=== PATIENT | male | born 1955 | race Two or more races ===

== ENCOUNTER → 2016-05-19 | Outpatient (REF) | payer MEDICARE, MEDICAID ==
[~2016-05-19] MED LIST: ALB2.5NEB INH; ALBU17IN INH; ASPI81TA4 PO; ATRO1SOL13; ATRO1SOL13 INH; BENZ1TA PO; CALC-190 PO; CELE40TA PO; COUM2.5T11 PO; DOCQ100C PO; INVE39IN IM; IPRA2IN INH; MAGN400T5 PO; METF500T PO; OMEP40CA2 PO; PERC5TAB6 PO; REME15TA PO; SERO200T PO; VITA200028 PO
[2016-05-19 13:23] LABS: MEAN CORPUSCULAR HGB CONC 33.7 g/dl (32.0-36.5); RED CELL DISTRIBUTION WIDTH 14.3 % (11.5-14.5); WHITE BLOOD COUNT 12.5 K/mm3 (4.0-10.0)
[2016-05-19 13:48] LABS: ALBUMIN 3.6 GM/DL (3.2-5.2); ALBUMIN/GLOBULIN RATIO 1.09 (1.00-1.93); ALKALINE PHOSPHATASE 98 U/L (45-117); ALT/SGPT 33 U/L (12-78); ANION GAP 9 MEQ/L (8-16); AST/SGOT 21 U/L (15-37); BILIRUBIN,TOTAL 0.2 MG/DL (0.2-1.0); BLOOD UREA NITROGEN 8 MG/DL (7-18); CARBON DIOXIDE LEVEL 27 MEQ/L (21-32); CHLORIDE LEVEL 106 MEQ/L (98-107); CHOLESTEROL LEVEL 182 MG/DL (<200); CREATININE FOR GFR 0.76 MG/DL (0.70-1.30); FERRITIN 21 NG/ML (26-388); GLOMERULAR FILTRATION RATE > 60.0 (>49); GLUCOSE, FASTING 104 MG/DL (80-110); POTASSIUM SERUM 4.1 MEQ/L (3.5-5.1); SODIUM LEVEL 142 MEQ/L (136-145); TOTAL PROTEIN 6.9 GM/DL (6.4-8.2); TRIGLYCERIDES LEVEL 140 MG/DL (<150)
== END ==
LOC: M SFHCPLAZ 10:54
PROVIDERS: ATTEND Nurse Practitioner Family
DX: D50.9 Iron deficiency anemia, unspecified (principal); E88.81 Metabolic syndrome and other insulin resistance; E55.9 Vitamin D deficiency, unspecified; Z79.899 Other long term (current) drug therapy

== ENCOUNTER 2016-07-12 17:46 | Emergency (ER) | payer MEDICARE, MEDICAID ==
[~2016-07-12] VITALS: Ht 170.2 cm; Wt 108.0 kg
[2016-07-12 17:47] VITALS: BP 125/70
[2016-07-12] MEDS ORDERED: KEFL500C7 PO (19:09)
[2016-07-12] MEDS ORDERED: NAPR500T PO (19:09)
[2016-07-12] MEDS ORDERED: NAPROXEN 250 MG TAB PO ONE (19:15)
[2016-07-12] MEDS ORDERED: CEPHALEXIN 500 MG CAP PO ONE (19:15)
== END 2016-07-12 19:29 | disposition home or self-care (01) ==
LOC: M ED 19:02
DX: K11.21 Acute sialoadenitis (principal); J45.909 Unspecified asthma, uncomplicated; G47.30 Sleep apnea, unspecified; E11.9 Type 2 diabetes mellitus without complications; K76.9 Liver disease, unspecified; F41.9 Anxiety disorder, unspecified; F33.9 Major depressive disorder, recurrent, unspecified; F25.9 Schizoaffective disorder, unspecified; Z79.899 Other long term (current) drug therapy; Z88.0 Allergy status to penicillin

== ENCOUNTER 2016-08-11 16:06 | Emergency (ER) | payer MEDICARE, MEDICAID ==
[~2016-08-11] VITALS: Ht 170.2 cm; Wt 113.3 kg
[~2016-08-11 16:06] MED LIST changes: +ASPI81TA18 PO; -ASPI81TA4 PO; +BENZ-52 PO; -BENZ1TA PO; -COUM2.5T11 PO; +COUM2.5T17 PO; +KEFL500C17 PO; -METF500T PO; +METF500T13 PO; +NAPR500T PO; +PERC5TAB12 PO; -PERC5TAB6 PO
[2016-08-11] MEDS ORDERED: GABA-283 (16:30)
[2016-08-11] MEDS ORDERED: INVE1.31 IM (16:30)
[2016-08-11] MEDS ORDERED: MIRT45TA (16:30)
[2016-08-11] MEDS ORDERED: FERR1TAB8 PO (16:30)
[2016-08-11] MEDS ORDERED: NS 1,000 ML IV ONE (17:00)
[2016-08-11] MEDS ORDERED: PANTOPRAZOLE 40MG INJ (PROTONIX) (C9113) IV ONE (17:00)
[2016-08-11 17:43] LABS: BASO # 0.1 K/mm3 (0.0-0.2); BASO % 0.7 % (0.0-1.0); EOS # 0.8 K/mm3 (0.0-0.50); EOS % 4.5 % (0.0-3.0); LARGE UNSTAINED CELL # 0.3 K/mm3 (0.0-0.4); LARGE UNSTAINED CELL % 1.7 % (0.0-4.0); LYMPH # 4.3 K/mm3 (1.5-4.5); LYMPH % 22.9 % (24.0-44.0); MEAN CORPUSCULAR HEMOGLOBIN 29.9 pg (27.0-33.0); MEAN CORPUSCULAR HGB CONC 34.4 g/dl (32.0-36.5); MEAN CORPUSCULAR VOLUME 86.9 fl (80.0-96.0); MONO % 5.1 % (0.0-5.0); NEUTROPHILS # 12.3 K/mm3 (1.8-7.7); NEUTROPHILS % 65.2 % (36.0-66.0); PLATELET COUNT, AUTOMATED 314 k/mm3 (150-450); RED CELL DISTRIBUTION WIDTH 13.9 % (11.5-14.5); WHITE BLOOD COUNT 18.9 K/mm3 (4.0-10.0)
[2016-08-11 17:48] LABS: INR 1.03
[2016-08-11 17:56] LABS: ALBUMIN 3.9 GM/DL (3.2-5.2); ALBUMIN/GLOBULIN RATIO 0.91 (1.00-1.93); ALKALINE PHOSPHATASE 122 U/L (45-117); ALT/SGPT 39 U/L (12-78); AMYLASE 25 U/L (25-115); ANION GAP 9 MEQ/L (8-16); AST/SGOT 22 U/L (15-37); BILIRUBIN,DIRECT < 0.1 MG/DL (0.0-0.2); BILIRUBIN,TOTAL 0.3 MG/DL (0.2-1.0); BLOOD UREA NITROGEN 11 MG/DL (7-18); CALCIUM LEVEL 9.4 MG/DL (8.8-10.2); CARBON DIOXIDE LEVEL 27 MEQ/L (21-32); CHLORIDE LEVEL 102 MEQ/L (98-107); CREATININE FOR GFR 0.93 MG/DL (0.70-1.30); GLOMERULAR FILTRATION RATE > 60.0 (>49); GLUCOSE, FASTING 112 MG/DL (80-110); POTASSIUM SERUM 4.5 MEQ/L (3.5-5.1); SODIUM LEVEL 138 MEQ/L (136-145); TOTAL PROTEIN 8.2 GM/DL (6.4-8.2)
[2016-08-11] MEDS ORDERED: ISOVUE-370 76% 100ML VIAL (Q9967) As Ordered ONE (18:02)
--- NOTE | 2016-08-11 18:38 | REP ---
Clinical: Epigastric and right lower quadrant pain. Technique: Axial contrast enhanced images from the lung bases to the pubic symphysis using 100 ml Isovue 370 intravenous contrast material with coronal and sagittal re-formations. Comparison: 07/07/2015. Findings: Lung bases clear. Visualized heart and pericardium normal. Liver, spleen, pancreas, bilateral adrenal glands and kidneys are normal. The patient is status post cholecystectomy. The enteric system is without obstruction or acute inflammatory process and a normal terminal ileum and appendix are identified in the right lower quadrant. Mild to moderate fecal stasis cannot be excluded. Pelvis demonstrates normal bladder and age appropriate prostate/seminal vesicles. The rectosigmoid colon is normal. No pelvic fluid or ascites. No free air. No adenopathy. No hernia. Vasculature is normal. Musculoskeletal structures demonstrate age-related changes and evidence for prior posterior lumbar fixation. Impression: No acute abdominopelvic pathology appreciated. Mild to moderate fecal stasis cannot be excluded. Signed by José Miguel Mcdermott MD 08/11/2016 06:29 P
[2016-08-11 19:07] VITALS: BP 122/75
[2016-08-11] MEDS ORDERED: MIRA3350 PO (19:10)
[2016-12-09] MEDS ORDERED: INGR40CA PO (00:52)
[2016-12-09] MEDS ORDERED: VENL75CA47 PO (00:52)
[2016-12-09] MEDS ORDERED: CYCL10TA PO (00:52)
[2016-12-09] MEDS ORDERED: LORA10TA2 PO (00:52)
[2016-12-09] MEDS ORDERED: ATOR80TA59 PO (00:52)
[2016-12-09] MEDS ORDERED: MIRT45TA PO (00:52)
[2016-12-09] MEDS ORDERED: CITA20TA4 PO (00:52)
[2016-12-09] MEDS ORDERED: DOCU100C16 PO (00:52)
[2016-12-09] MEDS ORDERED: TRAZ1TAB14 PO (00:52)
== END 2016-08-11 19:27 | disposition home or self-care (01) ==
LOC: M ED 16:06
DX: K59.00 Constipation, unspecified (principal); D72.829 Elevated white blood cell count, unspecified; R05 Cough; E11.9 Type 2 diabetes mellitus without complications; J45.909 Unspecified asthma, uncomplicated; K76.9 Liver disease, unspecified; F33.9 Major depressive disorder, recurrent, unspecified; F41.9 Anxiety disorder, unspecified; F20.9 Schizophrenia, unspecified; G47.30 Sleep apnea, unspecified; R01.1 Cardiac murmur, unspecified; Z87.891 Personal history of nicotine dependence; Z88.0 Allergy status to penicillin; Z79.899 Other long term (current) drug therapy; Z79.01 Long term (current) use of anticoagulants
CPT/HCPCS: 74177; 80048; 80076; 82150; 83605; 83690; 85025; 85610; 96361; 96374; 99284; C9113; Q9967

== ENCOUNTER → 2016-08-15 | Outpatient (REF) | payer MEDICARE, MEDICAID ==
[~2016-08-15] MED LIST changes: +ATIV1TAB10 PO; +ATOR80TA59 PO; +CITA20TA4 PO; +CYCL10TA PO; +DOCU100C16 PO; +FERR1TAB8 PO; +GABA-283; +INGR40CA PO; +INVE1.31 IM; +LORA10TA2 PO; +MIRA3350 PO; +MIRT45TA; +MIRT45TA PO; +TRAZ1TAB14 PO; +VENL75CA47 PO
[2016-08-15 15:33] LABS: BASO # 0.1 K/mm3 (0.0-0.2); BASO % 0.6 % (0.0-1.0); EOS # 0.5 K/mm3 (0.0-0.50); EOS % 4.1 % (0.0-3.0); LARGE UNSTAINED CELL # 0.1 K/mm3 (0.0-0.4); LARGE UNSTAINED CELL % 1.1 % (0.0-4.0); LYMPH % 21.9 % (24.0-44.0); MEAN CORPUSCULAR HEMOGLOBIN 29.5 pg (27.0-33.0); MEAN CORPUSCULAR VOLUME 89.3 fl (80.0-96.0); MONO # 0.8 K/mm3 (0.0-0.8); NEUTROPHILS # 8.6 K/mm3 (1.8-7.7); NEUTROPHILS % 66.3 % (36.0-66.0); PLATELET COUNT, AUTOMATED 314 k/mm3 (150-450); RED CELL DISTRIBUTION WIDTH 14.3 % (11.5-14.5)
== END ==
LOC: M SFHCPLAZ 13:39
PROVIDERS: ATTEND Physician Assistant
DX: D72.829 Elevated white blood cell count, unspecified (principal); J02.9 Acute pharyngitis, unspecified
CPT/HCPCS: 36415; 85025; 87070; G0463

== ENCOUNTER 2016-09-01 10:20 | Emergency (ER) | payer MEDICARE, MEDICAID ==
[~2016-09-01] VITALS: Ht 170.2 cm; Wt 109.1 kg
[~2016-09-01 10:20] MED LIST changes: -ATIV1TAB10 PO; -ATOR80TA59 PO; -CITA20TA4 PO; -CYCL10TA PO; -DOCU100C16 PO; -INGR40CA PO; -LORA10TA2 PO; -MIRT45TA PO; -TRAZ1TAB14 PO; -VENL75CA47 PO
[2016-09-01 10:21] VITALS: BP 134/83
[2016-09-01] MEDS ORDERED: LORazepam 2 MG TAB PO STA (10:55)
[2016-09-01] MEDS ORDERED: ATIV1TAB10 PO (13:17)
[2016-12-09] MEDS ORDERED: ATOR80TA59 PO (00:52)
[2016-12-09] MEDS ORDERED: DOCU100C16 PO (00:52)
[2016-12-09] MEDS ORDERED: INGR40CA PO (00:52)
[2016-12-09] MEDS ORDERED: MIRT45TA PO (00:52)
[2016-12-09] MEDS ORDERED: CYCL10TA PO (00:52)
[2016-12-09] MEDS ORDERED: TRAZ1TAB14 PO (00:52)
[2016-12-09] MEDS ORDERED: LORA10TA2 PO (00:52)
[2016-12-09] MEDS ORDERED: VENL75CA47 PO (00:52)
[2016-12-09] MEDS ORDERED: CITA20TA4 PO (00:52)
== END 2016-09-01 13:22 | disposition home or self-care (01) ==
LOC: M ED 10:20
DX: F41.9 Anxiety disorder, unspecified (principal); E11.9 Type 2 diabetes mellitus without complications; G47.30 Sleep apnea, unspecified

== ENCOUNTER → 2016-09-26 | Outpatient (REF) | payer MEDICARE, MEDICAID ==
[~2016-09-26] MED LIST changes: +ATIV1TAB10 PO; +ATOR80TA59 PO; +CITA20TA4 PO; +CYCL10TA PO; +DOCU100C16 PO; +INGR40CA PO; +LORA10TA2 PO; +MIRT45TA PO; +TRAZ1TAB14 PO; +VENL37.598 PO; +VENL75CA47 PO; +[UNRECOGNIZED DRUG - OTHER] PO
[2016-09-26 16:08] LABS: ALBUMIN/GLOBULIN RATIO 1.18 (1.00-1.93); ALKALINE PHOSPHATASE 122 U/L (45-117); ALT/SGPT 46 U/L (12-78); ANION GAP 11 MEQ/L (8-16); AST/SGOT 23 U/L (15-37); BILIRUBIN,TOTAL 0.3 MG/DL (0.2-1.0); BLOOD UREA NITROGEN 9 MG/DL (7-18); CALCIUM LEVEL 9.3 MG/DL (8.8-10.2); CARBON DIOXIDE LEVEL 24 MEQ/L (21-32); CHLORIDE LEVEL 106 MEQ/L (98-107); CHOLESTEROL LEVEL 141 MG/DL (<200); CREATININE FOR GFR 0.99 MG/DL (0.70-1.30); FERRITIN 51 NG/ML (26-388); GLOMERULAR FILTRATION RATE > 60.0 (>49); GLUCOSE, FASTING 109 MG/DL (80-110); POTASSIUM SERUM 4.3 MEQ/L (3.5-5.1); SODIUM LEVEL 141 MEQ/L (136-145); TOTAL PROTEIN 7.4 GM/DL (6.4-8.2); TRIGLYCERIDES LEVEL 148 MG/DL (<150)
[2016-09-26 16:13] LABS: MEAN CORPUSCULAR HEMOGLOBIN 29.5 pg (27.0-33.0); MEAN CORPUSCULAR HGB CONC 33.4 g/dl (32.0-36.5); MEAN CORPUSCULAR VOLUME 88.2 fl (80.0-96.0); RED CELL DISTRIBUTION WIDTH 14.1 % (11.5-14.5); WHITE BLOOD COUNT 15.8 K/mm3 (4.0-10.0)
== END ==
LOC: M SFHCPLAZ 14:02
PROVIDERS: ATTEND Nurse Practitioner Family
DX: D50.9 Iron deficiency anemia, unspecified (principal); E78.2 Mixed hyperlipidemia; E11.9 Type 2 diabetes mellitus without complications; Z12.5 Encounter for screening for malignant neoplasm of prostate
CPT/HCPCS: 36415; 80053; 80061; 82728; 83036; 85027; G0103

== ENCOUNTER 2016-10-22 11:11 | Emergency (ER) | payer MEDICARE, MEDICAID ==
[~2016-10-22] VITALS: Ht 170.2 cm; Wt 128.6 kg
[~2016-10-22 11:11] MED LIST changes: -ATOR80TA59 PO; -CITA20TA4 PO; -CYCL10TA PO; -DOCU100C16 PO; -INGR40CA PO; -LORA10TA2 PO; -MIRT45TA PO; -TRAZ1TAB14 PO; -VENL37.598 PO; -VENL75CA47 PO; -[UNRECOGNIZED DRUG - OTHER] PO
[2016-10-22 11:13] VITALS: BP 142/78
--- NOTE | 2016-10-22 12:44 | REP ---
Clinical: Cough . Comparison: 08/31/2015 . Technique: PA and lateral. Findings: The mediastinum and cardiac silhouette are normal. The lung montoya are clear and without acute consolidation, effusion, or pneumothorax. The skeletal structures are intact and normal. Impression: 1. No acute cardiopulmonary process. Signed by José Miguel Mcdermott MD 10/22/2016 12:34 P
[2016-10-22] MEDS ORDERED: CYCL10TA PO (13:07)
[2016-12-09] MEDS ORDERED: LORA10TA2 PO (00:52)
[2016-12-09] MEDS ORDERED: INGR40CA PO (00:52)
[2016-12-09] MEDS ORDERED: CYCL10TA PO (00:52)
[2016-12-09] MEDS ORDERED: VENL75CA47 PO (00:52)
[2016-12-09] MEDS ORDERED: DOCU100C16 PO (00:52)
[2016-12-09] MEDS ORDERED: CITA20TA4 PO (00:52)
[2016-12-09] MEDS ORDERED: ATOR80TA59 PO (00:52)
[2016-12-09] MEDS ORDERED: TRAZ1TAB14 PO (00:52)
[2016-12-09] MEDS ORDERED: MIRT45TA PO (00:52)
[2016-12-14] MEDS ORDERED: VENL37.598 PO (10:13)
[2016-12-14] MEDS ORDERED: [UNRECOGNIZED DRUG - OTHER] PO (10:13)
[2016-12-14] MEDS ORDERED: BENZ-52 PO (15:47)
[2016-12-14] MEDS ORDERED: ATOR80TA59 PO (15:50)
[2016-12-14] MEDS ORDERED: CALC-190 PO (15:52)
[2016-12-14] MEDS ORDERED: COLA100C5 PO (15:54)
[2016-12-14] MEDS ORDERED: FERR325T3 PO (15:55)
[2016-12-14] MEDS ORDERED: LORA10CA PO (15:57)
[2016-12-14] MEDS ORDERED: MAGN400C3 PO (15:58)
[2016-12-14] MEDS ORDERED: METF500T13 PO (16:00)
[2016-12-14] MEDS ORDERED: MIRT45TA PO ×2 (16:04)
[2016-12-14] MEDS ORDERED: OMEP40CA2 PO (16:05)
[2016-12-14] MEDS ORDERED: TRAZ1TAB14 PO (16:07)
[2016-12-14] MEDS ORDERED: VENL37TA PO (16:09)
[2016-12-14] MEDS ORDERED: INGR40CA PO (16:12)
== END 2016-10-22 13:51 | disposition home or self-care (01) ==
LOC: M ED 11:11
DX: M54.2 Cervicalgia (principal); R05 Cough

== ENCOUNTER → 2016-10-24 | Outpatient (REF) | payer MEDICARE, MEDICAID ==
[~2016-10-24] MED LIST changes: +ATOR80TA59 PO; +CITA20TA4 PO; +COLA100C5 PO; +CYCL10TA PO; +DOCU100C16 PO; +FERR325T3 PO; +INGR40CA PO; +LORA10CA PO; +LORA10TA2 PO; +MAGN400C3 PO; +MIRT45TA PO; +TRAZ1TAB14 PO; +VENL37.598 PO; +VENL37TA PO; +VENL75CA47 PO; +[UNRECOGNIZED DRUG - OTHER] PO
[2016-10-24 14:23] LABS: RETIC HEMOGLOBIN CONTENT CHr 32.2 PG (24-36); RETICULOCYTE ABSOLUTE ADVIA212 80 x10(9)/L (17-77)
[2016-10-24 14:36] LABS: REASON FOR REVIEW COMPREHENSIVE REVIEW
[2016-10-24 14:37] LABS: PERCENT SATURATION 13.9 % (19.7-50.0)
[2016-10-27 10:13] LABS: PRETREATED FOLATE FOR RBCFOL 9.4 NG/ML
== END ==
LOC: M LAB REF 13:27
PROVIDERS: ATTEND Internal Medicine Medical Oncology
DX: D72.829 Elevated white blood cell count, unspecified (principal); Z79.899 Other long term (current) drug therapy

== ENCOUNTER 2017-01-15 09:22 | Emergency (ER) | payer MEDICARE, MEDICAID ==
[~2017-01-15] VITALS: Ht 170.2 cm; Wt 111.8 kg
[2017-01-15] MEDS ORDERED: TRAZ-136 (09:30)
[2017-01-15] MEDS ORDERED: NS 1,000 ML IV SCH (10:17)
[2017-01-15 10:30] LABS: BASO # 0.1 10^3/uL (0.0-0.2); BASO % 0.4 % (0.0-1.0); EOS # 0.3 10^3/uL (0.0-0.50); IMMATURE GRANULOCYTE % 0.6 % (0-0); LYMPH # 2.9 10^3/uL (1.5-4.5); MEAN CORPUSCULAR HEMOGLOBIN 29.3 pg (27.0-33.0); MEAN CORPUSCULAR HGB CONC 33.9 g/dl (32.0-36.5); MEAN CORPUSCULAR VOLUME 86.6 fl (80.0-96.0); MONO # 0.8 10^3/uL (0.0-0.8); MONO % 5.5 % (0.0-5.0); NEUTROPHILS # 10.2 10^3/uL (1.8-7.7); NEUTROPHILS % 71.5 % (36.0-66.0); PLATELET COUNT, AUTOMATED 287 10^3/uL (150-450); RED CELL DISTRIBUTION WIDTH 13.5 % (11.5-14.5); WHITE BLOOD COUNT 14.3 10^3/uL (4.0-10.0)
[2017-01-15] MEDS ORDERED: KETOROLAC 30 MG/ML VIAL (J1885) IV ONE (10:30)
[2017-01-15 10:56] LABS: ALBUMIN 3.9 GM/DL (3.2-5.2); ALBUMIN/GLOBULIN RATIO 1.15 (1.00-1.93); ALKALINE PHOSPHATASE 117 U/L (45-117); ALT/SGPT 35 U/L (12-78); ANION GAP 9 MEQ/L (8-16); AST/SGOT 18 U/L (7-37); BILIRUBIN,DIRECT 0.1 MG/DL (0.0-0.2); BILIRUBIN,TOTAL 0.3 MG/DL (0.2-1.0); BLOOD UREA NITROGEN 13 MG/DL (7-18); CARBON DIOXIDE LEVEL 26 MEQ/L (21-32); CHLORIDE LEVEL 107 MEQ/L (98-107); GLOMERULAR FILTRATION RATE > 60.0 (>49); GLUCOSE, FASTING 115 MG/DL (80-110); POTASSIUM SERUM 4.1 MEQ/L (3.5-5.1); SODIUM LEVEL 142 MEQ/L (136-145); TOTAL PROTEIN 7.3 GM/DL (6.4-8.2)
--- NOTE | 2017-01-15 11:36 | REP ---
Acute abdominal series series including PA chest and supine upright abdomen: Comparison is a portable chest dated 12/08/2016. PA chest: The lung montoya are clear. Cardiac size is normal. The jackie, mediastinum, and bony thorax are unremarkable. There is no interval change. No free subdiaphragmatic air. Impression: Negative PA chest. Abdomen, supine upright views: The bowel gas pattern is normal. There are surgical clips in the right upper quadrant. Surgical fusion at the lumbosacral junction. Skeletal structures and soft tissues otherwise are unremarkable. Impression: Normal bowel gas pattern. Signed by Thomas Varela MD 01/15/2017 11:28 A
[2017-01-15] MEDS ORDERED: GASTROGRAFIN SOLUTION 30ML PO ONE (12:00)
[2017-01-15] MEDS ORDERED: GASTROGRAFIN SOLUTION 30ML (Q9963) PO ONE (12:30)
[2017-01-15] MEDS ORDERED: ISOVUE-370 76% 100ML VIAL (Q9967) As Ordered ONE (13:14)
[2017-01-15 13:56] VITALS: BP 145/89
--- NOTE | 2017-01-15 14:14 | REP ---
CT ABDOMEN AND PELVIS WITH IV CONTRAST: TECHNIQUE: Axial contrast enhanced images from the lung bases to the pubic symphysis using 100 mL Isovue 370 intravenous contrast material with multiplanar reformations. The visualized lung bases demonstrate no infiltrate. The liver demonstrates no mass. The patient has had as prior cholecystectomy. I do not see evidence of significant biliary dilatation. The spleen, adrenals, pancreas and kidneys are unremarkable. There is no hydronephrosis. There is no abdominal aortic aneurysm. There is no adenopathy. There is no free air or free fluid. There is no bowel wall thickening. There is no evidence of appendicitis. No pelvic mass is seen. No anterior abdominal wall defect is seen. There are degenerative changes of the spine. The patient has had prior posterior fusion at L5-S1. IMPRESSION: No acute abnormalities. No evidence of acute appendicitis. No free air or free fluid. Status post cholecystectomy. Signed by Thomas Thomas MD 01/17/2017 08:57 A
[2017-01-15] MEDS ORDERED: PROCAER4 PR (14:19)
[2017-01-15] MEDS ORDERED: BENT10CA PO (14:21)
== END 2017-01-15 14:38 | disposition home or self-care (01) ==
LOC: M ED 09:22
DX: K59.00 Constipation, unspecified (principal); K64.9 Unspecified hemorrhoids
CPT/HCPCS: 74022; 74177; 80048; 80076; 83605; 83690; 85025; 86850; 86900; 86901; 93041; 96361; 96374; 99285; J1885; Q9963; Q9967

== ENCOUNTER 2017-01-19 09:56 | Inpatient (IN) | payer MEDICAID ==
[~2017-01-19] VITALS: Ht 170.2 cm; Wt 112.0 kg
[~2017-01-19 09:56] MED LIST changes: +BENT10CA PO; +PROCAER4 PR; +TRAZ-136
[2017-01-19 10:43] LABS: BASO # 0.1 10^3/uL (0.0-0.2); BASO % 0.3 % (0.0-1.0); EOS # 0.3 10^3/uL (0.0-0.50); EOS % 1.6 % (0.0-3.0); IMMATURE GRANULOCYTE % 0.4 % (0-0); LYMPH # 2.9 10^3/uL (1.5-4.5); LYMPH % 18.8 % (24.0-44.0); MEAN CORPUSCULAR HEMOGLOBIN 28.9 pg (27.0-33.0); MEAN CORPUSCULAR HGB CONC 33.5 g/dl (32.0-36.5); MEAN CORPUSCULAR VOLUME 86.1 fl (80.0-96.0); MONO % 6.1 % (0.0-5.0); NEUTROPHILS # 11.4 10^3/uL (1.8-7.7); NEUTROPHILS % 72.8 % (36.0-66.0); PLATELET COUNT, AUTOMATED 305 10^3/uL (150-450); RED CELL DISTRIBUTION WIDTH 13.8 % (11.5-14.5); WHITE BLOOD COUNT 15.7 10^3/uL (4.0-10.0)
[2017-01-19 12:29] LABS: METHADONE URINE NEGATIVE (NEGATIVE)
[2017-01-19 12:37] LABS: ALBUMIN 3.6 GM/DL (3.2-5.2); ALBUMIN/GLOBULIN RATIO 1.03 (1.00-1.93); ALKALINE PHOSPHATASE 101 U/L (45-117); ALT/SGPT 24 U/L (12-78); ANION GAP 7 MEQ/L (8-16); AST/SGOT 14 U/L (7-37); BILIRUBIN,DIRECT 0.1 MG/DL (0.0-0.2); BILIRUBIN,TOTAL 0.4 MG/DL (0.2-1.0); BLOOD UREA NITROGEN 8 MG/DL (7-18); CALCIUM LEVEL 8.7 MG/DL (8.8-10.2); CARBON DIOXIDE LEVEL 27 MEQ/L (21-32); CHLORIDE LEVEL 106 MEQ/L (98-107); CREATININE FOR GFR 0.78 MG/DL (0.70-1.30); GLOMERULAR FILTRATION RATE > 60.0 (>49); GLUCOSE, FASTING 113 MG/DL (80-110); POTASSIUM SERUM 4.1 MEQ/L (3.5-5.1); SODIUM LEVEL 140 MEQ/L (136-145); TOTAL PROTEIN 7.1 GM/DL (6.4-8.2)
--- NOTE | 2017-01-19 18:09 | ECGEPIP ---
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
[2017-01-19] MEDS ORDERED: VENL37.598 PO (19:20)
[2017-01-19] MEDS ORDERED: DOCU100C16 PO (19:20)
[2017-01-19] MEDS ORDERED: FERR1TAB8 PO (19:20)
[2017-01-19] MEDS ORDERED: TRAZ1TAB14 PO (19:20)
[2017-01-19] MEDS ORDERED: MAGN400T5 PO (19:20)
[2017-01-19] MEDS ORDERED: INGR40CA PO (19:20)
[2017-01-19] MEDS ORDERED: MIRT45TA PO (19:20)
[2017-01-19] MEDS ORDERED: OMEP40CA2 PO (19:20)
[2017-01-19] MEDS ORDERED: BENZ-52 PO (19:20)
[2017-01-19] MEDS ORDERED: METF500T13 PO (19:20)
[2017-01-19] MEDS ORDERED: ATOR80TA59 PO (19:20)
[2017-01-19] MEDS ORDERED: CALC1TAB74 PO (19:20)
[2017-01-19] MEDS ORDERED: LORA10TA2 PO (19:20)
[2017-01-19] MEDS ORDERED: INVE1.75 IM (19:28)
[2017-01-19] MEDS ORDERED: ACETAMINOPHEN TAB 650MG DOSE (2X325MG) PO PRN (20:15)
[2017-01-19] MEDS ORDERED: ALBUTEROL 90 MCG/ACT 8GM HFA INHALER INH PRN (20:15)
[2017-01-19] MEDS ORDERED: MAALOX 30 ML SUSP *UDC PO PRN (20:15)
[2017-01-19] MEDS ORDERED: MOM 30ML SUSPENSION UDC PO PRN (20:15)
[2017-01-19] MEDS ORDERED: DOCUSATE SODIUM 100 MG CAP PO PRN (20:15)
[2017-01-19 20:48] VITALS: BP 120/76
[2017-01-19] MEDS ORDERED: metFORMIN (GLUCOPHAGE) 500 MG TAB PO SCH (21:00)
[2017-01-19] MEDS: ATORVASTATIN 20 MG TAB PO SCH (21:38)
[2017-01-19] MEDS: BENZTROPINE 1 MG TAB PO SCH (21:38)
[2017-01-19] MEDS: MIRTAZAPINE 15 MG TAB PO SCH (21:38)
[2017-01-19] MEDS: traZODone 50 MG TAB PO SCH (21:38)
[2017-01-20] MEDS: UNRESOLVED CLARIFICATION ENTRY XX SCH (00:01)
[2017-01-20 06:40] VITALS: BP 101/55
[2017-01-20] MEDS: BENZTROPINE 1 MG TAB PO SCH ×2 (08:26→20:10)
[2017-01-20] MEDS: OMEPRAZOLE 20 MG CAP PO SCH (08:26)
[2017-01-20] MEDS: metFORMIN (GLUCOPHAGE) 500 MG TAB PO SCH ×2 (08:26→17:06)
[2017-01-20] MEDS: LORATADINE 10 MG TAB PO SCH (08:26)
[2017-01-20] MEDS: VENLAFAXINE **XR** 37.5 MG CAPSULE PO SCH (08:26)
[2017-01-20] MEDS: FERROUS SULFATE 325MG TAB PO SCH (08:26)
[2017-01-20] MEDS: MAGNESIUM OXIDE 400 MG TAB (MAG-OX) PO SCH (08:26)
[2017-01-20] MEDS: CALCIUM/VITAMIN D 500 MG TAB PO SCH (11:26)
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
[2017-01-20 18:48] VITALS: BP 118/72
[2017-01-20] MEDS: traZODone 50 MG TAB PO SCH (20:10)
[2017-01-20] MEDS: MIRTAZAPINE 15 MG TAB PO SCH (20:10)
[2017-01-20] MEDS: ATORVASTATIN 20 MG TAB PO SCH (20:11)
[2017-01-21] MEDS: UNRESOLVED CLARIFICATION ENTRY XX SCH (00:01)
[2017-01-21 06:41] VITALS: BP 120/82
[2017-01-21] MEDS: CALCIUM/VITAMIN D 500 MG TAB PO SCH (08:22)
[2017-01-21] MEDS: metFORMIN (GLUCOPHAGE) 500 MG TAB PO SCH ×2 (08:22→17:36)
[2017-01-21] MEDS: OMEPRAZOLE 20 MG CAP PO SCH (08:22)
[2017-01-21] MEDS: MAGNESIUM OXIDE 400 MG TAB (MAG-OX) PO SCH (08:22)
[2017-01-21] MEDS: LORATADINE 10 MG TAB PO SCH (08:22)
[2017-01-21] MEDS: BENZTROPINE 1 MG TAB PO SCH ×2 (08:22→20:18)
[2017-01-21] MEDS: FERROUS SULFATE 325MG TAB PO SCH (08:22)
[2017-01-21] MEDS: VENLAFAXINE **XR** 37.5 MG CAPSULE PO SCH (08:22)
[2017-01-21 18:22] VITALS: BP 115/64
[2017-01-21] MEDS: ATORVASTATIN 20 MG TAB PO SCH (20:17)
[2017-01-21] MEDS: traZODone 50 MG TAB PO SCH (20:18)
[2017-01-21] MEDS: MIRTAZAPINE 15 MG TAB PO SCH (20:18)
[2017-01-22] MEDS: UNRESOLVED CLARIFICATION ENTRY XX SCH (00:01)
[2017-01-22 06:58] VITALS: BP 133/84
[2017-01-22] MEDS: metFORMIN (GLUCOPHAGE) 500 MG TAB PO SCH ×2 (07:48→17:03)
[2017-01-22] MEDS: LORATADINE 10 MG TAB PO SCH (08:46)
[2017-01-22] MEDS: BENZTROPINE 1 MG TAB PO SCH ×2 (08:46→20:16)
[2017-01-22] MEDS: VENLAFAXINE **XR** 75MG CAPSULE PO SCH (08:46)
[2017-01-22] MEDS: FERROUS SULFATE 325MG TAB PO SCH (08:47)
[2017-01-22] MEDS: OMEPRAZOLE 20 MG CAP PO SCH (08:47)
[2017-01-22] MEDS: CALCIUM/VITAMIN D 500 MG TAB PO SCH (08:47)
[2017-01-22] MEDS: MAGNESIUM OXIDE 400 MG TAB (MAG-OX) PO SCH (08:47)
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
--- NOTE | 2017-01-22 16:56 | HPE ---
DATE OF ADMISSION: 01/19/2017 HISTORY OF THE PRESENT ILLNESS: Please refer to the psychiatric history and evaluation for further details on this admission. This examination and history is intended for medical issues which may need treatment, followup, or consult on this 61-year-old female. PRIMARY CARE PROVIDER: Dianne Gordon nurse practitioner ALLERGIES: PENICILLIN. SOCIAL HISTORY: He lives with his mother. 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 He has an eighth grade education. He does not smoke cigarettes. He does not drink alcohol. HOME MEDICATIONS: - Ingrezza 40 mg by mouth daily - Invega 819 mg intramuscular (IM) as directed - albuterol two puffs by mouth every four hours as needed for shortness of breath - atorvastatin 80 mg by mouth daily - benztropine 1 mg by mouth twice a day - calcium with vitamin D 600/400 one by mouth daily - Colace 100 mg by mouth three times a day as needed for constipation - ferrous sulfate 325 by mouth daily - loratadine 10 mg by mouth daily - magnesium oxide 400 mg by mouth daily - metformin 500 mg by mouth twice a day - mirtazapine 45 mg by mouth at bedtime - omeprazole 40 mg by mouth daily - trazodone 150 mg by mouth at bedtime - venlafaxine 37.5 mg by mouth daily LABORATORY STUDIES: Toxicology screen negative. White count 15.7, hemoglobin and hematocrit 12.7 and 37.9, platelets 305. Sodium 140, potassium 4.1, chloride 106, CO2 27, BUN 8, creatinine 0.78, nonfasting glucose 113, calcium 8.7, TSH is 1.74. PAST MEDICAL HISTORY: 1. Schizoaffective, depressed type. 2. Borderline intellectual functioning. 3. History of 30 plus years ago cocaine and alcohol abuse. 4. Tardive dyskinesia. 5. Bipolar disorder. 6. Depression. 7. Chronic back pain status post discectomy. 8. Mild asthma. 9. History of allergic rhinitis. 10. History of hyperlipidemia. 11. History of obstructive sleep apnea on continuous positive airway pressure (CPAP). 12. History of anemia. 13. History of vitamin D deficiency. 14. History of dyslipidemia. 15. Metabolic syndrome. 16. Fatty liver. 17. History of reflux without esophagitis. 18. Vzt-dxettex-qknrmhdyu diabetes, type 2. PAST SURGICAL HISTORY: 1. Right inguinal hernia repair. 2. Back surgery. 3. Hemorrhoidectomy. 4. Cholecystectomy. 5. Colonoscopy with polyp resection and tubular adenoma with Dr. Forrester 06/18/2006. 6. Lateral internal sphincterectomy and ligation by Dr. Smyth. 7. Esophagogastroduodenoscopy (EGD) and colonoscopy in May of 2014. 8. Total knee replacement by Dr. Osorio in October of 2015. FAMILY HISTORY: Noncontributory. REVIEW OF SYSTEMS: Ten systems review was done. His only complaint was of occasional hemorrhoidal pain and he states he is scheduled for a hemorrhoidectomy 02/01/2017. He denies any abdominal pain, nausea, vomiting, diarrhea, or rectal bleeding at this time. PHYSICAL EXAMINATION: A 61-year-old cooperative male in no acute distress. Height 67 inches. Weight 112 kg. Body mass index (BMI) 38.7. Blood pressure 120/76, pulse 76, respirations 16, temperature 97, oxygen saturation 97% on room air. The patient is alert and oriented times three. Pupils are equal and reactive to light. Extraocular movements intact. Cornea and sclerae clear. Conjunctivae is normal. No facial asymmetry. Pharynx: Tongue and gums pink and moist. Tongue is midline. Neck is supple without lymphadenopathy. No thyromegaly. No goiter. Carotids are 2+ without bruit. Chest is clear to auscultation without wheeze or retraction. Heart is regular. Abdomen is benign. Bowel sounds are positive. Genitourinary/Rectal: Not done. Extremities show equal strength. Full range of motion. No cyanosis, clubbing, or edema. Peripheral pulses equal and palpable bilaterally. Skin is warm and dry. IMPRESSION AND PLAN: 1. Psychiatric plan per psychiatry. 2. Dpr-raurzpn-bkfmjsgpq diabetes. Fingerstick blood sugars twice a day, consistent-carbohydrate diet. Continue metformin. 3. History of hyperlipidemia. Continue atorvastatin. 4. Environmental allergies. Continue loratadine. 5. Gastroesophageal reflux disease (GERD). Good response to omeprazole. 6. Asthma. Albuterol as needed. 7. EKG on file. No acute ischemia. 8. History of anemia. Continue iron. 9. Leukocytosis. Afebrile and asymptomatic. Repeat complete blood count (CBC) in the morning.
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
[2017-01-22 18:00] VITALS: BP 93/54
[2017-01-22] MEDS: ATORVASTATIN 20 MG TAB PO SCH (20:16)
[2017-01-22] MEDS: MIRTAZAPINE 15 MG TAB PO SCH (20:16)
[2017-01-22] MEDS: traZODone 50 MG TAB PO SCH (20:16)
[2017-01-23 06:25] VITALS: BP 140/77
[2017-01-23 07:30] LABS: BASO # 0.1 10^3/uL (0.0-0.2); BASO % 0.5 % (0.0-1.0); EOS # 0.6 10^3/uL (0.0-0.50); EOS % 4.2 % (0.0-3.0); IMMATURE GRANULOCYTE % 0.8 % (0-0); LYMPH # 4.1 10^3/uL (1.5-4.5); LYMPH % 29.1 % (24.0-44.0); MEAN CORPUSCULAR HEMOGLOBIN 29.1 pg (27.0-33.0); MEAN CORPUSCULAR HGB CONC 33.3 g/dl (32.0-36.5); MEAN CORPUSCULAR VOLUME 87.4 fl (80.0-96.0); MONO # 1.1 10^3/uL (0.0-0.8); MONO % 7.8 % (0.0-5.0); NEUTROPHILS % 57.6 % (36.0-66.0); PLATELET COUNT, AUTOMATED 277 10^3/uL (150-450); RED CELL DISTRIBUTION WIDTH 13.9 % (11.5-14.5); WHITE BLOOD COUNT 13.9 10^3/uL (4.0-10.0)
[2017-01-23] MEDS: metFORMIN (GLUCOPHAGE) 500 MG TAB PO SCH ×2 (07:56→17:50)
[2017-01-23] MEDS: VENLAFAXINE **XR** 75MG CAPSULE PO SCH (07:57)
[2017-01-23] MEDS: CALCIUM/VITAMIN D 500 MG TAB PO SCH (07:57)
[2017-01-23] MEDS: OMEPRAZOLE 20 MG CAP PO SCH (07:57)
[2017-01-23] MEDS: BENZTROPINE 1 MG TAB PO SCH ×2 (07:57→20:07)
[2017-01-23] MEDS: MAGNESIUM OXIDE 400 MG TAB (MAG-OX) PO SCH (07:57)
[2017-01-23] MEDS: FERROUS SULFATE 325MG TAB PO SCH (07:57)
[2017-01-23] MEDS: LORATADINE 10 MG TAB PO SCH (07:57)
[2017-01-23 18:00] VITALS: BP 127/65
[2017-01-23] MEDS: MIRTAZAPINE 15 MG TAB PO SCH (20:07)
[2017-01-23] MEDS: traZODone 50 MG TAB PO SCH (20:07)
[2017-01-23] MEDS: ATORVASTATIN 20 MG TAB PO SCH (20:07)
[2017-01-24 07:15] VITALS: BP 96/55
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
[2017-01-24] MEDS: VENLAFAXINE **XR** 75MG CAPSULE PO SCH (08:29)
[2017-01-24] MEDS: MAGNESIUM OXIDE 400 MG TAB (MAG-OX) PO SCH (08:30)
[2017-01-24] MEDS: BENZTROPINE 1 MG TAB PO SCH ×2 (08:30→20:04)
[2017-01-24] MEDS: LORATADINE 10 MG TAB PO SCH (08:30)
[2017-01-24] MEDS: OMEPRAZOLE 20 MG CAP PO SCH (08:30)
[2017-01-24] MEDS: FERROUS SULFATE 325MG TAB PO SCH (08:31)
[2017-01-24] MEDS: CALCIUM/VITAMIN D 500 MG TAB PO SCH (08:31)
[2017-01-24] MEDS: metFORMIN (GLUCOPHAGE) 500 MG TAB PO SCH ×2 (08:31→17:15)
[2017-01-24 18:00] VITALS: BP 105/57
[2017-01-24] MEDS: ATORVASTATIN 20 MG TAB PO SCH (20:04)
[2017-01-24] MEDS: traZODone 50 MG TAB PO SCH (20:04)
[2017-01-24] MEDS: MIRTAZAPINE 15 MG TAB PO SCH (20:04)
[2017-01-25 07:13] VITALS: BP 128/57
[2017-01-25] MEDS: LORATADINE 10 MG TAB PO SCH (10:04)
[2017-01-25] MEDS: MAGNESIUM OXIDE 400 MG TAB (MAG-OX) PO SCH (10:04)
[2017-01-25] MEDS: OMEPRAZOLE 20 MG CAP PO SCH (10:04)
[2017-01-25] MEDS: CALCIUM/VITAMIN D 500 MG TAB PO SCH (10:04)
[2017-01-25] MEDS: BENZTROPINE 1 MG TAB PO SCH ×2 (10:04→20:01)
[2017-01-25] MEDS: FERROUS SULFATE 325MG TAB PO SCH (10:04)
[2017-01-25] MEDS: VENLAFAXINE **XR** 75MG CAPSULE PO SCH (10:04)
[2017-01-25] MEDS: metFORMIN (GLUCOPHAGE) 500 MG TAB PO SCH ×2 (10:05→18:27)
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
[2017-01-25 18:00] VITALS: BP 131/87
[2017-01-25] MEDS: traZODone 50 MG TAB PO SCH (20:00)
[2017-01-25] MEDS: MIRTAZAPINE 15 MG TAB PO SCH (20:00)
[2017-01-25] MEDS: ATORVASTATIN 20 MG TAB PO SCH (20:01)
[2017-01-26 06:59] VITALS: BP 110/70
[2017-01-26] MEDS: LORATADINE 10 MG TAB PO SCH (08:24)
[2017-01-26] MEDS: OMEPRAZOLE 20 MG CAP PO SCH (08:24)
[2017-01-26] MEDS: VENLAFAXINE **XR** 75MG CAPSULE PO SCH (08:24)
[2017-01-26] MEDS: FERROUS SULFATE 325MG TAB PO SCH (08:24)
[2017-01-26] MEDS: MAGNESIUM OXIDE 400 MG TAB (MAG-OX) PO SCH (08:24)
[2017-01-26] MEDS: BENZTROPINE 1 MG TAB PO SCH (08:24)
[2017-01-26] MEDS: CALCIUM/VITAMIN D 500 MG TAB PO SCH (08:24)
[2017-01-26] MEDS: metFORMIN (GLUCOPHAGE) 500 MG TAB PO SCH (08:24)
[2017-01-26] MEDS ORDERED: VENL150C43 PO (10:57)
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
== END 2017-01-26 11:45 | disposition home or self-care (01) | DRG 885 ==
LOC: M ED 09:56 → M ED INP 20:03 → M PSY 20:48
PROVIDERS: ADMIT Psychiatry & Neurology Psychiatry; ATTEND Psychiatry & Neurology Psychiatry
DX: F25.9 Schizoaffective disorder, unspecified (principal); F79 Unspecified intellectual disabilities; J45.909 Unspecified asthma, uncomplicated; E11.9 Type 2 diabetes mellitus without complications; D64.9 Anemia, unspecified; K21.9 Gastro-esophageal reflux disease without esophagitis; E78.5 Hyperlipidemia, unspecified; Z91.5 Personal history of self-harm; Z79.899 Other long term (current) drug therapy; Z88.0 Allergy status to penicillin; Z79.84 Long term (current) use of oral hypoglycemic drugs; Z90.49 Acquired absence of other specified parts of digestive tract; Z96.659 Presence of unspecified artificial knee joint

== ENCOUNTER → 2017-05-25 | Outpatient (REF) | payer MEDICARE, MEDICAID ==
[2017-05-25 13:43] LABS: ALBUMIN/GLOBULIN RATIO 1.08 (1.00-1.93); ALKALINE PHOSPHATASE 131 U/L (45-117); ALT/SGPT 44 U/L (12-78); ANION GAP 8 MEQ/L (8-16); AST/SGOT 20 U/L (7-37); BILIRUBIN,TOTAL 0.3 MG/DL (0.2-1.0); BLOOD UREA NITROGEN 13 MG/DL (7-18); CALCIUM LEVEL 9.1 MG/DL (8.8-10.2); CARBON DIOXIDE LEVEL 29 MEQ/L (21-32); CHLORIDE LEVEL 104 MEQ/L (98-107); CHOLESTEROL LEVEL 150 MG/DL (<200); CREATININE FOR GFR 0.95 MG/DL (0.70-1.30); GLOMERULAR FILTRATION RATE > 60.0 (>49); GLUCOSE, FASTING 103 MG/DL (70-100); HDL CHOLESTEROL 25 MG/DL (>40); LDL CHOLESTEROL 96.2 MG/DL (<100); NON-HDL-C 125 MG/DL; POTASSIUM SERUM 4.1 MEQ/L (3.5-5.1); SODIUM LEVEL 141 MEQ/L (136-145); TOTAL PROTEIN 7.7 GM/DL (6.4-8.2); TRIGLYCERIDES LEVEL 144 MG/DL (<150)
[2017-05-25 13:44] LABS: TOTAL 25(OH) VITAMIN D 35.1 NG/ML (30.0-100.0)
[2017-05-25 14:02] LABS: ESTIMATED AVERAGE GLUCOSE 131 MG/DL (60-110); HEMOGLOBIN A1c 6.2 %
== END ==
LOC: M SFHCPLAZ 11:53
DX: E11.9 Type 2 diabetes mellitus without complications (principal); E78.2 Mixed hyperlipidemia; E83.40 Disorders of magnesium metabolism, unspecified; E55.9 Vitamin D deficiency, unspecified
CPT/HCPCS: 83735

== ENCOUNTER → 2017-07-04 | Outpatient (REF) | payer MEDICARE, MEDICAID ==
[2017-07-05 12:10] LABS: ALBUMIN 3.8 GM/DL (3.2-5.2); ALBUMIN/GLOBULIN RATIO 1.06 (1.00-1.93); ALKALINE PHOSPHATASE 111 U/L (45-117); ALT/SGPT 42 U/L (12-78); ANION GAP 5 MEQ/L (8-16); AST/SGOT 20 U/L (7-37); BILIRUBIN,TOTAL 0.3 MG/DL (0.2-1.0); BLOOD UREA NITROGEN 11 MG/DL (7-18); CALCIUM LEVEL 9.1 MG/DL (8.8-10.2); CARBON DIOXIDE LEVEL 29 MEQ/L (21-32); CHLORIDE LEVEL 105 MEQ/L (98-107); CREATININE FOR GFR 0.93 MG/DL (0.70-1.30); FREE T4 0.85 NG/DL (0.76-1.46); GLOMERULAR FILTRATION RATE > 60.0 (>49); GLUCOSE, FASTING 114 MG/DL (70-100); IRON (FE) 62 UG/DL (65-175); PERCENT SATURATION 20.7 % (19.7-50.0); POTASSIUM SERUM 4.3 MEQ/L (3.5-5.1); SODIUM LEVEL 139 MEQ/L (136-145); TOTAL IRON BINDING CAPACITY 300 UG/DL (250-450); TOTAL PROTEIN 7.4 GM/DL (6.4-8.2)
[2017-07-05 12:12] LABS: ESTIMATED AVERAGE GLUCOSE 131 MG/DL (60-110); HEMOGLOBIN A1c 6.2 %
[2017-07-05 13:03] LABS: HEMATOCRIT 38.7 % (42.0-52.0); MEAN CORPUSCULAR HEMOGLOBIN 29.6 pg (27.0-33.0); MEAN CORPUSCULAR HGB CONC 33.6 g/dl (32.0-36.5); MEAN CORPUSCULAR VOLUME 88.2 fl (80.0-96.0); PLATELET COUNT, AUTOMATED 279 10^3/uL (150-450); RED BLOOD COUNT 4.39 10^6/uL (4.30-6.10); RED CELL DISTRIBUTION WIDTH 14.1 % (11.5-14.5); WHITE BLOOD COUNT 14.8 10^3/uL (4.0-10.0)
== END ==
LOC: M SFHCPLAZ 11:17
DX: D50.9 Iron deficiency anemia, unspecified (principal); R73.9 Hyperglycemia, unspecified; K59.00 Constipation, unspecified
CPT/HCPCS: 83550

== ENCOUNTER 2017-07-10 15:33 | Outpatient (REF) | payer MEDICARE, MEDICAID | END 2017-07-13 | LOC: M SFHCPLAZ 15:33 | DX: E11.9 Type 2 diabetes mellitus without complications (principal); Z53.8 Procedure and treatment not carried out for other reasons ==

== ENCOUNTER → 2017-07-13 | Outpatient (REF) | payer MEDICARE, MEDICAID ==
[2017-07-13 16:35] LABS: MALB URINE SIEMENS 5.5 MG/L
== END ==
LOC: M SFHCPLAZ 15:50
DX: E11.9 Type 2 diabetes mellitus without complications (principal)
CPT/HCPCS: 82043

== ENCOUNTER 2017-07-14 16:46 | Emergency (ER) | payer MEDICARE, MEDICAID ==
[2017-07-14 18:22] LABS: BASO # 0.1 10^3/uL (0.0-0.2); BASO % 0.4 % (0.0-1.0); EOS # 0.5 10^3/uL (0.0-0.50); EOS % 3.2 % (0.0-3.0); HEMATOCRIT 35.3 % (42.0-52.0); HEMOGLOBIN 12.1 g/dl (13.5-17.5); IMMATURE GRANULOCYTE % 0.6 % (0-3.0); LYMPH # 3.2 10^3/uL (1.5-4.5); LYMPH % 21.3 % (24.0-44.0); MEAN CORPUSCULAR HEMOGLOBIN 29.7 pg (27.0-33.0); MEAN CORPUSCULAR HGB CONC 34.3 g/dl (32.0-36.5); MEAN CORPUSCULAR VOLUME 86.7 fl (80.0-96.0); MONO # 0.9 10^3/uL (0.0-0.8); MONO % 6.3 % (0.0-5.0); NEUTROPHILS # 10.2 10^3/uL (1.8-7.7); NEUTROPHILS % 68.2 % (36.0-66.0); PLATELET COUNT, AUTOMATED 251 10^3/uL (150-450); RED BLOOD COUNT 4.07 10^6/uL (4.30-6.10); RED CELL DISTRIBUTION WIDTH 13.3 % (11.5-14.5); WHITE BLOOD COUNT 14.9 10^3/uL (4.0-10.0)
[2017-07-14 18:47] LABS: LACTIC ACID SEPSIS PROTOCOL 2.2 MMOL/L (0.4-2.0)
[2017-07-14 18:48] LABS: ALBUMIN 3.4 GM/DL (3.2-5.2); ALBUMIN/GLOBULIN RATIO 0.89 (1.00-1.93); ALKALINE PHOSPHATASE 104 U/L (45-117); ALT/SGPT 26 U/L (12-78); ANION GAP 8 MEQ/L (8-16); AST/SGOT 9 U/L (7-37); BILIRUBIN,DIRECT < 0.1 MG/DL (0.0-0.2); BILIRUBIN,TOTAL 0.1 MG/DL (0.2-1.0); BLOOD UREA NITROGEN 9 MG/DL (7-18); CALCIUM LEVEL 8.5 MG/DL (8.8-10.2); CARBON DIOXIDE LEVEL 25 MEQ/L (21-32); CHLORIDE LEVEL 107 MEQ/L (98-107); CREATININE FOR GFR 0.85 MG/DL (0.70-1.30); GLOMERULAR FILTRATION RATE > 60.0 (>49); GLUCOSE, FASTING 145 MG/DL (70-100); LIPASE 83 U/L (73-393); POTASSIUM SERUM 3.6 MEQ/L (3.5-5.1); SODIUM LEVEL 140 MEQ/L (136-145); TOTAL PROTEIN 7.2 GM/DL (6.4-8.2)
[2017-07-14] MEDS: MORPHINE 4 MG/ML 1ML VIAL/SYRINGE (J2270) IM (19:30)
[2017-07-14] MEDS: MORPHINE 4 MG/ML 1ML VIAL/SYRINGE (J2270) IV (20:00)
== END 2017-07-14 21:36 | disposition home or self-care (01) ==
LOC: M ED 16:46
DX: K64.5 Perianal venous thrombosis (principal); J45.909 Unspecified asthma, uncomplicated; F25.9 Schizoaffective disorder, unspecified; K21.9 Gastro-esophageal reflux disease without esophagitis; Z86.2 Personal history of diseases of the blood and blood-forming organs and certain disorders involving the immune mechanism; Z98.890 Other specified postprocedural states; Z88.0 Allergy status to penicillin; Z79.899 Other long term (current) drug therapy
CPT/HCPCS: J2270

== ENCOUNTER → 2017-07-24 | Outpatient (CLI) | payer MEDICARE, MEDICAID | LOC: M RAD 07:57 | DX: K59.00 Constipation, unspecified (principal) | CPT/HCPCS: 78264 ==

== ENCOUNTER 2017-08-02 07:32 | Day surgery (SDC) | payer MEDICARE, MEDICAID ==
[2017-08-02] MEDS ORDERED: NS 1,000 ML IV (07:45)
[2017-08-02] MEDS ORDERED: PROPOFOL 200 MG/20 ML VIAL As Ordered (08:54)
[2017-08-02] MEDS ORDERED: LIDOCAINE 2% MDV 20 ML VIAL As Ordered (08:54)
[2017-08-02] MEDS ORDERED: fentaNYL 100 MCG/2 ML INJECTION (J3010) As Ordered (09:36)
== END 2017-08-02 10:47 | disposition home or self-care (01) ==
LOC: M OPP 07:32
DX: R10.84 Generalized abdominal pain (principal); K59.00 Constipation, unspecified; R10.13 Epigastric pain; K29.70 Gastritis, unspecified, without bleeding; I20.9 Angina pectoris, unspecified; I25.119 Atherosclerotic heart disease of native coronary artery with unspecified angina pectoris; R01.1 Cardiac murmur, unspecified; E11.9 Type 2 diabetes mellitus without complications; K62.5 Hemorrhage of anus and rectum; K21.9 Gastro-esophageal reflux disease without esophagitis; D50.9 Iron deficiency anemia, unspecified; R41.82 Altered mental status, unspecified; G93.41 Metabolic encephalopathy; M19.90 Unspecified osteoarthritis, unspecified site; M54.9 Dorsalgia, unspecified; F41.9 Anxiety disorder, unspecified; F32.9 Major depressive disorder, single episode, unspecified; G31.84 Mild cognitive impairment of uncertain or unknown etiology; J45.909 Unspecified asthma, uncomplicated; G47.30 Sleep apnea, unspecified; R06.83 Snoring; R32 Unspecified urinary incontinence; Z96.652 Presence of left artificial knee joint; Z87.891 Personal history of nicotine dependence; Z88.0 Allergy status to penicillin; Z79.84 Long term (current) use of oral hypoglycemic drugs; Z79.899 Other long term (current) drug therapy
CPT/HCPCS: 45378

== ENCOUNTER 2017-09-09 17:31 | Emergency (ER) | payer MEDICARE, MEDICAID ==
[2017-09-09 18:48] LABS: BASO # 0.1 10^3/uL (0.0-0.2); BASO % 0.5 % (0.0-1.0); EOS # 0.5 10^3/uL (0.0-0.50); EOS % 3.9 % (0.0-3.0); HEMATOCRIT 35.9 % (42.0-52.0); HEMOGLOBIN 12.2 g/dl (13.5-17.5); IMMATURE GRANULOCYTE % 0.4 % (0-3.0); LYMPH # 3.4 10^3/uL (1.5-4.5); LYMPH % 25.9 % (24.0-44.0); MEAN CORPUSCULAR HEMOGLOBIN 29.8 pg (27.0-33.0); MEAN CORPUSCULAR VOLUME 87.8 fl (80.0-96.0); MONO # 0.9 10^3/uL (0.0-0.8); MONO % 7.1 % (0.0-5.0); NEUTROPHILS % 62.2 % (36.0-66.0); PLATELET COUNT, AUTOMATED 254 10^3/uL (150-450); RED BLOOD COUNT 4.09 10^6/uL (4.30-6.10); RED CELL DISTRIBUTION WIDTH 13.3 % (11.5-14.5); WHITE BLOOD COUNT 12.9 10^3/uL (4.0-10.0)
[2017-09-09] MEDS: NS 1,000 ML IV (18:53)
[2017-09-09] MEDS: MORPHINE 4 MG/ML 1ML VIAL/SYRINGE (J2270) IV (18:53)
[2017-09-09] MEDS: PANTOPRAZOLE 40MG INJ (PROTONIX) (C9113) IV (18:53)
[2017-09-09 19:00] LABS: INR 1.05; PROTHROMBIN TIME 13.9 SECONDS (12.1-14.4)
[2017-09-09 19:01] LABS: PARTIAL THROMBOPLASTIN TIME 28.1 SECONDS (25.4-37.6)
[2017-09-09 19:15] LABS: ALBUMIN 3.4 GM/DL (3.2-5.2); ALBUMIN/GLOBULIN RATIO 0.94 (1.00-1.93); ALKALINE PHOSPHATASE 100 U/L (45-117); ALT/SGPT 32 U/L (12-78); ANION GAP 9 MEQ/L (8-16); AST/SGOT 15 U/L (7-37); BILIRUBIN,DIRECT < 0.1 MG/DL (0.0-0.2); BILIRUBIN,TOTAL 0.2 MG/DL (0.2-1.0); BLOOD UREA NITROGEN 14 MG/DL (7-18); CALCIUM LEVEL 8.7 MG/DL (8.8-10.2); CARBON DIOXIDE LEVEL 25 MEQ/L (21-32); CHLORIDE LEVEL 108 MEQ/L (98-107); GLOMERULAR FILTRATION RATE > 60.0 (>49); GLUCOSE, FASTING 141 MG/DL (70-100); LIPASE 85 U/L (73-393); POTASSIUM SERUM 3.6 MEQ/L (3.5-5.1); SODIUM LEVEL 142 MEQ/L (136-145)
[2017-09-09 19:15] LABS: LACTIC ACID SEPSIS PROTOCOL 1.9 MMOL/L (0.4-2.0)
[2017-09-09] MEDS ORDERED: ISOVUE-370 76% 100ML VIAL (Q9967) As Ordered (19:36)
== END 2017-09-09 21:04 | disposition home or self-care (01) ==
LOC: M ED 17:31
DX: K92.2 Gastrointestinal hemorrhage, unspecified (principal); K92.1 Melena; K76.0 Fatty (change of) liver, not elsewhere classified; I10 Essential (primary) hypertension; J45.909 Unspecified asthma, uncomplicated; E11.9 Type 2 diabetes mellitus without complications; E78.00 Pure hypercholesterolemia, unspecified; K21.9 Gastro-esophageal reflux disease without esophagitis; K74.60 Unspecified cirrhosis of liver; Z87.19 Personal history of other diseases of the digestive system; Z79.899 Other long term (current) drug therapy; Z79.84 Long term (current) use of oral hypoglycemic drugs; Z88.0 Allergy status to penicillin
CPT/HCPCS: C9113

== ENCOUNTER 2017-09-21 17:40 | Emergency (ER) | payer MEDICARE, MEDICAID ==
[2017-09-21 18:43] LABS: BASO # 0.1 10^3/uL (0.0-0.2); BASO % 0.3 % (0.0-1.0); EOS # 0.4 10^3/uL (0.0-0.50); EOS % 2.8 % (0.0-3.0); HEMATOCRIT 36.1 % (42.0-52.0); HEMOGLOBIN 12.4 g/dl (13.5-17.5); IMMATURE GRANULOCYTE % 0.5 % (0-3.0); MEAN CORPUSCULAR HEMOGLOBIN 30.1 pg (27.0-33.0); MEAN CORPUSCULAR HGB CONC 34.3 g/dl (32.0-36.5); MEAN CORPUSCULAR VOLUME 87.6 fl (80.0-96.0); MONO % 6.5 % (0.0-5.0); NEUTROPHILS # 11.2 10^3/uL (1.8-7.7); NEUTROPHILS % 70.9 % (36.0-66.0); PLATELET COUNT, AUTOMATED 261 10^3/uL (150-450); RED BLOOD COUNT 4.12 10^6/uL (4.30-6.10); RED CELL DISTRIBUTION WIDTH 13.2 % (11.5-14.5); WHITE BLOOD COUNT 15.7 10^3/uL (4.0-10.0)
[2017-09-21] MEDS: NS 500 ML IV (18:45)
[2017-09-21 18:47] LABS: INR 1.18; PARTIAL THROMBOPLASTIN TIME 26.7 SECONDS (25.4-37.6); PROTHROMBIN TIME 15.2 SECONDS (12.1-14.4)
[2017-09-21 18:59] LABS: ALBUMIN 3.5 GM/DL (3.2-5.2); ALBUMIN/GLOBULIN RATIO 0.88 (1.00-1.93); ALKALINE PHOSPHATASE 101 U/L (45-117); ALT/SGPT 30 U/L (12-78); ANION GAP 10 MEQ/L (8-16); AST/SGOT 11 U/L (7-37); BILIRUBIN,DIRECT < 0.1 MG/DL (0.0-0.2); BILIRUBIN,TOTAL 0.2 MG/DL (0.2-1.0); BLOOD UREA NITROGEN 10 MG/DL (7-18); CALCIUM LEVEL 8.8 MG/DL (8.8-10.2); CARBON DIOXIDE LEVEL 26 MEQ/L (21-32); CHLORIDE LEVEL 106 MEQ/L (98-107); CK-MB VALUE MASS < 1.0 NG/ML (<3.6); CPK CREATINE PHOSPHOKINASE 87 U/L (39-308); CREATININE FOR GFR 0.87 MG/DL (0.70-1.30); GLOMERULAR FILTRATION RATE > 60.0 (>49); GLUCOSE, FASTING 127 MG/DL (70-100); LIPASE 62 U/L (73-393); MB/CK RELATIVE INDEX 1.14 (< OR =4); POTASSIUM SERUM 3.7 MEQ/L (3.5-5.1); SODIUM LEVEL 142 MEQ/L (136-145); TOTAL PROTEIN 7.5 GM/DL (6.4-8.2); TROPONIN I < 0.02 NG/ML (< 0.10)
[2017-09-21] MEDS: MORPHINE 2 MG/ML 1ML SYRINGE (J2270) IV ×2 (19:10→20:30)
[2017-09-21] MEDS ORDERED: ISOVUE-370 76% 100ML VIAL (Q9967) As Ordered (19:16)
[2017-09-21 20:00] LABS: LACTIC ACID SEPSIS PROTOCOL 2.2 MMOL/L (0.4-2.0)
[2017-09-21 20:12] LABS: KETONE, URINE AUTO RFX NEGATIVE (NEGATIVE); LEUKOCYTE ESTERASE UR AUTO RFX NEGATIVE (NEGATIVE); MUCUS, URINE RFX SMALL (NEGATIVE); NITRITE, URINE AUTO RFX NEGATIVE (NEGATIVE); RBC, URINE AUTO RFX 2 /HPF (0-3); SPECIFIC GRAVITY UR AUTO RFX 1.051 (1.002-1.035); SQUAM EPITHELIAL CELL UR AURFX 0 /HPF (0-6); WBC, URINE AUTO RFX 1 /HPF (0-3)
== END 2017-09-21 21:33 | disposition home or self-care (01) ==
LOC: M ED 17:40
DX: K59.00 Constipation, unspecified (principal); R10.31 Right lower quadrant pain; I45.10 Unspecified right bundle-branch block; R06.02 Shortness of breath; J45.909 Unspecified asthma, uncomplicated; E78.5 Hyperlipidemia, unspecified; F31.9 Bipolar disorder, unspecified; G47.33 Obstructive sleep apnea (adult) (pediatric); E66.01 Morbid (severe) obesity due to excess calories; I20.9 Angina pectoris, unspecified; Z87.891 Personal history of nicotine dependence; Z88.0 Allergy status to penicillin; Z79.899 Other long term (current) drug therapy; Z79.84 Long term (current) use of oral hypoglycemic drugs
CPT/HCPCS: Q9967

== ENCOUNTER 2017-11-01 14:39 | Emergency (ER) | payer MEDICARE, MEDICAID ==
[2017-11-01 16:00] LABS: BASO # 0.1 10^3/uL (0.0-0.2); BASO % 0.4 % (0.0-1.0); EOS # 0.4 10^3/uL (0.0-0.50); EOS % 2.6 % (0.0-3.0); HEMATOCRIT 36.6 % (42.0-52.0); HEMOGLOBIN 12.4 g/dl (13.5-17.5); IMMATURE GRANULOCYTE % 0.3 % (0-3.0); LYMPH # 3.2 10^3/uL (1.5-4.5); LYMPH % 23.6 % (24.0-44.0); MEAN CORPUSCULAR HEMOGLOBIN 29.7 pg (27.0-33.0); MEAN CORPUSCULAR HGB CONC 33.9 g/dl (32.0-36.5); MEAN CORPUSCULAR VOLUME 87.6 fl (80.0-96.0); MONO % 7.6 % (0.0-5.0); NEUTROPHILS # 8.8 10^3/uL (1.8-7.7); NEUTROPHILS % 65.5 % (36.0-66.0); PLATELET COUNT, AUTOMATED 250 10^3/uL (150-450); RED BLOOD COUNT 4.18 10^6/uL (4.30-6.10); RED CELL DISTRIBUTION WIDTH 13.2 % (11.5-14.5); WHITE BLOOD COUNT 13.4 10^3/uL (4.0-10.0)
[2017-11-01 16:15] LABS: INR 1.04; PROTHROMBIN TIME 13.7 SECONDS (12.1-14.4)
[2017-11-01 16:16] LABS: PARTIAL THROMBOPLASTIN TIME 28.1 SECONDS (25.4-37.6)
[2017-11-01] MEDS: MORPHINE 4 MG/ML 1ML VIAL/SYRINGE (J2270) IV (16:23)
[2017-11-01] MEDS: NS 1,000 ML IV (16:25)
[2017-11-01 16:30] LABS: ALBUMIN 3.7 GM/DL (3.2-5.2); ALBUMIN/GLOBULIN RATIO 1.16 (1.00-1.93); ALKALINE PHOSPHATASE 110 U/L (45-117); ALT/SGPT 35 U/L (12-78); ANION GAP 9 MEQ/L (8-16); AST/SGOT 16 U/L (7-37); BILIRUBIN,DIRECT < 0.1 MG/DL (0.0-0.2); BILIRUBIN,TOTAL 0.2 MG/DL (0.2-1.0); BLOOD UREA NITROGEN 12 MG/DL (7-18); CARBON DIOXIDE LEVEL 26 MEQ/L (21-32); CHLORIDE LEVEL 107 MEQ/L (98-107); CK-MB VALUE MASS < 1.0 NG/ML (<3.6); CPK CREATINE PHOSPHOKINASE 44 U/L (39-308); CREATININE FOR GFR 0.88 MG/DL (0.70-1.30); GLOMERULAR FILTRATION RATE > 60.0 (>49); GLUCOSE, FASTING 88 MG/DL (70-100); LIPASE 62 U/L (73-393); MB/CK RELATIVE INDEX 2.27 (< OR =4); POTASSIUM SERUM 4.1 MEQ/L (3.5-5.1); SODIUM LEVEL 142 MEQ/L (136-145); TOTAL PROTEIN 6.9 GM/DL (6.4-8.2); TROPONIN I < 0.02 NG/ML (< 0.10)
[2017-11-01] MEDS ORDERED: ISOVUE-370 76% 100ML VIAL (Q9967) As Ordered (16:44)
[2017-11-01 16:50] LABS: CALCIUM OXALATE CRYSTALS RFX SMALL; KETONE, URINE AUTO RFX NEGATIVE (NEGATIVE); LEUKOCYTE ESTERASE UR AUTO RFX NEGATIVE (NEGATIVE); MUCUS, URINE RFX SMALL (NEGATIVE); NITRITE, URINE AUTO RFX NEGATIVE (NEGATIVE); RBC, URINE AUTO RFX 1 /HPF (0-3); SPECIFIC GRAVITY UR AUTO RFX 1.023 (1.002-1.035); SQUAM EPITHELIAL CELL UR AURFX 0 /HPF (0-6); WBC, URINE AUTO RFX 2 /HPF (0-3)
== END 2017-11-01 18:15 | disposition home or self-care (01) ==
LOC: M ED 14:39
DX: R10.9 Unspecified abdominal pain (principal); R06.02 Shortness of breath; J45.909 Unspecified asthma, uncomplicated; E78.5 Hyperlipidemia, unspecified; K21.9 Gastro-esophageal reflux disease without esophagitis; G47.30 Sleep apnea, unspecified; D64.9 Anemia, unspecified; F33.9 Major depressive disorder, recurrent, unspecified; F41.9 Anxiety disorder, unspecified; F25.9 Schizoaffective disorder, unspecified; E55.9 Vitamin D deficiency, unspecified; Z88.0 Allergy status to penicillin; Z87.891 Personal history of nicotine dependence
CPT/HCPCS: J2270

== ENCOUNTER → 2017-11-29 | Outpatient (REF) | payer MEDICARE, MEDICAID ==
[2017-11-29 16:20] LABS: HEMATOCRIT 39.1 % (42.0-52.0); HEMOGLOBIN 13.1 g/dl (13.5-17.5); MEAN CORPUSCULAR HEMOGLOBIN 29.3 pg (27.0-33.0); MEAN CORPUSCULAR HGB CONC 33.5 g/dl (32.0-36.5); MEAN CORPUSCULAR VOLUME 87.5 fl (80.0-96.0); PLATELET COUNT, AUTOMATED 315 10^3/uL (150-450); RED BLOOD COUNT 4.47 10^6/uL (4.30-6.10); RED CELL DISTRIBUTION WIDTH 13.4 % (11.5-14.5); WHITE BLOOD COUNT 13.1 10^3/uL (4.0-10.0)
[2017-11-29 16:45] LABS: ALBUMIN/GLOBULIN RATIO 1.14 (1.00-1.93); ALKALINE PHOSPHATASE 130 U/L (45-117); ALT/SGPT 39 U/L (12-78); ANION GAP 8 MEQ/L (8-16); AST/SGOT 11 U/L (7-37); BILIRUBIN,TOTAL 0.2 MG/DL (0.2-1.0); BLOOD UREA NITROGEN 8 MG/DL (7-18); CALCIUM LEVEL 9.3 MG/DL (8.8-10.2); CARBON DIOXIDE LEVEL 28 MEQ/L (21-32); CHLORIDE LEVEL 105 MEQ/L (98-107); CREATININE FOR GFR 0.86 MG/DL (0.70-1.30); ESTIMATED AVERAGE GLUCOSE 111 MG/DL (60-110); GLOMERULAR FILTRATION RATE > 60.0 (>49); GLUCOSE, FASTING 99 MG/DL (70-100); HEMOGLOBIN A1c 5.5 %; POTASSIUM SERUM 4.1 MEQ/L (3.5-5.1); SODIUM LEVEL 141 MEQ/L (136-145); TOTAL PROTEIN 7.5 GM/DL (6.4-8.2)
== END ==
LOC: M SFHCPLAZ 12:58
DX: K21.9 Gastro-esophageal reflux disease without esophagitis (principal); E11.9 Type 2 diabetes mellitus without complications
CPT/HCPCS: 80053

== ENCOUNTER 2018-01-03 14:30 | Emergency (ER) | payer MEDICARE, MEDICAID ==
[2018-01-03] MEDS: traMADol 50 MG TAB PO (16:36)
[2018-01-03] MEDS: ACETAMINOPHEN TAB 650MG DOSE (2X325MG) PO (16:36)
[2018-01-03 16:41] LABS: BASO # 0.1 10^3/uL (0.0-0.2); BASO % 0.5 % (0.0-1.0); EOS # 0.2 10^3/uL (0.0-0.50); EOS % 1.8 % (0.0-3.0); HEMATOCRIT 35.3 % (42.0-52.0); IMMATURE GRANULOCYTE % 0.3 % (0-3.0); LYMPH # 2.5 10^3/uL (1.5-4.5); LYMPH % 18.8 % (24.0-44.0); MEAN CORPUSCULAR HEMOGLOBIN 29.5 pg (27.0-33.0); MEAN CORPUSCULAR VOLUME 86.7 fl (80.0-96.0); MONO % 7.7 % (0.0-5.0); NEUTROPHILS # 9.5 10^3/uL (1.8-7.7); NEUTROPHILS % 70.9 % (36.0-66.0); PLATELET COUNT, AUTOMATED 281 10^3/uL (150-450); RED BLOOD COUNT 4.07 10^6/uL (4.30-6.10); RED CELL DISTRIBUTION WIDTH 13.3 % (11.5-14.5); WHITE BLOOD COUNT 13.5 10^3/uL (4.0-10.0)
[2018-01-03 16:59] LABS: ALBUMIN 3.6 GM/DL (3.2-5.2); ALBUMIN/GLOBULIN RATIO 0.97 (1.00-1.93); ALKALINE PHOSPHATASE 104 U/L (45-117); ALT/SGPT 45 U/L (12-78); ANION GAP 9 MEQ/L (8-16); AST/SGOT 28 U/L (7-37); BILIRUBIN,DIRECT 0.1 MG/DL (0.0-0.2); BILIRUBIN,TOTAL 0.3 MG/DL (0.2-1.0); BLOOD UREA NITROGEN 12 MG/DL (7-18); CALCIUM LEVEL 9.1 MG/DL (8.8-10.2); CARBON DIOXIDE LEVEL 28 MEQ/L (21-32); CHLORIDE LEVEL 103 MEQ/L (98-107); CREATININE FOR GFR 0.74 MG/DL (0.70-1.30); GLOMERULAR FILTRATION RATE > 60.0 (>49); GLUCOSE, FASTING 105 MG/DL (70-100); POTASSIUM SERUM 3.9 MEQ/L (3.5-5.1); SODIUM LEVEL 140 MEQ/L (136-145); TOTAL PROTEIN 7.3 GM/DL (6.4-8.2)
[2018-01-03 17:08] LABS: VITAMIN B12 LEVEL 481 PG/ML (247-911)
== END 2018-01-03 18:06 | disposition home or self-care (01) ==
LOC: M ED 14:30
DX: M51.36 Other intervertebral disc degeneration, lumbar region (principal); M54.32 Sciatica, left side; E11.9 Type 2 diabetes mellitus without complications; J45.909 Unspecified asthma, uncomplicated; E78.00 Pure hypercholesterolemia, unspecified; K21.9 Gastro-esophageal reflux disease without esophagitis; G93.41 Metabolic encephalopathy; K76.89 Other specified diseases of liver; F41.9 Anxiety disorder, unspecified; F25.9 Schizoaffective disorder, unspecified; F31.9 Bipolar disorder, unspecified; F10.21 Alcohol dependence, in remission; F11.21 Opioid dependence, in remission; Z79.899 Other long term (current) drug therapy; Z79.84 Long term (current) use of oral hypoglycemic drugs; Z88.0 Allergy status to penicillin
CPT/HCPCS: 72110

== ENCOUNTER → 2018-02-15 | Outpatient (REF) | payer MEDICARE, MEDICAID ==
[~2018-02-15] MED LIST changes: +ACET30TAB PO; +ANUS25SU PR; -ASPI81TA18 PO; +ASPI81TA52 PO; +ATOR80TA59; +BENZ-52; +CALC1TAB74 PO; +CALCCHW4 PO; +Calcium; -DOCQ100C PO; +DOCQ100C5 PO; +EFFE150C2; +FERR1TAB8; -GABA-283; +GABA-845; +INVE1.75 IM; +LORA-243; +LORA-243 PO; -LORA10TA2 PO; +LORA10TA3 PO; +MAG400TA; +MAGN1SOL2 PO; +MAGN400T2; +METF500T13; -MIRT45TA; -MIRT45TA PO; +MIRT45TA4; +MIRT45TA4 PO; +NAPR-50 PO; -NAPR500T PO; +OMEP40CA2; +PROC1AER16 PR; -PROCAER4 PR; +REGL5TAB2 PO; +SUCR1TAB56; -TRAZ-136; +TRAZ-163; +VENL150C43; +VENL150C43 PO; +VENTAER INH
[2018-02-15 12:23] LABS: ALT/SGPT 33 U/L (12-78); BILIRUBIN,TOTAL 0.2 MG/DL (0.2-1.0); BLOOD UREA NITROGEN 10 MG/DL (7-18); CALCIUM LEVEL 9.3 MG/DL (8.8-10.2); CARBON DIOXIDE LEVEL 27 MEQ/L (21-32); CHLORIDE LEVEL 103 MEQ/L (98-107); CREATININE FOR GFR 0.78 MG/DL (0.70-1.30); GLOMERULAR FILTRATION RATE > 60.0 (>49); GLUCOSE, FASTING 99 MG/DL (70-100); POTASSIUM SERUM 4.4 MEQ/L (3.5-5.1); SODIUM LEVEL 138 MEQ/L (136-145); TOTAL PROTEIN 7.3 GM/DL (6.4-8.2)
[2018-02-15 12:51] LABS: HEMOGLOBIN A1c 5.6 %
== END ==
LOC: M SFHCPLAZ 10:03
PROVIDERS: ATTEND Nurse Practitioner Family
DX: E11.9 Type 2 diabetes mellitus without complications (principal)
CPT/HCPCS: 36415; 80053; 83036; G0463

== ENCOUNTER 2018-04-30 13:57 | Emergency (ER) | payer MEDICARE, MEDICAID ==
[~2018-04-30] VITALS: Ht 170.2 cm; Wt 109.1 kg
[~2018-04-30 13:57] MED LIST changes: +ACET-716 PO; -ACET30TAB PO; -CITA20TA4 PO; +CITA20TA6 PO; -NAPR-50 PO; +NAPR-837 PO
[2018-04-30] MEDS ORDERED: CALCTAB6 PO (14:14)
[2018-04-30] MEDS ORDERED: BENZ-52 PO (14:14)
[2018-04-30] MEDS ORDERED: LORA-243 PO (14:14)
[2018-04-30] MEDS ORDERED: COLA100C5 PO (14:14)
[2018-04-30] MEDS ORDERED: METF-839 PO (14:14)
[2018-04-30] MEDS ORDERED: ATOR80TA59 PO (14:14)
[2018-04-30] MEDS ORDERED: VENL150C43 PO (14:14)
[2018-04-30] MEDS ORDERED: SUCR1TAB56 PO (14:14)
[2018-04-30] MEDS ORDERED: MAG400TA PO (14:14)
[2018-04-30] MEDS ORDERED: TRAZ-163 PO (14:14)
[2018-04-30] MEDS ORDERED: ONDANSETRON 4MG/2ML VIAL (J2405) IV ONE (14:15)
[2018-04-30] MEDS ORDERED: NS 500 ML IV ONE (14:15)
[2018-04-30] MEDS ORDERED: MORPHINE 2 MG/ML 1ML SYRINGE (J2270) IV ONE ×2 (14:15→15:45)
--- NOTE | 2018-04-30 14:40 | REP ---
Clinical: Acute chest pain . Comparison: 06/28/2017 . Findings: The mediastinum and cardiac silhouette are stable and within normal limits for portable technique. The lung montoya are clear without acute consolidation, effusion, or pneumothorax. Skeletal structures are intact. Impression: No acute cardiopulmonary process appreciated. Electronically Signed by José Miguel Mcdermott MD 04/30/2018 02:32 P
[2018-04-30 15:07] LABS: BASO % 0.3 % (0.0-1.0); EOS # 0.3 10^3/uL (0.0-0.50); HEMATOCRIT 37.3 % (42.0-52.0); HEMOGLOBIN 12.5 g/dl (13.5-17.5); LYMPH # 2.5 10^3/uL (1.5-4.5); LYMPH % 17.8 % (24.0-44.0); MEAN CORPUSCULAR HEMOGLOBIN 29.1 pg (27.0-33.0); MEAN CORPUSCULAR HGB CONC 33.5 g/dl (32.0-36.5); MEAN CORPUSCULAR VOLUME 86.9 fl (80.0-96.0); MONO # 1.1 10^3/uL (0.0-0.8); MONO % 7.8 % (0.0-5.0); NEUTROPHILS # 9.9 10^3/uL (1.8-7.7); NEUTROPHILS % 71.8 % (36.0-66.0); PLATELET COUNT, AUTOMATED 319 10^3/uL (150-450); RED BLOOD COUNT 4.29 10^6/uL (4.30-6.10); WHITE BLOOD COUNT 13.8 10^3/uL (4.0-10.0)
[2018-04-30 15:34] LABS: ALBUMIN 3.8 GM/DL (3.2-5.2); ALT/SGPT 38 U/L (12-78); BILIRUBIN,DIRECT 0.1 MG/DL (0.0-0.2); BILIRUBIN,TOTAL 0.4 MG/DL (0.2-1.0); BLOOD UREA NITROGEN 12 MG/DL (7-18); CALCIUM LEVEL 9.7 MG/DL (8.8-10.2); CARBON DIOXIDE LEVEL 27 MEQ/L (21-32); CHLORIDE LEVEL 103 MEQ/L (98-107); CK-MB VALUE MASS < 1.0 NG/ML (<3.6); CPK CREATINE PHOSPHOKINASE 33 U/L (39-308); CREATININE FOR GFR 0.89 MG/DL (0.70-1.30); FREE T4 0.94 NG/DL (0.76-1.46); GLOMERULAR FILTRATION RATE > 60.0 (>49); GLUCOSE, FASTING 130 MG/DL (70-100); LIPASE 55 U/L (73-393); MB/CK RELATIVE INDEX 3.03 (< OR =4); NT-PRO BNP 50 PG/ML (<125); SODIUM LEVEL 138 MEQ/L (136-145); THYROID STIMULATING HORMONE 0.466 uIU/ML (0.358-3.740); TOTAL PROTEIN 7.4 GM/DL (6.4-8.2); TROPONIN I < 0.02 NG/ML (< 0.10)
[2018-04-30] MEDS ORDERED: ISOVUE-370 76% 125ML VIAL (Q9967 PER ML) As Ordered ONE (17:06)
[2018-04-30 17:15] VITALS: BP 119/66
--- NOTE | 2018-04-30 17:29 | REP ---
Clinical: Acute chest pain. Technique: Axial contrast enhanced images from the thoracic inlet to the upper abdomen using 100 ml Isovue 370 intravenous contrast material with coronal and sagittal re-formations. Findings: Satisfactory enhancement of the pulmonary vasculature is achieved and no filling defects are identified to suggest pulmonary embolus. Thoracic aorta is normal caliber without aneurysm or dissection. Heart and pericardium are normal. Bilateral lung montoya are well aerated and clear without acute pulmonary parenchymal consolidation or atelectasis. No nodule or mass lesion. No pleural effusion/reaction. No pneumothorax. No adenopathy. Impression: No evidence for pulmonary embolus. No acute pleuroparenchymal or mediastinal process. Electronically Signed by José Miguel Mcdermott MD 04/30/2018 05:20 P
--- NOTE | 2018-04-30 19:59 | ECGEPIP ---
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
== END 2018-04-30 18:08 | disposition home or self-care (01) ==
LOC: M ED 13:57
DX: R07.9 Chest pain, unspecified (principal); I45.19 Other right bundle-branch block; E11.9 Type 2 diabetes mellitus without complications; I10 Essential (primary) hypertension; E78.5 Hyperlipidemia, unspecified; K21.9 Gastro-esophageal reflux disease without esophagitis; F41.9 Anxiety disorder, unspecified; F31.9 Bipolar disorder, unspecified; Z79.84 Long term (current) use of oral hypoglycemic drugs; Z79.899 Other long term (current) drug therapy; Z88.0 Allergy status to penicillin
CPT/HCPCS: 71045; 71275; 80048; 80076; 82550; 82553; 83690; 83880; 84439; 84443; 84484; 85025; 87040; 93005; 93041; 94760; 96374; 96375; 96376; 99285; J2270; J2405; Q9967

== ENCOUNTER → 2018-06-05 | Outpatient (REF) | payer MEDICARE, MEDICAID ==
[~2018-06-05] MED LIST changes: +CALCTAB6 PO; +MAG400TA PO; +METF-839 PO; +SUCR1TAB56 PO; +TRAZ-163 PO
[2018-06-05 13:37] LABS: ALBUMIN 3.9 GM/DL (3.2-5.2); ALT/SGPT 34 U/L (12-78); BILIRUBIN,TOTAL 0.3 MG/DL (0.2-1.0); BLOOD UREA NITROGEN 11 MG/DL (7-18); CALCIUM LEVEL 8.8 MG/DL (8.8-10.2); CARBON DIOXIDE LEVEL 30 MEQ/L (21-32); CHLORIDE LEVEL 107 MEQ/L (98-107); CHOLESTEROL LEVEL 159 MG/DL (<200); CHOLESTEROL RISK RATIO 4.676 (<5); CREATININE FOR GFR 0.78 MG/DL (0.70-1.30); GLOMERULAR FILTRATION RATE > 60.0 (>49); GLUCOSE, FASTING 99 MG/DL (70-100); HDL CHOLESTEROL 34 MG/DL (>40); LDL CHOLESTEROL 103 MG/DL (<100); NON-HDL-C 125 MG/DL; POTASSIUM SERUM 4.6 MEQ/L (3.5-5.1); SODIUM LEVEL 140 MEQ/L (136-145); TOTAL PROTEIN 7.2 GM/DL (6.4-8.2); TRIGLYCERIDES LEVEL 112 MG/DL (<150)
[2018-06-05 13:44] LABS: TOTAL 25(OH) VITAMIN D 26.1 NG/ML (30.0-100.0)
[2018-06-05 13:49] LABS: HEMOGLOBIN A1c 5.6 %
[2018-06-05 14:20] LABS: MAU/CREAT RATIO 4.7 MCG/MG (0.0-30.0)
== END ==
LOC: M SFHCPLAZ 11:03
PROVIDERS: ATTEND Nurse Practitioner Family
DX: E11.9 Type 2 diabetes mellitus without complications (principal); E78.2 Mixed hyperlipidemia; K21.9 Gastro-esophageal reflux disease without esophagitis; Z12.5 Encounter for screening for malignant neoplasm of prostate; E55.9 Vitamin D deficiency, unspecified
CPT/HCPCS: 36415; 80053; 80061; 82043; 82306; 83036; 83735; G0103

== ENCOUNTER → 2018-11-26 | Outpatient (REF) | payer MEDICARE, MEDICAID ==
[~2018-11-26] MED LIST changes: -OMEP40CA2; -OMEP40CA2 PO; +OMEP40CA97; +OMEP40CA97 PO
[2018-11-26 18:47] LABS: ALBUMIN 4.3 GM/DL (3.2-5.2); ALT/SGPT 31 U/L (12-78); BILIRUBIN,TOTAL 0.3 MG/DL (0.2-1.0); BLOOD UREA NITROGEN 9 MG/DL (7-18); CALCIUM LEVEL 9.1 MG/DL (8.8-10.2); CARBON DIOXIDE LEVEL 30 MEQ/L (21-32); CHLORIDE LEVEL 103 MEQ/L (98-107); CREATININE FOR GFR 0.77 MG/DL (0.70-1.30); GLOMERULAR FILTRATION RATE > 60.0 (>49); GLUCOSE, FASTING 99 MG/DL (70-100); POTASSIUM SERUM 3.6 MEQ/L (3.5-5.1); SODIUM LEVEL 141 MEQ/L (136-145); TOTAL PROTEIN 7.3 GM/DL (6.4-8.2)
[2018-11-26 20:27] LABS: HEMOGLOBIN A1c 5.3 %
== END ==
LOC: M SFHCPLAZ 15:04
PROVIDERS: ATTEND Nurse Practitioner Family
DX: E11.40 Type 2 diabetes mellitus with diabetic neuropathy, unspecified (principal); E55.9 Vitamin D deficiency, unspecified
CPT/HCPCS: 36415; 80053; 82306; 83036; G0463

== ENCOUNTER → 2018-11-28 | Outpatient (CLI) | payer MEDICARE, MEDICAID ==
--- NOTE | 2018-11-28 08:55 | REP ---
CT brain: 11/28/2018. Indication: Tremors. Comparison: 12/08/2016. Findings: There is no acute intracranial hemorrhage, acute cortical infarction, mass effect or hydrocephalous. Mild diffuse volume loss is present. The visualized paranasal sinuses and mastoid air cells are essentially clear. Impression: No acute intracranial process. Electronically Signed by Suhail Cristobal DO 11/28/2018 08:46 A
== END ==
LOC: M RAD 08:24
PROVIDERS: ATTEND Nurse Practitioner Family
DX: R25.1 Tremor, unspecified (principal)

== ENCOUNTER 2019-02-14 11:10 | Emergency (ER) | payer MEDICARE, MEDICAID ==
[~2019-02-14 11:10] MED LIST changes: -TRAZ-163; -TRAZ-163 PO; +TRAZ-257; +TRAZ-257 PO
[2019-02-14] MEDS ORDERED: INVE1.75 (11:48)
[2019-02-14] MEDS ORDERED: MIRT1TAB17 (11:48)
--- NOTE | 2019-02-14 11:55 | REP ---
Portable chest x-ray: Single view. History: Chest pain. Comparison study: April 30, 2018. Findings: Monitoring electrodes overlie the chest. Lungs are symmetrically aerated and clear. Heart is not enlarged. Pulmonary vasculature is not increased. No bony abnormalities appreciated. Impression: No active disease. Negative portable chest x-ray. Electronically Signed by Elkin Langford MD 02/14/2019 11:47 A
[2019-02-14 11:58] LABS: BASO # 0.1 10^3/uL (0.0-0.2); BASO % 0.4 % (0.0-1.0); EOS # 0.2 10^3/uL (0.0-0.5); EOS % 1.5 % (0.0-3.0); HEMATOCRIT 39.8 % (42.0-52.0); HEMOGLOBIN 12.9 g/dl (13.5-17.5); LYMPH # 2.1 10^3/uL (1.5-5.0); MEAN CORPUSCULAR HEMOGLOBIN 29.6 pg (27.0-33.0); MEAN CORPUSCULAR HGB CONC 32.4 g/dl (32.0-36.5); MEAN CORPUSCULAR VOLUME 91.3 fl (80.0-96.0); MONO # 0.8 10^3/uL (0.0-0.8); MONO % 6.2 % (0.0-5.0); NEUTROPHILS % 75.4 % (36.0-66.0); PLATELET COUNT, AUTOMATED 244 10^3/uL (150-450); RED BLOOD COUNT 4.36 10^6/uL (4.30-6.10); WHITE BLOOD COUNT 13.3 10^3/uL (4.0-10.0)
[2019-02-14] MEDS ORDERED: diphenhydrAMINE INJ 50MG/ML VIAL (J1200) IV STA (12:05)
[2019-02-14 12:10] LABS: INR 1.04; PARTIAL THROMBOPLASTIN TIME 21.3 SECONDS (25.0-38.4); PROTHROMBIN TIME 13.3 SECONDS (11.8-14.0)
[2019-02-14] MEDS ORDERED: ASPIRIN 81 MG CHEW TABLET PO ONE (12:15)
[2019-02-14 12:37] LABS: ALBUMIN 4.1 GM/DL (3.2-5.2); ALT/SGPT 28 U/L (12-78); BILIRUBIN,DIRECT < 0.1 MG/DL (0.0-0.2); BILIRUBIN,TOTAL 0.3 MG/DL (0.2-1.0); BLOOD UREA NITROGEN 10 MG/DL (7-18); CALCIUM LEVEL 9.3 MG/DL (8.8-10.2); CARBON DIOXIDE LEVEL 27 MEQ/L (21-32); CHLORIDE LEVEL 104 MEQ/L (98-107); CK-MB VALUE MASS < 1.0 NG/ML (<3.6); CPK CREATINE PHOSPHOKINASE 65 U/L (39-308); CREATININE FOR GFR 0.82 MG/DL (0.70-1.30); FREE T4 0.67 NG/DL (0.76-1.46); GLOMERULAR FILTRATION RATE > 60.0 (>49); GLUCOSE, FASTING 129 MG/DL (70-100); LIPASE 53 U/L (73-393); MB/CK RELATIVE INDEX 1.54 (< OR =4); SODIUM LEVEL 141 MEQ/L (136-145); THYROID STIMULATING HORMONE 0.787 uIU/ML (0.358-3.740); TOTAL PROTEIN 7.4 GM/DL (6.4-8.2); TROPONIN I < 0.02 NG/ML (< 0.10)
[2019-02-14 12:42] LABS: D-DIMER QUANT 804.25 ng/ml (<500)
[2019-02-14] MEDS ORDERED: ISOVUE-370 76% 100ML VIAL (Q9967) As Ordered ONE (12:55)
[2019-02-14 13:56] VITALS: BP 148/72
--- NOTE | 2019-02-14 14:17 | REP ---
CT PULMONARY ANGIOGRAM: With IV contrast. HISTORY: Chest pain, rule out pulmonary embolus. COMPARISON STUDIES: April 30, 2018. CONTRAST DOSE: 75 mL of Isovue [address] TECHNIQUE: Helical scanning is acquired and overlapping 1.5 mm and contiguous 3 mm axial images are reformatted. In addition, maximum intensity projection and multiplanar re-formation images are generated in sagittal and coronal imaging projections. CT PULMONARY ANGIOGRAPHIC FINDINGS: Preliminary hospice physician views are unremarkable. There is good opacification in the pulmonary arterial tree and aorta. There is no evidence of aortic aneurysm, aortic dissection, or pulmonary embolism. No pleural or pericardial effusion is appreciated. No hilar or mediastinal mass or adenopathy is seen. The lung montoya are clear. No acute bony abnormality is appreciated. There are clips in the gallbladder fossa. Normal adrenal glands are seen. The visualized upper abdominal structures are otherwise unremarkable. IMPRESSION: Negative CT pulmonary angiogram. No evidence of pulmonary embolus or acute aortic abnormality. No active disease. Electronically Signed by Elkin Langford MD 02/15/2019 05:17 A
--- NOTE | 2019-02-15 22:14 | ECGEPIP ---
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
== END 2019-02-14 14:33 | disposition home or self-care (01) ==
LOC: M ED 11:10
DX: R00.0 Tachycardia, unspecified (principal); R25.1 Tremor, unspecified; E11.9 Type 2 diabetes mellitus without complications; K21.9 Gastro-esophageal reflux disease without esophagitis; J45.909 Unspecified asthma, uncomplicated; G93.41 Metabolic encephalopathy; F25.0 Schizoaffective disorder, bipolar type; Z79.84 Long term (current) use of oral hypoglycemic drugs; Z79.899 Other long term (current) drug therapy; Z88.0 Allergy status to penicillin
CPT/HCPCS: 71045; 71275; 80048; 80076; 82550; 82553; 83690; 84439; 84443; 84484; 85025; 85379; 85610; 85730; 93005; 93041; 94760; 96374; 99285; J1200; Q9967

== ENCOUNTER → 2019-07-21 | Outpatient (REF) | payer MEDICARE, MEDICAID ==
[~2019-07-21] MED LIST changes: +CYCL-707 PO; -CYCL10TA PO; +INVE1.75; +MIRT1TAB17
[2019-07-21 13:50] LABS: ALBUMIN 4.2 GM/DL (3.2-5.2); ALT/SGPT 30 U/L (12-78); BILIRUBIN,TOTAL 0.3 MG/DL (0.2-1.0); BLOOD UREA NITROGEN 16 MG/DL (7-18); CALCIUM LEVEL 9.3 MG/DL (8.8-10.2); CARBON DIOXIDE LEVEL 29 MEQ/L (21-32); CHLORIDE LEVEL 103 MEQ/L (98-107); CHOLESTEROL LEVEL 202 MG/DL (<200); CHOLESTEROL RISK RATIO 6.516 (<5); CREATININE FOR GFR 0.98 MG/DL (0.70-1.30); GLOMERULAR FILTRATION RATE > 60.0 (>49); GLUCOSE, FASTING 91 MG/DL (70-100); HDL CHOLESTEROL 31 MG/DL (>40); LDL CHOLESTEROL 137 MG/DL (<100); NON-HDL-C 171 MG/DL; SODIUM LEVEL 139 MEQ/L (136-145); TOTAL PROTEIN 7.4 GM/DL (6.4-8.2); TRIGLYCERIDES LEVEL 171 MG/DL (<150)
[2019-07-21 13:57] LABS: TOTAL 25(OH) VITAMIN D 27.3 NG/ML (30.0-100.0)
[2019-07-21 14:13] LABS: HEMOGLOBIN A1c 5.3 %
== END ==
LOC: M PLALAB 12:28
PROVIDERS: ATTEND Nurse Practitioner Family
DX: E11.40 Type 2 diabetes mellitus with diabetic neuropathy, unspecified (principal); E78.2 Mixed hyperlipidemia; E55.9 Vitamin D deficiency, unspecified; Z79.899 Other long term (current) drug therapy

== ENCOUNTER → 2020-01-16 | Outpatient (REF) | payer MEDICARE, MEDICAID ==
[~2020-01-16] MED LIST changes: +CALC600T63 PO; -CALCTAB6 PO; +MIRT-62 PO; -REME15TA PO
[2020-01-16 17:32] LABS: BASO # 0.1 10^3/uL (0.0-0.2); BASO % 0.6 % (0.0-1.0); EOS # 0.4 10^3/uL (0.0-0.5); EOS % 3.9 % (0.0-3.0); HEMATOCRIT 36.6 % (42.0-52.0); HEMOGLOBIN 12.1 g/dl (13.5-17.5); LYMPH % 27.4 % (24.0-44.0); MEAN CORPUSCULAR HEMOGLOBIN 29.5 pg (27.0-33.0); MEAN CORPUSCULAR HGB CONC 33.1 g/dl (32.0-36.5); MEAN CORPUSCULAR VOLUME 89.3 fl (80.0-96.0); MONO # 1.1 10^3/uL (0.0-0.8); MONO % 10.1 % (0.0-5.0); NEUTROPHILS # 6.4 10^3/uL (1.5-8.5); NEUTROPHILS % 57.6 % (36.0-66.0); PLATELET COUNT, AUTOMATED 305 10^3/uL (150-450); WHITE BLOOD COUNT 11.1 10^3/uL (4.0-10.0)
[2020-01-16 17:50] LABS: BLOOD UREA NITROGEN 11 MG/DL (7-18); CALCIUM LEVEL 9.5 MG/DL (8.8-10.2); CARBON DIOXIDE LEVEL 28 MEQ/L (21-32); CHLORIDE LEVEL 107 MEQ/L (98-107); CREATININE FOR GFR 0.72 MG/DL (0.70-1.30); GLOMERULAR FILTRATION RATE > 60.0 (>49); GLUCOSE, FASTING 108 MG/DL (70-100); POTASSIUM SERUM 4.2 MEQ/L (3.5-5.1); SODIUM LEVEL 140 MEQ/L (136-145)
[2020-01-16 18:24] LABS: ERYTHROCYTE SEDIMENTATION RATE 22 mm/hr (0-20)
== END ==
LOC: M SFHCPLAZ 14:44
PROVIDERS: ATTEND Nurse Practitioner Family
DX: M25.532 Pain in left wrist (principal); M25.432 Effusion, left wrist

== ENCOUNTER → 2020-01-16 | Outpatient (CLI) | payer MEDICARE, MEDICAID ==
--- NOTE | 2020-01-16 17:27 | REPPI ---
INDICATION: LEFT WRSIT PAIN. COMPARISON: None. TECHNIQUE: Four views. FINDINGS: Four views of the left wrist demonstrate osteoarthritic narrowing of the radiocarpal and middle carpal row joint spaces consistent with osteoarthritis. There is ulnar spurring of the distal radius on the lateral film. A small accessory ossicle is seen adjacent to the hook of the hamate. There is mild widening of the navicular 0 lunate ligament suggesting degenerative disruption of the navicular 0 lunate ligament. Mild osteoarthritis is seen in the 1st carpometacarpal joint. Osteoarthritic spurring is noted in the MCP joints of the thumb, index, and long finger and mild spurring is seen in the IP joint of the thumb. IMPRESSION: Degenerative changes and osteoarthritis as above. No acute bony abnormality. <Electronically signed by Roly Langford > 01/16/20 [id number]
== END ==
LOC: M PLAIMG 14:41
PROVIDERS: ATTEND Nurse Practitioner Family
DX: M19.032 Primary osteoarthritis, left wrist (principal); M25.532 Pain in left wrist
CPT/HCPCS: 36415; 73110; 80048; 84550; 85025; 85652; G0463

== ENCOUNTER → 2020-04-15 | Outpatient (REF) | payer MEDICARE, MEDICAID ==
[~2020-04-15] MED LIST changes: -INGR40CA PO; -MAG400TA; -MAG400TA PO; +MAGN400T35; +MAGN400T35 PO; +VALB40CA PO
[2020-04-15 15:18] LABS: ALBUMIN 4.3 GM/DL (3.2-5.2); ALT/SGPT 25 U/L (12-78); BILIRUBIN,TOTAL 0.2 MG/DL (0.2-1.0); BLOOD UREA NITROGEN 9 MG/DL (7-18); CALCIUM LEVEL 9.9 MG/DL (8.8-10.2); CARBON DIOXIDE LEVEL 29 MEQ/L (21-32); CHLORIDE LEVEL 104 MEQ/L (98-107); CHOLESTEROL LEVEL 197 MG/DL (<200); CHOLESTEROL RISK RATIO 5.794 (<5); CREATININE FOR GFR 0.85 MG/DL (0.70-1.30); FREE T4 0.75 NG/DL (0.76-1.46); GLOMERULAR FILTRATION RATE > 60.0 (>49); GLUCOSE, FASTING 101 MG/DL (70-100); HDL CHOLESTEROL 34 MG/DL (>40); LDL CHOLESTEROL 145 MG/DL (<100); NON-HDL-C 163 MG/DL; POTASSIUM SERUM 4.5 MEQ/L (3.5-5.1); SODIUM LEVEL 137 MEQ/L (136-145); TOTAL PROTEIN 7.1 GM/DL (6.4-8.2); TRIGLYCERIDES LEVEL 89 MG/DL (<150)
[2020-04-15 15:20] LABS: TOTAL 25(OH) VITAMIN D 30.3 NG/ML (30.0-100.0)
[2020-04-15 17:51] LABS: HEMOGLOBIN A1c 5.5 %
== END ==
LOC: M PLALAB 12:01
PROVIDERS: ATTEND Nurse Practitioner Family
DX: E11.40 Type 2 diabetes mellitus with diabetic neuropathy, unspecified (principal); E78.2 Mixed hyperlipidemia; E55.9 Vitamin D deficiency, unspecified

== ENCOUNTER 2020-09-08 10:50 | Emergency (ER) | payer MEDICARE, MEDICAID ==
[~2020-09-08] VITALS: Ht 170.2 cm; Wt 78.3 kg
[~2020-09-08 10:50] MED LIST changes: +GABA-283; -GABA-845; +OMEP40CA4; +OMEP40CA4 PO; -OMEP40CA97; -OMEP40CA97 PO
[2020-09-08 12:12] LABS: BASO # 0.1 10^3/uL (0.0-0.2); BASO % 0.5 % (0.0-1.0); EOS # 0.1 10^3/uL (0.0-0.5); EOS % 0.7 % (0.0-3.0); HEMOGLOBIN 13.3 g/dl (13.5-17.5); LYMPH # 1.9 10^3/uL (1.5-5.0); LYMPH % 18.3 % (24.0-44.0); MEAN CORPUSCULAR HEMOGLOBIN 30.3 pg (27.0-33.0); MEAN CORPUSCULAR HGB CONC 34.1 g/dl (32.0-36.5); MEAN CORPUSCULAR VOLUME 88.8 fl (80.0-96.0); MONO # 0.8 10^3/uL (0.0-0.8); MONO % 8.1 % (2.0-8.0); NEUTROPHILS # 7.5 10^3/uL (1.5-8.5); PLATELET COUNT, AUTOMATED 264 10^3/uL (150-450); RED BLOOD COUNT 4.39 10^6/uL (4.30-6.10); WHITE BLOOD COUNT 10.4 10^3/uL (4.0-10.0)
[2020-09-08] MEDS ORDERED: NS 1,000 ML IV ONE (12:15)
[2020-09-08] MEDS ORDERED: ACETAMINOPHEN TAB 650MG DOSE (2X325MG) PO ONE (12:25)
[2020-09-08 12:56] LABS: ACETAMINOPHEN LEVEL < 2.0 UG/ML (10.0-30.0); ALBUMIN 4.3 GM/DL (3.2-5.2); ALT/SGPT 27 U/L (12-78); BILIRUBIN,DIRECT 0.2 MG/DL (0.0-0.2); BILIRUBIN,TOTAL 0.4 MG/DL (0.2-1.0); BLOOD UREA NITROGEN 8 MG/DL (7-18); CALCIUM LEVEL 9.4 MG/DL (8.8-10.2); CARBON DIOXIDE LEVEL 29 MEQ/L (21-32); CHLORIDE LEVEL 105 MEQ/L (98-107); CK-MB VALUE MASS < 1.0 NG/ML (<3.6); CPK CREATINE PHOSPHOKINASE 134 U/L (39-308); CREATININE FOR GFR 0.74 MG/DL (0.70-1.30); ETHYL ALCOHOL (ETHANOL) < 0.003 % (0.000-0.010); GLOMERULAR FILTRATION RATE > 60.0 (>49); GLUCOSE, FASTING 101 MG/DL (70-100); MB/CK RELATIVE INDEX 0.75 (< OR =4); POTASSIUM SERUM 3.9 MEQ/L (3.5-5.1); SALICYLATE LEVEL < 1.7 MG/DL (5.0-30.0); SODIUM LEVEL 139 MEQ/L (136-145); THYROID STIMULATING HORMONE 0.611 uIU/ML (0.358-3.740); TOTAL PROTEIN 7.6 GM/DL (6.4-8.2); TROPONIN I < 0.02 NG/ML (< 0.10)
[2020-09-08 15:28] LABS: AMPHETAMINES LEVEL URINE NEGATIVE (NEGATIVE); BARBITURATES URINE NEGATIVE (NEGATIVE); BENZODIAZEPINES URINE NEGATIVE (NEGATIVE); CANNABINOIDS URINE NEGATIVE (NEGATIVE); COCAINE METABOLITE URINE NEGATIVE (NEGATIVE); METHADONE URINE NEGATIVE (NEGATIVE); OPIATES URINE NEGATIVE (NEGATIVE); PHENCYCLIDINE URINE NEGATIVE (NEGATIVE)
[2020-09-08] MEDS ORDERED: ERGO500029 PO (18:03)
[2020-09-08] MEDS ORDERED: OMEP40CA4 PO (18:03)
[2020-09-08] MEDS ORDERED: traZODone 50 MG TAB PO ONE (21:00)
[2020-09-09] MEDS ORDERED: ATORVASTATIN 20 MG TAB PO ONE (08:30)
[2020-09-09] MEDS ORDERED: LORATADINE 10 MG TAB PO ONE (08:30)
[2020-09-09] MEDS ORDERED: MAGNESIUM OXIDE 400MG TAB (MAG-OX) PO ONE (08:30)
[2020-09-09] MEDS ORDERED: DOCUSATE SODIUM 100MG CAPSULE PO ONE (08:30)
[2020-09-09] MEDS ORDERED: metFORMIN (GLUCOPHAGE) 500MG TAB PO ONE (08:45)
[2020-09-09] MEDS ORDERED: VENLAFAXINE **XR** 75MG CAPSULE PO ONE (08:45)
[2020-09-09] MEDS ORDERED: SUCRALFATE 1 GM TAB PO ONE (08:45)
[2020-09-09] MEDS ORDERED: OMEPRAZOLE 20MG CAP PO ONE (08:45)
[2020-09-09 09:20] VITALS: BP 109/64
[2020-11-24] MEDS ORDERED: OMEP40CA5 PO (04:27)
== END 2020-09-09 09:25 | disposition home or self-care (01) ==
LOC: M ED 10:50
DX: F25.9 Schizoaffective disorder, unspecified (principal); E11.9 Type 2 diabetes mellitus without complications; G47.30 Sleep apnea, unspecified; M54.9 Dorsalgia, unspecified; F14.10 Cocaine abuse, uncomplicated; Z79.84 Long term (current) use of oral hypoglycemic drugs; Z79.899 Other long term (current) drug therapy; Z88.0 Allergy status to penicillin

== ENCOUNTER 2020-11-23 20:27 | Inpatient (IN) | payer MEDICARE, MEDICAID ==
[~2020-11-23] VITALS: Ht 182.9 cm; Wt 74.7 kg
[~2020-11-23 20:27] MED LIST changes: +ERGO500029 PO
--- OUTSIDE RECORDS SUMMARY | 2020-11-23 20:33 | CCD ---
Author Author [facility] Organization [facility] Address Unknown Phone Unavailable Care Team Providers Care Supervisor Remelt Name Role Phone Dianne Gordon Unavailable PROBLEMS Type Condition ICD9-CM Code UDJ94-AC Code Onset Dates Condition S tatus W/U Status Risk SNOMED Code Notes Problem Iron deficiency anemia, unspecified iron deficiency an emia type D50.9 Active confirmed 26397697 Problem Gastroesophageal reflux disease without esophagitis K21.9 Active confirmed 492020529 Problem Vitamin D deficiency E55.9 Active confirmed 04855365 Problem AALIYAH (obstructive sleep apnea) G47.33 Active confirm ed 57875064 Problem Morbid obesity due to excess calories E66.01 Ac tive confirmed 917685406 Problem Other chronic nonalcoholic liver disease K76.89 Active confirmed 95888883 Problem Hypertriglyceridemia E78.1 Active confirmed 177865665 Problem 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 Active conf irmed 75107179 Problem Diabetes E11.9 Active confirmed 25664852 Problem Leukocytosis, unspecified type D72.829 Active confi rmed 935708567 Problem Constipation, unspecified constipation type K59.00 Active confirmed 91879112 Problem BMI 35.0-35.9,adult Z68.35 Active confirmed 481758560 Problem Intellectual disability F79 Active confirmed 008870241 Problem Mixed hyperlipidemia E78.2 Active confirmed 264759747 Problem Fatty liver K76.0 Active confirmed 47010768 7 Problem Screening PSA (prostate specific antigen) Z12.5 Active confirmed 274312036 Problem BMI 39.0-39.9,adult Z68.39 Active confirmed 698915241 Problem Dysmetabolic syndrome X E88.81 Active confirmed 079368853 Problem Mild intermittent asthma without complication J45. 20 Active confirmed 629419152 Problem Gastroparesis K31.84 Active confirmed 248253 006 Problem Type 2 diabetes mellitus wit h diabetic neuropathy, without long-term current use of insulin E11.40 Active confirmed 7568737 6 Problem Tardive dyskinesia G24.01 Active confirmed 1 91858827 Problem Schizoaffective disorder, unspecified type F25.9 Active confirmed 73382806 ALLERGIES Allergen (clinical drug ingredient) Drug/Non Drug Allergy do cumented on EMR Reaction Allergy Type Onset Date Status metoclopramide Reglan([facility] Code:[address]-86) dry mouth, lighth eadedness Drug Allergy Active Penicillin (For Allergies Use Only) Rash Drug Allerg y Active ENCOUNTERS from 1955 to 2020-09-17 Encounter Location Date Provider Diagnosis [facility] [address] [facility] [phone] [place] [address] 11 Sep, 2020 Dianne Gordon Tardive dyskinesia G24.01 ; Schizoaffective disorder, unspecified type F25.9 and Intellectual disability F79 IMMUNIZATIONS Vaccine Route Administration Date Status Influenza 18 yrs & older Flublok IM Intramuscular Nov 26, 2019 Administered Pneumococcal Adult 0.5mL Pneumovax 23 IM Intramuscular June 12 019 Administered Influenza 18 yrs & older Flublok IM Intramuscular Dec 06, 2017 Administered Influenza Pharmacy Given Unknown Dec 03, 2018 Adminis tered Influenza 6mo & up Fluzone IM Intramuscular Nov 25, 2015 Admi nistered Influenza 6mo & up Fluzone IM Intramuscular Oct 27, 2014 Admi nistered Influenza 18 yrs & older Flublok IM Intramuscular Apr 02, 2020 Administered Influenza 6mo & up Fluzone Unknown Nov 12, 2013 Admin istered Influenza 6mo & up Fluzone IM Intramuscular Dec 26, 2012 Admi nistered Influenza 6mo & up Fluzone IM Intramuscular Nov 15, 2011 Admi nistered SOCIAL HISTORY Tobacco Use: Social History Observation Description Date Details (start date - stop date) Former Smoker Sex Assigned At : Social History Observation Description Sex Assigned At Unknown Audit Question Answer Notes Total Score: 0 Interpretation: Alcohol Education Latter Day: Question Answer Notes Latter Day 21 [employer] Sexual Hx: Question Answer Notes Had sex in the last 12 months (vaginal, oral, or anal)? No Drug and Alcohol Question Answer Notes Total Score: 0 Interpretation: No problems reported Alcohol Screening: Question Answer Notes Did you have a drink containing alcohol in the past year? No Points 0 Interpretation Negative BMI Care Goal Follow-Up Question Answer Notes Above Normal BMI Follow-Up Lifestyle education regarding t Tobacco Use: Question Answer Notes Are you a: former smoker How long has it been since you last smoked? > 10 years REASON FOR REFERRAL No Information VITAL SIGNS Weight 174 lbs Sep, Height 67 in Sep, BMI 27.25 kg/m2 Sep, Heart Rate 88 /min Sep, Respiratory Rate 20 /min Sep, Temperature 97.4 degrees Fahrenheit Sep, Oximetry 98 Sep, Blood pressure systolic 120 mm Hg Sep, Blood pressure diastolic 70 mm Hg Sep, MEDICATIONS Medication SIG (Take, Route, Frequency, Duration) Notes Start Da te End Date Status Calcium Carbonate-Vitamin D 600-400 MG-UNIT TAKE ONE T ABLET BY MOUTH @8AM WITH FOOD Oral for 28 Active Vitamin D 98472 UNIT 1 capsule with meal Orally Once a week Active Atrovent 0.02 % nebs Inhalation every 4 hours as needed for SOB Not-Taking Vitamin D 83536 UNIT 1 capsule with meal Orally Once a week for 7 Active Mirtazapine 45 MG TAKE ONE TABLET BY MOUTH IN THE EVENING Oral for 30 Active Omeprazole 40 MG TAKE ONE CAPSULE BY MOUTH @8AM Active Atorvastatin Calcium 80 MG TAKE ONE TABLET BY MOUTH @8AM for 90 Active Nebulizer 1 neb orally dx 493 every 4 hours as needed for 30 days Feb, Not-Taking Trazodone HCl 100 MG TAKE 1 AND 1/2 TABLETS BY MOUTH @8PM Oral for 7 Active Omeprazole 40 MG TAKE ONE CAPSULE BY MOUTH @8AM for 28 Active Sucralfate 1 GM TAKE ONE TABLET BY MOUTH TWICE DAILY Oral for 90 Active Austedo 6 MG 1 tablet with food Orally Twice a day Unknown Ventolin HFA 108 (90 Base) MCG/ACT 2 puffs as needed I nhalation every 4 hrs for 30 day(s) Active Loratadine 10 MG TAKE ONE TABLET BY MOUTH @10AM for 7 Active metFORMIN HCl 500 mg 1 tablet with meals Orally twice daily Active Invega Trinza 819 MG/2.625ML INJECT 1 SYRINGE INTRAMUS CULARLY ONCE EVERY 3 MONTHS Intramuscular for 90 Acti ve Venlafaxine HCl ER 150 MG TAKE ONE CAPSULE BY MOUTH @10AM Oral for 7 Active Naproxen 500 MG 1 tablet with food or milk a s needed Orally every 12 hrs as needed for pain for 30 Days Jan, Acti ve Albuterol Sulfate (2.5 MG/3ML) 0.083% 3 ml Inhalation every 4 hours as needed for SOB for 30 day(s) Not-Taking Magnesium Oxide 400 MG TAKE ONE TABLET BY MOUTH @8AM for 7 Active Docusate Sodium 100 MG TAKE ONE CAPSULE BY MOUTH @8 AM and TAKE ONE CAPSULE BY MOUTH @5PM and TAKE ONE CAPSULE BY MOUTH @8PM for 7 Active Calcium Carbonate-Vitamin D3 600-400 MG-UNIT TAKE ONE TABLET BY MOUTH @8AM for 28 Active Benztropine Mesylate [address] Penaloza Orally twice d aily for 30 day(s) Tremaine Feb, Unknown PROCEDURES No Information RESULTS No Results REASON FOR VISIT [facility] Follow up, [facility] SUMMARY IN [facility] MEDICAL (GENERAL) HISTORY Type Description Date Medical History Bipolar/depression/anxiety/ schizoaffect tobias - Dr Penaloza Medical History Hx of drug abuse cocaine-30 yrs ago Medical History Chronic back pain s/p surgery discectomy Medical History asthma - mild intermittent Medical History allergic rhinitis Medical History hyperlipidemia Medical History borderline intellectual function with me ntal retardation Medical History sleep apnea - on CPAP, pulmonary Medical History hemorrhoids, anal fissure with rectal bl eeding Medical History Unspecified anemia Medical History Unspecified vitamin D deficiency Medical History Morbid obesity Medical History Dysmetabolic Syndrome X Medical History Fatty liver Medical History Gastroesophageal reflux disease without esophagitis Medical History Disorder of magnesium metabolism Medical History Diabetes Mellitus type 2 Medical History tardive dyskinesia - due to psychotropic meds Surgical History Rt inguinal surgery Surgical History Back surgery 2004 Surgical History hemorrhoidectomy Surgical History cholecystectomy Surgical History colonoscopy with polyp resec tion, tubular adenoma, repeat 5yrs - [facility] 02/17,06/18 Surgical History lateral internal sphincterotomy and liga tion (Libra) 02/18 Surgical History EGD - mild inflammation with reflux, HH - [facility] 06/18 Surgical History colonoscopy -14,4-15 Surgical History total L knee - Dr Jayashree Osorio 11-01-15 Surgical History colonoscopy, EGD biopsy neg - [facility] ( repeat 10yrs) 08/02/17 Hospitalization History surgery Hospitalization History rectal bleeding 06/18 Goals Section No Information Health Concerns No Information MEDICAL EQUIPMENT No Information MENTAL STATUS No Information FUNCTIONAL STATUS No Information ASSESSMENTS Encounter Date Diagnosis Assessment Notes Treatment Notes Treatm ent Clinical Notes Sep, Tardive dyskinesia (ICD-10 - G24.01) will verify med list with pharmacy and S. Advised to have his sister schedule f/up with neurology due top worsening of involuntary movements I spoke to Dr Penaloza who increased his trazodone to 200mg at HS to help with sleep. She started him on Austedo 6mg BID for the TD but it is unclear whether [facility] was able to package that with his meds - it does not look like he is on it. Dr Penaloza does not feel he is safe living on his own unless someone can assist with his meds. Her nurse will contact [facility] regarding the Austedo Rx. We Will notify his sister of need for home health assistance. He is currently refusing public health nurse eval. Sep, Schizoaffective disorder, unspecified type (ICD- 10 - F25.9) meds per Dr Penaloza Sep, Intellectual disability (ICD-10 - F79) patient refuses public health eval for med check - verified meds with pharmacy - but needs assistance to ensure he takes them PLAN OF TREATMENT Medication Medication Name Sig Start Date Stop Date Docusate Sodium 100 MG TAKE ONE CAPSULE BY MOUTH @8 AM and TAKE ONE CAPSULE BY MOUTH @5PM and TAKE ONE CAPSULE BY MOUTH @8PM for 7 Treatment Notes Assessment Notes Clinical Notes Tardive dyskinesia will verify med list with [facility] and S. Advised to have his sister schedule f/up with neurology due top worsening of involuntary movements I spoke to Dr Penaloza who increased his trazodone to 200mg at HS to help with sleep. She started him on Austedo 6mg BID for the TD but it is unclear whether [facility] was able to package that with his meds - it does not look like he is on it. Dr Penaloza does not feel he is safe living on his own unless someone can assist with his meds. Her nurse will contact [facility] regarding the Austedo Rx. We Will notify his sister of need for home health assistance. He is currently refusing public health nurse eval. Schizoaffective disorder, unspecified type meds per Dr Penaloza Intellectual disability patient refuses public healt h evmatthew for med check - verified meds with pharmacy - but needs assistance to ensure he takes them Next Appt Details as sched Reason: Provider Name:Dianne Gordon, 2020-12-08 09:1 5:00 AM, [address] [facility] [facility], , [place], [address], Insurance Providers Payer Name Payer Address Payer Phone Insured Name Patient Relati onship to Insured Coverage Start Date Coverage End Date MEDICARE COMPLETE [facility] [address] [address] [facility] [id number] CAPO RAMON MEDICAID [employer] [address] [facility] [address] [phone] CAPO RAMON self
--- OUTSIDE RECORDS SUMMARY | 2020-11-23 20:33 | CCD ---
Author Author [facility] Organization [facility] Address Unknown Phone Unavailable Care Team Providers Care Photographer Aerial Name Role Phone Dianne Gordon Unavailable PROBLEMS Type Condition ICD9-CM Code UPS78-SA Code Onset Dates Condition S tatus W/U Status Risk SNOMED Code Notes Problem Iron deficiency anemia, unspecified iron deficiency an emia type D50.9 Active confirmed 94421814 Problem Gastroesophageal reflux disease without esophagitis K21.9 Active confirmed 500490364 Problem Vitamin D deficiency E55.9 Active confirmed 19688002 Problem AALIYAH (obstructive sleep apnea) G47.33 Active confirm ed 65972600 Problem Morbid obesity due to excess calories E66.01 Ac tive confirmed 919519883 Problem Other chronic nonalcoholic liver disease K76.89 Active confirmed 71375840 Problem Hypertriglyceridemia E78.1 Active confirmed 334195000 Problem 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 Active conf irmed 45566641 Problem Diabetes E11.9 Active confirmed 37462970 Problem Leukocytosis, unspecified type D72.829 Active confi rmed 401265909 Problem Constipation, unspecified constipation type K59.00 Active confirmed 38893829 Problem BMI 35.0-35.9,adult Z68.35 Active confirmed 743945217 Problem Intellectual disability F79 Active confirmed 094872861 Problem Mixed hyperlipidemia E78.2 Active confirmed 608280930 Problem Fatty liver K76.0 Active confirmed 89070013 7 Problem Screening PSA (prostate specific antigen) Z12.5 Active confirmed 870668754 Problem BMI 39.0-39.9,adult Z68.39 Active confirmed 897985764 Problem Dysmetabolic syndrome X E88.81 Active confirmed 131488908 Problem Mild intermittent asthma without complication J45. 20 Active confirmed 936580013 Problem Gastroparesis K31.84 Active confirmed 515419 006 Problem Type 2 diabetes mellitus wit h diabetic neuropathy, without long-term current use of insulin E11.40 Active confirmed 8912081 6 Problem Tardive dyskinesia G24.01 Active confirmed 1 88478942 Problem Schizoaffective disorder, unspecified type F25.9 Active confirmed 46971387 ALLERGIES Allergen (clinical drug ingredient) Drug/Non Drug Allergy do cumented on EMR Reaction Allergy Type Onset Date Status metoclopramide Reglan([facility] Code:[address]-92) dry mouth, lighth eadedness Drug Allergy Active Penicillin (For Allergies Use Only) Rash Drug Allerg y Active ENCOUNTERS from 1955 to 2020-10-07 Encounter Location Date Provider Diagnosis [facility] [address] [facility] [phone] [place] [address] Sep, Dianne Gordon IMMUNIZATIONS Vaccine Route Administration Date Status Influenza 18 yrs & older Flublok IM Intramuscular Nov 26, 2019 Administered Pneumococcal Adult 0.5mL Pneumovax 23 IM Intramuscular June 12 019 Administered Influenza 18 yrs & older Flublok IM Intramuscular Dec 06, 2017 Administered Influenza 6mo & up Fluzone IM Intramuscular Nov 25, 2015 Admi nistered Influenza Pharmacy Given Unknown Dec 03, 2018 [...] Notes Total Score: 0 Interpretation: Alcohol Education Baptism: Question Answer Notes Baptism 21 [employer] Sexual Hx: Question Answer Notes Had sex [...] REASON FOR REFERRAL No Information VITAL SIGNS No information MEDICATIONS Medication SIG (Take, Route, Frequency, Duration) Notes Start Da te End Date Status Benztropine Mesylate [address] Penaloza Orally twice d aily for 30 day(s) Tremaine Feb, Unknown metFORMIN HCl 500 mg 1 tablet with meals Orally twice daily Active Atrovent 0.02 % nebs Inhalation every 4 hours as needed for SOB Not-Taking Omeprazole 40 MG TAKE ONE CAPSULE BY MOUTH @8AM Active Calcium Carbonate-Vitamin D3 600-400 MG-UNIT TAKE ONE TABLET BY MOUTH @8AM for 28 Active Calcium Carbonate-Vitamin D 600-400 MG-UNIT TAKE ONE T ABLET BY MOUTH @8AM WITH FOOD Oral for 28 Active Trazodone HCl 100 MG TAKE 1 AND 1/2 TABLETS BY MOUTH @8PM Oral for 7 Active Vitamin D 53901 UNIT 1 capsule with meal Orally Once a week for 7 Active Magnesium Oxide 400 (241.3 Mg) MG TAKE ONE TABLET BY MOUTH @10AM for 7 Active Sucralfate 1 GM TAKE ONE TABLET BY MOUTH TWICE DAILY Oral for 90 Active Atorvastatin Calcium 80 MG 1 tablet orally once daily for 90 days Active Mirtazapine 45 MG TAKE ONE TABLET BY MOUTH IN THE EVENING Oral for 30 Penaloza Active Venlafaxine HCl ER 150 MG TAKE ONE CAPSULE BY MOUTH @10AM Oral for 7 Active Omeprazole 40 MG TAKE ONE CAPSULE BY MOUTH @8AM for 28 Active Austedo 6 MG 1 tablet with food Orally Twice a day Unknown Albuterol Sulfate (2.5 MG/3ML) 0.083% 3 ml Inhalation every 4 hours as needed for SOB for 30 day(s) Not-Taking Loratadine 10 MG TAKE ONE TABLET BY MOUTH @10AM for 7 Active Ventolin HFA 108 (90 Base) MCG/ACT 2 puffs as needed I nhalation every 4 hrs for 30 day(s) Active Nebulizer 1 neb orally dx 493 every 4 hours as needed for 30 days Feb, Not-Taking Invega Trinza 819 MG/2.625ML INJECT 1 SYRINGE INTRAMUS CULARLY ONCE EVERY 3 MONTHS Intramuscular for 90 Acti ve Docusate Sodium 100 MG 1 cap orally Three times ko ly at 8am, 5pm and 8pm for 30 Days Active Vitamin D (Ergocalciferol) 1.25 MG (26781 UT) TAKE ONE CAPSULE BY MOUTH every sunday @10am for 7 Active Naproxen 500 MG 1 tablet with food or milk a s needed Orally every 12 hrs as needed for pain for 30 Days Jan, Acti ve PROCEDURES No Information RESULTS No Results REASON FOR VISIT please call back MEDICAL (GENERAL) HISTORY Type Description Date Medical [...] HH - [facility] 06/18 Surgical History colonoscopy 12-19,- Surgical History total L knee - Dr Jayashree Osorio 11-01-15 Surgical History colonoscopy, EGD biopsy neg - [facility] ( repeat 10yrs) 08/02/17 Hospitalization History surgery Hospitalization History rectal bleeding 06/18 Goals Section No Information Health Concerns No Information MEDICAL EQUIPMENT No Information MENTAL STATUS No Information FUNCTIONAL STATUS No Information ASSESSMENTS No Information PLAN OF TREATMENT Medication Medication Name Sig Start Date Stop Date Atorvastatin Calcium 80 MG 1 tablet orally once daily for 90 day s Docusate Sodium 100 MG 1 cap orally Three times ko ly at 8am, 5pm and 8pm for 30 Days Vitamin D (Ergocalciferol) 1.25 MG (86793 UT) TAKE ONE CAPSULE BY MOUTH every sunday @10am for 7 Magnesium Oxide 400 (241.3 Mg) MG TAKE ONE TABLET BY MOUTH @10AM for 7 Next Appt Details Provider Name:Dianne Gordon, 2020-12-08 09:1 5:00 AM, [address] [facility], , [place], [address], Insurance Providers Payer Name Payer Address Payer Phone Insured Name Patient Relati onship to Insured Coverage Start Date Coverage End Date MEDICARE COMPLETE [employer] [address] [address] [facility] [id number] CAPO RAMON MEDICAID [employer] [address] [facility] [id number] CAPO RAMON self
--- OUTSIDE RECORDS SUMMARY | 2020-11-23 20:33 | CCD ---
Author Author [facility] Organization [facility] Address Unknown Phone Unavailable Care Team Providers Care Belt Picker Name Role Phone Dianne Gordon Unavailable PROBLEMS Type Condition ICD9-CM Code [id number] Code Onset Dates Condition S tatus W/U Status Risk SNOMED Code Notes Problem Iron deficiency anemia, unspecified iron deficiency an emia type D50.9 Active confirmed 43924509 Problem Gastroesophageal reflux disease without esophagitis K21.9 Active confirmed 945478601 Problem Vitamin D deficiency E55.9 Active confirmed 81999186 Problem AALIYAH (obstructive sleep apnea) G47.33 Active confirm ed 32556883 Problem Morbid obesity due to excess calories E66.01 Ac tive confirmed 315362509 Problem Other chronic nonalcoholic liver disease K76.89 Active confirmed 97847873 Problem Hypertriglyceridemia E78.1 Active confirmed 831096118 Problem 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 Active conf irmed 67284754 Problem Diabetes E11.9 Active confirmed 23294390 Problem Leukocytosis, unspecified type D72.829 Active confi rmed 582947236 Problem Constipation, unspecified constipation type K59.00 Active confirmed 36405197 Problem BMI 35.0-35.9,adult Z68.35 Active confirmed 956151253 Problem Intellectual disability F79 Active confirmed 077910917 Problem Mixed hyperlipidemia E78.2 Active confirmed 334698722 Problem Fatty liver K76.0 Active confirmed 08959238 7 Problem Screening PSA (prostate specific antigen) Z12.5 Active confirmed 777326539 Problem BMI 39.0-39.9,adult Z68.39 Active confirmed 903713896 Problem Dysmetabolic syndrome X E88.81 Active confirmed 143343632 Problem Mild intermittent asthma without complication J45. 20 Active confirmed 651641156 Problem Gastroparesis K31.84 Active confirmed 714123 006 Problem Type 2 diabetes mellitus wit h diabetic neuropathy, without long-term current use of insulin E11.40 Active confirmed 1505352 6 Problem Tardive dyskinesia G24.01 Active confirmed 1 08534349 Problem Schizoaffective disorder, unspecified type F25.9 Active confirmed 41257596 ALLERGIES Allergen (clinical drug ingredient) Drug/Non Drug Allergy do cumented on EMR Reaction Allergy Type Onset Date Status metoclopramide Reglan([facility] Code:[address]-49) dry mouth, lighth eadedness Drug Allergy Active Penicillin (For Allergies Use Only) Rash Drug Allerg y Active ENCOUNTERS from 1955 to 2020-11-17 Encounter Location Date Provider Diagnosis [facility] [address] [facility] [facility] [phone] [place] [address] 29 Oct, 2020 Dianne Girard IMMUNIZATIONS Vaccine Route Administration Date Status Influenza [...] Notes Total Score: 0 Interpretation: Alcohol Education Denominational: Question Answer Notes Denominational 21 Hinduism Sexual Hx: Question Answer Notes Had sex [...] Notes Start Da te End Date Status Omeprazole 40 MG TAKE ONE CAPSULE BY MOUTH @8AM Active Benztropine Mesylate [address] Penaloza Orally twice d aily for 30 day(s) Tremaine Feb, Unknown Calcium + Vitamin D3 600-10 MG-MCG TAKE ONE TABLET BY MOUTH @10AM for 7 Active Nebulizer 1 neb orally dx 493 every 4 hours as needed for 30 days Feb, Not-Taking Venlafaxine HCl ER 150 MG TAKE ONE CAPSULE BY MOUTH @10AM Oral for 7 Active Vitamin D 88946 UNIT 1 capsule with meal Orally Once a week for 7 Active Trazodone HCl 100 MG TAKE 1 AND 1/2 TABLETS BY MOUTH @8PM Oral for 7 Active Albuterol Sulfate (2.5 MG/3ML) 0.083% 3 ml Inhalation every 4 hours as needed for SOB for 30 day(s) Not-Taking Vitamin D (Ergocalciferol) 1.25 MG (75022 UT) TAKE ONE CAPSULE BY MOUTH every sunday @10am for 1 Active Sucralfate 1 GM TAKE ONE TABLET BY MOUTH TWICE DAILY Oral for 90 Active Docusate Sodium 100 MG TAKE ONE CAPSULE BY MOUTH @8 AM and TAKE ONE CAPSULE BY MOUTH @5PM and TAKE ONE CAPSULE BY MOUTH @8PM for 5 Active Ventolin HFA 108 (90 Base) MCG/ACT 2 puffs as needed I nhalation every 4 hrs for 30 day(s) Active Mirtazapine 45 MG TAKE ONE TABLET BY MOUTH IN THE EVENING Oral for 30 Penaloza Active Omeprazole 40 MG TAKE ONE CAPSULE BY MOUTH @8AM for 28 Active Naproxen 500 MG 1 tablet with food or milk a s needed Orally every 12 hrs as needed for pain for 30 Days Jan, Acti ve Atrovent 0.02 % nebs Inhalation every 4 hours as needed for SOB Not-Taking Calcium Carbonate-Vitamin D3 600-400 MG-UNIT TAKE ONE TABLET BY MOUTH @8AM for 28 Active Austedo 6 MG 1 tablet with food Orally Twice a day Unknown Invega Trinza 819 MG/2.625ML INJECT 1 SYRINGE INTRAMUS CULARLY ONCE EVERY 3 MONTHS Intramuscular for 90 Acti ve Atorvastatin Calcium 80 MG TAKE ONE TABLET BY MOUTH @10AM for 7 Active Loratadine 10 MG TAKE ONE TABLET BY MOUTH @10AM for 7 Active Magnesium Oxide 400 (241.3 Mg) MG TAKE ONE TABLET BY MOUTH @10AM for 7 Active metFORMIN HCl 500 mg 1 tablet with meals Orally twice daily Active PROCEDURES No Information RESULTS No Results REASON FOR VISIT refills MEDICAL (GENERAL) HISTORY Type Description Date Medical History Bipolar/depression/anxiety/ schizoaffect tobias Penaloza Medical History Hx of drug abuse [...] TAKE ONE CAPSULE BY MOUTH @8PM for 5 Loratadine 10 MG TAKE ONE TABLET BY MOUTH @10AM for 7 Magnesium Oxide 400 (241.3 Mg) MG TAKE ONE TABLET BY MOUTH @10AM for 7 Vitamin D (Ergocalciferol) 1.25 MG (12792 UT) TAKE ONE CAPSULE BY MOUTH every sunday @10am for 1 Calcium + Vitamin D3 600-10 MG-MCG TAKE ONE TABLET BY MOUTH @10A M for 7 Atorvastatin Calcium 80 MG TAKE ONE TABLET BY MOUTH @10AM for 7 Insurance Providers Payer Name Payer Address Payer Phone Insured Name Patient Relati onship to Insured Coverage Start Date Coverage End Date MEDICARE COMPLETE UNITED HEALTHCARE [address] [address] [facility] [id number] [place] MEDICAID [employer] [address] [facility] [address] [place] self
--- OUTSIDE RECORDS SUMMARY | 2020-11-23 20:33 | CCD ---
Author Author [facility] Organization [facility] Address Unknown Phone Unavailable Care Team Providers Care Vp Sales Name Role Phone Dianne Gordon Unavailable PROBLEMS ALLERGIES ENCOUNTERS from 1955 to 2020-09-03 IMMUNIZATIONS SOCIAL HISTORY REASON FOR REFERRAL No Information VITAL SIGNS MEDICATIONS PROCEDURES No Information RESULTS No Results REASON FOR VISIT MEDICAL (GENERAL) HISTORY Goals Section Health Concerns MEDICAL EQUIPMENT No Information MENTAL STATUS FUNCTIONAL STATUS ASSESSMENTS PLAN OF TREATMENT Insurance Providers
--- OUTSIDE RECORDS SUMMARY | 2020-11-23 20:33 | CCD ---
Author Author [facility] Organization [facility] Address Unknown Phone Unavailable Care Team Providers Care Steel Division Supervisor Name Role Phone Dianne Gordon Unavailable PROBLEMS Type Condition ICD9-CM Code [id number] Code Onset Dates Condition S tatus W/U Status Risk SNOMED Code Notes Problem Iron deficiency anemia, unspecified iron deficiency an emia type D50.9 Active confirmed 91690436 Problem Gastroesophageal reflux disease without esophagitis K21.9 Active confirmed 446012798 Problem Vitamin D deficiency E55.9 Active confirmed 51023374 Problem AALIYAH (obstructive sleep apnea) G47.33 Active confirm ed 05988667 Problem Morbid obesity due to excess calories E66.01 Ac tive confirmed 395504408 Problem Other chronic nonalcoholic liver disease K76.89 Active confirmed 31579709 Problem Hypertriglyceridemia E78.1 Active confirmed 761553396 Problem 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 Active conf irmed 72272256 Problem Diabetes E11.9 Active confirmed 22054718 Problem Leukocytosis, unspecified type D72.829 Active confi rmed 641055003 Problem Constipation, unspecified constipation type K59.00 Active confirmed 89975836 Problem BMI 35.0-35.9,adult Z68.35 Active confirmed 179749754 Problem Intellectual disability F79 Active confirmed 166884858 Problem Mixed hyperlipidemia E78.2 Active confirmed 055115793 Problem Fatty liver K76.0 Active confirmed 32302769 7 Problem Screening PSA (prostate specific antigen) Z12.5 Active confirmed 899580475 Problem BMI 39.0-39.9,adult Z68.39 Active confirmed 259087232 Problem Dysmetabolic syndrome X E88.81 Active confirmed 481347666 Problem Mild intermittent asthma without complication J45. 20 Active confirmed 325793068 Problem Gastroparesis K31.84 Active confirmed 292154 006 Problem Type 2 diabetes mellitus wit h diabetic neuropathy, without long-term current use of insulin E11.40 Active confirmed 1778405 6 Problem Tardive dyskinesia G24.01 Active confirmed 1 62293633 Problem Schizoaffective disorder, unspecified type F25.9 Active confirmed 05778858 ALLERGIES Allergen (clinical drug ingredient) Drug/Non Drug Allergy do cumented on EMR Reaction Allergy Type Onset Date Status metoclopramide Reglan([facility] Code:[address]-59) dry mouth, lighth eadedness Drug Allergy Active Penicillin (For Allergies Use Only) Rash Drug Allerg y Active ENCOUNTERS from 1955 to 2020-09-16 Encounter Location Date Provider Diagnosis [facility] [address] [phone] [place] [address] 11 Sep, 2020 Dianne Gordon IMMUNIZATIONS Vaccine Route Administration Date Status Influenza 18 yrs & older Flublok IM Intramuscular Apr 02, 2020 Administered Influenza 18 yrs & older Flublok IM Intramuscular Nov 26, 2019 Administered Influenza 18 yrs & older Flublok IM Intramuscular Dec 06, 2017 Administered Pneumococcal Adult 0.5mL Pneumovax 23 IM Intramuscular June 12 019 Administered Influenza 6mo & up Fluzone IM Intramuscular Nov 25, 2015 Admi nistered Influenza 6mo & up Fluzone IM Intramuscular Oct 27, 2014 Admi nistered Influenza Pharmacy Given Unknown Dec 03, 2018 Adminis tered Influenza 6mo & up Fluzone Unknown Nov [...] Notes Total Score: 0 Interpretation: Alcohol Education Taoism: Question Answer Notes Taoism 21 Amish Sexual Hx: Question Answer Notes Had sex [...] FOOD Oral for 28 Active Vitamin D 68512 UNIT 1 capsule with meal Orally Once a week Active Atrovent 0.02 % nebs Inhalation every 4 hours as needed for SOB Not-Taking Vitamin D 58074 UNIT 1 capsule with meal Orally Once [...] TABLET BY MOUTH TWICE DAILY Oral for Active Austedo 6 MG 1 tablet with [...] Information RESULTS No Results REASON FOR VISIT med problem MEDICAL (GENERAL) HISTORY Type Description Date Medical [...] HH - Mitzy 06/18 Surgical History colonoscopy -14,-15 Surgical History total L knee - Dr [...] ONE CAPSULE BY MOUTH @8PM for 7 Next Appt Details Provider Name:Dianne Gordon, 2020-12-08 09:1 5:00 AM, [address], , [place], [address], Insurance Providers Payer Name Payer Address Payer Phone Insured Name Patient Relati onship to Insured Coverage Start Date Coverage End Date MEDICAID [employer] [address] [facility] [id number] [phone] [place] MEDICARE COMPLETE UNITED HEALTHCARE [address] [address] [facility] [id number] [place] RAMON
--- OUTSIDE RECORDS SUMMARY | 2020-11-23 20:33 | CCD ---
Author Author [facility] Organization [facility] Address Unknown Phone Unavailable Care Team Providers Care Director Payer Name Role Phone Dianne Gordon Unavailable PROBLEMS Type Condition ICD9-CM Code QQJ25-UF Code Onset Dates Condition S tatus W/U Status Risk SNOMED Code Notes Problem Iron deficiency anemia, unspecified iron deficiency an emia type D50.9 Active confirmed 79197567 Problem Gastroesophageal reflux disease without esophagitis K21.9 Active confirmed 093064825 Problem Vitamin D deficiency E55.9 Active confirmed 96913679 Problem AALIYAH (obstructive sleep apnea) G47.33 Active confirm ed 87013657 Problem Morbid obesity due to excess calories E66.01 Ac tive confirmed 026052634 Problem Other chronic nonalcoholic liver disease K76.89 Active confirmed 47147036 Problem Hypertriglyceridemia E78.1 Active confirmed 650419310 Problem 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 Active conf irmed 49214169 Problem Diabetes E11.9 Active confirmed 84002777 Problem Leukocytosis, unspecified type D72.829 Active confi rmed 213042580 Problem Constipation, unspecified constipation type K59.00 Active confirmed 16030275 Problem BMI 35.0-35.9,adult Z68.35 Active confirmed 989044273 Problem Intellectual disability F79 Active confirmed 317887280 Problem Mixed hyperlipidemia E78.2 Active confirmed 128740938 Problem Fatty liver K76.0 Active confirmed 06463143 7 Problem Screening PSA (prostate specific antigen) Z12.5 Active confirmed 659536327 Problem BMI 39.0-39.9,adult Z68.39 Active confirmed 100063271 Problem Dysmetabolic syndrome X E88.81 Active confirmed 281437528 Problem Mild intermittent asthma without complication J45. 20 Active confirmed 720445551 Problem Gastroparesis K31.84 Active confirmed 803936 006 Problem Type 2 diabetes mellitus wit h diabetic neuropathy, without long-term current use of insulin E11.40 Active confirmed 9079465 6 Problem Tardive dyskinesia G24.01 Active confirmed 1 87407167 Problem Schizoaffective disorder, unspecified type F25.9 Active confirmed 31303009 ALLERGIES Allergen (clinical drug ingredient) Drug/Non Drug Allergy do cumented on EMR Reaction Allergy Type Onset Date Status metoclopramide Reglan([facility] Code:[address]-23) dry mouth, lighth eadedness Drug Allergy Active Penicillin (For Allergies Use Only) Rash Drug Allerg y Active ENCOUNTERS from 1955 to 2020-09-30 Encounter Location Date Provider Diagnosis [facility] [address] [phone] [place] [address] Sep, Dianne Gordon IMMUNIZATIONS Vaccine Route Administration [...] Notes Total Score: 0 Interpretation: Alcohol Education Hoahaoism: Question Answer Notes Hoahaoism 21 Synagogue Sexual Hx: Question Answer Notes Had sex [...] @8AM WITH FOOD Oral for 28 Active Omeprazole 40 MG TAKE ONE CAPSULE BY MOUTH @8AM for 28 Active Vitamin D 31470 UNIT 1 capsule with meal Orally Once a week for 7 Active Sucralfate 1 GM TAKE ONE TABLET BY MOUTH TWICE DAILY Oral for 90 Active Trazodone HCl 100 MG TAKE 1 AND 1/2 TABLETS BY MOUTH @8PM Oral for 7 Active Magnesium Oxide 400 MG TAKE ONE TABLET BY MOUTH @8AM for 30 Days Active Mirtazapine 45 MG TAKE ONE TABLET BY MOUTH IN THE EVENING Oral for 30 Penaloza Active Venlafaxine HCl ER 150 MG TAKE ONE CAPSULE BY MOUTH @10AM Oral for 7 Active Vitamin D (Ergocalciferol) 1.25 MG (53998 UT) TAKE ONE CAPSULE BY MOUTH every sunday @10am for 7 Active Austedo 6 MG 1 tablet with [...] 90 Acti ve Docusate Sodium 100 MG TAKE ONE CAPSULE BY MOUTH @8 AM and TAKE ONE CAPSULE BY MOUTH @5PM and TAKE ONE CAPSULE BY MOUTH @8PM for 7 Active Atorvastatin Calcium 80 MG TAKE ONE TABLET BY MOUTH @8AM for 90 Active Naproxen 500 MG 1 tablet with food or milk a s needed Orally every 12 hrs as needed for pain for 30 Days Jan, Acti ve PROCEDURES No Information RESULTS No Results REASON FOR VISIT magnesium MEDICAL (GENERAL) HISTORY Type Description Date Medical [...] Medication Name Sig Start Date Stop Date Magnesium Oxide 400 MG TAKE ONE TABLET BY MOUTH @8AM for 30 Days Docusate Sodium 100 MG TAKE ONE CAPSULE BY MOUTH @8 AM and TAKE ONE CAPSULE BY MOUTH @5PM and TAKE ONE CAPSULE BY MOUTH @8PM for 7 Vitamin D (Ergocalciferol) 1.25 MG (59618 UT) TAKE ONE CAPSULE BY MOUTH every sunday @10am for 7 Next Appt Details Provider Name:Dianne Gordon, 2020-12-08 09:1 5:00 AM, [address], , [place], [address], Insurance Providers Payer Name Payer Address Payer Phone Insured Name Patient Relati onship to Insured Coverage Start Date Coverage End Date MEDICAID [id number] [address] [facility] [id number] [place] MEDICARE COMPLETE UNITED HEALTHCARE [address] [address] [facility] [phone] [employer] [place] self
--- OUTSIDE RECORDS SUMMARY | 2020-11-23 20:33 | CCD ---
Author Author [facility] Organization [facility] Address Unknown Phone Unavailable Support Name Relationship Address Phone Ivette Next Of Kin Unknown Unavailable Miguel Rehman DDS Next Of Kin [address] [place] [address] UE Next Of Kin Unknown Unavailable DIMAS ROBERTSON Next Of Kin [address] [place] [address] DISABLED Next Of Kin Unknown Unavailable [place] [address] Nusrat MERCHANT Next Of Kin [address] [place] [address] SOLO DIMAS Next Of Kin [address] [place] [address] [place] [address] Unavailable Re-disclosure Warning The records that you are about to access may contain information from federally-assisted alcohol or drug abuse programs. If such information is present, then the following federally mandated warning applies: This information has been disclosed to you from records protected by federal confidentiality rules (42 CFR part 2). The federal rules prohibit you from making any further disclosure of this information unless further disclosure is expressly permitted by the written consent of the person to whom it pertains or as otherwise permitted by 42 CFR part 2. A general authorization for the release of medical or other information is NOT sufficient for this purpose. The Federal rules restrict any use of the information to criminally investigate or prosecute any alcohol or drug abuse patient.The records that you are about to access may contain highly sensitive health information, the redisclosure of which is protected by Article 27-F of the [place] State Public Health law. If you continue you may have access to information: Regarding HIV / AIDS; Provided by facilities licensed or operated by the [facility] Office of Mental Health; or Provided by the [facility] Office for People With Developmental Disabilities. If such information is present, then the following [facility] mandated warning applies: This information has been disclosed to you from confidential records which are protected by state law. State law prohibits you from making any further disclosure of this information without the specific written consent of the person to whom it pertains, or as otherwise permitted by law. Any unauthorized further disclosure in violation of state law may result in a fine or prison sentence or both. A general authorization for the release of medical or other information is NOT sufficient authorization for further disc losure. Family History Family Member Name Family Member Gender Family Member Status Date o f Status Description Data Source(s) Unknown Unknown Problem MEDENT ([facility]) Unknown Female Problem [facility] [place] Female Problem [facility] Female Problem [facility]) Unknown Female Problem MEDENT ([facility]) Unknown Female Problem MEDENT ([facility]) Unknown Female Problem MEDENT ([facility]) Unknown Female Problem MEDENT ([facility]) Unknown Female Problem MEDENT ([facility]) Encounters Encounter Providers Location Date Indications Data Source(s ) Unknown [address] [facility] [address] 11/03/2020 12:00:00 AM EDT [facility] [place] [address] [facility] [place] [address] 10/06/2020 12:00:00 AM EDT [facility]1 ([facility] [place] [address] [facility] [address] 10/05/2020 12:00:00 AM EDT [facility] [place] [address] [facility] [place] [address] 09/29/2020 12:00:00 AM EDT [facility]1 [facility] [place] [address] [facility] [place] [address] 09/15/2020 12:00:00 AM EDT eCW1 ([facility]) [place] [address] [facility] [address] 09/15/2020 12:00:00 AM EDT eCW1 ([facility]) Outpatient [address] [facility] [address] 09/01/2020 12:00:00 AM EDT eCW1 ([facility]) Unknown [address] [facility] [address] 06/30/2020 12:00:00 AM EDT eCW1 ([facility]) Unknown [address] [facility] [address] 04/22/2020 12:00:00 AM EDT eCW1 ([facility]) Outpatient [address] [facility] [address] 04/02/2020 12:00:00 AM EST eCW1 ([facility]) Unknown [address] [facility] [address] 02/16/2020 12:00:00 AM EST eCW1 ([facility]) Unknown [address] [facility] [address] 01/20/2020 12:00:00 AM EST eCW1 ([facility]) Outpatient [address] [facility] [address] 01/16/2020 12:00:00 AM EST eCW1 ([facility]) Unknown [address] [facility] [address] 01/14/2020 12:00:00 AM EST eCW1 ([facility]) Office Visit, Est Pt., Level 4 PC [address] [place] [address] 12/26/2019 12:00:00 AM EST eCW1 ([facility]) Outpatient [facility] 12/09/2019 12:02:13 AM EST [facility] Outpatient [address] [facility] [address] 11/26/2019 12:00:00 AM EDT eCW1 ([facility]) Unknown [address] [facility] [address] 11/26/2019 12:00:00 AM EDT eCW1 ([facility]) Unknown [address] [facility] [address] 11/25/2019 12:00:00 AM EDT eCW1 ([facility]) Unknown [address] [facility] [address] 11/21/2019 12:00:00 AM EDT eCW1 ([facility]) Unknown [address] [facility] [address] 11/06/2019 12:00:00 AM EDT eCW1 ([facility]) [facility] [address] [facility] [address] 10/02/2019 12:00:00 AM EDT eCW1 ([facility]) Outpatient [address] [place] [address] [facility] Team 12/14/2016 08:00:00 AM EST - 11/09/2020 10:45:00 AM EDT MHARS ([facility]) Patient discharged. Immunizations Vaccine Date Status Description Data Source(s) influenza, recombinant, quadrIvalent,injectable, prese rvative free 04/02/2020 02:44:00 PM EST completed eCW1 ([facility]) influenza, recombinant, quadrIvalent,injectable, prese rvative free 04/02/2020 02:44:00 PM EST completed eCW1 ([facility]) influenza, recombinant, quadrIvalent,injectable, prese rvative free 04/02/2020 02:44:00 PM EST completed eCW1 ([facility]) influenza, recombinant, quadrIvalent,injectable, prese rvative free 04/02/2020 02:44:00 PM EST completed eCW1 ([facility]) influenza, recombinant, quadrIvalent,injectable, prese rvative free 04/02/2020 02:44:00 PM EST completed eCW1 ([facility]) influenza, recombinant, quadrIvalent,injectable, prese rvative free 04/02/2020 02:44:00 PM EST completed eCW1 ([facility]) influenza, recombinant, quadrIvalent,injectable, prese rvative free 04/02/2020 02:44:00 PM EST completed eCW1 ([facility]) influenza, recombinant, quadrIvalent,injectable, prese rvative free 04/02/2020 02:44:00 PM EST completed eCW1 ([facility]) influenza, recombinant, quadrIvalent,injectable, prese rvative free 04/02/2020 02:44:00 PM EST completed eCW1 ([facility]) influenza, recombinant, quadrIvalent,injectable, prese rvative free 04/02/2020 02:44:00 PM EST completed eCW1 ([facility]) COVID-19 VACCINE Moderna 03/19/2020 12:00:00 AM EST completed [facility] Vaccine Series Complete: YESThis Data wa s Submitted to [facility] Via [employer]. COVID-19 VACCINE Moderna 02/20/2020 12:00:00 AM EST completed [facility] Vaccine Series Complete: NOThis Data was Submitted to [facility] Via [employer]. influenza, recombinant, quadrIvalent,injectable, prese rvative free 11/26/2019 02:39:00 PM EDT completed eCW1 ([facility]) influenza, recombinant, quadrIvalent,injectable, prese rvative free 11/26/2019 02:39:00 PM EDT completed eCW1 ([facility]) influenza, recombinant, quadrIvalent,injectable, prese rvative free 11/26/2019 02:39:00 PM EDT completed eCW1 ([facility]) influenza, recombinant, quadrIvalent,injectable, prese rvative free 11/26/2019 02:39:00 PM EDT completed eCW1 ([facility]) influenza, recombinant, quadrIvalent,injectable, prese rvative free 11/26/2019 02:39:00 PM EDT completed eCW1 ([facility]) influenza, recombinant, quadrIvalent,injectable, prese rvative free 11/26/2019 02:39:00 PM EDT completed eCW1 ([facility]) influenza, recombinant, quadrIvalent,injectable, prese rvative free 11/26/2019 02:39:00 PM EDT completed eCW1 ([facility]) influenza, recombinant, quadrIvalent,injectable, prese rvative free 11/26/2019 02:39:00 PM EDT completed eCW1 ([facility]) influenza, recombinant, quadrIvalent,injectable, prese rvative free 11/26/2019 02:39:00 PM EDT completed eCW1 ([facility]) influenza, recombinant, quadrIvalent,injectable, prese rvative free 11/26/2019 02:39:00 PM EDT completed eCW1 ([facility]) influenza, recombinant, quadrIvalent,injectable, prese rvative free 11/26/2019 02:39:00 PM EDT completed eCW1 ([facility]) influenza, recombinant, quadrIvalent,injectable, prese rvative free 11/26/2019 02:39:00 PM EDT completed eCW1 ([facility]) influenza, recombinant, quadrIvalent,injectable, prese rvative free 11/26/2019 02:39:00 PM EDT completed eCW1 ([facility]) influenza, recombinant, quadrIvalent,injectable, prese rvative free 11/26/2019 02:39:00 PM EDT completed eCW1 ([facility]) influenza, recombinant, quadrIvalent,injectable, prese rvative free 11/26/2019 02:39:00 PM EDT completed eCW1 ([facility]) influenza, recombinant, quadrIvalent,injectable, prese rvative free 11/26/2019 02:39:00 PM EDT completed eCW1 ([facility]) influenza, recombinant, quadrIvalent,injectable, prese rvative free 11/26/2019 02:39:00 PM EDT completed eCW1 ([facility]) influenza, recombinant, quadrIvalent,injectable, prese rvative free 11/26/2019 02:39:00 PM EDT completed eCW1 ([facility]) Medications Medication Brand Name Start Date Product Form Dose Route Admi nistrative Instructions Pharmacy Instructions Status Indications Reaction Description Data Source(s) 819 mg/2.625 mL 07/21/2020 12:00:00 AM EDT syringe 2 INJECT 1 SYRINGE INTRAMUSCULARLY ONCE EVERY 3 MONTHS INJECT 1 SYRINGE INTRAMUSCULARLY ONCE EV ALAN 3 MONTHS SOLD: 10/13/2020 [facility] 819 mg/2.625 mL 07/21/2020 12:00:00 AM EDT syringe 2 INJECT 1 SYRINGE INTRAMUSCULARLY ONCE EVERY 3 MONTHS INJECT 1 SYRINGE INTRAMUSCULARLY ONCE EV ALAN 3 MONTHS SOLD: 07/22/2020 [facility] Naproxen 500 MG Oral Tablet Naproxen 500 MG 01/16/2020 12:00:00 AM EST active Naproxen 500 MG eCW1 ([facility]) Naproxen 500 MG Oral Tablet Naproxen 500 MG 01/16/2020 12:00:00 AM EST active eCW1 ([facility]) Naproxen 500 MG Oral Tablet Naproxen 500 MG 01/16/2020 12:00:00 AM EST active Naproxen 500 MG eCW1 ([facility]) Naproxen 500 MG Oral Tablet Naproxen 500 MG 01/16/2020 12:00:00 AM EST active Naproxen 500 MG eCW1 ([facility]) Naproxen 500 MG Oral Tablet Naproxen 500 MG 01/16/2020 12:00:00 AM EST active Naproxen 500 MG eCW1 ([facility]) Naproxen 500 MG Oral Tablet Naproxen 500 MG 01/16/2020 12:00:00 AM EST active Naproxen 500 MG eCW1 ([facility]) Naproxen 500 MG Oral Tablet Naproxen 500 MG 01/16/2020 12:00:00 AM EST active Naproxen 500 MG eCW1 ([facility]) Naproxen 500 MG Oral Tablet Naproxen 500 MG 01/16/2020 12:00:00 AM EST active Naproxen 500 MG eCW1 ([facility]) Naproxen 500 MG Oral Tablet Naproxen 500 MG 01/16/2020 12:00:00 AM EST active Naproxen 500 MG eCW1 ([facility]) Naproxen 500 MG Oral Tablet Naproxen 500 MG 01/16/2020 12:00:00 AM EST active Naproxen 500 MG eCW1 ([facility]) Naproxen 500 MG Oral Tablet Naproxen 500 MG 01/16/2020 12:00:00 AM EST active Naproxen 500 MG eCW1 ([facility]) Naproxen 500 MG Oral Tablet Naproxen 500 MG 01/16/2020 12:00:00 AM EST active Naproxen 500 MG eCW1 ([facility]) Naproxen 500 MG Oral Tablet Naproxen 500 MG 01/16/2020 12:00:00 AM EST active Naproxen 500 MG eCW1 ([facility]) 819 mg/2.625 mL 07/28/2019 12:00:00 AM EDT syringe 2 INJECT 1 SYRINGE INTRAMUSCULARLY EVERY THREE MONTHS INJECT 1 SYRINGE INTRAMUSCULARLY EVERY T HREE MONTHS SOLD: 01/21/2020 [facility] 819 mg/2.625 mL 07/28/2019 12:00:00 AM EDT syringe 2 INJECT 1 SYRINGE INTRAMUSCULARLY EVERY THREE MONTHS INJECT 1 SYRINGE INTRAMUSCULARLY EVERY T HREE MONTHS SOLD: 10/28/2019 [facility] 819 mg/2.625 mL 05/02/2019 12:00:00 AM EDT syringe 2 INJECT 1 SYRINGE INTRAMUSCULARLY EVERY 3 MONTHS INJECT 1 SYRINGE INTRAMUSCULARLY EVERY 3 MONTHS SOLD: 04/15/2020 [facility] Insurance Providers Payer name Policy type / Coverage type Policy ID Covered alliance party ID Covered alliance party's relationship to [place] Policy [place] Plan Information UHC UNITED MEDICARE DUAL G [id number] Self [id number] Medicare Medicare Primary [id number] Self MEDICARE [id number] Della [id number] A Medicare [facility] [[email or web address] Medicare Primary [id number] Self Medicaid [place] Medig[place] Part B [id number] Self MEDICAID [id number] Della [id number] [facility] Medicare Dual Complete [place] Dual Complete [id number] [place] Dual Complete [facility] [place] Dual Complete [id number] [place] Dual Complete [facility] [id number] MEDICAID M [id number] Self [id number] [facility] [id number] SP [id number] MEDICAID [id number] SP [id number] MEDICAID [id number] SP [id number] ANSI-Medicare Part B [id number] ANSI-Medicare Part B [id number] ANSI-Medicare Part B [id number] ANSI-Medicaid [id number] ANSI-Medicare Part B [id number] ANSI-Medicare Part B [id number] ANSI-Medicaid [id number] ANSI-Medicaid [id number] ANSI-Medicare Part B [id number] ANSI-Medicare Part B [id number] ANSI-Medicare Part B [id number] ANSI-Medicaid [id number] ANSI-Medicare Part B [id number] ANSI-Medicare Part B [id number] ANSI-Medicare Part B [id number] ANSI-Medicaid [id number] ANSI-Medicaid [id number] ANSI-Medicare Part B [id number] ANSI-Medicare Part B [id number] ANSI-Medicare Part B [id number] ANSI-Medicaid [id number] ANSI-Medicare Part B [id number] ANSI-Medicare Part B [id number] ANSI-Medicaid [id number] ANSI-Medicare Part B [id number] ANSI-Medicare Part B [id number] ANSI-Medicare Part B [id number] ANSI-Medicaid [id number] ANSI-Medicare Part B [id number] ANSI-Medicaid [id number] ANSI-Medicare Part B [id number] ANSI-Medicaid [id number] ANSI-Medicare Part B [id number] ANSI-Medicare Part B [id number] ANSI-Medicaid [id number] ANSI-Medicare Part B [id number] ANSI-Medicare Part B [id number] ANSI-Medicaid [id number] ANSI-Medicare Part B [id number] ANSI-Medicare Part B [id number] ANSI-Medicaid [id number] ANSI-Medicare Part B [id number] ANSI-Medicare Part B [id number] ANSI-Medicare Part B [id number] ANSI-Medicare Part B [id number] ANSI-Medicaid [id number] ANSI-Medicare Part B [id number] ANSI-Medicare Part B [id number] ANSI-Medicaid [id number] ANSI-Medicare Part B [id number] ANSI-Medicaid [id number] ANSI-Medicare Part B [id number] ANSI-Medicare Part B [id number] ANSI-Medicare Part B [id number] ANSI-Medicaid [id number] ANSI-Medicare Part B [id number] ANSI-Medicare Part B [id number] ANSI-Medicaid [id number] [facility] [id number] SP [id number] [facility] [id number] SP [id number] [facility] [id number] SP [id number] MEDICARE [id number] SP [id number] A Medicare [place] Medicare Primary [id number] Self [id number] [place] Med[place] Part B [id number] Self [id number] [facility] Health Maintenance Organization (HMO) [id number] Self [id number] MEDICARE [id number] SP [id number] A Medicaid [place] Medigap Part B [id number] Self [facility]/Medicare Commercial [id number] Self Medicaid Medigap Part B [id number] Self [facility] Dual Cov Plan Commercial [id number] [facility] [id number] SP [id number] [facility] O [id number] S [id number] MEDICAID M [id number] S [id number] [facility] DUAL COMPLETE O [id number] S [id number] Medicaid After Medicare Medigap Part B [id number] Self OTHER1 *NOTFORTODAYSVISIT* SP *NOTFORTODAYSVISIT* ALLSTATE INS CO NO FAULT CLM#[id number] SP CLM#[id number] OTHER NO FAULT 00 SP 00 MEDICARE P [id number] S [id number] A P UNAVAILABLE UNAVAILA BLE [id number] [place] [id number] SP [id number] [facility] [id number] SP [id number] [facility] [id number] SP [id number] MEDICARE COMPLETE [id number] SP [id number] MEDICARE COMPLETE [id number] SP [id number] [facility] [id number] SP [id number] [place] [id number] SP [id number] [facility] [employer] P [id number] S [id number] Medicaid S [id number] S [id number] MEDICAID [id number] SP [id number] ANSI-Medicaid [id number] ANS-Medicare Part B [id number] Problems, Conditions, and Diagnoses Code Display Name Description Problem Type Effective Dates Data Source(s) Z12.5 441886764 Screening PSA (prostate specific antigen) Problem 09/01/2020 12:00:00 AM EDT eCW1 ([facility]) Surgeries/Procedures Procedure Description Date Indications Data Source(s) Imm: Flublok Quadrivalent 18 years & older 0.5mL IM Influenz a 04/02/2020 12:00:00 AM EST eCW1 ([facility]) Immunization: Flublok Quadrivalent (18 years & older) 0.5mL IM (Influenza) 11/26/2019 12:00:00 AM EDT eCW1 ([facility]) Results ID Date Data Source URIC ACID 01/16/2020 12:00:00 AM EST eCW1 ([facility]) Name Value Range Interpretation Code Description Data Amy rce(s) Supporting Document(s) 4.0 3.5-7.2 URIC ACID eCW1 ([facility]) ID Date Data Source PLZ WRIST COMPLETE 01/16/2020 12:00:00 AM EST eCW1 ([facility]) Name Value Range Interpretation Code Description Data Amy rce(s) Supporting Document(s) PLZ WRIST COMPLETE eCW1 ([facility]) ID Date Data Source Basic Metabolic Profile (BMP) 01/16/2020 12:00:00 AM EST eCW 1 ([facility]) Name Value Range Interpretation Code Description Data Amy rce(s) Supporting Document(s) 108 70-100 GLUCOSE, FASTING eCW1 ([facility]) 11 7-18 BLOOD UREA NITROGEN eCW1 ([facility]) > 60.0 >49 GLOMERULAR FILTRATION RATE eCW 1 ([facility]) 0.72 0.70-1.30 CREATININE FOR GFR eCW1 ([facility]) 4.2 3.5-5.1 POTASSIUM SERUM eCW1 ([facility]) 140 136-145 SODIUM LEVEL eCW1 ([facility]) 107 98-107 CHLORIDE LEVEL eCW1 ([facility]) 28 21-32 CARBON DIOXIDE LEVEL eCW1 ([facility]) 9.5 8.8-10.2 CALCIUM LEVEL eCW1 ([facility]) ID Date Data Source ERYTHROCYTE SEDIMENTATION RATE 01/16/2020 12:00:00 AM EST eC W1 ([facility]) Name Value Range Interpretation Code Description Data Amy rce(s) Supporting Document(s) 22 0-20 ERYTHROCYTE SEDIMENTATION RATE eCW1 ([facility]) ID Date Data Source CBC with Differential 01/16/2020 12:00:00 AM EST eCW1 ([facility]) Name Value Range Interpretation Code Description Data Amy rce(s) Supporting Document(s) 11.1 4.0-10.0 WHITE BLOOD COUNT eCW1 ([facility]) 36.6 42.0-52.0 HEMATOCRIT eCW1 ([facility]) 4.10 4.30-6.10 RED BLOOD COUNT eCW1 ([facility]) 12.1 13.5-17.5 HEMOGLOBIN eCW1 ([facility]) 89.3 80.0-96.0 MEAN CORPUSCULAR VOLUME e CW1 ([facility]) 29.5 27.0-33.0 MEAN CORPUSCULAR HEMOGLOB IN eCW1 ([facility]) 13.0 11.5-14.5 RED CELL DISTRIBUTION WID TH eCW1 ([facility]) 33.1 32.0-36.5 MEAN CORPUSCULAR HGB CONC eCW1 ([facility]) 305 150-450 PLATELET COUNT, AUTOMATED eCW1 ([facility]) 57.6 36.0-66.0 NEUTROPHILS % eCW1 ([facility]) 10.1 0.0-5.0 MONO % eCW1 ([facility]) 27.4 24.0-44.0 LYMPH % eCW1 ([facility]) 3.9 0.0-3.0 EOS % eCW1 ([facility]) 0.6 0.0-1.0 BASO % eCW1 ([facility]) 3.0 1.5-5.0 LYMPH # eCW1 ([facility]) 6.4 1.5-8.5 NEUTROPHILS # eCW1 ([facility]) 0.4 0.0-0.5 EOS # eCW1 ([facility]) 1.1 0.0-0.8 MONO # eCW1 ([facility]) 0.1 0.0-0.2 BASO # eCW1 ([facility]) Procedure Social History Code Duration Value Status Description Data Source(s ) Smoking 09/15/2020 12:00:00 AM EDT Former Smoker completed Former Smoker eCW1 ([facility]) Smoking 09/15/2020 12:00:00 AM EDT Former Smoker completed Former Smoker eCW1 ([facility]) Smoking 09/15/2020 12:00:00 AM EDT Former Smoker completed Former Smoker eCW1 ([facility]) Smoking 09/15/2020 12:00:00 AM EDT Former Smoker completed Former Smoker eCW1 ([facility]) Smoking 09/15/2020 12:00:00 AM EDT Former Smoker completed Former Smoker eCW1 ([facility]) Smoking 09/15/2020 12:00:00 AM EDT Former Smoker completed Former Smoker eCW1 ([facility]) Smoking 09/01/2020 12:00:00 AM EDT Former Smoker completed Former Smoker eCW1 ([facility]) Smoking 04/02/2020 12:00:00 AM EST Former Smoker completed Former Smoker eCW1 ([facility]) Smoking 04/02/2020 12:00:00 AM EST Former Smoker completed Former Smoker eCW1 ([facility]) Smoking 04/02/2020 12:00:00 AM EST Former Smoker completed Former Smoker eCW1 ([facility]) Smoking 01/16/2020 12:00:00 AM EST Former Smoker completed Former Smoker eCW1 ([facility]) Smoking 01/16/2020 12:00:00 AM EST Former Smoker completed Former Smoker eCW1 ([facility]) Smoking 01/16/2020 12:00:00 AM EST Former Smoker completed Former Smoker eCW1 ([facility]) Smoking 12/26/2019 12:00:00 AM EST Former Smoker completed Former Smoker eCW1 ([facility]) Smoking 12/26/2019 12:00:00 AM EST Former Smoker completed Former Smoker eCW1 ([facility]) Smoking 11/26/2019 12:00:00 AM EDT Former Smoker completed Former Smoker eCW1 ([facility]) Smoking 11/26/2019 12:00:00 AM EDT Former Smoker completed Former Smoker eCW1 ([facility]) Smoking 11/26/2019 12:00:00 AM EDT Former Smoker completed Former Smoker eCW1 ([facility]) Vital Signs ID Date Data Source UNK Name Value Range Interpretation Code Description Data Source(s) Body height 67 [in_i] 67 [in_i] eCW1 ([facility]) Body mass index (BMI) [Ratio] 27.25 kg/m2 27.25 kg/m2 W1 ([facility]) Body weight 174 [lb_av] 174 [lb_av] eCW1 ([facility]) Heart rate 88 /min 88 /min eCW1 ([facility]) Body temperature 97.4 [degF] 97.4 [degF] eCW1 ( [facility]) Respiratory rate 20 /min 20 /min eCW1 ([facility]) Diastolic blood pressure 70 mm[Hg] 70 mm[Hg] eCW1 ([facility]) Systolic blood pressure 120 mm[Hg] 120 mm[Hg] e CW1 ([facility]) Body weight 179 [lb_av] 179 [lb_av] eCW1 ([facility]) Body height 67 [in_i] 67 [in_i] eCW1 ([facility]) Body mass index (BMI) [Ratio] 28.03 kg/m2 28.03 kg/m2 eCW1 ([facility]) Heart rate 83 /min 83 /min eCW1 ([facility]) Respiratory rate 20 /min 20 /min eCW1 ([facility]) Body temperature 97.8 [degF] 97.8 [degF] eCW1 ( [facility]) Systolic blood pressure 100 mm[Hg] 100 mm[Hg] e CW1 ([facility]) Diastolic blood pressure 80 mm[Hg] 80 mm[Hg] eCW1 ([facility]) Body weight 182 [lb_av] 182 [lb_av] eCW1 ([facility]) Body height 67 [in_i] 67 [in_i] eCW1 ([facility]) Body mass index (BMI) [Ratio] 28.50 kg/m2 28.50 kg/m2 eCW1 ([facility]) Heart rate 77 /min 77 /min eCW1 ([facility]) Respiratory rate 20 /min 20 /min eCW1 ([facility]) Body temperature 97 [degF] 97 [degF] eCW1 ([facility]) Systolic blood pressure 124 mm[Hg] 124 mm[Hg] e CW1 ([facility]) Diastolic blood pressure 70 mm[Hg] 70 mm[Hg] eCW1 ([facility]) Body mass index (BMI) [Ratio] 28.19 kg/m2 28.19 kg/m2 eCW1 ([facility]) Body weight 180 [lb_av] 180 [lb_av] eCW1 ([facility]) Heart rate 88 /min 88 /min eCW1 ([facility]) Respiratory rate 20 /min 20 /min eCW1 ([facility]) Body temperature 98 [degF] 98 [degF] eCW1 ([facility]) Systolic blood pressure 124 mm[Hg] 124 mm[Hg] e CW1 ([facility]) Diastolic blood pressure 70 mm[Hg] 70 mm[Hg] eCW1 ([facility]) Body height 67 [in_i] 67 [in_i] eCW1 ([facility]) Body weight 178 [lb_av] 178 [lb_av] eCW1 ([facility]) Body height 67 [in_i] 67 [in_i] eCW1 ([facility]) Body mass index (BMI) [Ratio] 27.88 kg/m2 27.88 kg/m2 eCW1 ([facility]) Heart rate 88 /min 88 /min eCW1 ([facility]) Respiratory rate 20 /min 20 /min eCW1 ([facility]) Body temperature 98.5 [degF] 98.5 [degF] eCW1 ( [facility]) Systolic blood pressure 130 mm[Hg] 130 mm[Hg] e CW1 ([facility]) Diastolic blood pressure 80 mm[Hg] 80 mm[Hg] eCW1 ([facility]) Body weight 182 [lb_av] 182 [lb_av] eCW1 ([facility]) Body height 67 [in_i] 67 [in_i] eCW1 ([facility]) Body mass index (BMI) [Ratio] 28.50 kg/m2 28.50 kg/m2 eCW1 ([facility]) Heart rate 90 /min 90 /min eCW1 ([facility]) Respiratory rate 18 /min 18 /min eCW1 ([facility]) Body temperature 97.8 [degF] 97.8 [degF] eCW1 ( [facility]) Systolic blood pressure 128 mm[Hg] 128 mm[Hg] e CW1 ([facility]) Diastolic blood pressure 68 mm[Hg] 68 mm[Hg] eCW1 ([facility]) Respiratory rate 12 /min 12 /min MEDENT ( [facility]) Body height 70 [in_i] 70 [in_i] RADHA ([facility] ) 5'10" Body weight 209.00 [lb_av] 209.00 [lb_av] SP [place] ([facility] ) Body mass index (BMI) [Ratio] 30.0 kg/m2 30.0 k g/m2 RADHA ([facility] ) Patient Treatment Plan of Care Planned Activity Planned Date Details Description Data Source (s) Naproxen 500 MG Oral Tablet 01/16/2020 12:00:00 AM EST eCW1 ([facility]) Naproxen 500 MG Oral Tablet 01/16/2020 12:00:00 AM EST eCW1 ([facility]) Naproxen 500 MG Oral Tablet 01/16/2020 12:00:00 AM EST eCW1 ([facility])
--- OUTSIDE RECORDS SUMMARY | 2020-11-23 20:33 | CCD ---
Author Author [facility] Organization [facility] Address Unknown Phone Unavailable Care Team Providers Care Sleever Name Role Phone Dianne Gordon Unavailable PROBLEMS Type Condition ICD9-CM Code TLX64-ED Code Onset Dates Condition S tatus W/U Status Risk SNOMED Code Notes Problem Iron deficiency anemia, unspecified iron deficiency an emia type D50.9 Active confirmed 70952107 Problem Gastroesophageal reflux disease without esophagitis K21.9 Active confirmed 533758796 Problem Vitamin D deficiency E55.9 Active confirmed 72859590 Problem AALIYAH (obstructive sleep apnea) G47.33 Active confirm ed 63011664 Problem Morbid obesity due to excess calories E66.01 Ac tive confirmed 575408765 Problem Other chronic nonalcoholic liver disease K76.89 Active confirmed 75502814 Problem Hypertriglyceridemia E78.1 Active confirmed 527175811 Problem 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 Active conf irmed 87897785 Problem Diabetes E11.9 Active confirmed 21956975 Problem Leukocytosis, unspecified type D72.829 Active confi rmed 783805560 Problem Constipation, unspecified constipation type K59.00 Active confirmed 85569446 Problem BMI 35.0-35.9,adult Z68.35 Active confirmed 417409990 Problem Intellectual disability F79 Active confirmed 408658689 Problem Mixed hyperlipidemia E78.2 Active confirmed 103554832 Problem Fatty liver K76.0 Active confirmed 20935858 7 Problem Screening PSA (prostate specific antigen) Z12.5 Active confirmed 943233643 Problem BMI 39.0-39.9,adult Z68.39 Active confirmed 534116638 Problem Dysmetabolic syndrome X E88.81 Active confirmed 662843866 Problem Mild intermittent asthma without complication J45. 20 Active confirmed 340853389 Problem Gastroparesis K31.84 Active confirmed 845766 006 Problem Type 2 diabetes mellitus wit h diabetic neuropathy, without long-term current use of insulin E11.40 Active confirmed 2692837 6 Problem Tardive dyskinesia G24.01 Active confirmed 1 72253243 Problem Schizoaffective disorder, unspecified type F25.9 Active confirmed 22834611 ALLERGIES Allergen (clinical drug ingredient) Drug/Non Drug Allergy do cumented on EMR Reaction Allergy Type Onset Date Status metoclopramide Reglan([facility] Code:[address]-38) dry mouth, lighth eadedness Drug Allergy Active Penicillin (For Allergies Use Only) Rash Drug Allerg y Active ENCOUNTERS from 1955 to 2020-10-07 Encounter Location Date Provider Diagnosis [facility] [phone] [place] [address] Oct, Dianne Walbridge IMMUNIZATIONS Vaccine Route Administration Date Status Influenza [...] Notes Total Score: 0 Interpretation: Alcohol Education Pentecostalism: Question Answer Notes Pentecostalism 21 Religious Sexual Hx: Question Answer Notes Had sex [...] @8PM Oral for 7 Active Vitamin D 52179 UNIT 1 capsule with meal Orally Once [...] Days Active Vitamin D (Ergocalciferol) 1.25 MG (21302 UT) TAKE ONE CAPSULE BY MOUTH every sunday @10am for 7 Active Naproxen 500 MG 1 tablet with food or milk a s needed Orally every 12 hrs as needed for pain for 30 Days Jan, Acti ve PROCEDURES No Information RESULTS No Results REASON FOR VISIT refill-lipitor and colace MEDICAL (GENERAL) HISTORY Type Description Date Medical [...] 30 Days Vitamin D (Ergocalciferol) 1.25 MG (45121 UT) TAKE ONE CAPSULE BY MOUTH every sunday @10am for 7 Magnesium Oxide 400 (241.3 Mg) MG TAKE ONE TABLET BY MOUTH @10AM for 7 Next Appt Details Provider Name:Dianne Gordon, 2020-12-08 09:1 5:00 AM, [address], , [place], [address], Insurance Providers Payer Name Payer Address Payer Phone Insured Name Patient Relati onship to Insured Coverage Start Date Coverage End Date MEDICAID [employer] [address] [facility] [id number] [place] MEDICARE COMPLETE [employer] [address] [address] [facility] [id number] [place]
--- NOTE | 2020-11-23 21:02 | REPVR ---
PROCEDURE INFORMATION: Exam: CT Head Without Contrast Exam date and time: 11/23/2020 8:57 PM Age: 64 years old Clinical indication: Other: CVA; Additional info: CVA - nursing interventions must not delay CT TECHNIQUE: Imaging protocol: Computed tomography of the head without contrast. Radiation optimization: All CT scans at this facility use at least one of these dose optimization techniques: automated exposure control; mA and/or kV adjustment per patient size (includes targeted exams where dose is matched to clinical indication); or iterative reconstruction. Other technique: STROKE PROTOCOL was implemented. COMPARISON: CT Head without contrast 09/08/2020 11:42 AM FINDINGS: Brain: There is no acute intracranial hemorrhage or mass effect. Mild diffuse volume loss is within the range of normal for patient age. There are small vessel ischemic changes within the periventricular and subcortical white matter, but the normal monroe/white matter delineation is maintained. Cerebral ventricles: No ventriculomegaly. Paranasal sinuses: Visualized sinuses are unremarkable. No fluid levels. Mastoid air cells: Visualized mastoid air cells are well aerated. Bones/joints: Unremarkable. No acute fracture. Soft tissues: Unremarkable. IMPRESSION: No acute hemorrhage or edema. ASSESSMENT: ASPECTS ([place] Stroke Program Early CT Score) is 10. Electronically signed by: Aisha Keyes On 11/23/2020 21:01:43 PM
[2020-11-23 21:04] LABS: BASO # 0.1 10^3/uL (0.0-0.2); BASO % 0.5 % (0.0-1.0); EOS # 0.2 10^3/uL (0.0-0.5); EOS % 2.3 % (0.0-3.0); HEMATOCRIT 40.3 % (42.0-52.0); HEMOGLOBIN 13.5 g/dl (13.5-17.5); LYMPH % 19.8 % (24.0-44.0); MEAN CORPUSCULAR HEMOGLOBIN 30.1 pg (27.0-33.0); MEAN CORPUSCULAR HGB CONC 33.5 g/dl (32.0-36.5); MEAN CORPUSCULAR VOLUME 89.8 fl (80.0-96.0); MONO # 0.9 10^3/uL (0.0-0.8); NEUTROPHILS # 6.7 10^3/uL (1.5-8.5); NEUTROPHILS % 68.1 % (36.0-66.0); PLATELET COUNT, AUTOMATED 262 10^3/uL (150-450); RED BLOOD COUNT 4.49 10^6/uL (4.30-6.10); WHITE BLOOD COUNT 9.9 10^3/uL (4.0-10.0)
--- NOTE | 2020-11-23 21:19 | REPVR ---
PROCEDURE INFORMATION: Exam: XR Chest Exam date and time: 11/23/2020 9:15 PM Age: 64 years old Clinical indication: Other: CVA TECHNIQUE: Imaging protocol: XR of the chest. Views: 1 view. COMPARISON: CR PORTABLE CHEST X-RAY 09/08/2020 11:35 AM FINDINGS: Lungs: Unremarkable. No consolidation. Pleural spaces: Unremarkable. No pleural effusion. No pneumothorax. Heart/Mediastinum: Unremarkable. No cardiomegaly. Bones/joints: Unremarkable. IMPRESSION: No acute findings. Electronically signed by: Aisha Keyes On 11/23/2020 21:18:41 PM
[2020-11-23 21:38] LABS: CK-MB VALUE MASS < 1.0 NG/ML (<3.6); CPK CREATINE PHOSPHOKINASE 68 U/L (39-308); MB/CK RELATIVE INDEX 1.47 (< OR =4); TROPONIN I < 0.02 NG/ML (< 0.10)
[2020-11-23 22:35] LABS: RSV AMPLIFICATION NEGATIVE (NEGATIVE)
--- OUTSIDE RECORDS SUMMARY | 2020-11-23 23:22 | CCD ---
Author Author [facility] Organization [facility] Address Unknown Phone Unavailable Support Name Relationship Address Phone Ivette Next Of Kin Unknown Unavailable Miguel Rehman DDS Next Of Kin [address] [place] [address] UE Next Of Kin Unknown Unavailable DIMAS ROBERTSON Next Of Kin [address] [place] [address] DISABLED Next Of Kin Unknown Unavailable [place] [address] Nusrat MERCHANT Next Of Kin [address] [place] [address] SOLO DIMAS Next Of Kin [address] [place] [address] [place] [address] Unavailable Re-disclosure Warning The records that you [...] by facilities licensed or operated by the [facility] Office of Mental Health; or Provided by the [facility] Office for People With Developmental Disabilities. If such information is present, then the following [facility] mandated warning applies: This information has been [...] law may result in a fine or retirement sentence or both. A general authorization for the release of medical or other information is NOT sufficient authorization for further disc losure. Family History Family Member Name Family Member Gender Family Member Status Date o f Status Description Data Source(s) Unknown Unknown Problem MEDENT ([facility]) Unknown Female Problem [facility] [place] Female Problem [facility] Female Problem [facility]) Unknown Female Problem MEDENT ([facility] Unknown Female Problem MEDENT ([facility]) Unknown Female Problem MEDENT ([facility]) Unknown Female Problem MEDENT ([facility]) Unknown Female Problem MEDENT ([facility]) Encounters Encounter Providers Location Date Indications Data Source(s ) [place] [address] [facility] [address] 11/03/2020 12:00:00 AM EDT [facility] [place] [address] [facility] [place] [address] 10/06/2020 12:00:00 AM EDT [facility]1 [facility] [place] [address] [facility] [address] 10/05/2020 12:00:00 AM EDT [facility] [place] [address] [facility] [place] [address] 09/29/2020 12:00:00 AM EDT [facility] [place] [address] [facility] [place] [address] 09/15/2020 12:00:00 AM EDT eCW1 ([facility]) [place] [address] [facility] [address] 09/15/2020 12:00:00 AM EDT eCW1 ([facility]) [place] [address] [facility] [address] 09/01/2020 12:00:00 AM EDT eCW1 ([facility]) Unknown [address] [facility] [address] 06/30/2020 12:00:00 AM EDT eCW1 ([facility]) Unknown [address] [facility] [address] 04/22/2020 12:00:00 AM EDT eCW1 ([facility]) [place] [address] [facility] [address] 04/02/2020 12:00:00 AM EST eCW1 ([facility]) Unknown [address] [facility] [address] 02/16/2020 12:00:00 AM EST eCW1 ([facility]) [place] [address] [facility] [address] 01/20/2020 12:00:00 AM EST eCW1 ([facility]) [place] [address] [facility] [address] 01/16/2020 12:00:00 AM EST eCW1 ([facility]) Unknown [address] [facility] [address] 01/14/2020 12:00:00 AM EST eCW1 ([facility]) Office Visit, Est Pt., Level 4 PC [address] [place] [address] 12/26/2019 12:00:00 AM EST eCW1 ([facility]) Outpatient [facility] 12/09/2019 12:02:13 AM EST [facility] Outpatient [address] [facility] [address] 11/26/2019 12:00:00 AM EDT eCW1 ([facility]) [place] [address] [facility] [address] 11/26/2019 12:00:00 AM EDT eCW1 ([facility]) [place] [address] [facility] [address] 11/25/2019 12:00:00 AM EDT eCW1 ([facility]) [place] [address] [facility] [address] 11/21/2019 12:00:00 AM EDT eCW1 ([facility]) [place] [address] [facility] [address] 11/06/2019 12:00:00 AM EDT eCW1 ([facility]) [facility] [address] [facility] [address] 10/02/2019 12:00:00 AM EDT eCW1 ([facility]) Outpatient [address] [place] [address] 3669-[employer] Integration Team 12/14/2016 08:00:00 AM EST - 11/09/2020 10:45:00 AM EDT MHARS ([facility]) Patient discharged. Immunizations Vaccine Date Status Description Data Source(s) influenza, recombinant, quadrIvalent,injectable, prese rvative free 04/02/2020 02:44:00 PM EST completed eCW1 ([facility]) influenza, recombinant, quadrIvalent,injectable, prese rvative free 04/02/2020 02:44:00 PM EST completed eCW1 ([facility]) influenza, recombinant, quadrIvalent,injectable, prese rvative free 04/02/2020 02:44:00 PM EST completed eCW1 ([facility]) influenza, recombinant, quadrIvalent,injectable, prese rvative free 04/02/2020 02:44:00 PM EST completed eCW1 ([facility]) influenza, recombinant, quadrIvalent,injectable, prese rvative free 04/02/2020 02:44:00 PM EST completed eCW1 ([facility]) influenza, recombinant, quadrIvalent,injectable, prese rvative free 04/02/2020 02:44:00 PM EST completed eCW1 ([facility]) influenza, recombinant, quadrIvalent,injectable, prese rvative free 04/02/2020 02:44:00 PM EST completed eCW1 ([facility]) influenza, recombinant, quadrIvalent,injectable, prese rvative free 04/02/2020 02:44:00 PM EST completed eCW1 ([facility]) influenza, recombinant, quadrIvalent,injectable, prese rvative free 04/02/2020 02:44:00 PM EST completed eCW1 ([facility]) influenza, recombinant, quadrIvalent,injectable, prese rvative free 04/02/2020 02:44:00 PM EST completed eCW1 ([facility]) COVID-19 VACCINE Moderna 03/19/2020 12:00:00 AM EST completed [facility] Vaccine Series Complete: YESThis Data wa s Submitted to [facility] Via [employer]. COVID-19 VACCINE Moderna 02/20/2020 12:00:00 AM EST completed [facility] Vaccine Series Complete: NOThis Data was Submitted to [facility] Via [employer]. influenza, recombinant, quadrIvalent,injectable, prese rvative free 11/26/2019 02:39:00 PM EDT completed eCW1 ([facility]) influenza, recombinant, quadrIvalent,injectable, prese rvative free 11/26/2019 02:39:00 PM EDT completed eCW1 ([facility]) influenza, recombinant, quadrIvalent,injectable, prese rvative free 11/26/2019 02:39:00 PM EDT completed eCW1 ([facility]) influenza, recombinant, quadrIvalent,injectable, prese rvative free 11/26/2019 02:39:00 PM EDT completed eCW1 ([facility]) influenza, recombinant, quadrIvalent,injectable, prese rvative free 11/26/2019 02:39:00 PM EDT completed eCW1 ([facility]) influenza, recombinant, quadrIvalent,injectable, prese rvative free 11/26/2019 02:39:00 PM EDT completed eCW1 ([facility]) influenza, recombinant, quadrIvalent,injectable, prese rvative free 11/26/2019 02:39:00 PM EDT completed eCW1 ([facility]) influenza, recombinant, quadrIvalent,injectable, prese rvative free 11/26/2019 02:39:00 PM EDT completed eCW1 ([facility]) influenza, recombinant, quadrIvalent,injectable, prese rvative free 11/26/2019 02:39:00 PM EDT completed eCW1 ([facility]) influenza, recombinant, quadrIvalent,injectable, prese rvative free 11/26/2019 02:39:00 PM EDT completed eCW1 ([facility]) influenza, recombinant, quadrIvalent,injectable, prese rvative free 11/26/2019 02:39:00 PM EDT completed eCW1 ([facility]) influenza, recombinant, quadrIvalent,injectable, prese rvative free 11/26/2019 02:39:00 PM EDT completed eCW1 ([facility]) influenza, recombinant, quadrIvalent,injectable, prese rvative free 11/26/2019 02:39:00 PM EDT completed eCW1 ([facility]) influenza, recombinant, quadrIvalent,injectable, prese rvative free 11/26/2019 02:39:00 PM EDT completed eCW1 ([facility]) influenza, recombinant, quadrIvalent,injectable, prese rvative free 11/26/2019 02:39:00 PM EDT completed eCW1 ([facility]) influenza, recombinant, quadrIvalent,injectable, prese rvative free 11/26/2019 02:39:00 PM EDT completed eCW1 ([facility]) influenza, recombinant, quadrIvalent,injectable, prese rvative free 11/26/2019 02:39:00 PM EDT completed eCW1 ([facility]) influenza, recombinant, quadrIvalent,injectable, prese rvative free 11/26/2019 02:39:00 PM EDT completed eCW1 ([facility]) Medications Medication Brand Name Start Date Product [...] AM EST active Naproxen 500 MG eCW1 ([facility]) Naproxen 500 MG Oral Tablet Naproxen 500 MG 01/16/2020 12:00:00 AM EST active eCW1 ([facility]) Naproxen 500 MG Oral Tablet Naproxen 500 MG 01/16/2020 12:00:00 AM EST active Naproxen 500 MG eCW1 ([facility]) Naproxen 500 MG Oral Tablet Naproxen 500 MG 01/16/2020 12:00:00 AM EST active Naproxen 500 MG eCW1 ([facility]) Naproxen 500 MG Oral Tablet Naproxen 500 MG 01/16/2020 12:00:00 AM EST active Naproxen 500 MG eCW1 ([facility]) Naproxen 500 MG Oral Tablet Naproxen 500 MG 01/16/2020 12:00:00 AM EST active Naproxen 500 MG eCW1 ([facility]) Naproxen 500 MG Oral Tablet Naproxen 500 MG 01/16/2020 12:00:00 AM EST active Naproxen 500 MG eCW1 ([facility]) Naproxen 500 MG Oral Tablet Naproxen 500 MG 01/16/2020 12:00:00 AM EST active Naproxen 500 MG eCW1 ([facility]) Naproxen 500 MG Oral Tablet Naproxen 500 MG 01/16/2020 12:00:00 AM EST active Naproxen 500 MG eCW1 ([facility]) Naproxen 500 MG Oral Tablet Naproxen 500 MG 01/16/2020 12:00:00 AM EST active Naproxen 500 MG eCW1 ([facility]) Naproxen 500 MG Oral Tablet Naproxen 500 MG 01/16/2020 12:00:00 AM EST active Naproxen 500 MG eCW1 ([facility]) Naproxen 500 MG Oral Tablet Naproxen 500 MG 01/16/2020 12:00:00 AM EST active Naproxen 500 MG eCW1 ([facility]) Naproxen 500 MG Oral Tablet Naproxen 500 MG 01/16/2020 12:00:00 AM EST active Naproxen 500 MG eCW1 ([facility]) 819 mg/2.625 mL 07/28/2019 12:00:00 AM EDT [...] type / Coverage type Policy ID Covered constitution party ID Covered constitution party's relationship to [place] Policy [place] Plan Information UHC UNITED MEDICARE DUAL G [id number] Self [id number] Medicare Medicare Primary [id number] Self MEDICARE [id number] Della [id number] A Medicare [facility] Medicare Primary [id number] Self [place]ig[place] Part B [id number] Self MEDICAID [id number] Della [id number] [facility] Medicare Dual Complete [place] Dual Complete [id number] Self [place] Dual Complete [facility] [place] Commercial [place] Dual Complete [id number] [place] Dual Complete [facility] [id number] MEDICAID M [id number] Self [id number] [facility] [id number] SP [id number] MEDICAID [id number] SP [id number] MEDICAID [id number] SP [id number] ANSI-Medicare Part B [id number] ANSI-Medicare Part B [id number] ANSI-Medicare Part B [id number] ANSI-Medicaid [id number] ANSI-Medicare Part B [id number] ANSI-Medicare Part B [id number] ANSI-Medicaid [id number] ANSI-Medicaid [id number] ANSI-Medicare Part B [id number] ANSI-Medicare Part B [id number] ANSI-Medicare Part B [id number] ANSI-Medicaid [id number] ANSI-Medicare Part B [id number] ANSI-Medicare Part B [id number] ANSI-Medicare Part B [id number] ANSI-Medicaid [id number] ANSI-Medicaid [id number] ANSI-Medicare Part B [id number] ANSI-Medicare Part B [id number] ANSI-Medicare Part B [id number] ANSI-Medicaid [id number] ANSI-Medicare Part B [id number] ANSI-Medicare Part B [id number] ANSI-Medicaid [id number] ANSI-Medicare Part B [id number] ANSI-Medicare Part B [id number] ANSI-Medicare Part B [id number] ANSI-Medicaid [id number] ANSI-Medicare Part B [id number] ANSI-Medicaid [id number] ANSI-Medicare Part B [id number] ANSI-Medicaid [id number] ANSI-Medicare Part B [id number] ANSI-Medicare Part B [id number] ANSI-Medicaid [id number] ANSI-Medicare Part B [id number] ANSI-Medicare Part B [id number] ANSI-Medicaid [id number] ANSI-Medicare Part B [id number] ANSI-Medicare Part B [id number] ANSI-Medicaid [id number] ANSI-Medicare Part B [id number] ANSI-Medicare Part B [id number] ANSI-Medicare Part B [id number] ANSI-Medicare Part B [id number] ANSI-Medicaid [id number] ANSI-Medicare Part B [id number] ANSI-Medicare Part B [id number] ANSI-Medicaid [id number] ANSI-Medicare Part B [id number] ANSI-Medicaid [id number] ANSI-Medicare Part B [id number] ANSI-Medicare Part B [id number] ANSI-Medicare Part B [id number] ANSI-Medicaid [id number] ANSI-Medicare Part B [id number] ANSI-Medicare Part B [id number] ANSI-Medicaid [id number] [facility] [id number] SP [id number] [facility] [id number] SP [id number] [facility] [id number] SP [id number] MEDICARE [id number] SP [id number] A Medicare [place] Medicare Primary [id number] Self [id number] [place] Part B [id number] Self [id number] [facility] Health Maintenance Organization (HMO) [id number] Self [id number] MEDICARE [id number] SP [id number] A [place] Med[place] Part B [id number] Self [facility]/Medicare Commercial [id number] Self Medicaid Medigap Part B [id number] Self [facility] Dual Cov Plan Commercial [id number] Self [facility] [id number] SP [id number] [facility] O [id number] S [id number] MEDICAID M [id number] S [id number] [facility] DUAL COMPLETE O [id number] S [id number] Medicaid After Medicare Medigap Part B [id number] Self [id number] *NOTFORTODAYSVISIT* SP *NOTFORTODAYSVISIT* ALLSTATE INS CO NO FAULT CLM#[id number] SP CLM#[id number] OTHER NO FAULT 00 SP 00 MEDICARE P [id number] S [id number] A P UNAVAILABLE [place] BLE [id number] [place] [id number] SP [id number] [facility] [id number] SP [id number] [facility] [id number] SP [id number] MEDICARE COMPLETE [id number] SP [id number] MEDICARE COMPLETE [id number] SP [id number] [facility] [id number] SP [id number] [place] [id number] SP [id number] [facility] [employer] P [id number] S [id number] Medicaid S [id number] S [id number] MEDICAID [id number] SP [id number] ANSI-Medicaid [id number] ANS-Medicare Part B [id number] Problems, Conditions, and Diagnoses Code Display Name Description Problem Type Effective Dates Data Source(s) Z12.5 721747805 Screening PSA (prostate specific antigen) Problem 09/01/2020 12:00:00 AM EDT eCW1 ([facility]) Surgeries/Procedures Procedure Description Date Indications Data Source(s) Imm: Flublok Quadrivalent 18 years & older 0.5mL IM Influenz a 04/02/2020 12:00:00 AM EST eCW1 ([facility]) Immunization: Flublok Quadrivalent (18 years & older) 0.5mL IM (Influenza) 11/26/2019 12:00:00 AM EDT eCW1 ([facility]) Results ID Date Data Source URIC ACID 01/16/2020 12:00:00 AM EST eCW1 ([facility]) Name Value Range Interpretation Code Description Data Amy rce(s) Supporting Document(s) 4.0 3.5-7.2 URIC ACID eCW1 ([facility]) ID Date Data Source PLZ WRIST COMPLETE 01/16/2020 12:00:00 AM EST eCW1 ([facility]) Name Value Range Interpretation Code Description Data Amy rce(s) Supporting Document(s) PLZ WRIST COMPLETE eCW1 ([facility]) ID Date Data Source Basic Metabolic Profile (BMP) 01/16/2020 12:00:00 AM EST eCW 1 ([facility]) Name Value Range Interpretation Code Description Data Amy rce(s) Supporting Document(s) 108 70-100 GLUCOSE, FASTING eCW1 ([facility]) 11 7-18 BLOOD UREA NITROGEN eCW1 ([facility]) > 60.0 >49 GLOMERULAR FILTRATION RATE eCW 1 ([facility]) 0.72 0.70-1.30 CREATININE FOR GFR eCW1 ([facility]) 4.2 3.5-5.1 POTASSIUM SERUM eCW1 ([facility]) 140 136-145 SODIUM LEVEL eCW1 ([facility]) 107 98-107 CHLORIDE LEVEL eCW1 ([facility]) 28 21-32 CARBON DIOXIDE LEVEL eCW1 ([facility]) 9.5 8.8-10.2 CALCIUM LEVEL eCW1 ([facility]) ID Date Data Source ERYTHROCYTE SEDIMENTATION RATE 01/16/2020 12:00:00 AM EST eC W1 ([facility]) Name Value Range Interpretation Code Description Data Amy rce(s) Supporting Document(s) 22 0-20 ERYTHROCYTE SEDIMENTATION RATE eCW1 ([facility]) ID Date Data Source CBC with Differential 01/16/2020 12:00:00 AM EST eCW1 ([facility]) Name Value Range Interpretation Code Description Data Amy rce(s) Supporting Document(s) 11.1 4.0-10.0 WHITE BLOOD COUNT eCW1 ([facility]) 36.6 42.0-52.0 HEMATOCRIT eCW1 ([facility]) 4.10 4.30-6.10 RED BLOOD COUNT eCW1 ([facility]) 12.1 13.5-17.5 HEMOGLOBIN eCW1 ([facility]) 89.3 80.0-96.0 MEAN CORPUSCULAR VOLUME e CW1 ([facility]) 29.5 27.0-33.0 MEAN CORPUSCULAR HEMOGLOB IN eCW1 ([facility]) 13.0 11.5-14.5 RED CELL DISTRIBUTION WID TH eCW1 ([facility]) 33.1 32.0-36.5 MEAN CORPUSCULAR HGB CONC eCW1 ([facility]) 305 150-450 PLATELET COUNT, AUTOMATED eCW1 ([facility]) 57.6 36.0-66.0 NEUTROPHILS % eCW1 ([facility]) 10.1 0.0-5.0 MONO % eCW1 ([facility]) 27.4 24.0-44.0 LYMPH % eCW1 ([facility]) 3.9 0.0-3.0 EOS % eCW1 ([facility]) 0.6 0.0-1.0 BASO % eCW1 ([facility]) 3.0 1.5-5.0 LYMPH # eCW1 ([facility]) 6.4 1.5-8.5 NEUTROPHILS # eCW1 ([facility]) 0.4 0.0-0.5 EOS # eCW1 ([facility]) 1.1 0.0-0.8 MONO # eCW1 ([facility]) 0.1 0.0-0.2 BASO # eCW1 ([facility]) Procedure Social History Code Duration Value Status Description Data Source(s ) Smoking 09/15/2020 12:00:00 AM EDT Former Smoker completed Former Smoker eCW1 ([facility]) Smoking 09/15/2020 12:00:00 AM EDT Former Smoker completed Former Smoker eCW1 ([facility]) Smoking 09/15/2020 12:00:00 AM EDT Former Smoker completed Former Smoker eCW1 ([facility]) Smoking 09/15/2020 12:00:00 AM EDT Former Smoker completed Former Smoker eCW1 ([facility]) Smoking 09/15/2020 12:00:00 AM EDT Former Smoker completed Former Smoker eCW1 ([facility]) Smoking 09/15/2020 12:00:00 AM EDT Former Smoker completed Former Smoker eCW1 ([facility]) Smoking 09/01/2020 12:00:00 AM EDT Former Smoker completed Former Smoker eCW1 ([facility]) Smoking 04/02/2020 12:00:00 AM EST Former Smoker completed Former Smoker eCW1 ([facility]) Smoking 04/02/2020 12:00:00 AM EST Former Smoker completed Former Smoker eCW1 ([facility]) Smoking 04/02/2020 12:00:00 AM EST Former Smoker completed Former Smoker eCW1 ([facility]) Smoking 01/16/2020 12:00:00 AM EST Former Smoker completed Former Smoker eCW1 ([facility]) Smoking 01/16/2020 12:00:00 AM EST Former Smoker completed Former Smoker eCW1 ([facility]) Smoking 01/16/2020 12:00:00 AM EST Former Smoker completed Former Smoker eCW1 ([facility]) Smoking 12/26/2019 12:00:00 AM EST Former Smoker completed Former Smoker eCW1 ([facility]) Smoking 12/26/2019 12:00:00 AM EST Former Smoker completed Former Smoker eCW1 ([facility]) Smoking 11/26/2019 12:00:00 AM EDT Former Smoker completed Former Smoker eCW1 (On License Of [facility]) Smoking 11/26/2019 12:00:00 AM EDT Former Smoker completed Former Smoker eCW1 (On License Of [facility]) Smoking 11/26/2019 12:00:00 AM EDT Former Smoker completed Former Smoker eCW1 (On License Of [facility]) Vital Signs ID Date Data Source UNK Name Value Range Interpretation Code Description Data Source(s) Body weight 174 [lb_av] 174 [lb_av] eCW1 ([facility]) Body mass index (BMI) [Ratio] 27.25 kg/m2 27.25 kg/m2 W1 (On License Of [facility]) Body height 67 [in_i] 67 [in_i] eCW1 ([facility]) Body temperature 97.4 [degF] 97.4 [degF] eCW1 ( On License Of [facility]) Heart rate 88 /min 88 /min eCW1 ([facility]) Respiratory rate 20 /min 20 /min eCW1 ([facility]) Diastolic blood pressure 70 mm[Hg] 70 mm[Hg] eCW1 (On License Of [facility]) Systolic blood pressure 120 mm[Hg] 120 mm[Hg] e CW1 (On License Of [facility]) Body weight 179 [lb_av] 179 [lb_av] eCW1 ([facility]) Body height 67 [in_i] 67 [in_i] eCW1 ([facility]) Body mass index (BMI) [Ratio] 28.03 kg/m2 28.03 kg/m2 eCW1 (On License Of [facility]) Heart rate 83 /min 83 /min eCW1 ([facility]) Respiratory rate 20 /min 20 /min eCW1 ([facility]) Body temperature 97.8 [degF] 97.8 [degF] eCW1 ( On License Of [facility]) Systolic blood pressure 100 mm[Hg] 100 mm[Hg] e CW1 (On License Of [facility]) Diastolic blood pressure 80 mm[Hg] 80 mm[Hg] eCW1 (On License Of [facility]) Body weight 182 [lb_av] 182 [lb_av] eCW1 ([facility]) Body mass index (BMI) [Ratio] 28.50 kg/m2 28.50 kg/m2 eCW1 (On License Of [facility]) Heart rate 77 /min 77 /min eCW1 ([facility]) Respiratory rate 20 /min 20 /min eCW1 ([facility]) Body height 67 [in_i] 67 [in_i] eCW1 ([facility]) Body temperature 97 [degF] 97 [degF] eCW1 ([facility]) Systolic blood pressure 124 mm[Hg] 124 mm[Hg] e CW1 (On License Of [facility]) Diastolic blood pressure 70 mm[Hg] 70 mm[Hg] eCW1 (On License Of [facility]) Body weight 180 [lb_av] 180 [lb_av] eCW1 ([facility]) Body mass index (BMI) [Ratio] 28.19 kg/m2 28.19 kg/m2 eCW1 (On License Of [facility]) Body height 67 [in_i] 67 [in_i] eCW1 ([facility]) Body temperature 98 [degF] 98 [degF] eCW1 ([facility]) Heart rate 88 /min 88 /min eCW1 ([facility]) Systolic blood pressure 124 mm[Hg] 124 mm[Hg] e CW1 (On License Of [facility]) Respiratory rate 20 /min 20 /min eCW1 ([facility]) Diastolic blood pressure 70 mm[Hg] 70 mm[Hg] eCW1 (On License Of [facility]) Body weight 178 [lb_av] 178 [lb_av] eCW1 ([facility]) Body height 67 [in_i] 67 [in_i] eCW1 ([facility]) Body mass index (BMI) [Ratio] 27.88 kg/m2 27.88 kg/m2 eCW1 (On License Of [facility]) Heart rate 88 /min 88 /min eCW1 ([facility]) Respiratory rate 20 /min 20 /min eCW1 ([facility]) Body temperature 98.5 [degF] 98.5 [degF] eCW1 ( On License Of [facility]) Systolic blood pressure 130 mm[Hg] 130 mm[Hg] e CW1 (On License Of [facility]) Diastolic blood pressure 80 mm[Hg] 80 mm[Hg] eCW1 (On License Of [facility]) Body weight 182 [lb_av] 182 [lb_av] eCW1 ([facility]) Body height 67 [in_i] 67 [in_i] eCW1 ([facility]) Body mass index (BMI) [Ratio] 28.50 kg/m2 28.50 kg/m2 eCW1 (On License Of [facility]) Heart rate 90 /min 90 /min eCW1 ([facility]) Respiratory rate 18 /min 18 /min eCW1 ([facility]) Body temperature 97.8 [degF] 97.8 [degF] eCW1 ( On License Of [facility]) Systolic blood pressure 128 mm[Hg] 128 mm[Hg] e CW1 (On License Of [facility]) Diastolic blood pressure 68 mm[Hg] 68 mm[Hg] eCW1 (On License Of [facility]) Respiratory rate 12 /min 12 /min MEDENT ( [facility]) Body height 70 [in_i] 70 [in_i] RADHA ([facility] ) 5'10" Body weight 209.00 [lb_av] 209.00 [lb_av] SP [place] ([facility] ) Body mass index (BMI) [Ratio] 30.0 kg/m2 30.0 k g/m2 RADHA ([facility] ) Patient Treatment Plan of Care Planned Activity Planned Date Details Description Data Source (s) Naproxen 500 MG Oral Tablet 01/16/2020 12:00:00 AM EST eCW1 (On License Of [facility]) Naproxen 500 MG Oral Tablet 01/16/2020 12:00:00 AM EST eCW1 (On License Of [facility]) Naproxen 500 MG Oral Tablet 01/16/2020 12:00:00 AM EST eCW1 (On License Of [facility])
[2020-11-23 23:52] LABS: ACETAMINOPHEN LEVEL < 2.0 UG/ML (10.0-30.0); ALT/SGPT 20 U/L (12-78); BILIRUBIN,DIRECT 0.1 MG/DL (0.0-0.2); BILIRUBIN,TOTAL 0.4 MG/DL (0.2-1.0); ETHYL ALCOHOL (ETHANOL) < 0.003 % (0.000-0.010); TOTAL PROTEIN 7.6 GM/DL (6.4-8.2)
[2020-11-24 01:32] LABS: OSMOLALITY SERUM 288 MOSM/KG (280-301)
[2020-11-24 02:19] LABS: AMPHETAMINES LEVEL URINE NEGATIVE (NEGATIVE); BARBITURATES URINE NEGATIVE (NEGATIVE); BENZODIAZEPINES URINE NEGATIVE (NEGATIVE); CANNABINOIDS URINE NEGATIVE (NEGATIVE); COCAINE METABOLITE URINE NEGATIVE (NEGATIVE); METHADONE URINE NEGATIVE (NEGATIVE); OPIATES URINE NEGATIVE (NEGATIVE); PHENCYCLIDINE URINE NEGATIVE (NEGATIVE)
[2020-11-24] MEDS ORDERED: DOCU100C16 PO (04:27)
[2020-11-24] MEDS ORDERED: VENL150C43 PO (04:27)
[2020-11-24] MEDS ORDERED: LORA-243 PO (04:27)
[2020-11-24] MEDS ORDERED: METF500T13 PO (04:27)
[2020-11-24] MEDS ORDERED: INVE1.75 IM (04:27)
[2020-11-24] MEDS ORDERED: OMEP-221 PO (04:27)
[2020-11-24] MEDS ORDERED: ALBU8.5H INH (04:27)
[2020-11-24] MEDS ORDERED: MAGN400T2 PO (04:27)
[2020-11-24] MEDS ORDERED: TRAZ-189 PO (04:27)
[2020-11-24] MEDS ORDERED: CARA1TAB6 PO (04:27)
[2020-11-24] MEDS ORDERED: ATOR80TA59 PO (04:27)
[2020-11-24] MEDS ORDERED: PATIENT COMMENT (04:28)
[2020-11-24] MEDS ORDERED: MAALOX 30 ML SUSP *UDC PO PRN (04:45)
[2020-11-24] MEDS ORDERED: MOM 30ML SUSPENSION UDC PO PRN (04:45)
[2020-11-24] MEDS ORDERED: ACETAMINOPHEN TAB 650MG DOSE (2X325MG) PO PRN (04:45)
[2020-11-24] MEDS ORDERED: POTASSIUM CHLORIDE 10MEQ SR TABLET PO ONE (04:50)
--- NOTE | 2020-11-24 05:43 | HPEPDOC ---
General Date of Admission 11/24/20 Date of Service: Nov 24, 2020 Attending Physician: PHILLIP ESCOBEDO MD Chief Complaint The patient is a 64-year-old male admitted with a reason for visit of Stroke Sy mptoms. History of Present Illness History of present illness: Mr. Kaye is a 64 year old male who presented to the emergency department after being found by his family members unable to speak or get out of bed. The patient also had a left sided facial droop according to his family members that started over 24 hours ago around Sunday afternoon. Mr. Kaye's mother recently . According to a recent note from his PCP, the patient's sister reports that the patient is upset, not sleeping, and experiencing tremors. He has a history of borderline intellectual function with mental retardation and an extensive psychological history. He lives alone and was supposed to be evaluated for potential placement in an assisted living center at the end of September. In the ED, the patient was found to only speak in one word sentences but was able to follow commands. He was not noted as having a facial droop. Past Medical History: Bipolar disorder Schizoaffective disorder Depression Anxiety Borderline intellectual function with mental retardation Tardive dyskinesia-secondary to psychotropic medications Type 2 Diabetes Mellitus Asthma Hyperlipidemia Obstructive sleep apnea GERD Surgical history: Inguinal hernia repair Cholecystectomy Unspecified back surgery 2004 Hemorrhoidectomy Left total knee replacement Lateral internal sphincterotomy and ligation 2013 Family history: Father 70 from myocardial infarction Mother 90+ years of age Social history: Tobacco: patient is a former smoker who quit 10+ years ago ETOH: patient denies alcohol use Ilicit drug use: patient denies, has a past history of cocaine abuse Patient lives alone Allergies: Penicillins-rash Reglan: dry mouth, lightheadedness Review of systems: General: Patient denies fevers, chills, recent changes in weight, or fatigue HEENT: denies changes in vision, difficulty swallowing, swollen glands Heart: denies chest pain or palpitations Lungs: denies shortness of breath, pain with inspiration Abdomen: denies abdominal pain, nausea, or vomiting extremities: denies swelling Physical examination: General: Mr. Kaye is lying in bed in no acute distress. He keeps his mouth agape during the extent of my examination. He is able to answer my questions in one word answers although I do believe he is a poor historian. He states that he is hungry. HEENT: mucous membranes moist and pink, he has no dentition present Cardiology: regular rate and rhythm, no murmurs are appreciated Pulmonology: lungs are clear to auscultation, no wheezes, rhonchi, or rales appreciated Abdomen: soft, bowel sounds present, no organomegatly, no suprapubic tenderness, no tenderness to deep palpation in all four quadrants. Skin: tattoos visualized, no rashes appreciated Extremities: No edema or cyanosis noted. Capillary refill is <2 seconds Neurology: CN II-XII are intact, patient has 4+ strength throughout and full sensation in upper and lower extremities. Was unable to assess cerebellar function due to patient refusal. No tremors appreciated. Psych: patient is alert and appears anxious. He is able to follow most commands. Imaging: Chest x-ray 11/23/20: No acute findings Head CT: 11/23/20: No acute hemorrhage or edema Assessment: Mr. Kaye is a 64 year old male with past medical history of Bipolar disorder, Schizoaffective disorder, Depression, Anxiety, Borderline intellectual function with mental retardation, Tardive dyskinesia-secondary to psychotropic medications Type 2 Diabetes Mellitus, Asthma, Hyperlipidemia, Obstructive sleep apnea, and GERD who presented to the emergency department after being found by his family members unable to speak or get out of bed. He is also noted to have had a facial droop over 24 hours ago by family members. He is being admitted for further workup in the form of a Head MRI to rule out stroke. Plan: Left facial droop: CVA vs somatic symptom disorder -Not observed in ED or when I examined patient. CN II-XII intact on PE -This is not a TIA as it was observed >24 hours ago -Head CT results as above -Ordered a Head MRI to rule out stroke. If MRI is positive a full stroke workup will follow. If MRI is negative patient may need inpatient psychiatric evaluation. -The patient's mother recently and the patient is distressed by this. Per his sister, he is not sleeping and developed a tremor. Weakness: lack of effort vs musculoskeletal weakness -patient has 4+/5 strength in upper and lower extremities -His labs were wnl with the exception of hypokalemia Hypokalemia -level noted to be 3.3 -ordered 40meq potassium chloride, will review AM labs Bipolar disorder -patient is seen by Dr. Penaloza Schizoaffective disorder -patient receives Invega injections every three months monitored by Dr. Penaloza Depression -continue trazodone and venlafaxine Anxiety -as above Borderline intellectual function with mental retardation -patient lives alone but was recently evaluated for placement in an assisted living facility Tardive dyskinesia-secondary to psychotropic medications -seen on 09/15/20 by Dianne LIU for uncontrolled shaking, drooling, and mouth movements -This is not present on exam today Type 2 Diabetes Mellitus -continue metformin Asthma -continue albuterol inhaler Hyperlipidemia -Continue atorvastatin Obstructive sleep apnea -patient uses CPAP at home GERD -continue omeprazole DVT prophylaxis: -continue with heparin Disposition: patient is stable, will await results of MRI to determine next step in treatment. Home Medications Scheduled Atorvastatin Calcium (Atorvastatin Calcium) 80 Mg Tablet, 80 MG PO DAILY, (Reported) Calcium Carbonate/Vitamin D3 (Calcium 600-Vit D3 400 Tablet) 1 Tab Tab, 1 TAB PO DAILY, (Reported) Docusate Sodium (Docusate Sodium) 100 Mg Capsule, 100 MG PO TID, (Reported) Ergocalciferol (Vitamin D2) (Vitamin D2) 50,000 Units Cap, 50,000 UNITS PO QWEEK, (Reported) MONDAYS Loratadine (Loratadine) 10 Mg Tablet, 10 MG PO DAILY, (Reported) Magnesium Oxide (Magnesium Oxide) 400 Mg Tablet, 400 MG PO DAILY, (Reported) Metformin HCl (Metformin HCl) 500 Mg Tablet, 500 MG PO BID, (Reported) Omeprazole (Omeprazole) 40 Mg Capsule.dr, 40 MG PO DAILY, (Reported) Paliperidone Palmitate (Invega Trinza) 819 Mg/2.625 Ml Syringe, 819 MG IM Q3M, (Reported) Sucralfate (Carafate) 1 Gm Tablet, 1 GM PO BID, (Reported) 4 times per day take on an empty stomach Trazodone HCl (Trazodone HCl) 100 Mg Tablet, 200 MG PO QHS, (Reported) Venlafaxine HCl (Venlafaxine HCl ER) 150 Mg Cap.er.24h, 150 MG PO DAILY, (Reported) Allergies Coded Allergies: Penicillins (Verified Allergy, Intermediate, rash, 09/08/20) A-FIB/CHADSVASC A-FIB History Current/History of A-Fib/PAF?: No Current PO Anticoag Therapy: No Vital Signs Vital Signs Date Time Temp Pulse Resp B/P (MAP) Pulse Ox O2 Delivery O2 Flow Rate FiO2 11/24/20 01:30 66 16 131/79 (96) 98 Room Air 11/23/20 20:41 98.5 Laboratory Data Labs 24H Laboratory Tests 2 11/23/20 20:46: Immature Granulocyte % (Auto) 0.3, Neutrophils (%) (Auto) 68.1H, Lymphocytes (%) (Auto) 19.8L, Monocytes (%) (Auto) 9.0H, Eosinophils (%) (Auto) 2.3, Basophils (%) (Auto) 0.5, Neutrophils # (Auto) 6.7, Lymphocytes # (Auto) 2.0, Monocytes # (Auto) 0.9H, Eosinophils # (Auto) 0.2, Basophils # (Auto) 0.1, Nucleated Red Blood Cells % (auto) 0.0, Activated Partial Thromboplast Time 22.1L, Osmolality 288, Total Bilirubin 0.4, Direct Bilirubin 0.1, Aspartate Amino Transf (AST/SGOT) 8, Alanine Aminotransferase (ALT/SGPT) 20, Alkaline Phosphatase 103, Total Creatine Kinase 68, Creatine Kinase MB < 1.0, Creatine Kinase MB Relative Index 1.47, Troponin I < 0.02, Total Protein 7.6, Albumin 4.0, Albumin/Globulin Ratio 1.1, Acetaminophen Level < 2.0L, Ethyl Alcohol Level < 0.003 11/23/20 20:51: POC Glucose (Misc Panel) 118H, POC Sodium (Misc Panel) 141, POC Potassium (Misc Panel) 3.3L, POC Chloride (Misc Panel) 103, POC Total CO2 (Misc Panel) 25.0, POC Blood Urea Nitrogen (Misc Panel 10, POC Ionized Calcium (Misc Panel) 4.6, POC Creatinine (Misc Panel) 0.8, POC Hematocrit (Misc Panel) 41.0 11/23/20 20:57: Bedside Glucose (Misc Panel) 96 11/23/20 21:39: Coronavirus (COVID-19)(PCR) NEGATIVE, Influenza Type A (RT-PCR) NEGATIVE, Influenza Type B (RT-PCR) NEGATIVE, Respiratory Syncytial Virus (PCR) NEGATIVE 11/23/20 23:37: Lactic Acid Level 1.0, Ammonia < 10 11/24/20 00:41: Urine Opiates Screen NEGATIVE, Urine Methadone Screen NEGATIVE, Urine Barbiturates Screen NEGATIVE, Urine Phencyclidine Screen NEGATIVE, Urine Amphetamines Screen NEGATIVE, Urine Benzodiazepines Screen NEGATIVE, Urine Cocai ne Metabolite Screen NEGATIVE, Urine Cannabinoids Screen NEGATIVE CBC/BMP Laboratory Tests 11/23/20 20:46 Plan / VTE VTE Prophylaxis Ordered?: Yes GME ATTESTATION GME ATTESTATION My faculty preceptor for this patient encounter was physically present during the encounter and was fully available. All aspects of the patient interview, examination, medical decision making process, and medical care plan development were reviewed and approved by the faculty preceptor. The faculty preceptor is aware and concurs with the plan as stated in the body of this note and will attest to such by his/her cosignature. ATTENDING NOTE IShelley, have independently examined this patient and performed my own physical exam, as well as reviewed the documentation and edited where necessary. I have discussed in detail with the resident / student the findings and plan of treatment as documented by the resident / student and edited their note. I agree with their findings and treatment plan and have edited their documentation. I will continue to follow the patient during this hospital stay. VERONICA ORTIZ DO Nov 24, 2020 05:43 PHILLIP ESCOBEDO MD Nov 24, 2020 19:20
[2020-11-24] MEDS: HEPARIN SOD (PORCINE) 5000UNITS/ML 1ML VIAL/SYRINGE SC SCH ×2 (05:47→18:23)
--- OUTSIDE RECORDS SUMMARY | 2020-11-24 06:19 | CCD ---
Author Author [facility] Organization [facility] Address Unknown Phone Unavailable Support Name Relationship Address Phone Ivette Next Of Kin Unknown Unavailable Miguel Rehman DDS Next Of Kin [address] [place] [address] UE Next Of Kin Unknown Unavailable DIMAS ROBERTSON Next Of Kin [address] [place] [address] DISABLED Next Of Kin Unknown Un[place] [address] Nusrat MERCHANT Next Of Kin [address] [place] [address] SOLO DIMAS Next Of Kin [address] [place] [address] [place] [address] Unavailable Re-disclosure Warning The records that you [...] is protected by Article 27-F of the [place] State Public Health law. If you continue you may have access to information: Regarding HIV / AIDS; Provided by facilities licensed or operated by the [facility] Office of Mental Health; or Provided by the [facility] Office for People With Developmental Disabilities. If such information is present, then the following [facility] mandated warning applies: This information has been [...] law may result in a fine or [place] health care facility sentence or both. A general authorization for the release of medical or other information is NOT sufficient authorization for further disc losure. Family History Family Member Name Family Member Gender Family Member Status Date o f Status Description Data Source(s) Unknown Unknown Problem MEDENT ([facility]) Unknown Female Problem [facility] [place] Female Problem [facility] Female Problem [facility]) Unknown Female Problem MEDENT ([facility] Unknown Female Problem MEDENT ([facility]) Unknown Female Problem MEDENT ([facility]) Unknown Female Problem MEDENT ([facility]) Unknown Female Problem MEDENT ([facility]) Encounters Encounter Providers Location Date Indications Data Source(s ) [place] [address] [facility] [address] 11/03/2020 12:00:00 AM EDT [facility]CW[facility]) [place] [address] [facility] [place] [address] 10/06/2020 12:00:00 AM EDT eCW1 ([facility]) [place] [address] [facility] [address] 10/05/2020 12:00:00 AM EDT [facility] [employer] [place] [address] [facility] [place] [address] 09/29/2020 12:00:00 AM EDT [facility] [place] [address] [facility] [place] [address] 09/15/2020 12:00:00 AM EDT eCW1 ([facility]) [place] [address] [facility] [address] 09/15/2020 12:00:00 AM EDT eCW1 ([facility]) [place] [address] [facility] [address] 09/01/2020 12:00:00 AM EDT eCW1 ([facility]) Unknown [address] [facility] [address] 06/30/2020 12:00:00 AM EDT eCW1 ([facility]) [place] [address] [facility] [address] 04/22/2020 12:00:00 AM EDT eCW1 ([facility]) [place] [address] [facility] [address] 04/02/2020 12:00:00 AM EST eCW1 ([facility]) Unknown [address] [facility] [address] 02/16/2020 12:00:00 AM EST eCW1 ([facility]) [place] [address] [facility] [address] 01/20/2020 12:00:00 AM EST eCW1 ([facility]) [place] [address] [facility] [address] 01/16/2020 12:00:00 AM EST eCW1 ([facility]) Unknown [address] [facility] [address] 01/14/2020 12:00:00 AM EST eCW1 ([facility]) Office Visit, Est Pt., Level 4 PC [address] [place] [address] 12/26/2019 12:00:00 AM EST eCW1 ([facility]) Outpatient [facility] 12/09/2019 12:02:13 AM EST [facility] Outpatient [address] [facility] [address] 11/26/2019 12:00:00 AM EDT eCW1 ([facility]) Unknown [address] [facility] [address] 11/26/2019 12:00:00 AM EDT eCW1 ([facility]) Unknown [address] [facility] [address] 11/25/2019 12:00:00 AM EDT eCW1 ([facility]) Unknown [address] [facility] [address] 11/21/2019 12:00:00 AM EDT eCW1 ([facility]) Unknown [address] [facility] [address] 11/06/2019 12:00:00 AM EDT eCW1 ([facility]) [facility] [address] [facility] [address] 10/02/2019 12:00:00 AM EDT eCW1 ([facility]) Outpatient [address] [place] [address] [facility] Team 12/14/2016 08:00:00 AM EST - 11/09/2020 10:45:00 AM EDT MHARS ([facility]) Patient discharged. Immunizations Vaccine Date Status Description Data Source(s) influenza, recombinant, quadrIvalent,injectable, prese rvative free 04/02/2020 02:44:00 PM EST completed eCW1 ([facility]) influenza, recombinant, quadrIvalent,injectable, prese rvative free 04/02/2020 02:44:00 PM EST completed eCW1 ([facility]) influenza, recombinant, quadrIvalent,injectable, prese rvative free 04/02/2020 02:44:00 PM EST completed eCW1 ([facility]) influenza, recombinant, quadrIvalent,injectable, prese rvative free 04/02/2020 02:44:00 PM EST completed eCW1 ([facility]) influenza, recombinant, quadrIvalent,injectable, prese rvative free 04/02/2020 02:44:00 PM EST completed eCW1 ([facility]) influenza, recombinant, quadrIvalent,injectable, prese rvative free 04/02/2020 02:44:00 PM EST completed eCW1 ([facility]) influenza, recombinant, quadrIvalent,injectable, prese rvative free 04/02/2020 02:44:00 PM EST completed eCW1 ([facility]) influenza, recombinant, quadrIvalent,injectable, prese rvative free 04/02/2020 02:44:00 PM EST completed eCW1 ([facility]) influenza, recombinant, quadrIvalent,injectable, prese rvative free 04/02/2020 02:44:00 PM EST completed eCW1 ([facility]) influenza, recombinant, quadrIvalent,injectable, prese rvative free 04/02/2020 02:44:00 PM EST completed eCW1 ([facility]) COVID-19 VACCINE Moderna 03/19/2020 12:00:00 AM EST completed [facility] Vaccine Series Complete: YESThis Data wa s Submitted to [facility] Via [employer]. COVID-19 VACCINE Moderna 02/20/2020 12:00:00 AM EST completed [facility] Vaccine Series Complete: NOThis Data was Submitted to [facility] Via [email or web address]. influenza, recombinant, quadrIvalent,injectable, prese rvative free 11/26/2019 02:39:00 PM EDT completed eCW1 ([facility]) influenza, recombinant, quadrIvalent,injectable, prese rvative free 11/26/2019 02:39:00 PM EDT completed eCW1 ([facility]) influenza, recombinant, quadrIvalent,injectable, prese rvative free 11/26/2019 02:39:00 PM EDT completed eCW1 ([facility]) influenza, recombinant, quadrIvalent,injectable, prese rvative free 11/26/2019 02:39:00 PM EDT completed eCW1 ([facility]) influenza, recombinant, quadrIvalent,injectable, prese rvative free 11/26/2019 02:39:00 PM EDT completed eCW1 ([facility]) influenza, recombinant, quadrIvalent,injectable, prese rvative free 11/26/2019 02:39:00 PM EDT completed eCW1 ([facility]) influenza, recombinant, quadrIvalent,injectable, prese rvative free 11/26/2019 02:39:00 PM EDT completed eCW1 ([facility]) influenza, recombinant, quadrIvalent,injectable, prese rvative free 11/26/2019 02:39:00 PM EDT completed eCW1 ([facility]) influenza, recombinant, quadrIvalent,injectable, prese rvative free 11/26/2019 02:39:00 PM EDT completed eCW1 ([facility]) influenza, recombinant, quadrIvalent,injectable, prese rvative free 11/26/2019 02:39:00 PM EDT completed eCW1 ([facility]) influenza, recombinant, quadrIvalent,injectable, prese rvative free 11/26/2019 02:39:00 PM EDT completed eCW1 ([facility]) influenza, recombinant, quadrIvalent,injectable, prese rvative free 11/26/2019 02:39:00 PM EDT completed eCW1 ([facility]) influenza, recombinant, quadrIvalent,injectable, prese rvative free 11/26/2019 02:39:00 PM EDT completed eCW1 ([facility]) influenza, recombinant, quadrIvalent,injectable, prese rvative free 11/26/2019 02:39:00 PM EDT completed eCW1 ([facility]) influenza, recombinant, quadrIvalent,injectable, prese rvative free 11/26/2019 02:39:00 PM EDT completed eCW1 ([facility]) influenza, recombinant, quadrIvalent,injectable, prese rvative free 11/26/2019 02:39:00 PM EDT completed eCW1 ([facility]) influenza, recombinant, quadrIvalent,injectable, prese rvative free 11/26/2019 02:39:00 PM EDT completed eCW1 ([facility]) influenza, recombinant, quadrIvalent,injectable, prese rvative free 11/26/2019 02:39:00 PM EDT completed eCW1 ([facility]) Medications Medication Brand Name Start Date Product Form Dose Route Admi nistrative Instructions Pharmacy Instructions Status Indications Reaction Description Data Source(s) 240 mcg/0.7 mL 11/22/2020 12:00:00 AM EDT syringe 0 INJECT DIRECTED INJECT DIRECTED SOLD: 11/22/2020 [facility] 819 mg/2.625 mL 07/21/2020 12:00:00 AM EDT [...] AM EST active Naproxen 500 MG eCW1 ([facility]) Naproxen 500 MG Oral Tablet Naproxen 500 MG 01/16/2020 12:00:00 AM EST active eCW1 ([facility]) Naproxen 500 MG Oral Tablet Naproxen 500 MG 01/16/2020 12:00:00 AM EST active Naproxen 500 MG eCW1 ([facility]) Naproxen 500 MG Oral Tablet Naproxen 500 MG 01/16/2020 12:00:00 AM EST active Naproxen 500 MG eCW1 ([facility]) Naproxen 500 MG Oral Tablet Naproxen 500 MG 01/16/2020 12:00:00 AM EST active Naproxen 500 MG eCW1 ([facility]) Naproxen 500 MG Oral Tablet Naproxen 500 MG 01/16/2020 12:00:00 AM EST active Naproxen 500 MG eCW1 ([facility]) Naproxen 500 MG Oral Tablet Naproxen 500 MG 01/16/2020 12:00:00 AM EST active Naproxen 500 MG eCW1 ([facility]) Naproxen 500 MG Oral Tablet Naproxen 500 MG 01/16/2020 12:00:00 AM EST active Naproxen 500 MG eCW1 ([facility]) Naproxen 500 MG Oral Tablet Naproxen 500 MG 01/16/2020 12:00:00 AM EST active Naproxen 500 MG eCW1 ([facility]) Naproxen 500 MG Oral Tablet Naproxen 500 MG 01/16/2020 12:00:00 AM EST active Naproxen 500 MG eCW1 ([facility]) Naproxen 500 MG Oral Tablet Naproxen 500 MG 01/16/2020 12:00:00 AM EST active Naproxen 500 MG eCW1 ([facility]) Naproxen 500 MG Oral Tablet Naproxen 500 MG 01/16/2020 12:00:00 AM EST active Naproxen 500 MG eCW1 ([facility]) Naproxen 500 MG Oral Tablet Naproxen 500 MG 01/16/2020 12:00:00 AM EST active Naproxen 500 MG eCW1 ([facility]) 819 mg/2.625 mL 07/28/2019 12:00:00 AM EDT [...] SYRINGE INTRAMUSCULARLY EVERY 3 MONTHS SOLD: 04/15/2020 [facility] Insurance Providers Payer name Policy type / Coverage type Policy ID Covered green party ID Covered green party's relationship to [place] Policy [place] Plan Information UHC UNITED MEDICARE DUAL G [id number] Self [id number] Medicare Medicare Primary [id number] Self MEDICARE [id number] Della [id number] A Medicare [facility] Medicare Primary [id number] Self [place] Medig[place] Part B [id number] Self MEDICAID [id number] Della [id number] [facility] Medicare Dual Complete [place] Dual Complete [id number] [place] Dual Complete [facility] [place] Dual Complete [id number] [place] [facility] [id number] SP [id number] MEDICAID M [id number] Self [id number] [facility] MCRO [id number] SP [id number] MEDICAID [id number] SP [id number] MEDICAID [id number] SP [id number] ANSI-Medicare Part B [id number] ANSI-Medicare Part B [id number] ANSI-Medicare Part B [id number] ANSI-Medicaid [id number] ANSI-Medicare Part B [id number] ANSI-Medicare Part B [id number] ANSI-Medicaid [id number] ANSI-Medicaid [id number] ANSI-Medicare Part B [id number] ANSI-Medicare Part B [id number] ANSI-Medicare Part B [id number] ANSI-Medicaid [id number] ANSI-Medicare Part B [id number] ANSI-Medicare Part B [id number] ANSI-Medicare Part B [id number] ANSI-Medicaid [id number] ANSI-Medicaid [id number] ANSI-Medicare Part B [id number] ANSI-Medicare Part B [id number] ANSI-Medicare Part B [id number] ANSI-Medicaid [id number] ANSI-Medicare Part B [id number] ANSI-Medicare Part B [id number] ANSI-Medicaid [id number] ANSI-Medicare Part B [id number] ANSI-Medicare Part B [id number] ANSI-Medicare Part B [id number] ANSI-Medicaid [id number] ANSI-Medicare Part B [id number] ANS-Medicaid [id number] ANSI-Medicare Part B [id number] ANSI-Medicaid [id number] ANSI-Medicare Part B [id number] ANSI-Medicare Part B [id number] [facility]-Medicaid [id number] ANSI-Medicare Part B [id number] ANSI-Medicare Part B [id number] ANSI-Medicaid [id number] ANSI-Medicare Part B [id number] ANSI-Medicare Part B [id number] ANSI-Medicaid [id number] ANSI-Medicare Part B [id number] ANSI-Medicare Part B [id number] ANSI-Medicare Part B [id number] ANSI-Medicare Part B [id number] ANSI-Medicaid [id number] ANSI-Medicare Part B [id number] ANSI-Medicare Part B [id number] ANSI-Medicaid [id number] ANSI-Medicare Part B [id number] ANSI-Medicaid [id number] ANSI-Medicare Part B [id number] ANSI-Medicare Part B [id number] ANSI-Medicare Part B [id number] ANSI-Medicaid [id number] ANSI-Medicare Part B [id number] ANSI-Medicare Part B [id number] ANSI-Medicaid [id number] [facility] [id number] SP [id number] [facility] [id number] SP [id number] [facility] [id number] SP [id number] MEDICARE [id number] SP [id number] [place] Medicare [place] Medicare Primary [id number] Self [id number] [place] Medig[place] Part B [id number] Self [id number] [facility] Health Maintenance Organization (HMO) [id number] Self [id number] MEDICARE [id number] SP [id number] A [place] Medig[place] Part B [id number] Self [facility]/Medicare Commercial [id number] Self Medicaid Medigap Part B [id number] Self [facility] Dual Cov Plan Commercial [id number] Self [id number] SP [id number] [facility](MCA[facility]) O [id number] S [id number] MEDICAID M [id number] S [id number] [facility] DUAL COMPLETE O [id number] S [id number] Medicaid After Medicare Medigap Part B [id number] Self OTHER1 *NOTFORTODAYSVISIT* SP *NOTFORTODAYSVISIT* ALLSTATE INS CO NO FAULT CLM#[id number] SP CLM#[id number] OTHER NO FAULT 00 SP 00 MEDICARE P [id number] S [id number] A P UNAVAILABLE UNA[place]A BLE [id number] [place] [id number] SP [id number] [facility] [id number] SP [id number] [facility] [id number] SP [id number] MEDICARE COMPLETE [id number] SP [id number] MEDICARE COMPLETE [id number] SP [id number] [facility] [id number] SP [id number] [place] [id number] SP [id number] [facility] [employer] P [id number] S [id number] Medicaid S [id number] S [id number] MEDICAID [id number] SP [id number] ANSI-Medicaid [id number] ANSI-Medicare Part B [id number] Problems, Conditions, and Diagnoses Code Display Name Description Problem Type Effective Dates Data Source(s) Z12.5 630212743 Screening PSA (prostate specific antigen) Problem 09/01/2020 12:00:00 AM EDT eCW1 ([facility]) Surgeries/Procedures Procedure Description Date Indications Data Source(s) Imm: Flublok Quadrivalent 18 years & older 0.5mL IM Influenz a 04/02/2020 12:00:00 AM EST eCW1 ([facility]) Immunization: Flublok Quadrivalent (18 years & older) 0.5mL IM (Influenza) 11/26/2019 12:00:00 AM EDT eCW1 ([facility]) Results ID Date Data Source URIC ACID 01/16/2020 12:00:00 AM EST eCW1 ([facility]) Name Value Range Interpretation Code Description Data Amy rce(s) Supporting Document(s) 4.0 3.5-7.2 URIC ACID eCW1 ([facility]) ID Date Data Source PLZ WRIST COMPLETE 01/16/2020 12:00:00 AM EST eCW1 ([facility]) Name Value Range Interpretation Code Description Data Amy rce(s) Supporting Document(s) PLZ WRIST COMPLETE eCW1 ([facility]) ID Date Data Source Basic Metabolic Profile (BMP) 01/16/2020 12:00:00 AM EST eCW 1 ([facility]) Name Value Range Interpretation Code Description Data Amy rce(s) Supporting Document(s) 108 70-100 GLUCOSE, FASTING eCW1 ([facility]) 11 7-18 BLOOD UREA NITROGEN eCW1 ([facility]) > 60.0 >49 GLOMERULAR FILTRATION RATE eCW 1 ([facility]) 0.72 0.70-1.30 CREATININE FOR GFR eCW1 ([facility]) 4.2 3.5-5.1 POTASSIUM SERUM eCW1 ([facility]) 140 136-145 SODIUM LEVEL eCW1 ([facility]) 107 98-107 CHLORIDE LEVEL eCW1 ([facility]) 28 21-32 CARBON DIOXIDE LEVEL eCW1 ([facility]) 9.5 8.8-10.2 CALCIUM LEVEL eCW1 ([facility]) ID Date Data Source ERYTHROCYTE SEDIMENTATION RATE 01/16/2020 12:00:00 AM EST eC W1 ([facility]) Name Value Range Interpretation Code Description Data Amy rce(s) Supporting Document(s) 22 0-20 ERYTHROCYTE SEDIMENTATION RATE eCW1 ([facility]) ID Date Data Source CBC with Differential 01/16/2020 12:00:00 AM EST eCW1 ([facility]) Name Value Range Interpretation Code Description Data Amy rce(s) Supporting Document(s) 11.1 4.0-10.0 WHITE BLOOD COUNT eCW1 ([facility]) 36.6 42.0-52.0 HEMATOCRIT eCW1 ([facility]) 4.10 4.30-6.10 RED BLOOD COUNT eCW1 ([facility]) 12.1 13.5-17.5 HEMOGLOBIN eCW1 ([facility]) 89.3 80.0-96.0 MEAN CORPUSCULAR VOLUME e CW1 ([facility]) 29.5 27.0-33.0 MEAN CORPUSCULAR HEMOGLOB IN eCW1 ([facility]) 13.0 11.5-14.5 RED CELL DISTRIBUTION WID TH eCW1 ([facility]) 33.1 32.0-36.5 MEAN CORPUSCULAR HGB CONC eCW1 ([facility]) 305 150-450 PLATELET COUNT, AUTOMATED eCW1 ([facility]) 57.6 36.0-66.0 NEUTROPHILS % eCW1 ([facility]) 10.1 0.0-5.0 MONO % eCW1 ([facility]) 27.4 24.0-44.0 LYMPH % eCW1 ([facility]) 3.9 0.0-3.0 EOS % eCW1 ([facility]) 0.6 0.0-1.0 BASO % eCW1 ([facility]) 3.0 1.5-5.0 LYMPH # eCW1 ([facility]) 6.4 1.5-8.5 NEUTROPHILS # eCW1 ([facility]) 0.4 0.0-0.5 EOS # eCW1 ([facility]) 1.1 0.0-0.8 MONO # eCW1 ([facility]) 0.1 0.0-0.2 BASO # eCW1 ([facility]) Procedure Social History Code Duration Value Status Description Data Source(s ) Smoking 09/15/2020 12:00:00 AM EDT Former Smoker completed Former Smoker eCW1 ([facility]) Smoking 09/15/2020 12:00:00 AM EDT Former Smoker completed Former Smoker eCW1 ([facility]) Smoking 09/15/2020 12:00:00 AM EDT Former Smoker completed Former Smoker eCW1 ([facility]) Smoking 09/15/2020 12:00:00 AM EDT Former Smoker completed Former Smoker eCW1 ([facility]) Smoking 09/15/2020 12:00:00 AM EDT Former Smoker completed Former Smoker eCW1 ([facility]) Smoking 09/15/2020 12:00:00 AM EDT Former Smoker completed Former Smoker eCW1 ([facility]) Smoking 09/01/2020 12:00:00 AM EDT Former Smoker completed Former Smoker eCW1 ([facility]) Smoking 04/02/2020 12:00:00 AM EST Former Smoker completed Former Smoker eCW1 ([facility]) Smoking 04/02/2020 12:00:00 AM EST Former Smoker completed Former Smoker eCW1 ([facility]) Smoking 04/02/2020 12:00:00 AM EST Former Smoker completed Former Smoker eCW1 ([facility]) Smoking 01/16/2020 12:00:00 AM EST Former Smoker completed Former Smoker eCW1 ([facility]) Smoking 01/16/2020 12:00:00 AM EST Former Smoker completed Former Smoker eCW1 ([facility]) Smoking 01/16/2020 12:00:00 AM EST Former Smoker completed Former Smoker eCW1 ([facility]) Smoking 12/26/2019 12:00:00 AM EST Former Smoker completed Former Smoker eCW1 ([facility]) Smoking 12/26/2019 12:00:00 AM EST Former Smoker completed Former Smoker eCW1 ([facility]) Smoking 11/26/2019 12:00:00 AM EDT Former Smoker completed Former Smoker eCW1 ([facility]) Smoking 11/26/2019 12:00:00 AM EDT Former Smoker completed Former Smoker eCW1 ([facility]) Smoking 11/26/2019 12:00:00 AM EDT Former Smoker completed Former Smoker eCW1 ([facility]) Vital Signs ID Date Data Source UNK Name Value Range Interpretation Code Description Data Source(s) Body weight 174 [lb_av] 174 [lb_av] eCW1 ([facility]) Heart rate 88 /min 88 /min eCW1 ([facility]) Body height 67 [in_i] 67 [in_i] eCW1 ([facility]) Respiratory rate 20 /min 20 /min eCW1 ([facility]) Systolic blood pressure 120 mm[Hg] 120 mm[Hg] e CW1 ([facility]) Body temperature 97.4 [degF] 97.4 [degF] eCW1 ( [facility]) Diastolic blood pressure 70 mm[Hg] 70 mm[Hg] eCW1 ([facility]) Body mass index (BMI) [Ratio] 27.25 kg/m2 27.25 kg/m2 eCW1 ([facility]) Body weight 179 [lb_av] 179 [lb_av] eCW1 ([facility]) Body height 67 [in_i] 67 [in_i] eCW1 ([facility]) Body mass index (BMI) [Ratio] 28.03 kg/m2 28.03 kg/m2 eCW1 ([facility]) Heart rate 83 /min 83 /min eCW1 ([facility]) Respiratory rate 20 /min 20 /min eCW1 ([facility]) Body temperature 97.8 [degF] 97.8 [degF] eCW1 ( [facility]) Systolic blood pressure 100 mm[Hg] 100 mm[Hg] e CW1 ([facility]) Diastolic blood pressure 80 mm[Hg] 80 mm[Hg] eCW1 ([facility]) Body temperature 97 [degF] 97 [degF] eCW1 ([facility]) Body weight 182 [lb_av] 182 [lb_av] eCW1 ([facility]) Systolic blood pressure 124 mm[Hg] 124 mm[Hg] e CW1 ([facility]) Body height 67 [in_i] 67 [in_i] eCW1 ([facility]) Diastolic blood pressure 70 mm[Hg] 70 mm[Hg] eCW1 ([facility]) Body mass index (BMI) [Ratio] 28.50 kg/m2 28.50 kg/m2 eCW1 ([facility]) Heart rate 77 /min 77 /min eCW1 ([facility]) Respiratory rate 20 /min 20 /min eCW1 ([facility]) Body weight 180 [lb_av] 180 [lb_av] eCW1 ([facility]) Body height 67 [in_i] 67 [in_i] eCW1 ([facility]) Heart rate 88 /min 88 /min eCW1 ([facility]) Respiratory rate 20 /min 20 /min eCW1 ([facility]) Systolic blood pressure 124 mm[Hg] 124 mm[Hg] e CW1 ([facility]) Body temperature 98 [degF] 98 [degF] eCW1 ([facility]) Diastolic blood pressure 70 mm[Hg] 70 mm[Hg] eCW1 ([facility]) Body mass index (BMI) [Ratio] 28.19 kg/m2 28.19 kg/m2 eCW1 ([facility]) Body weight 178 [lb_av] 178 [lb_av] eCW1 ([facility]) Body height 67 [in_i] 67 [in_i] eCW1 ([facility]) Body mass index (BMI) [Ratio] 27.88 kg/m2 27.88 kg/m2 eCW1 ([facility]) Heart rate 88 /min 88 /min eCW1 ([facility]) Respiratory rate 20 /min 20 /min eCW1 ([facility]) Body temperature 98.5 [degF] 98.5 [degF] eCW1 ( [facility]) Systolic blood pressure 130 mm[Hg] 130 mm[Hg] e CW1 ([facility]) Diastolic blood pressure 80 mm[Hg] 80 mm[Hg] eCW1 ([facility]) Body weight 182 [lb_av] 182 [lb_av] eCW1 ([facility]) Body height 67 [in_i] 67 [in_i] eCW1 ([facility]) Body mass index (BMI) [Ratio] 28.50 kg/m2 28.50 kg/m2 eCW1 ([facility]) Heart rate 90 /min 90 /min eCW1 ([facility]) Respiratory rate 18 /min 18 /min eCW1 ([facility]) Body temperature 97.8 [degF] 97.8 [degF] eCW1 ( [facility]) Systolic blood pressure 128 mm[Hg] 128 mm[Hg] e CW1 ([facility]) Diastolic blood pressure 68 mm[Hg] 68 mm[Hg] eCW1 ([facility]) Respiratory rate 12 /min 12 /min [facility] ( [facility] ) Body height 70 [in_i] 70 [in_i] [facility], ) 5'10" Body weight 209.00 [lb_av] 209.00 [lb_av] MEDEN T ([facility], ) Body mass index (BMI) [Ratio] 30.0 kg/m2 30.0 k g/m2 [facility] Patient Treatment Plan of Care Planned Activity Planned Date Details Description Data Source (s) Naproxen 500 MG Oral Tablet 01/16/2020 12:00:00 AM EST eCW1 ([facility]) Naproxen 500 MG Oral Tablet 01/16/2020 12:00:00 AM EST eCW1 ([facility]) Naproxen 500 MG Oral Tablet 01/16/2020 12:00:00 AM EST eCW1 ([facility])
[2020-11-24] MEDS ORDERED: HOME MED LIST COMPLETE! XX SCH (08:45)
[2020-11-24 13:07] VITALS: BP 103/68
--- NOTE | 2020-11-24 13:39 | ECGEPIP ---
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
[2020-11-24] MEDS: DOCUSATE SODIUM 100MG CAPSULE PO SCH ×2 (13:54→21:07)
[2020-11-24 14:00] VITALS: BP 103/68
[2020-11-24] MEDS ORDERED: traMADol 50 MG TAB PO ONE (14:00)
[2020-11-24] MEDS ORDERED: DEXTROSE 50% 50 ML SYRINGE IV PRN (14:30)
[2020-11-24] MEDS ORDERED: GLUCOSE 4GM CHEW TABLET PO PRN (14:30)
[2020-11-24] MEDS ORDERED: GLUCAGON INJ 1MG VIAL SC PRN (14:30)
--- NOTE | 2020-11-24 14:42 | IPNPDOC ---
Text Note Date of Service The patient was seen on 11/24/20. NOTE Subjective: Patient stated that he feels better today. He denied any fever any chills, chest pain or palpitations or any focal deficiency. He states that he has right-sided abdominal pain. Objective: GENERAL APPEARANCE: NAD HEENT: no scleral icterus, no JVD, EOMI CARDIOVASCULAR: S1S2 LUNGS: Diminished lung sounds bilaterally ABDOMEN: soft & not tender w palpation MUSCULOSKELETAL: no cyanosis, no swelling INTEGUMENT: no generalized pallor NEUROLOGICAL: cranial nerve function from 2-12 intact, follows commands, speech not dysarthric Assessment and plan patient is 64 years old male with past medical history of Bipolar disorder, Schizoaffective disorder, Depression, Anxiety, Borderline intellectual function with mental retardation, Tardive dyskinesia-secondary to psychotropic medications Type 2 Diabetes Mellitus, Asthma, Hyperlipidemia, Obstructive sleep apnea, and GERD who presented to the emergency department after being found by his family members unable to speak or get out of bed. He is also noted to have had a facial droop over 24 hours ago by family members. Left facial droop Resolved Unfortunately patient has penile implant and he is not a candidate for MRI because family cannot provide any history of surgery. I will repeat CT head tonight Patient does not have any focal deficiency on neurological exam Deconditioning PT/OT Most likely patient will need placement, his mom recently Hypokalemia Replaced Bipolar disorder/Schizoaffective disorder/Depression/Anxiety Follow-up with psychiatrist in the outpatient settings Continue home meds Borderline intellectual function with mental retardation patient lives alone but was recently evaluated for placement in an assisted living facility Tardive dyskinesia-secondary to psychotropic medications Follow-up with psychiatrist Diabetes type 2 Insulin sliding scale Diabetes diet Asthma Not in acute exacerbation Hyperlipidemia Continue statin Obstructive sleep apnea -patient uses CPAP at home GERD continue omeprazole DVT prophylaxis: continue with heparin VS,Fishbone, I+O VS, Fishbone, I+O Laboratory Tests 11/23/20 20:46 Vital Signs Date Time Temp Pulse Resp B/P (MAP) Pulse Ox O2 Delivery O2 Flow Rate FiO2 11/24/20 13:55 16 Room Air 11/24/20 13:07 98.5 69 103/68 (80) 100 NICK JAVIER DO Nov 24, 2020 14:42
[2020-11-24] MEDS: HumaLOG INSULIN (NovoLOG) PER UNIT SC SCH ×2 (18:23→21:00)
--- NOTE | 2020-11-24 18:27 | REP ---
INDICATION: cva COMPARISON: None. TECHNIQUE: Real-time ultrasound evaluation and duplex Doppler interrogation of the extracranial carotid vasculature is performed. FINDINGS: There is mild plaquing and narrowing in both carotid bulbs extending into the internal and external carotid arteries. Luminal narrowing is less than 50%. There is no evidence of hemodynamically significant stenosis of either internal carotid artery. Normal flow velocities are seen. The vertebral arteries demonstrate normal direction of flow. RIGHT LEFT Peak systolic velocity ICA 54.3 cm/s 51.6 cm/s End diastolic velocity ICA 17.7 cm/s 21.4 cm/s Peak systolic velocity CCA 60.4 cm/s 96.3cm/s Peak systolic velocity ECA 55.1 cm/s 52.8 cm/s ICA/CCA ratio 0.79 0.54 IMPRESSION: Bilateral luminal narrowing of the internal carotid arteries less than 50%. No evidence of hemodynamically significant stenosis. <Electronically signed by Thomas Thomas > 11/24/20 [id number]
--- NOTE | 2020-11-24 21:03 | REPVR ---
PROCEDURE INFORMATION: Exam: CT Head Without Contrast Exam date and time: 11/24/2020 8:00 PM Age: 64 years old Clinical indication: Condition or disease; Other: CVA TECHNIQUE: Imaging protocol: Computed tomography of the head without contrast. Radiation optimization: All CT scans at this facility use at least one of these dose optimization techniques: automated exposure control; mA and/or kV adjustment per patient size (includes targeted exams where dose is matched to clinical indication); or iterative reconstruction. COMPARISON: CT Head without contrast 11/23/2020 8:47 PM FINDINGS: Brain: There is no evidence of intracranial bleed. The monroe-white differentiation appears preserved. Cerebral ventricles: Normal ventricles. Paranasal sinuses: Clear paranasal sinuses. Mastoid air cells: Clear mastoid air cells. Bones/joints: There is no evidence of fracture. Soft tissues: Unremarkable. IMPRESSION: 1. No evidence of bleed. 2. No evidence of mass effect. Electronically signed by: Doyle Bnag On 11/24/2020 21:03:38 PM
[2020-11-24 22:00] VITALS: BP 99/64
[2020-11-25] MEDS: HEPARIN SOD (PORCINE) 5000UNITS/ML 1ML VIAL/SYRINGE SC SCH ×3 (04:45→23:48)
[2020-11-25] MEDS ORDERED: NS 500 ML IV ONE ×2 (04:55→06:35)
[2020-11-25 05:00] VITALS: BP 94/58
[2020-11-25 05:48] LABS: BASO # 0.1 10^3/uL (0.0-0.2); BASO % 0.7 % (0.0-1.0); EOS # 0.6 10^3/uL (0.0-0.5); EOS % 6.5 % (0.0-3.0); HEMATOCRIT 35.7 % (42.0-52.0); HEMOGLOBIN 11.7 g/dl (13.5-17.5); LYMPH # 3.4 10^3/uL (1.5-5.0); LYMPH % 35.7 % (24.0-44.0); MEAN CORPUSCULAR HEMOGLOBIN 30.3 pg (27.0-33.0); MEAN CORPUSCULAR HGB CONC 32.8 g/dl (32.0-36.5); MEAN CORPUSCULAR VOLUME 92.5 fl (80.0-96.0); MONO % 10.2 % (2.0-8.0); NEUTROPHILS # 4.4 10^3/uL (1.5-8.5); NEUTROPHILS % 46.7 % (36.0-66.0); PLATELET COUNT, AUTOMATED 253 10^3/uL (150-450); RED BLOOD COUNT 3.86 10^6/uL (4.30-6.10); WHITE BLOOD COUNT 9.4 10^3/uL (4.0-10.0)
[2020-11-25 06:00] VITALS: BP_SYST 92; BP_DIAS 56; BP_DIAS 62
[2020-11-25 06:21] LABS: ALT/SGPT 17 U/L (12-78); BILIRUBIN,TOTAL 0.2 MG/DL (0.2-1.0); BLOOD UREA NITROGEN 21 MG/DL (7-18); CALCIUM LEVEL 8.5 MG/DL (8.8-10.2); CARBON DIOXIDE LEVEL 28 MEQ/L (21-32); CHLORIDE LEVEL 109 MEQ/L (98-107); CREATININE FOR GFR 0.91 MG/DL (0.70-1.30); GLOMERULAR FILTRATION RATE > 60.0 (>49); GLUCOSE, FASTING 93 MG/DL (70-100); MAGNESIUM LEVEL 1.8 MG/DL (1.8-2.4); POTASSIUM SERUM 4.2 MEQ/L (3.5-5.1); SODIUM LEVEL 142 MEQ/L (136-145); TOTAL PROTEIN 5.8 GM/DL (6.4-8.2)
[2020-11-25] MEDS ORDERED: PANTOPRAZOLE 40MG VIAL (C9113 PER 1) IV ONE (06:35)
--- NOTE | 2020-11-25 06:38 | IPNPDOC ---
Text Note Date of Service The patient was seen on 11/25/20. NOTE Pt with asymptomatic BP drop, softer than trend. 99/62. IVF ordered and AM labs resulted with hgb drop. Possibly dilutional- pt without overt bleeding; not on oral AC. Will give small amount of fluid while pt being monitored. Check anemia panel, protonix x1 and monitor for any bleeding/ heme occult. Will defer to attending for further reccs pend pt clinical course. VS,Fishbone, I+O VS, Fishbone, I+O Laboratory Tests 11/25/20 05:28 Vital Signs Date Time Temp Pulse Resp B/P (MAP) Pulse Ox O2 Delivery O2 Flow Rate FiO2 11/24/20 22:00 97.9 69 12 99/64 (76) 98 Room Air I&O- Last 24 Hours up to 6 AM0 11/25/20 06:00 Intake Total 990 ml Balance 990 ml NATHALIE PATE NP Nov 25, 2020 06:38
[2020-11-25] MEDS: HumaLOG INSULIN (NovoLOG) PER UNIT SC SCH ×4 (07:30→20:39)
[2020-11-25 07:37] LABS: IRON (FE) 38 UG/DL (65-175); TOTAL IRON BINDING CAPACITY 237 UG/DL (250-450)
[2020-11-25 07:38] LABS: FERRITIN 46 NG/ML (26-388)
[2020-11-25 08:03] VITALS: BP 116/66
[2020-11-25] MEDS: DOCUSATE SODIUM 100MG CAPSULE PO SCH ×2 (08:19→20:38)
[2020-11-25] MEDS ORDERED: PREVNAR 13 VACCINE SYRINGE IM SCH (09:00)
[2020-11-25] MEDS ORDERED: PREVNAR 13 VACCINE SYRINGE IM ONE (09:00)
[2020-11-25 14:00] VITALS: BP 138/88
--- NOTE | 2020-11-25 15:39 | IPNPDOC ---
Text Note Date of Service The patient was seen on 11/25/20. NOTE Subjective: No any acute events overnight. He denied any fever any chills, chest pain or palpitations or any focal deficiency. He states that his abdominal pain resolved Objective: GENERAL APPEARANCE: NAD HEENT: no scleral icterus, no JVD, EOMI CARDIOVASCULAR: S1S2 LUNGS: Diminished lung sounds bilaterally ABDOMEN: soft & not tender w palpation MUSCULOSKELETAL: no cyanosis, no swelling INTEGUMENT: no generalized pallor NEUROLOGICAL: cranial nerve function from 2-12 intact, follows commands, speech not dysarthric Assessment and plan patient is 64 years old male with past medical history of Bipolar disorder, Schizoaffective disorder, Depression, Anxiety, Borderline intellectual function with mental retardation, Tardive dyskinesia-secondary to psychotropic medications Type 2 Diabetes Mellitus, Asthma, Hyperlipidemia, Obstr uctive sleep apnea, and GERD who presented to the emergency department after being found by his family members unable to speak or get out of bed. He is also noted to have had a facial droop over 24 hours ago by family members. Left facial droop Resolved Unfortunately patient has penile implant and he is not a candidate for MRI because family cannot provide any history of surgery. Repeated CT head negative for stroke Carotid ultrasound shows Bilateral luminal narrowing of the internal carotid ar teries less than 50%. No evidence of hemodynamically significant stenosis. Patient does not have any focal deficiency on neurological exam Deconditioning PT/OT Most likely patient will need placement, his mom recently Hypokalemia Replaced Bipolar disorder/Schizoaffective disorder/Depression/Anxiety Follow-up with psychiatrist in the outpatient settings Continue home meds Borderline intellectual function with mental retardation patient lives alone but was recently evaluated for placement in an assisted living facility Tardive dyskinesia-secondary to psychotropic medications Follow-up with psychiatrist Diabetes type 2 Insulin sliding scale Diabetes diet Asthma Not in acute exacerbation Hyperlipidemia Continue statin Obstructive sleep apnea -patient uses CPAP at home Normocytic anemia Patient was found to have low folate and iron level We'll check stool for occult blood, will check B12 level Start supplementation with iron and folate GERD continue omeprazole DVT prophylaxis: continue with heparin VS,Fishbone, I+O VS, Fishbone, I+O Laboratory Tests 11/25/20 05:28 Vital Signs Date Time Temp Pulse Resp B/P (MAP) Pulse Ox O2 Delivery O2 Flow Rate FiO2 11/25/20 08:03 62 116/66 (83) 11/25/20 05:00 97.3 17 97 Room Air I&O- Last 24 Hours up to 6 AM 11/25/20 06:00 Intake Total 1140 ml Balance 1140 ml NICK JAVIER DO Nov 25, 2020 15:39
[2020-11-25 19:21] LABS: VITAMIN B12 LEVEL 334 PG/ML (247-911)
[2020-11-25 21:39] VITALS: BP 119/68
[2020-11-26 06:00] VITALS: BP 119/67
[2020-11-26] MEDS: HumaLOG INSULIN (NovoLOG) PER UNIT SC SCH ×2 (07:30→12:00)
[2020-11-26 07:36] LABS: BLOOD UREA NITROGEN 14 MG/DL (7-18); CARBON DIOXIDE LEVEL 27 MEQ/L (21-32); CHLORIDE LEVEL 111 MEQ/L (98-107); GLOMERULAR FILTRATION RATE > 60.0 (>49); GLUCOSE, FASTING 100 MG/DL (70-100); POTASSIUM SERUM 4.1 MEQ/L (3.5-5.1); SODIUM LEVEL 141 MEQ/L (136-145)
[2020-11-26] MEDS: DOCUSATE SODIUM 100MG CAPSULE PO SCH (08:08)
[2020-11-26] MEDS ORDERED: FOLIC ACID 1 MG TAB PO SCH (09:00)
[2020-11-26] MEDS ORDERED: IRON POLYSAC (NIFEREX) 150 MG CAP PO SCH (09:00)
[2020-11-26] MEDS ORDERED: FERR325T82 PO (12:43)
[2020-11-26] MEDS ORDERED: FOLI1TAB11 PO (12:43)
--- NOTE | 2020-11-26 19:04 | DS.PDOC ---
Discharge Summary General Date of Admission Nov 24, 2020 at 05:15 Date of Discharge 11/26/20 Discharge Summary PROCEDURES PERFORMED DURING STAY: [None]. ADMITTING DIAGNOSES: Left facial droop Deconditioning Hypokalemia Bipolar disorder/Schizoaffective disorder/Depression/Anxiety Borderline intellectual function with mental retardation Tardive dyskinesia-secondary to psychotropic medications Asthma Diabetes type 2 Hyperlipidemia Obstructive sleep apnea Normocytic anemia GERD DISCHARGE DIAGNOSES: Left facial droop Deconditioning Hypokalemia Bipolar disorder/Schizoaffective disorder/Depression/Anxiety Borderline intellectual function with mental retardation Tardive dyskinesia-secondary to psychotropic medications Asthma Diabetes type 2 Hyperlipidemia Obstructive sleep apnea Normocytic anemia GERD COMPLICATIONS/CHIEF COMPLAINT: Schizoaffective Disorder, Weakness. HISTORY OF PRESENT ILLNESS: patient is 64 years old male with past medical history of Bipolar disorder, Schizoaffective disorder, Depression, Anxiety, Borderline intellectual function with mental retardation, Tardive dyskinesia- secondary to psychotropic medications Type 2 Diabetes Mellitus, Asthma, Hyperlipidemia, Obstructive sleep apnea, and GERD who presented to the emergency department after being found by his family members unable to speak or get out of bed. He is also noted to have had a facial droop over 24 hours ago by family members. HOSPITAL COURSE: During the hospital stay the following issue addressed Left facial droop Resolved Unfortunately patient has penile implant and he is not a candidate for MRI because family cannot provide any history of surgery. Repeated CT head negative for stroke Carotid ultrasound shows Bilateral luminal narrowing of the internal carotid arteries less than 50%. No evidence of hemodynamically significant stenosis. Patient does not have any focal deficiency on neurological exam Deconditioning PT/OT Physical therapy cleared himfor discharge Hypokalemia Replaced Bipolar disorder/Schizoaffective disorder/Depression/Anxiety Follow-up with psychiatrist in the outpatient settings Continue home meds Borderline intellectual function with mental retardation patient lives alone Tardive dyskinesia-secondary to psychotropic medications Follow-up with psychiatrist Diabetes type 2 Insulin sliding scale Diabetes diet Asthma Not in acute exacerbation Hyperlipidemia Continue statin Obstructive sleep apnea -patient uses CPAP at home Normocytic anemia Patient was found to have low folate and iron level B12 level within normal limit Patient received supplementation with iron and folate Patient will need follow-up with PCP and GI team for completion of work-up of low iron level DISCHARGE MEDICATIONS: Please see below. ALLERGIES: Please see below. PHYSICAL EXAMINATION ON DISCHARGE: VITAL SIGNS: Please see below. GENERAL APPEARANCE: NAD HEENT: no scleral icterus, no JVD, EOMI CARDIOVASCULAR: S1S2 LUNGS: Diminished lung sounds bilaterally ABDOMEN: soft & not tender w palpation MUSCULOSKELETAL: no cyanosis, no swelling INTEGUMENT: no generalized pallor NEUROLOGICAL: cranial nerve function from 2-12 intact, follows commands, speech not dysarthric LABORATORY DATA: Please see below. IMAGING: [facility] NAME: CAPO RAMON DATE OF : 1955 BUSINESS NUMBER: [id number] AGE: 64 SEX: M REPORT #: [id number] ROOM: [facility] TECHNOLOGIST: [email or web address] DOCTOR: NICK JAVIER DO Ordered for Date&Time: 11/24/201999 cc: [~ rep ct ivnm] Service Date&Time: 11/24/201999 This report is in Signed status. Interpretation performed by [facility]. Thank you for having your radiology procedures performed at [facility] RADIOLOGY REPORT Date&Time printed: [~ rep prt dt last] [~ rep prt tm last] Page 2 of 2 [place] [address] RADIOLOGY REPORT This report is in Signed status. Interpretation performed by [facility]. Thank you for having your radiology procedures performed at [facility] RADIOLOGY REPORT Date&Time printed: [~ rep prt dt last] [~ rep prt tm last] Page 1 of 1 PROCEDURE INFORMATION: Exam: CT Head Without Contrast Exam date and time: 11/24/2020 8:00 PM Age: 64 years old Clinical indication: Condition or disease; Other: CVA TECHNIQUE: Imaging protocol: Computed tomography of the head without contrast. Radiation optimization: All CT scans at this facility use at least one of these dose optimization techniques: automated exposure control; mA and/or kV adjustment per patient size (includes targeted exams where dose is matched to clinical indication); or iterative reconstruction. COMPARISON: CT Head without contrast 11/23/2020 8:47 PM FINDINGS: Brain: There is no evidence of intracranial bleed. The monroe-white differentiation appears preserved. Cerebral ventricles: Normal ventricles. Paranasal sinuses: Clear paranasal sinuses. Mastoid air cells: Clear mastoid air cells. Bones/joints: There is no evidence of fracture. Soft tissues: Unremarkable. IMPRESSION: 1. No evidence of bleed. 2. No evidence of mass effect. Electronically signed by: Doyle Greer On 11/24/2020 21:03:38 PM DD: DOYLE GREER MD 11/24/201999 DT: JOSE 11/24/202102 DS: CARLY 11/24/202102 [~ rep ct labl] PROGNOSIS: Fair ACTIVITY: [As tolerated]. DIET: Cardiac DISPOSITION: 01 Home, Self-Care. ITEMS TO FOLLOWUP ON ON OUTPATIENT: Follow-up with PCP and GI team DISCHARGE CONDITION: [Stable]. TIME SPENT ON DISCHARGE: 50minutes. Vital Signs/I&Os Vital Signs Date Time Temp Pulse Resp B/P (MAP) Pulse Ox O2 Delivery O2 Flow Rate FiO2 11/26/20 06:00 98.3 70 20 119/67 (84) 96 Room Air I&O- Last 24 Hours up to 6 AM 11/26/20 06:00 Intake Total 840 ml Balance 840 ml Laboratory Data Labs 24H Laboratory Tests 2 11/25/20 19:54: Bedside Glucose (Misc Panel) 104 11/26/20 07:08: Anion Gap 3L, Glomerular Filtration Rate > 60.0, Calcium Level 9.0 11/26/20 11:02: Lab Scanned Report Miscellaneous Lab 11/26/20 12:22: Bedside Glucose (Misc Panel) 118H CBC/BMP Laboratory Tests 11/26/20 07:08 FSBS Laboratory Tests Test 11/25/20 19:54 11/26/20 12:22 Range/Units Bedside Glucose (Misc Panel) 104 118 80-115 MG/DL Discharge Medications Scheduled Atorvastatin Calcium (Atorvastatin Calcium) 80 Mg Tablet, 80 MG PO DAILY, (Reported) Calcium Carbonate/Vitamin D3 (Calcium 600-Vit D3 400 Tablet) 1 Tab Tab, 1 TAB PO DAILY, (Reported) Docusate Sodium (Docusate Sodium) 100 Mg Capsule, 100 MG PO TID, (Reported) Ergocalciferol (Vitamin D2) (Vitamin D2) 50,000 Units Cap, 50,000 UNITS PO QWEEK, (Reported) MONDAYS Ferrous Sulfate (Iron) 325 Mg Tablet, 1 TAB PO DAILY Folic Acid (Folic Acid) 1 Mg Tablet, 1 MG PO DAILY Loratadine (Loratadine) 10 Mg Tablet, 10 MG PO DAILY, (Reported) Magnesium Oxide (Magnesium Oxide) 400 Mg Tablet, 400 MG PO DAILY, (Reported) Metformin HCl (Metformin HCl) 500 Mg Tablet, 500 MG PO BID, (Reported) Omeprazole (Omeprazole) 40 Mg Capsule.dr, 40 MG PO DAILY, (Reported) Paliperidone Palmitate (Invega Trinza) 819 Mg/2.625 Ml Syringe, 819 MG IM Q3M, (Reported) Sucralfate (Carafate) 1 Gm Tablet, 1 GM PO BID, (Reported) 4 times per day take on an empty stomach Trazodone HCl (Trazodone HCl) 100 Mg Tablet, 200 MG PO QHS, (Reported) Venlafaxine HCl (Venlafaxine HCl ER) 150 Mg Cap.er.24h, 150 MG PO DAILY, (Reported) Allergies Coded Allergies: Penicillins (Verified Allergy, Intermediate, rash, 09/08/20) NICK JAVIER DO Nov 26, 2020 19:04
== END 2020-11-26 14:18 | disposition home or self-care (01) | DRG 93 ==
LOC: M ED 20:27 → M ED INP 11-24 05:15 → OBSVTOIN 11-24 05:15 → ENRESERV 11-24 09:55 → M MSPAV 11-24 13:02
PROVIDERS: ADMIT Family Medicine; ATTEND Internal Medicine
DX: R29.810 Facial weakness (principal); E87.6 Hypokalemia; F31.9 Bipolar disorder, unspecified; F25.9 Schizoaffective disorder, unspecified; F41.9 Anxiety disorder, unspecified; G24.01 Drug induced subacute dyskinesia; J45.909 Unspecified asthma, uncomplicated; E11.9 Type 2 diabetes mellitus without complications; E78.5 Hyperlipidemia, unspecified; G47.33 Obstructive sleep apnea (adult) (pediatric); D64.9 Anemia, unspecified; K21.9 Gastro-esophageal reflux disease without esophagitis; R53.1 Weakness; F79 Unspecified intellectual disabilities; Z63.4 Disappearance and death of family member; Z90.49 Acquired absence of other specified parts of digestive tract; Z96.652 Presence of left artificial knee joint; Z87.891 Personal history of nicotine dependence; Z88.0 Allergy status to penicillin; Z88.8 Allergy status to other drugs, medicaments and biological substances; Z79.84 Long term (current) use of oral hypoglycemic drugs; Z79.899 Other long term (current) drug therapy; Z20.822 Contact with and (suspected) exposure to COVID-19; Z96.89 Presence of other specified functional implants; Z72.3 Lack of physical exercise

== ENCOUNTER 2020-12-25 19:43 | Inpatient (IN) | payer MEDICARE, MEDICAID ==
[~2020-12-25] VITALS: Ht 170.2 cm; Wt 77.8 kg
[~2020-12-25 19:43] MED LIST changes: +ALBU8.5H INH; +CARA1TAB6 PO; +FERR325T82 PO; +FOLI1TAB11 PO; +MAGN400T2 PO; +OMEP-221 PO; +PATIENT COMMENT; +TRAZ-189 PO
--- OUTSIDE RECORDS SUMMARY | 2020-12-25 19:49 | CCD ---
Author Author [facility] Organization [facility] Address Unknown Phone Unavailable Care Team Providers Care Cashier Supervisor Name Role Phone Dianne Gordon Unavailable PROBLEMS Type Condition ICD9-CM Code BLV10-SR Code Onset Dates Condition S tatus W/U Status Risk SNOMED Code Notes Problem Iron deficiency anemia, unspecified iron deficiency an emia type D50.9 Active confirmed 05823955 Problem Gastroesophageal reflux disease without esophagitis K21.9 Active confirmed 138704847 Problem Vitamin D deficiency E55.9 Active confirmed 20068934 Problem AALIYAH (obstructive sleep apnea) G47.33 Active confirm ed 27735159 Problem Morbid obesity due to excess calories E66.01 Ac tive confirmed 834614542 Problem Other chronic nonalcoholic liver disease K76.89 Active confirmed 63315913 Problem Hypertriglyceridemia E78.1 Active confirmed 790637950 Problem 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 Active conf irmed 54989043 Problem Diabetes E11.9 Active confirmed 13461183 Problem Leukocytosis, unspecified type D72.829 Active confi rmed 204159991 Problem Constipation, unspecified constipation type K59.00 Active confirmed 15968155 Problem BMI 35.0-35.9,adult Z68.35 Active confirmed 059787353 Problem Intellectual disability F79 Active confirmed 047919626 Problem Mixed hyperlipidemia E78.2 Active confirmed 292523685 Problem Fatty liver K76.0 Active confirmed 76537425 7 Problem Screening PSA (prostate specific antigen) Z12.5 Active confirmed 913556759 Problem BMI 39.0-39.9,adult Z68.39 Active confirmed 590439968 Problem Dysmetabolic syndrome X E88.81 Active confirmed 712457322 Problem Mild intermittent asthma without complication J45. 20 Active confirmed 119888232 Problem Gastroparesis K31.84 Active confirmed 679176 006 Problem Type 2 diabetes mellitus wit h diabetic neuropathy, without long-term current use of insulin E11.40 Active confirmed 7354680 6 Problem Tardive dyskinesia G24.01 Active confirmed 1 30105107 Problem Schizoaffective disorder, unspecified type F25.9 Active confirmed 00889329 ALLERGIES Allergen (clinical drug ingredient) Drug/Non Drug Allergy do cumented on EMR Reaction Allergy Type Onset Date Status metoclopramide Reglan([facility] Code:[address]-23) dry mouth, lighth eadedness Drug Allergy Active Penicillin (For Allergies Use Only) Rash Drug Allerg y Active ENCOUNTERS from 1955 to 2020-12-23 Encounter Location Date Provider Diagnosis [place] [address] [facility] [phone] [place] [address] 12 Nov, 2020 Dianne Clemons IMMUNIZATIONS Vaccine Route Administration Date Status Influenza [...] Notes Total Score: 0 Interpretation: Alcohol Education Mu-Ism: Question Answer Notes Mu-Ism 21 Shinto Sexual Hx: Question Answer Notes Had sex [...] Notes Start Da te End Date Status FeroSul 325 (65 Fe) MG TAKE ONE TABLET BY MOUTH @10AM for 7 Active Venlafaxine HCl ER 150 MG TAKE ONE CAPSULE BY MOUTH @10AM Oral for 7 Active Sucralfate 1 GM TAKE ONE TABLET BY MOUTH TWICE DAILY Oral for 90 Active metFORMIN HCl 500 mg 1 tablet with meals Orally twice daily Active Ventolin HFA 108 (90 Base) MCG/ACT 2 puffs as needed I nhalation every 4 hrs for 30 day(s) Active Vitamin D (Ergocalciferol) 1.25 MG (97876 UT) TAKE ONE CAPSULE BY MOUTH every sunday @10am for 1 Active Omeprazole 40 MG TAKE ONE CAPSULE BY MOUTH @8AM Active Naproxen 500 MG 1 tablet with food or milk a s needed Orally every 12 hrs as needed for pain for 30 Days Jan, Acti ve Omeprazole 40 MG TAKE ONE CAPSULE BY MOUTH @8AM for 28 Active Nebulizer 1 neb orally dx 493 every 4 hours as needed for 30 days Feb, Not-Taking Vitamin B-12 500 MCG TAKE ONE TABLET BY MOUTH @10AM for 7 Active Magnesium Oxide 400 (241.3 Mg) MG TAKE ONE TABLET BY MOUTH @10AM for 7 Active Calcium + Vitamin D3 600-10 MG-MCG TAKE ONE TABLET BY MOUTH @10AM for 7 Active Trazodone HCl 100 MG TAKE 1 AND 1/2 TABLETS BY MOUTH @8PM Oral for 7 Active Mirtazapine 45 MG TAKE ONE TABLET BY MOUTH IN THE EVENING Oral for 30 Penaloza Active Albuterol Sulfate (2.5 MG/3ML) 0.083% 3 ml Inhalation every 4 hours as needed for SOB for 30 day(s) Not-Taking Vitamin D 42601 UNIT 1 capsule with meal Orally Once a week for 7 Active Invega Trinza 819 MG/2.625ML INJECT 1 SYRINGE INTRAMUS CULARLY ONCE EVERY 3 MONTHS Intramuscular for 90 Acti ve Austedo 6 MG 1 tablet with food Orally Twice a day Unknown Calcium Carbonate-Vitamin D3 600-400 MG-UNIT TAKE ONE TABLET BY MOUTH @8AM orally once daily for 30 days Ac tive Benztropine Mesylate [address] Penaloza Orally twice d aily for 30 day(s) Tremaine Feb, Unknown Atrovent 0.02 % nebs Inhalation every 4 hours as needed for SOB Not-Taking Atorvastatin Calcium 80 MG TAKE ONE TABLET BY MOUTH @10AM for 7 Active Loratadine 10 MG TAKE ONE TABLET BY MOUTH @10AM for 7 Active Docusate Sodium 100 MG take one capsule by mouth @8 am and take one capsule by mouth @5pm and take one capsule by mouth @8pm orally three times daily for 30 Days Active Folic Acid 1 MG TAKE ONE TABLET BY MOUTH @10AM for 7 Active PROCEDURES No Information RESULTS No Results REASON FOR VISIT Last appointment? MEDICAL (GENERAL) HISTORY Type Description Date Medical [...] HH - Mitzy 06/18 Surgical History colonoscopy -,-15 Surgical History total L knee - Dr [...] Date Stop Date Docusate Sodium 100 MG take one capsule by mouth @8 am and take one capsule by mouth @5pm and take one capsule by mouth @8pm orally three times daily for 30 Days Folic Acid 1 MG TAKE ONE TABLET BY MOUTH @10AM for 7 Calcium + Vitamin D3 600-10 MG-MCG TAKE ONE TABLET BY MOUTH @10A M for 7 Vitamin B-12 500 MCG TAKE ONE TABLET BY MOUTH @10AM for 7 FeroSul 325 (65 Fe) MG TAKE ONE TABLET BY MOUTH @10AM for 7 Calcium Carbonate-Vitamin D3 600-400 MG-UNIT TAKE ONE TABLET BY MOUTH @8AM orally once daily for 30 days Vitamin D (Ergocalciferol) 1.25 MG (57565 UT) TAKE ONE CAPSULE BY MOUTH every sunday @10am for 1 Next Appt Details Provider Name:Susy Eaton, 2020-02 11:30:00 AM, [address] [place] [address], , [place], [address], Provider Name:Susy Eaton 03-22 03:30:00 PM, [address] [place] [address], , [place], [address], Insurance Providers Payer Name Payer Address Payer Phone Insured Name Patient Relati onship to Insured Coverage Start Date Coverage End Date MEDICARE COMPLETE [facility] [address] [address] [facility] [id number] [place] MEDICAID [facility] [address] [facility] [id number] [place]
--- OUTSIDE RECORDS SUMMARY | 2020-12-25 19:49 | CCD | Continuity of Care Document ---
Author Author [facility] BLANCA M.D Organization Unknown Address [address] [place] [address] Phone [phone] Care Team Providers Care Meat Stock Clerk Name Role Phone Dianne GordonM [phone] Problems Active Problems Provider Date Syncope and collapse Brady Blanca M.D. Onset: 01/31/2019 Tremor Brady Blanca M.D. Onset: 01/31/2019 Tardive dyskinesia Brady Blanca M.D. Onset: 01/31/2019 Schizoaffective disorder, depressive type Nusrat Mancuso Onset: 01/31/2019 Social History Type Date Description Comments Sex Unknown Tobacco Use Start: Unknown Patient has never smoked Allergies and adverse reactions Description No Known Drug Allergies Medications Active Medications SIG Qnty Indications Ordering Provide r Date Invega Trinza 819mg/2.625ML Alisha Patient recieves 546 mg injection intramuscular every 3 months Brady Blanca M.D. Immunizations Description No Information Available Vital Signs Date Vital Result Comment 12/02/2020 10:00am Respiratory Rate 12 /min Height 70 inches 5'10" Weight 200.00 lb BMI (Body Mass Index) 28.7 kg/m2 [place] Body Weight 166 lb 10/14/2019 12:26pm Respiratory Rate 12 /min Height 70 inches 5'10" Weight 209.00 lb BMI (Body Mass Index) 30.0 kg/m2 [place] Body Weight 166 lb Results Description No Information Available Procedures Date Code Description Status 12/02/2020 21567 Office/Outpatient Established Mo d MDM 30-39 Min Completed Medical Devices Description No Information Available Encounters Type Date Location Provider Dx Diagnosis Office Visit 12/02/2020 10:00a Main office - [place] Brady morfin M.D. G24.01 Drug induced subacute dyskinesia Assessments Date Code Description Provider 12/02/2020 G24.01 Drug induced subacute dyskinesia Brady Blanca M.D. Plan of Treatment No Information Available Functional Status Description No Information Available Mental Status Description No Information Available Referrals Description No Information Available
--- OUTSIDE RECORDS SUMMARY | 2020-12-25 19:49 | CCD ---
Author Author [facility] Organization [facility] Address Unknown Phone Unavailable Care Team Providers Care Tenter Frame Back Tender Name Role Phone Susy Eaton Unavailable PROBLEMS Type Condition ICD9-CM Code GEO51-KH Code Onset Dates Condition S tatus W/U Status Risk SNOMED Code Notes Problem Iron deficiency anemia, unspecified iron deficiency an emia type D50.9 Active confirmed 03205246 Problem Gastroesophageal reflux disease without esophagitis K21.9 Active confirmed 106876834 Problem Vitamin D deficiency E55.9 Active confirmed 45542088 Problem AALIYAH (obstructive sleep apnea) G47.33 Active confirm ed 90341418 Problem Morbid obesity due to excess calories E66.01 Ac tive confirmed 096604665 Problem Other chronic nonalcoholic liver disease K76.89 Active confirmed 60430527 Problem Hypertriglyceridemia E78.1 Active confirmed 872184802 Problem 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 Active conf irmed 47405493 Problem Diabetes E11.9 Active confirmed 20092945 Problem Leukocytosis, unspecified type D72.829 Active confi rmed 549861182 Problem Constipation, unspecified constipation type K59.00 Active confirmed 12910142 Problem BMI 35.0-35.9,adult Z68.35 Active confirmed 405304617 Problem Intellectual disability F79 Active confirmed 017740285 Problem Mixed hyperlipidemia E78.2 Active confirmed 875107139 Problem Fatty liver K76.0 Active confirmed 64655664 7 Problem Screening PSA (prostate specific antigen) Z12.5 Active confirmed 015927333 Problem BMI 39.0-39.9,adult Z68.39 Active confirmed 305729286 Problem Dysmetabolic syndrome X E88.81 Active confirmed 425671632 Problem Mild intermittent asthma without complication J45. 20 Active confirmed 337172442 Problem Gastroparesis K31.84 Active confirmed 139102 006 Problem Type 2 diabetes mellitus wit h diabetic neuropathy, without long-term current use of insulin E11.40 Active confirmed 7831155 6 Problem Tardive dyskinesia G24.01 Active confirmed 1 50020058 Problem Schizoaffective disorder, unspecified type F25.9 Active confirmed 88824282 ALLERGIES Allergen (clinical drug ingredient) Drug/Non Drug Allergy do cumented on EMR Reaction Allergy Type Onset Date Status metoclopramide Reglan([facility] Code:[address]-72) dry mouth, lighth eadedness Drug Allergy Active Penicillin (For Allergies Use Only) Rash Drug Allerg y Active ENCOUNTERS from 1955 to 2020-12-09 Encounter Location Date Provider Diagnosis [facility] [address] [facility] [phone] [place] [address] Dec, Susy Eaton IMMUNIZATIONS Vaccine Route Administration Date Status Influenza [...] Education Hoahaoism: Question Answer Notes Hoahaoism 21 Buddhist Sexual Hx: Question Answer Notes Had sex [...] Da te End Date Status Calcium Carbonate-Vitamin D3 600-400 MG-UNIT TAKE ONE TABLET BY MOUTH @8AM orally once daily for 30 days Ac tive metFORMIN HCl 500 mg 1 tablet with meals Orally twice daily Active Calcium + Vitamin D3 600-10 MG-MCG TAKE ONE TABLET BY MOUTH @10AM for 7 Active Invega Trinza 819 MG/2.625ML INJECT 1 SYRINGE INTRAMUS CULARLY ONCE EVERY 3 MONTHS Intramuscular for 90 Acti ve Omeprazole 40 MG TAKE ONE CAPSULE BY MOUTH @8AM Active Naproxen 500 MG 1 tablet with food or milk a s needed Orally every 12 hrs as needed for pain for 30 Days Jan, Acti ve Sucralfate 1 GM TAKE ONE TABLET BY MOUTH TWICE DAILY Oral for 90 Active Venlafaxine HCl ER 150 MG TAKE ONE CAPSULE BY MOUTH @10AM Oral for 7 Active Ventolin HFA 108 (90 Base) MCG/ACT 2 puffs as needed I nhalation every 4 hrs for 30 day(s) Active Mirtazapine 45 MG TAKE ONE TABLET BY MOUTH IN THE EVENING Oral for 30 Active Austedo 6 MG 1 tablet with food Orally Twice a day Unknown Loratadine 10 MG TAKE ONE TABLET BY MOUTH @10AM for 7 Active Nebulizer 1 neb orally dx 493 every 4 hours as needed for 30 days Feb, Not-Taking Vitamin D 55014 UNIT 1 capsule with meal Orally Once a week for 7 Active Vitamin D (Ergocalciferol) 1.25 MG (66090 UT) TAKE ONE CAPSULE BY MOUTH every sunday @10am for 1 Active Benztropine Mesylate [address] Penaloza Orally twice d aily for 30 day(s) Tremaine Feb, Unknown Omeprazole 40 MG TAKE ONE CAPSULE BY MOUTH @8AM for 28 Active Trazodone HCl 100 MG TAKE 1 AND 1/2 TABLETS BY MOUTH @8PM Oral for 7 Active Atrovent 0.02 % nebs Inhalation every 4 hours as needed for SOB Not-Taking Albuterol Sulfate (2.5 MG/3ML) 0.083% 3 ml Inhalation every 4 hours as needed for SOB for 30 day(s) Not-Taking Magnesium Oxide 400 (241.3 Mg) MG TAKE ONE TABLET BY MOUTH @10AM for 7 Active Folic Acid 1 MG 1 tablet Orally Once a day for 30 day(s) 2 7 Nov, 2020 Active Atorvastatin Calcium 80 MG TAKE ONE TABLET BY MOUTH @10AM for 7 Active Vitamin B 12 500 MCG 1 tablet Orally Once a day for 30 day(s) Nov, Active Ferrous Sulfate 325 (65 Fe) MG 1 tablet Orally Once a day for 30 day(s) Nov, Active Docusate Sodium 100 MG take one capsule by mouth @8 am and take one capsule by mouth @5pm and take one capsule by mouth @8pm orally three times daily for 30 Days Active PROCEDURES No Information RESULTS No Results REASON FOR VISIT refill MEDICAL (GENERAL) HISTORY Type Description Date Medical [...] Medication Name Sig Start Date Stop Date Ferrous Sulfate 325 (65 Fe) MG 1 tablet Orally Once a day fo r 30 day(s) Nov, Docusate Sodium 100 MG take one capsule by mouth @8 am and take one capsule by mouth @5pm and take one capsule by mouth @8pm orally three times daily for 30 Days Folic Acid 1 MG 1 tablet Orally Once a day for 30 day(s) Nov, Vitamin B 12 500 MCG 1 tablet Orally Once a day for 30 day(s) Nov, Calcium Carbonate-Vitamin D3 600-400 MG-UNIT TAKE ONE TABLET BY MOUTH @8AM orally once daily for 30 days Calcium + Vitamin D3 600-10 MG-MCG TAKE ONE TABLET BY MOUTH @10A M for 7 Next Appt Details Provider Name:Susy Eaton, 2020-02 11:30:00 AM, [address] [place] [address] , [place], [address], Provider Name:Susy Eaton, 03-22 03:30:00 PM, [address] [place] [address] , [place], [address], Insurance Providers Payer Name Payer Address Payer Phone Insured Name Patient Relati onship to Insured Coverage Start Date Coverage End Date MEDICARE COMPLETE [facility] [address] [address] [facility] [id number] [place] MEDICAID [facility] [address] [facility] [id number] [place]
--- OUTSIDE RECORDS SUMMARY | 2020-12-25 19:49 | CCD ---
Author Author [facility] Organization [facility] Address Unknown Phone Unavailable Care Team Providers Care Warehouse Order Picker Name Role Phone Dianne Gordon Unavailable PROBLEMS Type Condition ICD9-CM Code IFD47-NR Code Onset Dates Condition S tatus W/U Status Risk SNOMED Code Notes Problem Iron deficiency anemia, unspecified iron deficiency an emia type D50.9 Active confirmed 90233622 Problem Gastroesophageal reflux disease without esophagitis K21.9 Active confirmed 535574170 Problem Vitamin D deficiency E55.9 Active confirmed 28471913 Problem AALIYAH (obstructive sleep apnea) G47.33 Active confirm ed 34553879 Problem Morbid obesity due to excess calories E66.01 Ac tive confirmed 701856420 Problem Other chronic nonalcoholic liver disease K76.89 Active confirmed 82608922 Problem Hypertriglyceridemia E78.1 Active confirmed 674673349 Problem 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 Active conf irmed 05568508 Problem Diabetes E11.9 Active confirmed 55906652 Problem Leukocytosis, unspecified type D72.829 Active confi rmed 231597505 Problem Constipation, unspecified constipation type K59.00 Active confirmed 59545885 Problem BMI 35.0-35.9,adult Z68.35 Active confirmed 927948544 Problem Intellectual disability F79 Active confirmed 163271629 Problem Mixed hyperlipidemia E78.2 Active confirmed 113839793 Problem Fatty liver K76.0 Active confirmed 67963280 7 Problem Screening PSA (prostate specific antigen) Z12.5 Active confirmed 317333189 Problem BMI 39.0-39.9,adult Z68.39 Active confirmed 472728631 Problem Dysmetabolic syndrome X E88.81 Active confirmed 136598365 Problem Mild intermittent asthma without complication J45. 20 Active confirmed 105975464 Problem Gastroparesis K31.84 Active confirmed 294279 006 Problem Type 2 diabetes mellitus wit h diabetic neuropathy, without long-term current use of insulin E11.40 Active confirmed 2240785 6 Problem Tardive dyskinesia G24.01 Active confirmed 1 33988334 Problem Schizoaffective disorder, unspecified type F25.9 Active confirmed 62661534 ALLERGIES Allergen (clinical drug ingredient) Drug/Non Drug Allergy do cumented on EMR Reaction Allergy Type Onset Date Status metoclopramide Reglan([facility] Code:[address]-58) dry mouth, lighth eadedness Drug Allergy Active Penicillin (For Allergies Use Only) Rash Drug Allerg y Active ENCOUNTERS from 1955 to 2020-11-24 Encounter Location Date Provider Diagnosis [facility] [address] [facility] [phone] [place] [address] Nov, Dianne Gordon IMMUNIZATIONS Vaccine Route Administration Date [...] Notes Total Score: 0 Interpretation: Alcohol Education Yazidi: Question Answer Notes Yazidi 21 Amish Sexual Hx: Question Answer Notes [...] @10AM Oral for 7 Active Vitamin D 05934 UNIT 1 capsule with meal Orally Once a week for 7 Active Trazodone HCl 100 MG TAKE 1 AND 1/2 TABLETS BY MOUTH @8PM Oral for 7 Active Albuterol Sulfate (2.5 MG/3ML) 0.083% 3 ml Inhalation every 4 hours as needed for SOB for 30 day(s) Not-Taking Vitamin D (Ergocalciferol) 1.25 MG (91181 UT) TAKE ONE CAPSULE BY MOUTH every [...] Information RESULTS No Results REASON FOR VISIT pt labs are due, pt in ED being admitted MEDICAL (GENERAL) HISTORY Type Description Date Medical [...] HH - Mitzy 06/18 Surgical History colonoscopy 12-19,05-20 Surgical History total L knee - Dr [...] for 7 Vitamin D (Ergocalciferol) 1.25 MG (14178 UT) TAKE ONE CAPSULE BY MOUTH every sunday @10am for 1 Calcium + Vitamin D3 600-10 MG-MCG TAKE ONE TABLET BY MOUTH @10A M for 7 Atorvastatin Calcium 80 MG TAKE ONE TABLET BY MOUTH @10AM for 7 Next Appt Details Provider Name:Susy Chinosaad, 2-0 03-22 03:30:00 PM, [address] [facility], , [place], [address], Insurance Providers Payer Name Payer Address Payer Phone Insured Name Patient Relati onship to Insured Coverage Start Date Coverage End Date MEDICAID [employer] [address] [facility] [address] [place] MEDICARE COMPLETE [employer] [address] [address] [facility] [id number] [place]
--- OUTSIDE RECORDS SUMMARY | 2020-12-25 19:49 | CCD | Continuity of Care Document ---
Author Author Gelacio BLANCA M.D Organization Unknown Address [address] [place] [address] Phone [phone] Care Team Providers Care Records Management Associate Name Role Phone Dianne GordonM [phone] Problems Active Problems Provider Date Syncope and [...] lb BMI (Body Mass Index) 28.7 kg/m2 [place] Body Weight 166 lb 10/14/2019 12:26pm Respiratory Rate 12 /min Height 70 inches 5'10" Weight 209.00 lb BMI (Body Mass Index) 30.0 kg/m2 [place] Body Weight 166 lb Results Description No Information Available Procedures Description No Information Available Medical Devices Description No Information Available Encounters Description No Information Available Assessments Date Code Description Provider 12/02/2020 G24.01 Drug induced subacute dyskinesia Brady Blanca M.D. Plan of Treatment No Information Available Functional Status Description No Information Available Mental Status Description No Information Available Referrals Description No Information Available
--- OUTSIDE RECORDS SUMMARY | 2020-12-25 19:50 | CCD ---
Author Author [facility] Organization [facility] Address Unknown Phone Unavailable Care Team Providers Care Face Hardener Name Role Phone Low Cuevas MD Unavailable Unavailable Low Cuevas MD Unavailable Unavailable Low Cuevas MD Unavailable Unavailable Low Cuevas MD Unavailable Unavailable Low Cuevas MD Unavailable Unavailable Low Cuevas MD Unavailable Unavailable Low Cuevas MD Unavailable Unavailable Low Cuevas MD Unavailable Unavailable Low Cuevas MD Unavailable Unavailable Low Cuevas MD Unavailable Unavailable Low Cuevas MD Unavailable Unavailable Low Cuevas MD Unavailable Unavailable Low Cuevas MD Unavailable Unavailable Low Cuevas MD Unavailable Unavailable Low Cuevas MD Unavailable Unavailable Low Cuevas MD Unavailable Unavailable Low Cuevas MD Unavailable Unavailable Low Cuevas MD Unavailable Unavailable Low Cuevas MD Unavailable Unavailable Low Cuevas MD Unavailable Unavailable Low Cuevas MD Unavailable Unavailable Low Cuevas MD Unavailable Unavailable Low Cuevas MD Unavailable Unavailable Low Cuevas MD Unavailable Unavailable Low Cuevas MD Unavailable Unavailable Low Cuevas MD Unavailable Unavailable Low Cuevas MD Unavailable Unavailable Low Cuevas MD Unavailable Unavailable Low Cuevas MD Unavailable Unavailable Low Cuevas MD Unavailable Unavailable Low Cuevas MD Unavailable Unavailable Low Cuevas MD Unavailable Unavailable Low Cuevas MD Unavailable Unavailable Low Cuevas MD Unavailable Unavailable Low Cuevas MD Unavailable Unavailable Low Cuevas MD Unavailable Unavailable Low Cuevas MD Unavailable Unavailable Low Cuevas MD Unavailable Unavailable Low Cuevas MD Unavailable Unavailable Low Cuevas MD Unavailable Unavailable Low Cuevas MD Unavailable Unavailable Low Cuevas MD Unavailable Unavailable Low Cuevas MD Unavailable Unavailable Low Cuevas MD Unavailable Unavailable Low Cuevas MD Unavailable Unavailable Low Cuevas MD Unavailable Unavailable Low Cuevas MD Unavailable Unavailable Low Cuevas MD Unavailable Unavailable Low Cuevas MD Unavailable Unavailable Low Cuevas MD Unavailable Unavailable Low Cuevas MD Unavailable Unavailable Low Cuevas MD Unavailable Unavailable Low Cuevas MD Unavailable Unavailable Low Cuevas MD Unavailable Unavailable Low Cuevas MD Unavailable Unavailable Low Cuevas MD Unavailable Unavailable Low Cuevas MD Unavailable Unavailable Low Cuevas MD Unavailable Unavailable Low Cuevas MD Unavailable Unavailable Low Cuevas MD Unavailable Unavailable Low Cuevas MD Unavailable Unavailable Low Cuevas MD Unavailable Unavailable Low Cuevas MD Unavailable Unavailable Mason, O Samah MD Unavailable Unavailable Mason, O Samah MD Unavailable Unavailable Mason, O Samah MD Unavailable Unavailable Mason, O Samah MD Unavailable Unavailable Mason, O Samah MD Unavailable Unavailable Mason, O Samah MD Unavailable Unavailable Mason, O Samah MD Unavailable Unavailable Mason, O Samah MD Unavailable Unavailable Mason, O Samah MD Unavailable Unavailable Mason, O Samah MD Unavailable Unavailable Mason, O Samah MD Unavailable Unavailable Mason, O Samah MD Unavailable Unavailable Mason, O Samah MD Unavailable Unavailable Mason, O Samah MD Unavailable Unavailable Mason, O Samah MD Unavailable Unavailable Mason, O Samah MD Unavailable Unavailable Re-disclosure Warning The records that you [...] is protected by Article 27-F of the [facility] Public Health law. If you continue you may have access to information: Regarding HIV / AIDS; Provided by facilities licensed or operated by the [facility] Office of Mental Health; or Provided by the [facility] Office for People With Developmental Disabilities. If such information is present, then the following [facility] mandated warning applies: This information has been [...] law may result in a fine or intermediate sentence or both. A general authorization for the release of medical or other information is NOT sufficient authorization for further disc losure. Family History Family Member Name Family Member Gender Family Member Status Date o f Status Description Data Source(s) Unknown Unknown Problem MEDENT ([facility] Unknown Female Problem [facility] ([facility]) Unknown Female Problem [facility] ([facility] Unknown Female Problem MEDENT ([facility]) Unknown Female Problem MEDENT ([facility]) Unknown Female Problem MEDENT ([facility]) Unknown Female Problem MEDENT ([facility]) Unknown Female Problem MEDENT ([facility]) Unknown Female Problem MEDENT ([facility]) Encounters Encounter Providers Location Date Indications Data Source(s ) Unknown [address] [facility] [address] 12/08/2020 12:00:00 AM EDT eCW1 ([facility]) Outpatient Attender: Brady Cuevas MD Main office - [facility] 12/02/2020 10:00:00 AM EDT MEDENT ([facility]) Unknown [address] [facility] [address] 11/24/2020 12:00:00 AM EDT eCW1 ([facility]) [place] [address] [facility] [place] [address] 11/16/2020 12:00:00 AM EDT eCW1 ([facility]) Unknown [address] [facility] [place] [address] 11/03/2020 12:00:00 AM EDT eCW1 ([facility]) Unknown [address] [facility] [place] [address] 10/06/2020 12:00:00 AM EDT eCW1 ([facility]) Unknown [address] [facility] [place] [address] 10/05/2020 12:00:00 AM EDT eCW1 ([facility]) Unknown [address] [facility] [place] [address] 09/29/2020 12:00:00 AM EDT eCW1 ([facility]) Outpatient [address] [facility] [address] 09/15/2020 12:00:00 AM EDT eCW1 ([facility]) Unknown [address] [facility] [address] 09/15/2020 12:00:00 AM EDT eCW1 ([facility]) Outpatient [address] [facility] [address] 09/01/2020 12:00:00 AM EDT eCW1 ([facility]) Unknown [address] [facility] [address] 06/30/2020 12:00:00 AM EDT eCW1 ([facility]) Unknown [address] [facility] [address] 04/22/2020 12:00:00 AM EDT eCW1 ([facility]) Outpatient [address] [facility] [address] 04/02/2020 12:00:00 AM EST eCW1 [facility] [address] [facility] [address] 02/16/2020 12:00:00 AM EST [facility]1 [facility] [place] [address] [facility] [address] 01/20/2020 12:00:00 AM EST eCW1 ([facility] [place]patient [address] [facility] [address] 01/16/2020 12:00:00 AM EST eCW1 ([facility] Unknown [address] [facility] [address] 01/14/2020 12:00:00 AM EST eCW1 ([facility]) Office Visit, Est Pt., Level 4 PC [address] [place] [address] 12/26/2019 12:00:00 AM EST eCW1 ([facility]) Outpatient [facility] 12/09/2019 12:02:13 AM EST [facility] Outpatient [address] [facility] [address] 11/26/2019 12:00:00 AM EDT eCW1 ([facility]) Unknown [address] [facility] [address] 11/26/2019 12:00:00 AM EDT eCW1 ([facility]) Unknown [address] [facility] [address] 11/25/2019 12:00:00 AM EDT eCW1 ([facility]) Unknown [address] [facility] [address] 11/21/2019 12:00:00 AM EDT eCW1 ([facility]) Unknown [address] [facility] [address] 11/06/2019 12:00:00 AM EDT eCW1 ([facility]) Outpatient [address] [address] [employer] Team 12/14/2016 08:00:00 AM EST - 11/09/2020 10:45:00 AM EDT ARS ([facility]) Patient discharged. Immunizations Vaccine Date Status Description Data Source(s) influenza, recombinant, quadrIvalent,injectable, prese rvative free 04/02/2020 02:44:00 PM EST completed eCW1 ([facility]) influenza, recombinant, quadrIvalent,injectable, prese rvative free 04/02/2020 02:44:00 PM EST completed eCW1 ([facility]) influenza, recombinant, quadrIvalent,injectable, prese rvative free 04/02/2020 02:44:00 PM EST completed eCW1 ([facility]) influenza, recombinant, quadrIvalent,injectable, prese rvative free 04/02/2020 02:44:00 PM EST completed eCW1 ([facility]) influenza, recombinant, quadrIvalent,injectable, prese rvative free 04/02/2020 02:44:00 PM EST completed eCW1 ([facility]) influenza, recombinant, quadrIvalent,injectable, prese rvative free 04/02/2020 02:44:00 PM EST completed eCW1 ([facility]) influenza, recombinant, quadrIvalent,injectable, prese rvative free 04/02/2020 02:44:00 PM EST completed eCW1 ([facility]) influenza, recombinant, quadrIvalent,injectable, prese rvative free 04/02/2020 02:44:00 PM EST completed eCW1 ([facility]) influenza, recombinant, quadrIvalent,injectable, prese rvative free 04/02/2020 02:44:00 PM EST completed eCW1 ([facility]) influenza, recombinant, quadrIvalent,injectable, prese rvative free 04/02/2020 02:44:00 PM EST completed eCW1 ([facility]) influenza, recombinant, quadrIvalent,injectable, prese rvative free 04/02/2020 02:44:00 PM EST completed eCW1 ([facility]) influenza, recombinant, quadrIvalent,injectable, prese rvative free 04/02/2020 02:44:00 PM EST completed eCW1 ([facility]) influenza, recombinant, quadrIvalent,injectable, prese rvative free 04/02/2020 02:44:00 PM EST completed eCW1 ([facility]) COVID-19 VACCINE Moderna 03/19/2020 12:00:00 AM EST completed [place] Vaccine Series Complete: YESThis Data wa s Submitted to [facility] [employer]. COVID-19 VACCINE Moderna 02/20/2020 12:00:00 AM EST completed [place] Vaccine Series Complete: NOThis Data was Submitted to [facility] [employer]. influenza, recombinant, quadrIvalent,injectable, prese rvative free 11/26/2019 02:39:00 PM EDT completed eCW1 ([facility]) influenza, recombinant, quadrIvalent,injectable, prese rvative free 11/26/2019 02:39:00 PM EDT completed eCW1 ([facility]) influenza, recombinant, quadrIvalent,injectable, prese rvative free 11/26/2019 02:39:00 PM EDT completed eCW1 ([facility]) influenza, recombinant, quadrIvalent,injectable, prese rvative free 11/26/2019 02:39:00 PM EDT completed eCW1 ([facility]) influenza, recombinant, quadrIvalent,injectable, prese rvative free 11/26/2019 02:39:00 PM EDT completed eCW1 ([facility]) influenza, recombinant, quadrIvalent,injectable, prese rvative free 11/26/2019 02:39:00 PM EDT completed eCW1 ([facility]) influenza, recombinant, quadrIvalent,injectable, prese rvative free 11/26/2019 02:39:00 PM EDT completed eCW1 ([facility]) influenza, recombinant, quadrIvalent,injectable, prese rvative free 11/26/2019 02:39:00 PM EDT completed eCW1 ([facility]) influenza, recombinant, quadrIvalent,injectable, prese rvative free 11/26/2019 02:39:00 PM EDT completed eCW1 ([facility]) influenza, recombinant, quadrIvalent,injectable, prese rvative free 11/26/2019 02:39:00 PM EDT completed eCW1 ([facility]) influenza, recombinant, quadrIvalent,injectable, prese rvative free 11/26/2019 02:39:00 PM EDT completed eCW1 ([facility]) influenza, recombinant, quadrIvalent,injectable, prese rvative free 11/26/2019 02:39:00 PM EDT completed eCW1 ([facility]) influenza, recombinant, quadrIvalent,injectable, prese rvative free 11/26/2019 02:39:00 PM EDT completed eCW1 ([facility]) influenza, recombinant, quadrIvalent,injectable, prese rvative free 11/26/2019 02:39:00 PM EDT completed eCW1 ([facility]) influenza, recombinant, quadrIvalent,injectable, prese rvative free 11/26/2019 02:39:00 PM EDT completed eCW1 ([facility]) influenza, recombinant, quadrIvalent,injectable, prese rvative free 11/26/2019 02:39:00 PM EDT completed eCW1 ([facility]) influenza, recombinant, quadrIvalent,injectable, prese rvative free 11/26/2019 02:39:00 PM EDT completed eCW1 ([facility]) influenza, recombinant, quadrIvalent,injectable, prese rvative free 11/26/2019 02:39:00 PM EDT completed eCW1 ([facility]) influenza, recombinant, quadrIvalent,injectable, prese rvative free 11/26/2019 02:39:00 PM EDT completed eCW1 ([facility]) influenza, recombinant, quadrIvalent,injectable, prese rvative free 11/26/2019 02:39:00 PM EDT completed eCW1 ([facility]) influenza, recombinant, quadrIvalent,injectable, prese rvative free 11/26/2019 02:39:00 PM EDT completed eCW1 ([facility]) Medications Medication Brand Name Start Date Product Form Dose Route Admi nistrative Instructions Pharmacy Instructions Status Indications Reaction Description Data Source(s) ferrous sulfate 325 MG Oral Tablet Ferrous Sulfate 325 (65 Fe) MG Ferrous Sulfate 325 (65 Fe) MG 12/01/2020 12:00:00 AM EDT 1.0 {tablet} active Ferrous Sulfate 325 (65 Fe) MG eCW1 ([facility]) Folic Acid 1 MG Oral Tablet Folic Acid 1 MG 12/01/2020 12:00:00 AM EDT 1.0 {tablet} active Folic Acid 1 MG eCW1 ([facility]) Vitamin B 12 500 MCG Vitamin B 12 500 MCG 12/01/2020 12:00:00 AM ED T 1.0 {tablet} active Vitamin B 12 500 MCG eC W1 ([facility]) 240 mcg/0.7 mL 11/22/2020 12:00:00 AM EDT syringe 0 INJECT DIRECTED INJECT DIRECTED SOLD: 11/22/2020 [facility] 819 mg/2.625 mL 07/21/2020 12:00:00 AM EDT syringe 2 INJECT 1 SYRINGE INTRAMUSCULARLY ONCE EVERY 3 MONTHS INJECT 1 SYRINGE INTRAMUSCULARLY ONCE EV ALAN 3 MONTHS SOLD: 10/13/2020 [facility] 819 mg/2.625 mL 07/21/2020 12:00:00 AM EDT syringe 2 INJECT 1 SYRINGE INTRAMUSCULARLY ONCE EVERY 3 MONTHS INJECT 1 SYRINGE INTRAMUSCULARLY ONCE EV ALAN 3 MONTHS SOLD: 07/22/2020 [facility] Naproxen 500 MG Oral Tablet Naproxen 500 MG 01/16/2020 12:00:00 AM EST active Naproxen 500 MG eCW1 ([facility]) Naproxen 500 MG Oral Tablet Naproxen 500 MG 01/16/2020 12:00:00 AM EST active Naproxen 500 MG eCW1 ([facility]) Naproxen 500 MG Oral Tablet Naproxen 500 MG 01/16/2020 12:00:00 AM EST active Naproxen 500 MG eCW1 ([facility]) Naproxen 500 MG Oral Tablet Naproxen 500 MG 01/16/2020 12:00:00 AM EST active Naproxen 500 MG eCW1 ([facility]) Naproxen 500 MG Oral Tablet Naproxen 500 MG 01/16/2020 12:00:00 AM EST active Naproxen 500 MG eCW1 ([facility]) Naproxen 500 MG Oral Tablet Naproxen 500 MG 01/16/2020 12:00:00 AM EST active Naproxen 500 MG eCW1 ([facility]) Naproxen 500 MG Oral Tablet Naproxen 500 MG 01/16/2020 12:00:00 AM EST active Naproxen 500 MG eCW1 ([facility]) Naproxen 500 MG Oral Tablet Naproxen 500 MG 01/16/2020 12:00:00 AM EST active Naproxen 500 MG eCW1 ([facility]) Naproxen 500 MG Oral Tablet Naproxen 500 MG 01/16/2020 12:00:00 AM EST active Naproxen 500 MG eCW1 ([facility]) Naproxen 500 MG Oral Tablet Naproxen 500 MG 01/16/2020 12:00:00 AM EST active Naproxen 500 MG eCW1 ([facility]) Naproxen 500 MG Oral Tablet Naproxen 500 MG 01/16/2020 12:00:00 AM EST active eCW1 ([facility]) Naproxen 500 MG Oral Tablet Naproxen 500 MG 01/16/2020 12:00:00 AM EST active Naproxen 500 MG eCW1 ([facility]) Naproxen 500 MG Oral Tablet Naproxen 500 MG 01/16/2020 12:00:00 AM EST active Naproxen 500 MG eCW1 ([facility]) Naproxen 500 MG Oral Tablet Naproxen 500 MG 01/16/2020 12:00:00 AM EST active Naproxen 500 MG eCW1 ([facility]) Naproxen 500 MG Oral Tablet Naproxen 500 MG 01/16/2020 12:00:00 AM EST active Naproxen 500 MG eCW1 ([facility]) Naproxen 500 MG Oral Tablet Naproxen 500 MG 01/16/2020 12:00:00 AM EST active Naproxen 500 MG eCW1 ([facility]) 819 mg/2.625 mL 07/28/2019 12:00:00 AM [...] Plan Information UHC UNITED MEDICARE DUAL G [id number] Self [id number] Medicare Medicare Primary [id number] Self MEDICARE [id number] Della [id number] [place] Primary [id number] Self Medicaid [facility] Part B [id number] Self MEDICAID [id number] Della [id number] [facility] Medicare Dual Complete [place] Dual Complete [id number] Self [place] Dual Complete [facility] [place] Dual [place] [id number] [place] Dual [place] [facility] [id number] SP [id number] MEDICAID M [id number] Self [id number] [facility] [id number] SP [id number] MEDICAID [id number] SP [id number] MEDICAID [id number] SP [id number] ANSI-Medicare Part B [id number] ANSI-Medicare Part B [id number] ANSI-Medicare Part B [id number] ANS-Medicaid [id number] ANSI-Medicare Part B [id number] ANSI-Medicare Part B [id number] ANS-Medicaid [id number] ANSI-Medicaid [id number] ANSI-Medicare Part B [id number] ANSI-Medicare Part B [id number] ANSI-Medicare Part B [id number] ANSI-Medicaid [id number] ANSI-Medicare Part B [id number] ANSI-Medicare Part B [id number] ANSI-Medicare Part B [id number] ANSI-Medicaid [id number] ANSI-Medicaid [id number] ANSI-Medicare Part B [id number] ANSI-Medicare Part B [id number] ANSI-Medicare Part B [id number] ANSI-Medicaid [id number] ANSI-Medicare Part B [id number] ANSI-Medicare Part B [id number] ANSI-Medicaid [id number] ANSI-Medicare Part B [id number] ANSI-Medicare Part B [id number] ANSI-Medicare Part B [id number] ANSI-Medicaid [id number] ANSI-Medicare Part B [id number] ANSI-Medicaid [id number] ANSI-Medicare Part B [id number] ANSI-Medicaid [id number] ANSI-Medicare Part B [id number] ANSI-Medicare Part B [id number] ANSI-Medicaid [id number] ANSI-Medicare Part B [id number] ANSI-Medicare Part B [id number] ANSI-Medicaid [id number] ANSI-Medicare Part B [id number] ANSI-Medicare Part B [id number] ANSI-Medicaid [id number] ANSI-Medicare Part B [id number] ANSI-Medicare Part B [id number] ANSI-Medicare Part B [id number] ANSI-Medicare Part B [id number] ANSI-Medicaid [id number] ANSI-Medicare Part B [id number] ANSI-Medicare Part B [id number] ANSI-Medicaid [id number] ANSI-Medicare Part B [id number] ANSI-Medicaid [id number] ANSI-Medicare Part B [id number] ANSI-Medicare Part B [id number] ANSI-Medicare Part B [id number] ANSI-Medicaid [id number] ANSI-Medicare Part B [id number] ANSI-Medicare Part B [id number] ANSI-Medicaid [id number] [facility] [id number] SP [id number] [facility] [id number] SP [id number] [facility] [place] [id number] SP [id number] MEDICARE [id number] SP [id number] A Medicare [facility] Medicare Primary [id number] Self [id number] [place] Medigap Part B [id number] Self [id number] [facility] Health Maintenance Organization (HMO) [id number] Self [id number] MEDICARE [id number] SP [id number] A [place] Medigap Part B [id number] Self [facility]/Medicare Commercial [id number] Self Medicaid Medigap Part B [id number] Self [facility] Dual Cov Plan Commercial [id number] Self [facility] [id number] SP [id number] [facility]) O [id number] S [id number] MEDICAID M [id number] S [id number] UH DUAL COMPLETE O [id number] S [id number] Medicaid After Medicare Medigap Part B [id number] Self OTHER1 *NOTFORTODAYSVISIT* SP *NOTFORTODAYSVISIT* ALLSTATE INS CO NO FAULT CLM#[id number] SP CLM#[id number] OTHER NO FAULT 00 SP 00 MEDICARE P [id number] S [id number] A P UNAVAILABLE UNAVAILA BLE [id number] [place] [id number] SP [id number] [facility] HMO [id number] SP [id number] [facility] [id number] SP [id number] MEDICARE COMPLETE [id number] SP [id number] MEDICARE COMPLETE [id number] SP [id number] [facility] [id number] SP [id number] [place] [id number] SP [id number] [facility] Secure Horizons P [id number] S [id number] Medicaid S [id number] S [id number] MEDICAID [id number] SP [id number] ANSI-Medicaid [id number] ANSI-Medicare Part B [id number] Problems, Conditions, and Diagnoses Code Display Name Description Problem Type Effective Dates Data Source(s) Z12.5 955119650 Screening PSA (prostate specific antigen) Problem 09/01/2020 12:00:00 AM EDT eCW1 ([facility]) Surgeries/Procedures Procedure Description Date Indications Data Source(s) OFFICE OUTPATIENT VISIT 25 MINUTES 12/02/2020 12:00:00 AM EDT MEDENT ([facility]) Imm: Flublok Quadrivalent 18 years & older 0.5mL IM Influenz a 04/02/2020 12:00:00 AM EST eCW1 ([facility]) Immunization: Flublok Quadrivalent (18 years & older) 0.5mL IM (Influenza) 11/26/2019 12:00:00 AM EDT eCW1 ([facility]) Results ID Date Data Source [id number] 11/23/2020 09:39:00 PM EDT [facility] Name Value Range Interpretation Code Description Data Amy rce(s) Supporting Document(s) SARS coronavirus 2 RNA [Presence] in Res piratory specimen by BRAULIO with probe detection NEGATIVE [facility] This lab was ordered by [facility] a nd reported by [facility]. ID Date Data Source URIC ACID 01/16/2020 12:00:00 AM EST eCW1 ([facility]) Name Value Range Interpretation Code Description Data Amy rce(s) Supporting Document(s) 4.0 3.5-7.2 URIC ACID eCW1 ([facility]) ID Date Data Source PLZ WRIST COMPLETE 01/16/2020 12:00:00 AM EST eCW1 ([facility]) Name Value Range Interpretation Code Description Data Amy rce(s) Supporting Document(s) PLZ WRIST COMPLETE eCW1 ([facility]) ID Date Data Source Basic Metabolic Profile (BMP) 01/16/2020 12:00:00 AM EST eCW 1 ([facility]) Name Value Range Interpretation Code Description Data Amy rce(s) Supporting Document(s) 108 70-100 GLUCOSE, FASTING eCW1 ([facility]) 11 7-18 BLOOD UREA NITROGEN eCW1 ([facility]) > 60.0 >49 GLOMERULAR FILTRATION RATE eCW 1 ([facility]) 0.72 0.70-1.30 CREATININE FOR GFR eCW1 ([facility]) 4.2 3.5-5.1 POTASSIUM SERUM eCW1 ([facility]) 140 136-145 SODIUM LEVEL eCW1 ([facility]) 107 98-107 CHLORIDE LEVEL eCW1 ([facility]) 28 21-32 CARBON DIOXIDE LEVEL eCW1 ([facility]) 9.5 8.8-10.2 CALCIUM LEVEL eCW1 ([facility]) ID Date Data Source ERYTHROCYTE SEDIMENTATION RATE 01/16/2020 12:00:00 AM EST eC W1 ([facility]) Name Value Range Interpretation Code Description Data Amy rce(s) Supporting Document(s) 22 0-20 ERYTHROCYTE SEDIMENTATION RATE eCW1 ([facility]) ID Date Data Source CBC with Differential 01/16/2020 12:00:00 AM EST eCW1 ([facility]) Name Value Range Interpretation Code Description Data Amy rce(s) Supporting Document(s) 11.1 4.0-10.0 WHITE BLOOD COUNT eCW1 ([facility]) 36.6 42.0-52.0 HEMATOCRIT eCW1 ([facility]) 4.10 4.30-6.10 RED BLOOD COUNT eCW1 ([facility]) 12.1 13.5-17.5 HEMOGLOBIN eCW1 ([facility]) 89.3 80.0-96.0 MEAN CORPUSCULAR VOLUME e CW1 ([facility]) 29.5 27.0-33.0 MEAN CORPUSCULAR HEMOGLOB IN eCW1 ([facility]) 13.0 11.5-14.5 RED CELL DISTRIBUTION WID TH eCW1 ([facility]) 33.1 32.0-36.5 MEAN CORPUSCULAR HGB CONC eCW1 ([facility]) 305 150-450 PLATELET COUNT, AUTOMATED eCW1 ([facility]) 57.6 36.0-66.0 NEUTROPHILS % eCW1 ([facility]) 10.1 0.0-5.0 MONO % eCW1 ([facility]) 27.4 24.0-44.0 LYMPH % eCW1 ([facility]) 3.9 0.0-3.0 EOS % eCW1 ([facility]) 0.6 0.0-1.0 BASO % eCW1 ([facility]) 3.0 1.5-5.0 LYMPH # eCW1 ([facility]) 6.4 1.5-8.5 NEUTROPHILS # eCW1 ([facility]) 0.4 0.0-0.5 EOS # eCW1 ([facility]) 1.1 0.0-0.8 MONO # eCW1 ([facility]) 0.1 0.0-0.2 BASO # eCW1 ([facility]) Procedure Social History Code Duration Value Status Description Data Source(s ) Smoking 12/01/2020 12:00:00 AM EDT Former Smoker completed Former Smoker eCW1 ([facility]) Smoking 12/01/2020 12:00:00 AM EDT Former Smoker completed Former Smoker eCW1 ([facility]) Smoking 09/15/2020 12:00:00 AM EDT Former Smoker completed Former Smoker eCW1 ([facility]) Smoking 09/15/2020 12:00:00 AM EDT Former Smoker completed Former Smoker eCW1 ([facility]) Smoking 09/15/2020 12:00:00 AM EDT Former Smoker completed Former Smoker eCW1 ([facility]) Smoking 09/15/2020 12:00:00 AM EDT Former Smoker completed Former Smoker eCW1 ([facility]) Smoking 09/15/2020 12:00:00 AM EDT Former Smoker completed Former Smoker eCW1 ([facility]) Smoking 09/15/2020 12:00:00 AM EDT Former Smoker completed Former Smoker eCW1 ([facility]) Smoking 09/15/2020 12:00:00 AM EDT Former Smoker completed Former Smoker eCW1 ([facility]) Smoking 09/01/2020 12:00:00 AM EDT Former Smoker completed Former Smoker eCW1 ([facility]) Smoking 04/02/2020 12:00:00 AM EST Former Smoker completed Former Smoker eCW1 ([facility]) Smoking 04/02/2020 12:00:00 AM EST Former Smoker completed Former Smoker eCW1 ([facility]) Smoking 04/02/2020 12:00:00 AM EST Former Smoker completed Former Smoker eCW1 ([facility]) Smoking 01/16/2020 12:00:00 AM EST Former Smoker completed Former Smoker eCW1 ([facility]) Smoking 01/16/2020 12:00:00 AM EST Former Smoker completed Former Smoker eCW1 ([facility]) Smoking 01/16/2020 12:00:00 AM EST Former Smoker completed Former Smoker eCW1 ([facility]) Smoking 12/26/2019 12:00:00 AM EST Former Smoker completed Former Smoker eCW1 ([facility]) Smoking 12/26/2019 12:00:00 AM EST Former Smoker completed Former Smoker eCW1 ([facility]) Smoking 11/26/2019 12:00:00 AM EDT Former Smoker completed Former Smoker eCW1 ([facility]) Smoking 11/26/2019 12:00:00 AM EDT Former Smoker completed Former Smoker eCW1 ([facility]) Smoking 11/26/2019 12:00:00 AM EDT Former Smoker completed Former Smoker eCW1 ([facility]) Vital Signs ID Date Data Source UNK Name Value Range Interpretation Code Description Data Source(s) [place] body weight 166 [lb_av] 166 [lb_av] MEDEN T ([facility] ) Body weight 200.00 [lb_av] 200.00 [lb_av] MEDEN T ([facility], ) Respiratory rate 12 /min 12 /min MEDENT ( [facility], ) Body mass index (BMI) [Ratio] 28.7 kg/m2 28.7 k g/m2 MEDENT ([facility], ) Body height 70 [in_i] 70 [in_i] MEDENT ([facility], ) 5'10" Body weight 174 [lb_av] 174 [lb_av] eCW1 ([facility]) Heart rate 88 /min 88 /min eCW1 ([facility]) Respiratory rate 20 /min 20 /min eCW1 ([facility]) Body temperature 97.4 [degF] 97.4 [degF] eCW1 ( [facility]) Systolic blood pressure 120 mm[Hg] 120 mm[Hg] e CW1 ([facility]) Body height 67 [in_i] 67 [in_i] eCW1 ([facility]) Body mass index (BMI) [Ratio] 27.25 kg/m2 27.25 kg/m2 eCW1 ([facility]) Diastolic blood pressure 70 mm[Hg] 70 mm[Hg] eCW1 ([facility]) Body weight 179 [lb_av] 179 [lb_av] eCW1 ([facility]) Body height 67 [in_i] 67 [in_i] eCW1 ([facility]) Body mass index (BMI) [Ratio] 28.03 kg/m2 28.03 kg/m2 eCW1 ([facility]) Heart rate 83 /min 83 /min eCW1 ([facility]) Respiratory rate 20 /min 20 /min eCW1 ([facility]) Body temperature 97.8 [degF] 97.8 [degF] eCW1 ( [facility]) Systolic blood pressure 100 mm[Hg] 100 mm[Hg] e CW1 ([facility]) Diastolic blood pressure 80 mm[Hg] 80 mm[Hg] eCW1 ([facility]) Body mass index (BMI) [Ratio] 28.50 kg/m2 28.50 kg/m2 eCW1 ([facility]) Heart rate 77 /min 77 /min eCW1 ([facility]) Body weight 182 [lb_av] 182 [lb_av] eCW1 ([facility]) Body height 67 [in_i] 67 [in_i] eCW1 ([facility]) Respiratory rate 20 /min 20 /min eCW1 ([facility]) Body temperature 97 [degF] 97 [degF] eCW1 ([facility]) Systolic blood pressure 124 mm[Hg] 124 mm[Hg] e CW1 ([facility]) Diastolic blood pressure 70 mm[Hg] 70 mm[Hg] eCW1 ([facility]) Body weight 180 [lb_av] 180 [lb_av] eCW1 ([facility]) Body mass index (BMI) [Ratio] 28.19 kg/m2 28.19 kg/m2 eCW1 ([facility]) Heart rate 88 /min 88 /min eCW1 ([facility]) Respiratory rate 20 /min 20 /min eCW1 ([facility]) Body height 67 [in_i] 67 [in_i] eCW1 ([facility]) Systolic blood pressure 124 mm[Hg] 124 mm[Hg] e CW1 ([facility]) Diastolic blood pressure 70 mm[Hg] 70 mm[Hg] eCW1 ([facility]) Body temperature 98 [degF] 98 [degF] eCW1 ([facility]) Body weight 178 [lb_av] 178 [lb_av] eCW1 ([facility]) Body height 67 [in_i] 67 [in_i] eCW1 ([facility]) Body mass index (BMI) [Ratio] 27.88 kg/m2 27.88 kg/m2 eCW1 ([facility]) Heart rate 88 /min 88 /min eCW1 ([facility]) Respiratory rate 20 /min 20 /min eCW1 ([facility]) Body temperature 98.5 [degF] 98.5 [degF] eCW1 ( [facility]) Systolic blood pressure 130 mm[Hg] 130 mm[Hg] e CW1 ([facility]) Diastolic blood pressure 80 mm[Hg] 80 mm[Hg] eCW1 ([facility]) Body weight 182 [lb_av] 182 [lb_av] eCW1 ([facility]) Body height 67 [in_i] 67 [in_i] eCW1 ([facility]) Body mass index (BMI) [Ratio] 28.50 kg/m2 28.50 kg/m2 eCW1 ([facility]) Heart rate 90 /min 90 /min eCW1 ([facility]) Respiratory rate 18 /min 18 /min eCW1 ([facility]) Body temperature 97.8 [degF] 97.8 [degF] eCW1 ( [facility]) Systolic blood pressure 128 mm[Hg] 128 mm[Hg] e CW1 ([facility]) Diastolic blood pressure 68 mm[Hg] 68 mm[Hg] eCW1 ([facility]) Patient Treatment Plan of Care Planned Activity Planned Date Details Description Data Source (s) ferrous sulfate 325 MG Oral Tablet 12/01/2020 12:00:00 AM EDT eCW1 ([facility]) Vitamin B 12 500 MCG 12/01/2020 12:00:00 AM EDT eCW1 ([facility]) Folic Acid 1 MG Oral Tablet 12/01/2020 12:00:00 AM EDT eCW1 ([facility]) Naproxen 500 MG Oral Tablet 01/16/2020 12:00:00 AM EST eCW1 ([facility]) Naproxen 500 MG Oral Tablet 01/16/2020 12:00:00 AM EST eCW1 ([facility]) Naproxen 500 MG Oral Tablet 01/16/2020 12:00:00 AM EST eCW1 ([facility])
[2020-12-25 20:41] LABS: BASO # 0.1 10^3/uL (0.0-0.2); BASO % 0.5 % (0.0-1.0); EOS # 0.3 10^3/uL (0.0-0.5); EOS % 2.2 % (0.0-3.0); HEMATOCRIT 40.6 % (42.0-52.0); HEMOGLOBIN 13.3 g/dl (13.5-17.5); LYMPH # 2.2 10^3/uL (1.5-5.0); LYMPH % 19.2 % (24.0-44.0); MEAN CORPUSCULAR HEMOGLOBIN 29.8 pg (27.0-33.0); MEAN CORPUSCULAR HGB CONC 32.8 g/dl (32.0-36.5); MEAN CORPUSCULAR VOLUME 90.8 fl (80.0-96.0); MONO # 0.9 10^3/uL (0.0-0.8); MONO % 7.8 % (2.0-8.0); NEUTROPHILS # 7.9 10^3/uL (1.5-8.5); NEUTROPHILS % 69.8 % (36.0-66.0); PLATELET COUNT, AUTOMATED 284 10^3/uL (150-450); RED BLOOD COUNT 4.47 10^6/uL (4.30-6.10); WHITE BLOOD COUNT 11.3 10^3/uL (4.0-10.0)
--- NOTE | 2020-12-25 20:47 | ECGEPIP ---
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
--- NOTE | 2020-12-25 21:19 | REPVR ---
PROCEDURE INFORMATION: Exam: CT Head Without Contrast Exam date and time: 12/25/2020 8:18 PM Age: 65 years old Clinical indication: Altered mental status/memory loss; Confusion or disorientation; Additional info: CVA - nursing interventions must not delay CT TECHNIQUE: Imaging protocol: Computed tomography of the head without contrast. Radiation optimization: All CT scans at this facility use at least one of these dose optimization techniques: automated exposure control; mA and/or kV adjustment per patient size (includes targeted exams where dose is matched to clinical indication); or iterative reconstruction. COMPARISON: CT Head without contrast 11/24/2020 7:58 PM FINDINGS: Brain: There is no evidence of intracranial bleed. Cerebral ventricles: Normal ventricles. Paranasal sinuses: Clear paranasal sinuses. Mastoid air cells: Visualized mastoid air cells are well aerated. Bones/joints: There is no evidence of fracture. Soft tissues: There is no evidence of soft tissue swelling. IMPRESSION: Normal appearing CT scan of the brain. Electronically signed by: Doyle Bang On 12/25/2020 21:19:00 PM
[2020-12-25 21:21] LABS: CK-MB VALUE MASS 1.2 NG/ML (<3.6); CPK CREATINE PHOSPHOKINASE 79 U/L (39-308); MB/CK RELATIVE INDEX 1.52 (< OR =4)
--- NOTE | 2020-12-25 21:22 | REPVR ---
PROCEDURE INFORMATION: Exam: XR Chest Exam date and time: 12/25/2020 8:27 PM Age: 65 years old Clinical indication: Other: CVA TECHNIQUE: Imaging protocol: XR of the chest. Views: 1 view. COMPARISON: CR PORTABLE CHEST X-RAY 11/23/2020 8:44 PM FINDINGS: Lungs: Unremarkable. No consolidation. Pleural spaces: There is no evidence of pneumothorax. Heart/Mediastinum: The heart is normal in size. Bones/joints: Unremarkable. IMPRESSION: Clear appearing lungs. Electronically signed by: Doyle Bang On 12/25/2020 21:22:30 PM
[2020-12-25 21:39] LABS: TROPONIN I < 0.02 NG/ML (< 0.10)
[2020-12-25 22:54] LABS: RSV AMPLIFICATION NEGATIVE (NEGATIVE)
[2020-12-26 00:12] LABS: AMORPHOUS SEDIMENT SMALL (NEGATIVE); APPEARANCE, URINE HAZY (CLEAR); BACTERIA, URINE AUTO NEGATIVE (NEGATIVE); BILIRUBIN, URINE AUTO NEGATIVE (NEGATIVE); BLOOD, URINE BLOOD NEGATIVE (NEGATIVE); COLOR, URINE YELLOW (YELLOW); GLUCOSE, URINE (UA) AUTO NEGATIVE (NEGATIVE); KETONE, URINE AUTO NEGATIVE (NEGATIVE); LEUKOCYTE ESTERASE, URINE AUTO NEGATIVE (NEGATIVE); MUCUS, URINE SMALL (NEGATIVE); NITRITE, URINE AUTO NEGATIVE (NEGATIVE); PROTEIN, URINE AUTO NEGATIVE (NEGATIVE); RBC, URINE AUTO 0 /HPF (0-3); SPECIFIC GRAVITY URINE AUTO 1.015 (1.002-1.035); SQUAMOUS EPITHELIAL CELL UR AU 0 /HPF (0-6); UROBILINOGEN, URINE AUTO 0.2 mg/dL (0.0-2.0); WBC, URINE AUTO 1 /HPF (0-3)
--- OUTSIDE RECORDS SUMMARY | 2020-12-26 05:33 | CCD ---
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 Interpretation Code Description Data Source(s) [place] body weight 166 [lb_av] 166 [lb_av] MEDEN T ([facility], ) Body weight 200.00 [lb_av] 200.00 [lb_av] MEDEN T ([facility], ) Respiratory rate 12 /min 12 /min MEDENT ( [facility], ) Body height 70 [in_i] 70 [in_i] MEDENT ([facility], ) 5'10" Body mass index (BMI) [Ratio] 28.7 kg/m2 28.7 k g/m2 MEDENT ([facility]) Body mass index (BMI) [Ratio] 27.25 kg/m2 27.25 kg/m2 eCW1 ([facility]) Body height 67 [in_i] 67 [in_i] eCW1 ([facility]) Body weight 174 [lb_av] 174 [lb_av] eCW1 ([facility]) Respiratory rate 20 /min 20 /min eCW1 ([facility]) Heart rate 88 /min 88 /min eCW1 ([facility]) Systolic blood pressure 120 mm[Hg] 120 mm[Hg] e CW1 ([facility]) Diastolic blood pressure 70 mm[Hg] 70 mm[Hg] eCW1 ([facility]) Body temperature 97.4 [degF] 97.4 [degF] eCW1 ( [facility]) Body weight 179 [lb_av] 179 [lb_av] eCW1 ([facility]) Body height 67 [in_i] 67 [in_i] eCW1 ([facility]) Body mass index (BMI) [Ratio] 28.03 kg/m2 28.03 kg/m2 eCW1 ([facility]) Heart rate 83 /min 83 /min eCW1 ([facility]) Respiratory rate 20 /min 20 /min eCW1 ([facility]) Body temperature 97.8 [degF] 97.8 [degF] eCW1 ( [facility]) Systolic blood pressure 100 mm[Hg] 100 mm[Hg] e CW1 ([facility]) Diastolic blood pressure 80 mm[Hg] 80 mm[Hg] eCW1 ([facility]) Body temperature 97 [degF] 97 [degF] eCW1 ([facility]) Body weight 182 [lb_av] 182 [lb_av] eCW1 ([facility]) Body mass index (BMI) [Ratio] 28.50 kg/m2 28.50 kg/m2 eCW1 ([facility]) Systolic blood pressure 124 mm[Hg] 124 mm[Hg] e CW1 ([facility]) Heart rate 77 /min 77 /min eCW1 ([facility]) Diastolic blood pressure 70 mm[Hg] 70 mm[Hg] eCW1 ([facility]) Respiratory rate 20 /min 20 /min eCW1 ([facility]) Body height 67 [in_i] 67 [in_i] eCW1 ([facility]) Body mass index (BMI) [Ratio] 28.19 kg/m2 28.19 kg/m2 eCW1 ([facility]) Body weight 180 [lb_av] 180 [lb_av] eCW1 ([facility]) Body temperature 98 [degF] 98 [degF] eCW1 ([facility]) Body height 67 [in_i] 67 [in_i] eCW1 ([facility]) Heart rate 88 /min 88 /min eCW1 ([facility]) Respiratory rate 20 /min 20 /min eCW1 ([facility]) Systolic blood pressure 124 mm[Hg] 124 mm[Hg] e CW1 ([facility]) Diastolic blood pressure 70 mm[Hg] 70 mm[Hg] eCW1 ([facility]) Body weight 178 [lb_av] 178 [lb_av] eCW1 ([facility]) Body height 67 [in_i] 67 [in_i] eCW1 ([facility]) Body mass index (BMI) [Ratio] 27.88 kg/m2 27.88 kg/m2 eCW1 ([facility]) Heart rate 88 /min 88 /min eCW1 ([facility]) Respiratory rate 20 /min 20 /min eCW1 ([facility]) Body temperature 98.5 [degF] 98.5 [degF] eCW1 ( [facility]) Systolic blood pressure 130 mm[Hg] 130 mm[Hg] e CW1 ([facility]) Diastolic blood pressure 80 mm[Hg] 80 mm[Hg] eCW1 ([facility]) Body weight 182 [lb_av] 182 [lb_av] eCW1 ([facility]) Body height 67 [in_i] 67 [in_i] eCW1 ([facility]) Body mass index (BMI) [Ratio] 28.50 kg/m2 28.50 kg/m2 eCW1 ([facility]) Heart rate 90 /min 90 /min eCW1 ([facility]) Respiratory rate 18 /min 18 /min eCW1 ([facility]) Body temperature 97.8 [degF] 97.8 [degF] eCW1 ( [facility]) Systolic blood pressure 128 mm[Hg] 128 mm[Hg] e CW1 ([facility]) Diastolic blood pressure 68 mm[Hg] 68 mm[Hg] eCW1 ([facility]) Patient Treatment Plan of Care Planned Activity Planned Date Details Description Data Source (s) ferrous sulfate 325 MG Oral Tablet 12/01/2020 12:00:00 AM EDT eCW1 ([facility]) Vitamin B 12 500 MCG 12/01/2020 12:00:00 AM EDT eCW1 ([facility]) Folic Acid 1 MG Oral Tablet 12/01/2020 12:00:00 AM EDT eCW1 ([facility]) Naproxen 500 MG Oral Tablet 01/16/2020 12:00:00 AM EST eCW1 ([facility]) Naproxen 500 MG Oral Tablet 01/16/2020 12:00:00 AM EST eCW1 ([facility]) Naproxen 500 MG Oral Tablet 01/16/2020 12:00:00 AM EST eCW1 ([facility])
[2020-12-26] MEDS ORDERED: GLUCOSE 4GM CHEW TABLET PO PRN (08:20)
[2020-12-26] MEDS ORDERED: GLUCAGON INJ 1MG VIAL SC PRN (08:20)
[2020-12-26] MEDS ORDERED: DEXTROSE 50% 50 ML SYRINGE IV PRN (08:20)
--- OUTSIDE RECORDS SUMMARY | 2020-12-26 08:27 | CCD ---
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 (BMI) [Ratio] 28.03 kg/m2 28.03 kg/m2 eCW1 ([facility]) Heart rate 83 /min 83 /min eCW1 ([facility]) Respiratory rate 20 /min 20 /min eCW1 ([facility]) Body temperature 97.8 [degF] 97.8 [degF] eCW1 ( [facility]) Systolic blood pressure 100 mm[Hg] 100 mm[Hg] e CW1 ([facility]) Diastolic blood pressure 80 mm[Hg] 80 mm[Hg] eCW1 ([facility]) Body weight 182 [lb_av] 182 [lb_av] eCW1 ([facility]) Body mass index (BMI) [Ratio] 28.50 kg/m2 28.50 kg/m2 eCW1 ([facility]) Body height 67 [in_i] 67 [in_i] eCW1 ([facility]) Heart rate 77 /min 77 /min eCW1 ([facility]) Respiratory rate 20 /min 20 /min eCW1 ([facility]) Body temperature 97 [degF] 97 [degF] eCW1 ([facility]) Systolic blood pressure 124 mm[Hg] 124 mm[Hg] e CW1 ([facility]) Diastolic blood pressure 70 mm[Hg] 70 mm[Hg] eCW1 ([facility]) Body mass index (BMI) [Ratio] 28.19 kg/m2 28.19 kg/m2 eCW1 ([facility]) Body height 67 [in_i] 67 [in_i] eCW1 ([facility]) Heart rate 88 /min 88 /min eCW1 ([facility]) Body weight 180 [lb_av] 180 [lb_av] eCW1 ([facility]) Systolic blood pressure 124 mm[Hg] 124 mm[Hg] e CW1 ([facility]) Body temperature 98 [degF] 98 [degF] eCW1 ([facility]) Respiratory rate 20 /min 20 /min eCW1 ([facility]) Diastolic blood pressure 70 mm[Hg] 70 mm[Hg] eCW1 ([facility]) Body weight 178 [lb_av] 178 [lb_av] eCW1 ([facility]) Body height 67 [in_i] 67 [in_i] eCW1 ([facility]) Body mass index (BMI) [Ratio] 27.88 kg/m2 27.88 kg/m2 eCW1 ([facility]) Heart rate 88 /min 88 /min eCW1 ([facility]) Respiratory rate 20 /min 20 /min eCW1 ([facility]) Body temperature 98.5 [degF] 98.5 [degF] eCW1 ( [facility]) Systolic blood pressure 130 mm[Hg] 130 mm[Hg] e CW1 ([facility]) Diastolic blood pressure 80 mm[Hg] 80 mm[Hg] eCW1 ([facility]) Body weight 182 [lb_av] 182 [lb_av] eCW1 ([facility]) Body height 67 [in_i] 67 [in_i] eCW1 ([facility]) Body mass index (BMI) [Ratio] 28.50 kg/m2 28.50 kg/m2 eCW1 ([facility]) Heart rate 90 /min 90 /min eCW1 ([facility]) Respiratory rate 18 /min 18 /min eCW1 ([facility]) Body temperature 97.8 [degF] 97.8 [degF] eCW1 ( [facility]) Systolic blood pressure 128 mm[Hg] 128 mm[Hg] e CW1 ([facility]) Diastolic blood pressure 68 mm[Hg] 68 mm[Hg] eCW1 ([facility]) Patient Treatment Plan of Care Planned Activity Planned Date Details Description Data Source (s) ferrous sulfate 325 MG Oral Tablet 12/01/2020 12:00:00 AM EDT eCW1 ([facility]) Vitamin B 12 500 MCG 12/01/2020 12:00:00 AM EDT eCW1 ([facility]) Folic Acid 1 MG Oral Tablet 12/01/2020 12:00:00 AM EDT eCW1 ([facility]) Naproxen 500 MG Oral Tablet 01/16/2020 12:00:00 AM EST eCW1 ([facility]) Naproxen 500 MG Oral Tablet 01/16/2020 12:00:00 AM EST eCW1 ([facility]) Naproxen 500 MG Oral Tablet 01/16/2020 12:00:00 AM EST eCW1 ([facility])
[2020-12-26 10:05] VITALS: BP 121/77
[2020-12-26] MEDS ORDERED: FERR325T3 PO (10:47)
[2020-12-26] MEDS ORDERED: FOLI1TAB11 PO (10:52)
[2020-12-26] MEDS ORDERED: VITA500T40 PO (10:52)
[2020-12-26] MEDS ORDERED: MIRT-60 PO (10:52)
[2020-12-26] MEDS ORDERED: HOME MED LIST COMPLETE! XX SCH (10:55)
[2020-12-26] MEDS: HumaLOG INSULIN (NovoLOG) PER UNIT SC SCH ×2 (12:00→17:12)
--- NOTE | 2020-12-26 13:11 | HPEPDOC ---
General Date of Admission Dec 26, 2020 at 08:13 Date of Service: Dec 26, 2020 Chief Complaint The patient is a 65-year-old male admitted with a reason for visit of [facility]. Exam Limitations: Mild cognitive slowing History of Present Illness Mr. Kaye is a 65 year old male with borderline intellectual dysfunction who presents with altered mental status. Patient is a poor historian and most of the history is obtained from ER attending who was able to speak with sister and nurse who was able to reach sister. I was not able to reach sister. Patient used to live at home with his mother. His mother recently over a month ago. Since then, he has been living home alone. They got him bubble packs to help organize his medication, but per his sister, he still does not take his medications correctly. There is a gas leak tester that periodically visits and patient would sometimes take medications from other days rather than take the medication from current day. Today, gas leak tester noticed that he was not speaking appropriately. Patient was taken to the ED. While in the ED, vital signs of been stable. Patient has not been hypotensive. Patient has been afebrile and nontachycardic. Patient has no tachypnea or hypoxia. Patient was thought to be more lethargic than normal. They were attempting to obtain MRI, but unable to due to penile prosthesis. Patient then woke up and was close to baseline. UA was negative for leukocytosis. WBC mildly elevated at 11.3. Otherwise ammonia was negative. When I saw patient, he feels well other than having a little bit of nausea. He does not know why he is here in the hospital. Denies any complaints over the past few days. He tells me that he manages his own medications but he does not know which medications he is taking. Patient appears to be neurologically intact. Muscle strength equal bilaterally and [id number] is intact. He is A&O x2. He does not know the year or the date. He does not know who is the president. Patient will be admitted for altered mental status. Home Medications Scheduled Atorvastatin Calcium (Atorvastatin Calcium) 80 Mg Tablet, 80 MG PO DAILY, (Reported) Calcium Carbonate/Vitamin D3 (Calcium 600-Vit D3 400 Tablet) 1 Tab Tab, 1 TAB PO DAILY, (Reported) Cyanocobalamin (Vitamin B-12) (Vitamin B-12) 500 Mcg Tablet, 500 MCG PO DAILY, ( Reported) Docusate Sodium (Docusate Sodium) 100 Mg Capsule, 100 MG PO TID, (Reported) Ergocalciferol (Vitamin D2) (Vitamin D2) 50,000 Units Cap, 50,000 UNITS PO QWEEK, (Reported) MONDAYS Ferrous Sulfate (Ferrous Sulfate) 325 Mg Tablet.dr, 325 MG PO DAILY, (Reported) Folic Acid (Folic Acid) 1 Mg Tablet, 1 MG PO DAILY, (Reported) Loratadine (Loratadine) 10 Mg Tablet, 10 MG PO DAILY, (Reported) Magnesium Oxide (Magnesium Oxide) 400 Mg Tablet, 400 MG PO DAILY, (Reported) Metformin HCl (Metformin HCl) 500 Mg Tablet, 500 MG PO BID, (Reported) Mirtazapine (Remeron) 30 Mg Tablet, 45 MG PO QHS, (Reported) Omeprazole (Omeprazole) 40 Mg Capsule.dr, 40 MG PO DAILY, (Reported) Paliperidone Palmitate (Invega Trinza) 819 Mg/2.625 Ml Syringe, 819 MG IM Q3M, (Reported) Sucralfate (Carafate) 1 Gm Tablet, 1 GM PO BID, (Reported) Trazodone HCl (Trazodone HCl) 100 Mg Tablet, 200 MG PO QHS, (Reported) Venlafaxine HCl (Venlafaxine HCl ER) 150 Mg Cap.er.24h, 150 MG PO DAILY, (Reported) Allergies Coded Allergies: Penicillins (Verified Allergy, Intermediate, rash, 09/08/20) Past Medical History Medical History 1. Bipolar disorder 2. Schizoaffective disorder 3. Depression 4. Anxiety 5. Borderline intellectual function with mental retardation 6. Tardive dyskinesiasecondary to psychotropic medication 7. Type 2 diabetes mellitus 8. Asthma 9. Hyperlipidemia 10. Obstructive sleep apnea 11. GERD Surgical History 1. Inguinal hernia repair 2. Cholecystectomy 3. Unspecified back surgery in 2004 4. Hemorrhoidectomy 5. Left total knee replacement 6. Lateral internal sphincterotomy and ligation Family History Father: in his 70s, history of [place] Mother: in her 90s, old age Social History * Smoker: former Smoker Alcohol: Denies Drugs: denies (But has a past history of cocaine abuse) A-FIB/CHADSVASC A-FIB History Current/History of A-Fib/PAF?: No Review of Systems Constitutional: Denies: Chills, Fever Eyes: Denies: Vision change ENT: Denies: Sore Throat Skin: Denies: Rash Pulmonary: Denies: Dyspnea Cardiovascular: Denies: Chest Pain Gastrointestinal: Reports: Nausea; Denies: Abdominal Pain Genitourinary: Denies: Dysuria Hematologic: Denies: Bruising Neurological: Denies: Numbness Psych: Denies: Anxiety, Depression Physical Examination General Exam: Positive: Alert, Cooperative Eye Exam: Negative: Sclera icteric ENT Exam: Positive: Atraumatic Neck Exam: Positive: Supple Chest Exam: Positive: Clear to auscultation Heart Exam: Positive: Rate Normal, Regular Rhythm Abdomen Exam: Positive: Normal bowel sounds, Soft; Negative: Tenderness Extremity Exam: Negative: Edema Neuro Exam: Positive: Normal Speech, Cranial Nerves 3-12 NL Psych Exam: Positive: Mood NL; Negative: Oriented x 3 Vital Signs Vital Signs Date Time Temp Pulse Resp B/P (MAP) Pulse Ox O2 Delivery O2 Flow Rate FiO2 12/26/20 10:05 98.2 75 18 121/77 (92) 99 Room Air Laboratory Data Labs 24H Laboratory Tests 2 12/25/20 20:14: Immature Granulocyte % (Auto) 0.5, Neutrophils (%) (Auto) 69.8H, Lymphocytes (%) (Auto) 19.2L, Monocytes (%) (Auto) 7.8, Eosinophils (%) (Auto) 2.2, Basophils (%) (Auto) 0.5, Neutrophils # (Auto) 7.9, Lymphocytes # (Auto) 2.2, Monocytes # (Auto) 0.9H, Eosinophils # (Auto) 0.3, Basophils # (Auto) 0.1, Nucleated Red Blood Cells % (auto) 0.0, Activated Partial Thromboplast Time 26.3, Total Creatine Kinase 79, Creatine Kinase MB 1.2, Creatine Kinase MB Relative Index 1.52, Troponin I < 0.02 12/25/20 20:28: POC Troponin I (Misc) 0.01 12/25/20 20:29: Bedside Glucose (Misc Panel) 115 12/25/20 20:31: POC Glucose (Misc Panel) 130H, POC Sodium (Misc Panel) 143, POC Potassium (Misc Panel) 3.4L, POC Chloride (Misc Panel) 102, POC Total CO2 (Misc Panel) 27.0, POC Blood Urea Nitrogen (Misc Panel 7L, POC Ionized Calcium (Misc Panel) 4.8, POC Creatinine (Misc Panel) 0.7, POC Hematocrit (Misc Panel) 40.0 12/25/20 22:01: Ammonia < 10, Coronavirus (COVID-19)(PCR) NEGATIVE, Influenza Type A (RT-PCR) NEGATIVE, Influenza Type B (RT-PCR) NEGATIVE, Respiratory Syncytial Virus (PCR) NEGATIVE 12/25/20 23:56: Urine Color YELLOW, Urine Appearance HAZY, Urine pH 7.0, Urine Specific [place] 1.015, Urine Protein NEGATIVE, Urine Glucose (Auto)(UA) NEGATIVE, Urine Ketones (Auto) NEGATIVE, Urine Blood NEGATIVE, Urine Nitrite NEGATIVE, Urine Bilirubin NEGATIVE, Urine Urobilinogen 0.2, Urine Leukocyte Esterase (Auto) NEGATIVE, Urine WBC (Auto) 1, Urine RBC (Auto) 0, Urine Hyaline Casts (Auto) 0, Urine Bacteria (Auto) NEGATIVE, Urine Squamous Epithelial Cells 0, Urine Amorphous Sediment (Auto) SMALLH, Urine Mucus (Auto) SMALL, Urine Sperm (Auto) 12/26/20 10:12: Bedside Glucose (Misc Panel) 117H 12/26/20 11:27: Bedside Glucose (Misc Panel) 101 CBC/BMP Laboratory Tests 12/25/20 20:14 Assessment/Plan Mr. Kaye is a 65 year old male with borderline intellectual dysfunction who presents with altered mental status. Patient's altered mental status may be secondary to medication mismanagement. He may have taken too many trazodone or mirtazapine which can be sedating. We will resume his home meds and see if he can tolerate these doses. If not, he may need to be titrated down. Otherwise we will request PFS. Patient may benefit having home health aide coming into give meds or patient may need to be placed. Plan / VTE VTE Prophylaxis Ordered?: Yes Plan Plan 1. Toxic encephalopathy Most likely secondary to med mismanagement Patient has intellectual dysfunction and may not be able to follow instructions or read medication labels Sister would like an additional aid to help with medication, but patient may need placement instead PFS consulted, recommendations appreciated We will resume his home meds and see if he is able to tolerate his home medication 2. Borderline intellectual disability Patient is living alone Although patient has low back, he is still taking his medications inappropriately. He is mixing medications for different days PFS consulted, recommendations appreciated 3. Schizoaffective disorder and bipolar disorder Continue venlafaxine, trazodone, and mirtazapine Continue Invega Trinza (every 3 months) 4. Diabetes mellitus type 2 Hold Metformin Start sliding scale insulin Carbohydrate consistent diet 5. GERD Continue omeprazole and Carafate 6. Hyperlipidemia Continue atorvastatin 7. DVT prophylaxis SCDs and teds Disposition: Pending PFS consult and PT/OT CHELA PLASCENCIA DO Dec 26, 2020 13:11
[2020-12-26 14:00] VITALS: BP 121/73
[2020-12-26] MEDS: DOCUSATE SODIUM 100MG CAPSULE PO SCH ×2 (17:10→21:08)
[2020-12-26 20:45] VITALS: BP 114/68
[2020-12-26] MEDS ORDERED: HumaLOG INSULIN (NovoLOG) PER UNIT SC SCH (21:00)
[2020-12-26] MEDS ORDERED: MIRTAZAPINE 15 MG TAB PO SCH (21:00)
[2020-12-26] MEDS ORDERED: SENNA 8.6 MG TAB (SENOKOT) PO PRN (21:00)
[2020-12-26] MEDS ORDERED: traZODone 100 MG TAB PO SCH (21:00)
[2020-12-26] MEDS ORDERED: PANTOPRAZOLE 40MG TAB (PROTONIX) PO ONE (21:00)
--- NOTE | 2020-12-26 21:01 | IPNPDOC ---
Text Note Date of Service Significant event NOTE notified pt reports blood in stool. Hgb 13.9, has hx of DONTE. Pt also constipated- could be hemorrhoids. Bowel regimen trial; stool occult check, Pro tonix x1, hh trend, consider differential. VS,Fishbone, I+O VS, Fishbone, I+O Vital Signs Date Time Temp Pulse Resp B/P (MAP) Pulse Ox O2 Delivery O2 Flow Rate FiO2 12/26/20 14:00 97.3 65 18 121/73 (89) 99 Room Air NATHALIE PATE NP Dec 26, 2020 21:01
[2020-12-26] MEDS: SUCRALFATE 1 GM TAB PO SCH (21:08)
[2020-12-26 21:38] LABS: HEMATOCRIT 36.9 % (42.0-52.0); HEMOGLOBIN 12.3 g/dl (13.5-17.5)
[2020-12-27 05:46] LABS: HEMATOCRIT 37.3 % (42.0-52.0); HEMOGLOBIN 12.5 g/dl (13.5-17.5); MEAN CORPUSCULAR HEMOGLOBIN 30.6 pg (27.0-33.0); MEAN CORPUSCULAR HGB CONC 33.5 g/dl (32.0-36.5); MEAN CORPUSCULAR VOLUME 91.2 fl (80.0-96.0); PLATELET COUNT, AUTOMATED 287 10^3/uL (150-450); RED BLOOD COUNT 4.09 10^6/uL (4.30-6.10); WHITE BLOOD COUNT 10.4 10^3/uL (4.0-10.0)
[2020-12-27 06:00] VITALS: BP 103/60
[2020-12-27 06:17] LABS: BLOOD UREA NITROGEN 21 MG/DL (7-18); CARBON DIOXIDE LEVEL 27 MEQ/L (21-32); CHLORIDE LEVEL 109 MEQ/L (98-107); CREATININE FOR GFR 0.86 MG/DL (0.70-1.30); GLOMERULAR FILTRATION RATE > 60.0 (>49); GLUCOSE, FASTING 106 MG/DL (70-100); POTASSIUM SERUM 4.4 MEQ/L (3.5-5.1); SODIUM LEVEL 141 MEQ/L (136-145)
[2020-12-27] MEDS: HumaLOG INSULIN (NovoLOG) PER UNIT SC SCH ×2 (07:30→11:46)
[2020-12-27] MEDS: SUCRALFATE 1 GM TAB PO SCH (08:38)
[2020-12-27] MEDS: DOCUSATE SODIUM 100MG CAPSULE PO SCH ×2 (08:38→15:28)
[2020-12-27] MEDS ORDERED: CYANOCOBALAMIN 500 MCG TAB PO SCH (09:00)
[2020-12-27] MEDS ORDERED: MAGNESIUM OXIDE 400MG TAB (MAG-OX) PO SCH (09:00)
[2020-12-27] MEDS ORDERED: VITAMIN D 50,000 UNITS CAPSULE (ERGOCALCIFEROL 1.25MG) PO SCH (09:00)
[2020-12-27] MEDS ORDERED: FERROUS SULFATE 325MG TAB PO SCH (09:00)
[2020-12-27] MEDS ORDERED: ATORVASTATIN 20 MG TAB PO SCH (09:00)
[2020-12-27] MEDS ORDERED: FOLIC ACID 1 MG TAB PO SCH (09:00)
[2020-12-27] MEDS ORDERED: LORATADINE 10 MG TAB PO SCH (09:00)
[2020-12-27] MEDS ORDERED: VENLAFAXINE **XR** 75MG CAPSULE PO SCH (09:00)
[2020-12-27] MEDS ORDERED: OMEPRAZOLE 20 MG CAP PO SCH (09:00)
[2020-12-27] MEDS ORDERED: MIRALAX *UNIT DOSE* 17GM PACKET PO SCH (09:00)
--- NOTE | 2020-12-27 12:29 | REPVR ---
PROCEDURE INFORMATION: Exam: CT Head Without Contrast Exam date and time: 12/27/2020 10:17 AM Age: 65 years old Clinical indication: Altered mental status/memory loss; Additional info: Re-eval for AMS. Unable to obtain mri TECHNIQUE: Imaging protocol: Computed tomography of the head without contrast. Radiation optimization: All CT scans at this facility use at least one of these dose optimization techniques: automated exposure control; mA and/or kV adjustment per patient size (includes targeted exams where dose is matched to clinical indication); or iterative reconstruction. COMPARISON: CT Head without contrast 12/25/2020 8:14 PM FINDINGS: Brain: There is no acute intracranial hemorrhage or mass effect. Mild diffuse volume loss is within the range of normal for patient age. There are small vessel ischemic changes within the periventricular and subcortical white matter, but the normal [place]/white matter delineation is maintained. Cerebral ventricles: No ventriculomegaly. Paranasal sinuses: Visualized sinuses are unremarkable. No fluid levels. Mastoid air cells: Visualized mastoid air cells are well aerated. Bones/joints: Unremarkable. No acute fracture. Soft tissues: Unremarkable. IMPRESSION: No acute hemorrhage or edema. Electronically signed by: Aisha Keyes On 12/27/2020 12:29:03 PM
[2020-12-27 12:59] LABS: HEMATOCRIT 39.8 % (42.0-52.0); HEMOGLOBIN 13.1 g/dl (13.5-17.5)
[2020-12-27 14:00] VITALS: BP 129/70
--- NOTE | 2020-12-27 23:34 | DS.PDOC ---
Discharge Summary General Date of Admission Dec 26, 2020 at 08:13 Date of Discharge Dec 27, 2020 Discharge Summary PROCEDURES PERFORMED DURING STAY: None ADMITTING DIAGNOSES: 1. Toxic encephalopathy 2. Borderline intellectual disability 3. Schizoaffective disorder and bipolar disorder 4. Diabetes mellitus type 2 5. GERD 6. Hyperlipidemia DISCHARGE DIAGNOSES: 1. Toxic encephalopathy 2. Borderline intellectual disability 3. Schizoaffective disorder and bipolar disorder 4. Diabetes mellitus type 2 5. GERD 6. Hyperlipidemia COMPLICATIONS/CHIEF COMPLAINT: Altered Mental Status. HISTORY OF PRESENT ILLNESS: Mr. Kaye is a 65 year old male with borderline intellectual dysfunction who presents with altered mental status. Patient is a poor historian and most of the history is obtained from ER attending who was able to speak with sister and nurse who was able to reach sister. I was not able to reach sister. Patient used to live at home with his mother. His mother recently over a month ago. Since then, he has been living home alone. They got him bubble packs to help organize his medication, but per his sister, he still does not take his medications correctly. There is a dredge engineer that periodically visits and patient would sometimes take medications from other days rather than take the medication from current day. Today, dredge engineer noticed that he was not speaking appropriately. Patient was taken to the ED. While in the ED, vital signs of been stable. Patient has not been hypotensive. Patient has been afebrile and nontachycardic. Patient has no tachypnea or hypoxia. Patient was thought to be more lethargic than normal. They were attempting to obtain MRI, but unable to due to penile prosthesis. Patient then woke up and was close to baseline. UA was negative for leukocytosis. WBC mildly elevated at 11.3. Otherwise ammonia was negative. When I saw patient, he feels well other than having a little bit of nausea. He does not know why he is here in the hospital. Denies any complaints over the past few days. He tells me that he manages his own medications but he does not know which medications he is taking. Patient appears to be neurologically intact. Muscle strength equal bilaterally and [id number] is intact. He is A&O x2. He does not know the year or the date. He does not know who is the president. Patient will be admitted for altered mental status. HOSPITAL COURSE: Patient's repeat CT head was negative for CVA. Patient was kept on the same medication and did well without episode of AMS. Patient cleared PT and OT. He felt well this morning and felt ready for home. PFS worked without patient services. Patient was discharged home today. DISCHARGE MEDICATIONS: Please see below. ALLERGIES: Please see below. PHYSICAL EXAMINATION ON DISCHARGE: VITAL SIGNS: Please see below. GENERAL: Comfortable, in no apparent distress HEENT: Head normocephalic, atraumatic NECK: Supple CARDIOVASCULAR EXAMINATION: Regular rate and rhythm RESPIRATORY EXAMINATION: Lungs clear to auscultation bilaterally ABDOMINAL EXAMINATION: Soft, non-tender, normal bowel sounds EXTREMITIES: No pitting edema bilaterally NEUROLOGICAL EXAMINATION: CN 3-12 grossly intact PSYCHIATRIC EXAMINATION: Mild cognitive slowing LABORATORY DATA: Please see below. IMAGING: Please see chart for radiologist imaging PROGNOSIS: Good ACTIVITY: As tolerated. DIET: Carbohydrate consistent diet DISCHARGE PLAN: Home DISPOSITION: Home, Self-Care. DISCHARGE INSTRUCTIONS: 1. Follow up with PCP within 1 week DISCHARGE CONDITION: Stable. Total time spent on discharge planning, discharge summary, and medication reconciliation: 35 minutes Vital Signs/I&Os Vital Signs Date Time Temp Pulse Resp B/P (MAP) Pulse Ox O2 Delivery O2 Flow Rate FiO2 12/27/20 14:00 97.4 65 16 129/70 (89) 99 Room Air I&O- Last 24 Hours up to 6 AM 12/27/20 06:00 Intake Total 1635 ml Balance 1635 ml Laboratory Data Labs 24H Laboratory Tests 2 12/27/20 05:33: Nucleated Red Blood Cells % (auto) 0.0, Anion Gap 5L, Glomerular Filtration Rate > 60.0, Calcium Level 9.0 12/27/20 11:40: Bedside Glucose (Misc Panel) 100 12/27/20 16:26: Bedside Glucose (Misc Panel) 78L CBC/BMP Laboratory Tests 12/27/20 05:33 12/27/20 12:34 FSBS Laboratory Tests Test 12/27/20 11:40 12/27/20 16:26 Range/Units Bedside Glucose (Misc Panel) 100 78 80-115 MG/DL Discharge Medications Scheduled Atorvastatin Calcium (Atorvastatin Calcium) 80 Mg Tablet, 80 MG PO DAILY, (Reported) Calcium Carbonate/Vitamin D3 (Calcium 600-Vit D3 400 Tablet) 1 Tab Tab, 1 TAB PO DAILY, (Reported) Cyanocobalamin (Vitamin B-12) (Vitamin B-12) 500 Mcg Tablet, 500 MCG PO DAILY, (Reported) Docusate Sodium (Docusate Sodium) 100 Mg Capsule, 100 MG PO TID, (Reported) Ergocalciferol (Vitamin D2) (Vitamin D2) 50,000 Units Cap, 50,000 UNITS PO QWEEK, (Reported) MONDAYS Ferrous Sulfate (Ferrous Sulfate) 325 Mg Tablet.dr, 325 MG PO DAILY, (Reported) Folic Acid (Folic Acid) 1 Mg Tablet, 1 MG PO DAILY, (Reported) Loratadine (Loratadine) 10 Mg Tablet, 10 MG PO DAILY, (Reported) Magnesium Oxide (Magnesium Oxide) 400 Mg Tablet, 400 MG PO DAILY, (Reported) Metformin HCl (Metformin HCl) 500 Mg Tablet, 500 MG PO BID, (Reported) Mirtazapine (Remeron) 30 Mg Tablet, 45 MG PO QHS, (Reported) Omeprazole (Omeprazole) 40 Mg Capsule.dr, 40 MG PO DAILY, (Reported) Paliperidone Palmitate (Invega Trinza) 819 Mg/2.625 Ml Syringe, 819 MG IM Q3M, (Reported) Sucralfate (Carafate) 1 Gm Tablet, 1 GM PO BID, (Reported) Trazodone HCl (Trazodone HCl) 100 Mg Tablet, 200 MG PO QHS, (Reported) Venlafaxine HCl (Venlafaxine HCl ER) 150 Mg Cap.er.24h, 150 MG PO DAILY, (Reported) Allergies Coded Allergies: Penicillins (Verified Allergy, Intermediate, rash, 09/08/20) CHELA PLASCENCIA DO Dec 27, 2020 23:34
== END 2020-12-27 16:35 | disposition home or self-care (01) | DRG 917 ==
LOC: M ED 19:43 → M ED INP 12-26 08:13 → ENRESERV 12-26 08:35 → M MSPAV 12-26 10:06
PROVIDERS: ADMIT Internal Medicine; ATTEND Internal Medicine
DX: T43.211A Poisoning by selective serotonin and norepinephrine reuptake inhibitors, accidental (unintentional), initial encounter (principal); G92.9 Unspecified toxic encephalopathy; F79 Unspecified intellectual disabilities; F25.0 Schizoaffective disorder, bipolar type; E11.9 Type 2 diabetes mellitus without complications; T43.021A Poisoning by tetracyclic antidepressants, accidental (unintentional), initial encounter; K21.9 Gastro-esophageal reflux disease without esophagitis; E78.5 Hyperlipidemia, unspecified; Z79.899 Other long term (current) drug therapy; Z88.0 Allergy status to penicillin; J45.909 Unspecified asthma, uncomplicated; Z96.652 Presence of left artificial knee joint; G47.33 Obstructive sleep apnea (adult) (pediatric); Z87.891 Personal history of nicotine dependence

== ENCOUNTER → 2021-01-04 | Outpatient (CLI) | payer MEDICARE, MEDICAID ==
[~2021-01-04] MED LIST changes: +MIRT-60 PO; -OMEP-221 PO; +OMEP40CA5 PO; +VITA500T40 PO
[2021-01-04 11:14] LABS: HEMOGLOBIN A1c 5.4 %
[2021-01-04 11:17] LABS: MALB URINE SIEMENS 15.1 MG/L; MAU/CREAT RATIO 5.7 MCG/MG (0.0-30.0)
[2021-01-04 11:30] LABS: ALBUMIN 3.5 GM/DL (3.2-5.2); ALT/SGPT 19 U/L (12-78); BILIRUBIN,TOTAL 0.2 MG/DL (0.2-1.0); BLOOD UREA NITROGEN 15 MG/DL (7-18); CALCIUM LEVEL 8.4 MG/DL (8.8-10.2); CARBON DIOXIDE LEVEL 29 MEQ/L (21-32); CHLORIDE LEVEL 108 MEQ/L (98-107); CHOLESTEROL LEVEL 134 MG/DL (<200); CREATININE FOR GFR 0.74 MG/DL (0.70-1.30); FERRITIN 91 NG/ML (26-388); GLOMERULAR FILTRATION RATE > 60.0 (>49); GLUCOSE, FASTING 94 MG/DL (70-100); HDL CHOLESTEROL 50 MG/DL (>40); IRON (FE) 22 UG/DL (65-175); LDL CHOLESTEROL 70 MG/DL (<100); NON-HDL-C 84 MG/DL; POTASSIUM SERUM 3.5 MEQ/L (3.5-5.1); SODIUM LEVEL 142 MEQ/L (136-145); TOTAL PROTEIN 7.2 GM/DL (6.4-8.2); TRIGLYCERIDES LEVEL 69 MG/DL (<150)
[2021-01-04 11:32] LABS: TOTAL 25(OH) VITAMIN D 29.9 NG/ML (30.0-100.0); VITAMIN B12 LEVEL 466 PG/ML (247-911)
== END ==
LOC: M PLALAB 08:11
PROVIDERS: ATTEND Nurse Practitioner Family
DX: E11.40 Type 2 diabetes mellitus with diabetic neuropathy, unspecified (principal); E78.2 Mixed hyperlipidemia; Z12.5 Encounter for screening for malignant neoplasm of prostate; D50.9 Iron deficiency anemia, unspecified; E55.9 Vitamin D deficiency, unspecified
CPT/HCPCS: 36415; 80053; 80061; 82043; 82306; 82607; 82728; 83036; 83540; G0103

== ENCOUNTER 2021-03-02 15:34 | Emergency (ER) | payer MEDICARE, MEDICAID ==
[~2021-03-02] VITALS: Ht 170.2 cm; Wt 84.5 kg
[2021-03-02 15:49] VITALS: BP 154/67
== END 2021-03-02 17:51 | disposition home or self-care (01) ==
LOC: M ED 15:34
DX: G24.01 Drug induced subacute dyskinesia (principal); E11.9 Type 2 diabetes mellitus without complications; F31.9 Bipolar disorder, unspecified; F25.9 Schizoaffective disorder, unspecified; Z79.899 Other long term (current) drug therapy; Z88.0 Allergy status to penicillin

== ENCOUNTER 2021-05-16 13:15 | Inpatient (IN) | payer MEDICARE, MEDICAID ==
[2021-05-16 14:41] LABS: HEMATOCRIT 41.4 % (42.0-52.0); MEAN CORPUSCULAR HEMOGLOBIN 30.2 pg (27.0-33.0); MEAN CORPUSCULAR HGB CONC 33.8 g/dl (32.0-36.5); MEAN CORPUSCULAR VOLUME 89.4 fl (80.0-96.0); PLATELET COUNT, AUTOMATED 286 10^3/uL (150-450); RED BLOOD COUNT 4.63 10^6/uL (4.30-6.10); WHITE BLOOD COUNT 21.7 10^3/uL (4.0-10.0)
[2021-05-16] MEDS ORDERED: ISOVUE-370 76% 100ML VIAL As Ordered ONE (14:43)
[2021-05-16 14:58] LABS: MB/CK RELATIVE INDEX 1.83 (< OR =4)
[2021-05-16 15:35] LABS: ACETAMINOPHEN LEVEL < 2.0 UG/ML (10.0-30.0); ALBUMIN 4.4 GM/DL (3.2-5.2); ALT/SGPT 23 U/L (12-78); BILIRUBIN,DIRECT 0.1 MG/DL (0.0-0.2); BILIRUBIN,TOTAL 0.4 MG/DL (0.2-1.0); BLOOD UREA NITROGEN 12 MG/DL (7-18); CALCIUM LEVEL 9.2 MG/DL (8.8-10.2); CARBON DIOXIDE LEVEL 25 MEQ/L (21-32); CHLORIDE LEVEL 107 MEQ/L (98-107); CREATININE FOR GFR 0.78 MG/DL (0.70-1.30); ETHYL ALCOHOL (ETHANOL) < 0.003 % (0.000-0.010); GLOMERULAR FILTRATION RATE > 60.0 (>49); GLUCOSE, FASTING 110 MG/DL (70-100); POTASSIUM SERUM 3.5 MEQ/L (3.5-5.1); SALICYLATE LEVEL < 1.7 MG/DL (5.0-30.0); SODIUM LEVEL 140 MEQ/L (136-145); TOTAL PROTEIN 7.7 GM/DL (6.4-8.2)
[2021-05-16 15:40] LABS: INR 0.96; PROTHROMBIN TIME 13.2 SECONDS (12.7-14.5)
[2021-05-16 15:41] LABS: PARTIAL THROMBOPLASTIN TIME 25.3 SECONDS (25.9-37.0)
[2021-05-16 16:00] LABS: AMPHETAMINES LEVEL URINE NEGATIVE (NEGATIVE); BARBITURATES URINE NEGATIVE (NEGATIVE); BENZODIAZEPINES URINE POSITIVE (NEGATIVE); CANNABINOIDS URINE NEGATIVE (NEGATIVE); COCAINE METABOLITE URINE NEGATIVE (NEGATIVE); METHADONE URINE NEGATIVE (NEGATIVE); OPIATES URINE NEGATIVE (NEGATIVE); PHENCYCLIDINE URINE NEGATIVE (NEGATIVE)
[2021-05-16 17:12] LABS: RSV AMPLIFICATION NEGATIVE (NEGATIVE)
[2021-05-16] MEDS ORDERED: NS 1,000 ML IV ONE (17:50)
[2021-05-16] MEDS ORDERED: SUCR1TAB56 PO (18:35)
[2021-05-16] MEDS ORDERED: INVE1.75 IM (18:35)
[2021-05-16] MEDS ORDERED: HOME MED LIST COMPLETE! XX SCH (18:40)
[2021-05-16 21:10] VITALS: BP 182/88
[2021-05-16] MEDS: SUCRALFATE 1 GM TAB PO SCH (21:44)
[2021-05-16] MEDS: DOCUSATE SODIUM 100MG CAPSULE PO SCH (21:44)
[2021-05-16 21:54] VITALS: BP 130/72
[2021-05-16] MEDS ORDERED: ACETAMINOPHEN TAB 650MG DOSE (2X325MG) PO PRN (22:05)
[2021-05-16] MEDS ORDERED: IBUPROFEN 400MG TAB PO PRN (22:05)
[2021-05-17] VITALS: BP 158/82
[2021-05-17 04:00] VITALS: BP 137/88
[2021-05-17 06:50] LABS: HEMATOCRIT 36.6 % (42.0-52.0); HEMOGLOBIN 12.5 g/dl (13.5-17.5); MEAN CORPUSCULAR HGB CONC 34.2 g/dl (32.0-36.5); PLATELET COUNT, AUTOMATED 285 10^3/uL (150-450); RED BLOOD COUNT 4.16 10^6/uL (4.30-6.10)
[2021-05-17 07:19] LABS: BLOOD UREA NITROGEN 12 MG/DL (7-18); CALCIUM LEVEL 8.8 MG/DL (8.8-10.2); CARBON DIOXIDE LEVEL 26 MEQ/L (21-32); CHLORIDE LEVEL 110 MEQ/L (98-107); CREATININE FOR GFR 0.72 MG/DL (0.70-1.30); GLOMERULAR FILTRATION RATE > 60.0 (>49); GLUCOSE, FASTING 98 MG/DL (70-100); POTASSIUM SERUM 3.4 MEQ/L (3.5-5.1); SODIUM LEVEL 142 MEQ/L (136-145)
[2021-05-17] MEDS ORDERED: POTASSIUM CHLORIDE 10MEQ SR TABLET PO ONE (07:45)
[2021-05-17 09:06] VITALS: BP 130/72
[2021-05-17] MEDS: ATORVASTATIN 20 MG TAB PO SCH (10:11)
[2021-05-17] MEDS: CYANOCOBALAMIN 500 MCG TAB PO SCH (10:12)
[2021-05-17] MEDS: DOCUSATE SODIUM 100MG CAPSULE PO SCH ×3 (10:12→20:14)
[2021-05-17] MEDS: OMEPRAZOLE 20MG CAP PO SCH (10:12)
[2021-05-17] MEDS: VENLAFAXINE **XR** 75MG CAPSULE PO SCH (10:12)
[2021-05-17] MEDS: FERROUS SULFATE 325MG TAB PO SCH (10:13)
[2021-05-17] MEDS: SUCRALFATE 1 GM TAB PO SCH ×4 (10:13→20:14)
[2021-05-17] MEDS: LORATADINE 10 MG TAB PO SCH (10:13)
[2021-05-17] MEDS: FOLIC ACID 1 MG TAB PO SCH (10:13)
[2021-05-17] MEDS: MAGNESIUM OXIDE 400MG TAB (MAG-OX) PO SCH (10:13)
[2021-05-17] MEDS: ENOXAPARIN 40MG/0.4ML SYRINGE (J1650 PER 10MG) SC SCH (10:14)
[2021-05-17 16:25] VITALS: BP 135/78
[2021-05-17] MEDS ORDERED: SENOKOT S TAB PO PRN (17:10)
[2021-05-17] MEDS ORDERED: MOM 30ML SUSPENSION UDC PO PRN (17:10)
[2021-05-17 20:15] VITALS: BP 139/71
[2021-05-17 23:40] VITALS: BP 127/68
[2021-05-18 03:25] VITALS: BP 116/73
[2021-05-18 06:24] LABS: HEMATOCRIT 35.4 % (42.0-52.0); HEMOGLOBIN 12.1 g/dl (13.5-17.5); MEAN CORPUSCULAR HEMOGLOBIN 30.6 pg (27.0-33.0); MEAN CORPUSCULAR HGB CONC 34.2 g/dl (32.0-36.5); MEAN CORPUSCULAR VOLUME 89.6 fl (80.0-96.0); PLATELET COUNT, AUTOMATED 264 10^3/uL (150-450); RED BLOOD COUNT 3.95 10^6/uL (4.30-6.10); WHITE BLOOD COUNT 10.8 10^3/uL (4.0-10.0)
[2021-05-18 06:45] LABS: BLOOD UREA NITROGEN 17 MG/DL (7-18); CALCIUM LEVEL 8.9 MG/DL (8.8-10.2); CARBON DIOXIDE LEVEL 28 MEQ/L (21-32); CHLORIDE LEVEL 110 MEQ/L (98-107); CREATININE FOR GFR 0.66 MG/DL (0.70-1.30); GLOMERULAR FILTRATION RATE > 60.0 (>49); GLUCOSE, FASTING 100 MG/DL (70-100); POTASSIUM SERUM 3.8 MEQ/L (3.5-5.1); SODIUM LEVEL 142 MEQ/L (136-145)
[2021-05-18 07:57] VITALS: BP 138/66
[2021-05-18] MEDS: SUCRALFATE 1 GM TAB PO SCH ×3 (09:32→17:05)
[2021-05-18] MEDS: FOLIC ACID 1 MG TAB PO SCH (09:32)
[2021-05-18] MEDS: LORATADINE 10 MG TAB PO SCH (09:32)
[2021-05-18] MEDS: DOCUSATE SODIUM 100MG CAPSULE PO SCH ×2 (09:32→17:05)
[2021-05-18] MEDS: OMEPRAZOLE 20MG CAP PO SCH (09:32)
[2021-05-18] MEDS: VENLAFAXINE **XR** 75MG CAPSULE PO SCH (09:32)
[2021-05-18] MEDS: FERROUS SULFATE 325MG TAB PO SCH (09:33)
[2021-05-18] MEDS: CYANOCOBALAMIN 500 MCG TAB PO SCH (09:33)
[2021-05-18] MEDS: MAGNESIUM OXIDE 400MG TAB (MAG-OX) PO SCH (09:33)
[2021-05-18] MEDS: ATORVASTATIN 20 MG TAB PO SCH (09:33)
[2021-05-18] MEDS: ENOXAPARIN 40MG/0.4ML SYRINGE (J1650 PER 10MG) SC SCH (09:34)
[2021-05-18] MEDS ORDERED: LINEZOLID 600MG TABLET (ZYVOX) PO ONE (11:00)
[2021-05-18 12:34] VITALS: BP 123/61
[2021-05-18 15:56] VITALS: BP 123/70
== END 2021-05-18 17:13 | DRG 917 ==
LOC: M ED 13:15 → M ED INP 17:33 → M PCU 21:00
PROVIDERS: ADMIT Internal Medicine; ATTEND General Practice
DX: T42.74XA Poisoning by unspecified antiepileptic and sedative-hypnotic drugs, undetermined, initial encounter (principal); G92.8 Other toxic encephalopathy; J45.909 Unspecified asthma, uncomplicated; E78.5 Hyperlipidemia, unspecified; F25.1 Schizoaffective disorder, depressive type; E11.9 Type 2 diabetes mellitus without complications; G47.33 Obstructive sleep apnea (adult) (pediatric); K21.9 Gastro-esophageal reflux disease without esophagitis; I10 Essential (primary) hypertension; F10.10 Alcohol abuse, uncomplicated; R41.83 Borderline intellectual functioning; D72.829 Elevated white blood cell count, unspecified; E87.6 Hypokalemia; D64.9 Anemia, unspecified; Z79.899 Other long term (current) drug therapy; F41.9 Anxiety disorder, unspecified; Z88.0 Allergy status to penicillin; G24.01 Drug induced subacute dyskinesia; Z96.652 Presence of left artificial knee joint

== ENCOUNTER 2021-05-18 16:17 | Inpatient (IN) | payer MEDICARE, MEDICAID ==
[2021-05-18] MEDS ORDERED: MOM 30ML SUSPENSION UDC PO PRN (16:20)
[2021-05-18] MEDS ORDERED: MAALOX 30 ML SUSP *UDC PO PRN (16:20)
[2021-05-18] MEDS ORDERED: traZODone 50 MG TAB PO PRN (16:20)
[2021-05-18] MEDS ORDERED: ACETAMINOPHEN TAB 650MG DOSE (2X325MG) PO PRN (16:20)
[2021-05-18 17:44] VITALS: BP 121/71
[2021-05-19 06:45] VITALS: BP 115/69
[2021-05-19] MEDS ORDERED: HOME MED LIST COMPLETE! XX SCH (10:25)
[2021-05-19 11:15] LABS: BASO # 0.1 10^3/uL (0.0-0.2); BASO % 0.5 % (0.0-1.0); EOS # 0.7 10^3/uL (0.0-0.5); EOS % 7.3 % (0.0-3.0); HEMATOCRIT 38.2 % (42.0-52.0); HEMOGLOBIN 12.9 g/dl (13.5-17.5); LYMPH # 2.1 10^3/uL (1.5-5.0); LYMPH % 23.2 % (24.0-44.0); MEAN CORPUSCULAR HEMOGLOBIN 30.3 pg (27.0-33.0); MEAN CORPUSCULAR HGB CONC 33.8 g/dl (32.0-36.5); MEAN CORPUSCULAR VOLUME 89.7 fl (80.0-96.0); MONO # 0.7 10^3/uL (0.0-0.8); MONO % 7.4 % (2.0-8.0); NEUTROPHILS # 5.6 10^3/uL (1.5-8.5); NEUTROPHILS % 60.9 % (36.0-66.0); PLATELET COUNT, AUTOMATED 284 10^3/uL (150-450); RED BLOOD COUNT 4.26 10^6/uL (4.30-6.10); WHITE BLOOD COUNT 9.2 10^3/uL (4.0-10.0)
[2021-05-19 12:10] LABS: ALBUMIN 3.8 GM/DL (3.2-5.2); ALT/SGPT 21 U/L (12-78); BILIRUBIN,TOTAL 0.3 MG/DL (0.2-1.0); BLOOD UREA NITROGEN 15 MG/DL (7-18); C REACTIVE PROTEIN QUANTITATIV 0.96 MG/DL (0.00-0.30); CALCIUM LEVEL 9.2 MG/DL (8.8-10.2); CARBON DIOXIDE LEVEL 27 MEQ/L (21-32); CHLORIDE LEVEL 104 MEQ/L (98-107); GLOMERULAR FILTRATION RATE > 60.0 (>49); GLUCOSE, FASTING 99 MG/DL (70-100); POTASSIUM SERUM 4.2 MEQ/L (3.5-5.1); SODIUM LEVEL 138 MEQ/L (136-145); TOTAL PROTEIN 6.7 GM/DL (6.4-8.2)
[2021-05-19 12:11] LABS: ERYTHROCYTE SEDIMENTATION RATE 13 mm/hr (0-20)
[2021-05-19] MEDS: DOCUSATE SODIUM 100MG CAPSULE PO SCH ×2 (15:46→21:33)
[2021-05-19] MEDS: metFORMIN (GLUCOPHAGE) 500MG TAB PO SCH (17:17)
[2021-05-19 18:55] VITALS: BP 129/81
[2021-05-19] MEDS: traZODone 100 MG TAB PO SCH (21:33)
[2021-05-19] MEDS: SUCRALFATE 1 GM TAB PO SCH (21:33)
[2021-05-20 05:59] VITALS: BP 131/65
[2021-05-20] MEDS: CYANOCOBALAMIN 500 MCG TAB PO SCH (08:21)
[2021-05-20] MEDS: CALCIUM/VITAMIN D 500 MG TAB PO SCH (08:21)
[2021-05-20] MEDS: FERROUS SULFATE 325MG TAB PO SCH (08:21)
[2021-05-20] MEDS: MAGNESIUM OXIDE 400MG TAB (MAG-OX) PO SCH (08:22)
[2021-05-20] MEDS: metFORMIN (GLUCOPHAGE) 500MG TAB PO SCH ×2 (08:22→17:22)
[2021-05-20] MEDS: VENLAFAXINE **XR** 75MG CAPSULE PO SCH (08:22)
[2021-05-20] MEDS: SUCRALFATE 1 GM TAB PO SCH ×2 (08:22→21:25)
[2021-05-20] MEDS: LORATADINE 10 MG TAB PO SCH (08:22)
[2021-05-20] MEDS: ATORVASTATIN 20 MG TAB PO SCH (08:22)
[2021-05-20] MEDS: FOLIC ACID 1 MG TAB PO SCH (08:22)
[2021-05-20] MEDS: DOCUSATE SODIUM 100MG CAPSULE PO SCH ×3 (08:22→21:25)
[2021-05-20 16:49] VITALS: BP 120/60
[2021-05-20] MEDS: traZODone 100 MG TAB PO SCH (21:25)
[2021-05-21 06:53] VITALS: BP 140/92
[2021-05-21] MEDS: LORATADINE 10 MG TAB PO SCH (07:43)
[2021-05-21] MEDS: CALCIUM/VITAMIN D 500 MG TAB PO SCH (07:43)
[2021-05-21] MEDS: FOLIC ACID 1 MG TAB PO SCH (07:43)
[2021-05-21] MEDS: VENLAFAXINE **XR** 75MG CAPSULE PO SCH (07:44)
[2021-05-21] MEDS: SUCRALFATE 1 GM TAB PO SCH ×2 (07:44→21:37)
[2021-05-21] MEDS: DOCUSATE SODIUM 100MG CAPSULE PO SCH ×3 (07:44→21:37)
[2021-05-21] MEDS: CYANOCOBALAMIN 500 MCG TAB PO SCH (07:44)
[2021-05-21] MEDS: MAGNESIUM OXIDE 400MG TAB (MAG-OX) PO SCH (07:44)
[2021-05-21] MEDS: FERROUS SULFATE 325MG TAB PO SCH (07:45)
[2021-05-21] MEDS: ATORVASTATIN 20 MG TAB PO SCH (07:46)
[2021-05-21] MEDS: metFORMIN (GLUCOPHAGE) 500MG TAB PO SCH ×2 (07:47→17:24)
[2021-05-21 16:24] VITALS: BP 139/90
[2021-05-21] MEDS: traZODone 100 MG TAB PO SCH (21:37)
[2021-05-22 06:25] VITALS: BP 106/59
[2021-05-22] MEDS: FERROUS SULFATE 325MG TAB PO SCH (08:12)
[2021-05-22] MEDS: ATORVASTATIN 20 MG TAB PO SCH (08:12)
[2021-05-22] MEDS: DOCUSATE SODIUM 100MG CAPSULE PO SCH ×3 (08:12→20:38)
[2021-05-22] MEDS: SUCRALFATE 1 GM TAB PO SCH ×2 (08:13→20:38)
[2021-05-22] MEDS: metFORMIN (GLUCOPHAGE) 500MG TAB PO SCH ×2 (08:13→17:13)
[2021-05-22] MEDS: MAGNESIUM OXIDE 400MG TAB (MAG-OX) PO SCH (08:13)
[2021-05-22] MEDS: VENLAFAXINE **XR** 75MG CAPSULE PO SCH (08:13)
[2021-05-22] MEDS: LORATADINE 10 MG TAB PO SCH (08:13)
[2021-05-22] MEDS: FOLIC ACID 1 MG TAB PO SCH (08:13)
[2021-05-22] MEDS: CALCIUM/VITAMIN D 500 MG TAB PO SCH (08:13)
[2021-05-22] MEDS: CYANOCOBALAMIN 500 MCG TAB PO SCH (08:13)
[2021-05-22 16:30] VITALS: BP 110/62
[2021-05-22] MEDS: traZODone 100 MG TAB PO SCH (20:38)
[2021-05-23 07:08] VITALS: BP 128/68
[2021-05-23] MEDS: metFORMIN (GLUCOPHAGE) 500MG TAB PO SCH (07:48)
[2021-05-23] MEDS ORDERED: VITAMIN D 50,000 UNITS CAPSULE (ERGOCALCIFEROL 1.25MG) PO SCH (09:00)
[2021-05-23] MEDS ORDERED: METF500T13 PO (09:19)
[2021-05-23] MEDS ORDERED: SUCR1TAB56 PO (09:19)
[2021-05-23] MEDS ORDERED: TRAZ-189 PO (09:19)
[2021-05-23] MEDS ORDERED: LORA-243 PO (09:19)
[2021-05-23] MEDS ORDERED: OMEP40CA5 PO (09:19)
[2021-05-23] MEDS ORDERED: MAGN400T2 PO (09:19)
[2021-05-23] MEDS ORDERED: FOLI1TAB11 PO (09:19)
[2021-05-23] MEDS ORDERED: ERGO500029 PO (09:19)
[2021-05-23] MEDS ORDERED: VENL150C43 PO (09:19)
[2021-05-23] MEDS ORDERED: FERR325T3 PO (09:19)
[2021-05-23] MEDS ORDERED: DOCU100C16 PO (09:19)
[2021-05-23] MEDS: FOLIC ACID 1 MG TAB PO SCH (09:36)
[2021-05-23] MEDS: SUCRALFATE 1 GM TAB PO SCH (09:36)
[2021-05-23] MEDS: ATORVASTATIN 20 MG TAB PO SCH (09:36)
[2021-05-23] MEDS: FERROUS SULFATE 325MG TAB PO SCH (09:36)
[2021-05-23] MEDS: CALCIUM/VITAMIN D 500 MG TAB PO SCH (09:37)
[2021-05-23] MEDS: LORATADINE 10 MG TAB PO SCH (09:37)
[2021-05-23] MEDS: MAGNESIUM OXIDE 400MG TAB (MAG-OX) PO SCH (09:37)
[2021-05-23] MEDS: CYANOCOBALAMIN 500 MCG TAB PO SCH (09:37)
[2021-05-23] MEDS: DOCUSATE SODIUM 100MG CAPSULE PO SCH (09:37)
[2021-05-23] MEDS: VENLAFAXINE **XR** 75MG CAPSULE PO SCH (09:37)
== END 2021-05-23 13:20 | disposition home or self-care (01) | DRG 885 ==
LOC: M ED INP 16:17 → M PSY 17:17 → UNDODISIN 18:32 → M PSY 19:40
PROVIDERS: ADMIT Internal Medicine; ATTEND Psychiatry & Neurology Psychiatry
DX: F25.1 Schizoaffective disorder, depressive type (principal); F31.9 Bipolar disorder, unspecified; F79 Unspecified intellectual disabilities; G24.01 Drug induced subacute dyskinesia; M54.9 Dorsalgia, unspecified; J45.909 Unspecified asthma, uncomplicated; E78.5 Hyperlipidemia, unspecified; G47.33 Obstructive sleep apnea (adult) (pediatric); D64.9 Anemia, unspecified; E55.9 Vitamin D deficiency, unspecified; K21.9 Gastro-esophageal reflux disease without esophagitis; E11.9 Type 2 diabetes mellitus without complications; K76.0 Fatty (change of) liver, not elsewhere classified; Z79.84 Long term (current) use of oral hypoglycemic drugs; Z79.899 Other long term (current) drug therapy; Z90.49 Acquired absence of other specified parts of digestive tract; Z96.652 Presence of left artificial knee joint; Z88.0 Allergy status to penicillin; Z91.52 Personal history of nonsuicidal self-harm; Z87.891 Personal history of nicotine dependence; Z63.8 Other specified problems related to primary support group

== ENCOUNTER → 2021-07-15 | Outpatient (CLI) | payer MEDICARE, MEDICAID ==
[2021-07-15 13:21] LABS: BASO # 0.1 10^3/uL (0.0-0.2); BASO % 0.4 % (0.0-1.0); EOS # 0.3 10^3/uL (0.0-0.5); EOS % 2.3 % (0.0-3.0); HEMATOCRIT 40.6 % (42.0-52.0); HEMOGLOBIN 13.3 g/dl (13.5-17.5); LYMPH # 2.6 10^3/uL (1.5-5.0); LYMPH % 22.1 % (24.0-44.0); MEAN CORPUSCULAR HEMOGLOBIN 29.5 pg (27.0-33.0); MEAN CORPUSCULAR HGB CONC 32.8 g/dl (32.0-36.5); MONO # 1.1 10^3/uL (0.0-0.8); MONO % 9.1 % (2.0-8.0); NEUTROPHILS # 7.6 10^3/uL (1.5-8.5); NEUTROPHILS % 65.7 % (36.0-66.0); PLATELET COUNT, AUTOMATED 338 10^3/uL (150-450); RED BLOOD COUNT 4.51 10^6/uL (4.30-6.10); WHITE BLOOD COUNT 11.6 10^3/uL (4.0-10.0)
[2021-07-15 15:35] LABS: ALBUMIN 3.9 GM/DL (3.2-5.2); ALT/SGPT 27 U/L (12-78); BILIRUBIN,TOTAL 0.5 MG/DL (0.2-1.0); BLOOD UREA NITROGEN 15 MG/DL (7-18); CALCIUM LEVEL 10.2 MG/DL (8.8-10.2); CARBON DIOXIDE LEVEL 25 MEQ/L (21-32); CHLORIDE LEVEL 107 MEQ/L (98-107); CHOLESTEROL LEVEL 176 MG/DL (<200); CREATININE FOR GFR 0.82 MG/DL (0.70-1.30); GLOMERULAR FILTRATION RATE > 60.0 (>49); GLUCOSE, FASTING 120 MG/DL (70-100); HDL CHOLESTEROL 53 MG/DL (>40); IRON (FE) 52 UG/DL (65-175); LDL CHOLESTEROL 111 MG/DL (<100); NON-HDL-C 123 MG/DL; SODIUM LEVEL 141 MEQ/L (136-145); THYROID STIMULATING HORMONE 0.979 uIU/ML (0.358-3.740); TOTAL PROTEIN 7.5 GM/DL (6.4-8.2); TRIGLYCERIDES LEVEL 61 MG/DL (<150)
[2021-07-15 15:43] LABS: VITAMIN B12 LEVEL 656 PG/ML (247-911)
[2021-07-15 16:36] LABS: HEMOGLOBIN A1c 5.6 %
== END ==
LOC: M PLALAB 10:53
PROVIDERS: ATTEND Nurse Practitioner Family
DX: R53.1 Weakness (principal); E55.9 Vitamin D deficiency, unspecified; D50.9 Iron deficiency anemia, unspecified; E78.2 Mixed hyperlipidemia; E11.40 Type 2 diabetes mellitus with diabetic neuropathy, unspecified; Z79.899 Other long term (current) drug therapy

== ENCOUNTER 2021-10-03 18:30 | Inpatient (IN) | payer MEDICARE, MEDICAID ==
[2021-10-03 21:33] LABS: VENOUS BASE EXCESS 0.8 (-2.0-2.0); VENOUS HCO3 25.9 MEQ/L (23.0-27.0); VENOUS O2 SATURATION 81.7 % (60.0-80.0); VENOUS PARTIAL PRESSURE CO2 43.3 mmHg (38.0-50.0); VENOUS PARTIAL PRESSURE O2 47.4 mmHg (30.0-50.0); VENOUS PH 7.395 UNITS (7.330-7.430); VENOUS STANDARD HCO3 24.8 MEQ/L; VENOUS TOTAL CO2 27.2 MEQ/L (24.0-28.0)
[2021-10-03 22:28] LABS: ACETAMINOPHEN LEVEL < 2.0 UG/ML (10.0-30.0); ALBUMIN 4.8 GM/DL (3.2-5.2); ALT/SGPT 41 U/L (12-78); BILIRUBIN,DIRECT 0.4 MG/DL (0.0-0.2); BILIRUBIN,TOTAL 0.6 MG/DL (0.2-1.0); BLOOD UREA NITROGEN 26 MG/DL (7-18); CARBON DIOXIDE LEVEL 24 MEQ/L (21-32); CHLORIDE LEVEL 97 MEQ/L (98-107); CREATININE FOR GFR 1.27 MG/DL (0.70-1.30); ETHYL ALCOHOL (ETHANOL) 0.004 % (0.000-0.010); GLOMERULAR FILTRATION RATE > 60.0 (>49); GLUCOSE, FASTING 108 MG/DL (70-100); POTASSIUM SERUM 4.8 MEQ/L (3.5-5.1); SALICYLATE LEVEL < 1.7 MG/DL (5.0-30.0); SODIUM LEVEL 131 MEQ/L (136-145); TOTAL PROTEIN 8.1 GM/DL (6.4-8.2)
[2021-10-03 22:28] LABS: CK-MB VALUE MASS 64.7 NG/ML (<3.6); MB/CK RELATIVE INDEX 1.15 (< OR =4)
[2021-10-03 22:38] LABS: OSMOLALITY SERUM 285 MOSM/KG (280-301)
[2021-10-04 00:22] LABS: BASO # 0.1 10^3/uL (0.0-0.2); BASO % 0.3 % (0.0-1.0); EOS % 0.1 % (0.0-3.0); HEMATOCRIT 37.6 % (42.0-52.0); HEMOGLOBIN 12.7 g/dl (13.5-17.5); LYMPH # 2.2 10^3/uL (1.5-5.0); LYMPH % 11.5 % (24.0-44.0); MEAN CORPUSCULAR HEMOGLOBIN 29.4 pg (27.0-33.0); MEAN CORPUSCULAR HGB CONC 33.8 g/dl (32.0-36.5); MONO % 9.7 % (2.0-8.0); NEUTROPHILS # 15.1 10^3/uL (1.5-8.5); NEUTROPHILS % 77.7 % (36.0-66.0); PLATELET COUNT, AUTOMATED 288 10^3/uL (150-450); RED BLOOD COUNT 4.32 10^6/uL (4.30-6.10); WHITE BLOOD COUNT 19.5 10^3/uL (4.0-10.0)
[2021-10-04 00:23] LABS: MONO # 1.9 10^3/uL (0.0-0.8)
[2021-10-04 02:33] LABS: CK-MB VALUE MASS 56.2 NG/ML (<3.6); MB/CK RELATIVE INDEX 0.9 (< OR =4)
[2021-10-04] MEDS ORDERED: NS 1,000 ML IV ONE (04:35)
[2021-10-04 05:05] LABS: AMPHETAMINES LEVEL URINE NEGATIVE (NEGATIVE); BARBITURATES URINE NEGATIVE (NEGATIVE); BENZODIAZEPINES URINE NEGATIVE (NEGATIVE); CANNABINOIDS URINE NEGATIVE (NEGATIVE); COCAINE METABOLITE URINE NEGATIVE (NEGATIVE); METHADONE URINE NEGATIVE (NEGATIVE); OPIATES URINE NEGATIVE (NEGATIVE); PHENCYCLIDINE URINE NEGATIVE (NEGATIVE)
[2021-10-04 05:37] LABS: RSV AMPLIFICATION NEGATIVE (NEGATIVE)
[2021-10-04] MEDS ORDERED: ACETAMINOPHEN TAB 650MG DOSE (2X325MG) PO PRN (06:05)
[2021-10-04] MEDS ORDERED: NS 1,000 ML IV SCH (06:30)
[2021-10-04] MEDS ORDERED: GLUCOSE 4GM CHEW TABLET PO PRN (06:40)
[2021-10-04] MEDS ORDERED: GLUCAGON INJ 1MG VIAL SC PRN (06:40)
[2021-10-04] MEDS ORDERED: DEXTROSE 50% 50 ML SYRINGE IV PRN (06:40)
[2021-10-04] MEDS ORDERED: OMEP40CA5 PO (07:28)
[2021-10-04] MEDS ORDERED: TRAZ-257 PO (07:28)
[2021-10-04] MEDS ORDERED: SUCR1TAB56 PO (07:28)
[2021-10-04] MEDS ORDERED: FOLI1TAB11 PO (07:28)
[2021-10-04] MEDS ORDERED: LORA-622 PO (07:28)
[2021-10-04] MEDS ORDERED: MAGN400T35 PO (07:28)
[2021-10-04] MEDS ORDERED: VENL150C43 PO (07:28)
[2021-10-04] MEDS ORDERED: MM S100C PO (07:28)
[2021-10-04] MEDS ORDERED: ATOR80TA59 PO (07:28)
[2021-10-04] MEDS ORDERED: ERGO500029 PO (07:28)
[2021-10-04] MEDS ORDERED: METF500T13 PO (07:28)
[2021-10-04] MEDS ORDERED: FERR1TAB8 PO (07:28)
[2021-10-04] MEDS ORDERED: HOME MED LIST COMPLETE! XX SCH (07:30)
[2021-10-04 07:59] LABS: CK-MB VALUE MASS 40.1 NG/ML (<3.6); MB/CK RELATIVE INDEX 0.7 (< OR =4)
[2021-10-04] MEDS: INSULIN LISPRO (NovoLOG) PER UNIT SC SCH ×4 (08:37→20:17)
[2021-10-04] MEDS: NS 1,000 ML IV SCH ×2 (08:38→16:56)
[2021-10-04] MEDS: VENLAFAXINE **XR** 75MG CAPSULE PO SCH (09:10)
[2021-10-04] MEDS: OMEPRAZOLE 20MG CAP PO SCH (09:10)
[2021-10-04] MEDS: FOLIC ACID 1MG TAB PO SCH (09:10)
[2021-10-04] MEDS: FERROUS SULFATE 325MG TAB PO SCH (09:10)
[2021-10-04] MEDS: MAGNESIUM OXIDE 400MG TAB (MAG-OX) PO SCH (09:10)
[2021-10-04] MEDS: DOCUSATE SODIUM 100MG CAPSULE PO SCH ×2 (09:11→20:20)
[2021-10-04] MEDS: CYANOCOBALAMIN 500 MCG TAB PO SCH (09:11)
[2021-10-04] MEDS: SUCRALFATE 1 GM TAB PO SCH ×2 (09:11→20:21)
[2021-10-04 09:25] LABS: HEMATOCRIT 35.7 % (42.0-52.0); HEMOGLOBIN 11.9 g/dl (13.5-17.5); MEAN CORPUSCULAR HEMOGLOBIN 29.8 pg (27.0-33.0); MEAN CORPUSCULAR HGB CONC 33.3 g/dl (32.0-36.5); MEAN CORPUSCULAR VOLUME 89.3 fl (80.0-96.0); PLATELET COUNT, AUTOMATED 257 10^3/uL (150-450); WHITE BLOOD COUNT 14.6 10^3/uL (4.0-10.0)
[2021-10-04 09:42] LABS: INR 1.08; PROTHROMBIN TIME 14.5 SECONDS (12.7-14.5)
[2021-10-04 09:43] LABS: PARTIAL THROMBOPLASTIN TIME 27.6 SECONDS (25.9-37.0)
[2021-10-04 10:12] LABS: ALBUMIN 3.8 GM/DL (3.2-5.2); ALT/SGPT 47 U/L (12-78); BILIRUBIN,TOTAL 0.6 MG/DL (0.2-1.0); BLOOD UREA NITROGEN 25 MG/DL (7-18); CALCIUM LEVEL 9.2 MG/DL (8.8-10.2); CARBON DIOXIDE LEVEL 27 MEQ/L (21-32); CHLORIDE LEVEL 103 MEQ/L (98-107); CREATININE FOR GFR 0.83 MG/DL (0.70-1.30); GLOMERULAR FILTRATION RATE > 60.0 (>49); GLUCOSE, FASTING 105 MG/DL (70-100); POTASSIUM SERUM 4.5 MEQ/L (3.5-5.1); SODIUM LEVEL 137 MEQ/L (136-145)
[2021-10-04] MEDS: HEPARIN SOD (PORCINE) 5000UNITS/ML 1ML VIAL/SYRINGE SC SCH ×2 (14:15→22:13)
[2021-10-04 18:06] VITALS: BP 110/56
[2021-10-04] MEDS: traZODone 100 MG TAB PO SCH (20:20)
[2021-10-05] MEDS: NS 1,000 ML IV SCH (01:04)
[2021-10-05] MEDS: HEPARIN SOD (PORCINE) 5000UNITS/ML 1ML VIAL/SYRINGE SC SCH ×3 (05:40→22:50)
[2021-10-05 06:03] VITALS: BP 113/89
[2021-10-05 06:03] LABS: HEMOGLOBIN 10.8 g/dl (13.5-17.5); MEAN CORPUSCULAR HEMOGLOBIN 30.2 pg (27.0-33.0); MEAN CORPUSCULAR HGB CONC 33.8 g/dl (32.0-36.5); MEAN CORPUSCULAR VOLUME 89.4 fl (80.0-96.0); PLATELET COUNT, AUTOMATED 196 10^3/uL (150-450); RED BLOOD COUNT 3.58 10^6/uL (4.30-6.10)
[2021-10-05 07:05] LABS: BLOOD UREA NITROGEN 18 MG/DL (7-18); CREATININE FOR GFR 0.56 MG/DL (0.70-1.30); GLUCOSE, FASTING 97 MG/DL (70-100)
[2021-10-05 07:06] LABS: ALBUMIN 2.9 GM/DL (3.2-5.2); ALT/SGPT 41 U/L (12-78); BILIRUBIN,TOTAL 0.4 MG/DL (0.2-1.0); CALCIUM LEVEL 8.5 MG/DL (8.8-10.2); CARBON DIOXIDE LEVEL 25 MEQ/L (21-32); CHLORIDE LEVEL 110 MEQ/L (98-107); GLOMERULAR FILTRATION RATE > 60.0 (>49); POTASSIUM SERUM 4.2 MEQ/L (3.5-5.1); SODIUM LEVEL 141 MEQ/L (136-145); TOTAL PROTEIN 5.6 GM/DL (6.4-8.2)
[2021-10-05] MEDS: INSULIN LISPRO (NovoLOG) PER UNIT SC SCH ×4 (07:30→21:00)
[2021-10-05] MEDS: NS 0.45% 1,000 ML IV SCH ×2 (09:54→18:52)
[2021-10-05] MEDS: DOCUSATE SODIUM 100MG CAPSULE PO SCH ×2 (10:32→20:27)
[2021-10-05] MEDS: OMEPRAZOLE 20MG CAP PO SCH (10:32)
[2021-10-05] MEDS: SUCRALFATE 1 GM TAB PO SCH ×2 (10:32→20:26)
[2021-10-05] MEDS: FOLIC ACID 1MG TAB PO SCH (10:32)
[2021-10-05] MEDS: FERROUS SULFATE 325MG TAB PO SCH (10:32)
[2021-10-05] MEDS: MAGNESIUM OXIDE 400MG TAB (MAG-OX) PO SCH (10:33)
[2021-10-05] MEDS: CYANOCOBALAMIN 500 MCG TAB PO SCH (10:33)
[2021-10-05] MEDS: VENLAFAXINE **XR** 75MG CAPSULE PO SCH (10:33)
[2021-10-05] MEDS: PREVNAR 13 VACCINE SYRINGE IM.IMMUN ONE ×2 (10:36→18:53)
[2021-10-05 14:00] VITALS: BP 114/88
[2021-10-05 20:03] VITALS: BP 116/87
[2021-10-05] MEDS: traZODone 100 MG TAB PO SCH (20:26)
[2021-10-05] MEDS: PERCOCET 5MG/325MG TAB PO PRN (20:27)
[2021-10-06] MEDS: NS 0.45% 1,000 ML IV SCH ×2 (04:26→15:38)
[2021-10-06] MEDS: HEPARIN SOD (PORCINE) 5000UNITS/ML 1ML VIAL/SYRINGE SC SCH ×3 (06:09→22:59)
[2021-10-06 07:21] LABS: HEMATOCRIT 33.4 % (42.0-52.0); HEMOGLOBIN 10.9 g/dl (13.5-17.5); MEAN CORPUSCULAR HEMOGLOBIN 29.9 pg (27.0-33.0); MEAN CORPUSCULAR HGB CONC 32.6 g/dl (32.0-36.5); MEAN CORPUSCULAR VOLUME 91.5 fl (80.0-96.0); PLATELET COUNT, AUTOMATED 185 10^3/uL (150-450); RED BLOOD COUNT 3.65 10^6/uL (4.30-6.10)
[2021-10-06] MEDS: INSULIN LISPRO (NovoLOG) PER UNIT SC SCH ×4 (07:30→21:00)
[2021-10-06 07:58] LABS: ALBUMIN 2.9 GM/DL (3.2-5.2); ALT/SGPT 38 U/L (12-78); BILIRUBIN,TOTAL 0.3 MG/DL (0.2-1.0); BLOOD UREA NITROGEN 10 MG/DL (7-18); CALCIUM LEVEL 9.2 MG/DL (8.8-10.2); CARBON DIOXIDE LEVEL 27 MEQ/L (21-32); CHLORIDE LEVEL 106 MEQ/L (98-107); CREATININE FOR GFR 0.54 MG/DL (0.70-1.30); GLOMERULAR FILTRATION RATE > 60.0 (>49); GLUCOSE, FASTING 91 MG/DL (70-100); POTASSIUM SERUM 4.1 MEQ/L (3.5-5.1); SODIUM LEVEL 137 MEQ/L (136-145); TOTAL PROTEIN 5.7 GM/DL (6.4-8.2)
[2021-10-06] MEDS: CYANOCOBALAMIN 500 MCG TAB PO SCH (09:30)
[2021-10-06] MEDS: DOCUSATE SODIUM 100MG CAPSULE PO SCH ×2 (09:30→20:04)
[2021-10-06] MEDS: FOLIC ACID 1MG TAB PO SCH (09:31)
[2021-10-06] MEDS: OMEPRAZOLE 20MG CAP PO SCH (09:31)
[2021-10-06] MEDS: SUCRALFATE 1 GM TAB PO SCH ×2 (09:31→20:04)
[2021-10-06] MEDS: FERROUS SULFATE 325MG TAB PO SCH (09:31)
[2021-10-06] MEDS: VENLAFAXINE **XR** 75MG CAPSULE PO SCH (09:31)
[2021-10-06] MEDS: MAGNESIUM OXIDE 400MG TAB (MAG-OX) PO SCH (09:31)
[2021-10-06 10:00] VITALS: BP 98/53
[2021-10-06 11:38] VITALS: BP 92/60
[2021-10-06] MEDS: PERCOCET 5MG/325MG TAB PO PRN ×2 (13:01→20:05)
[2021-10-06 13:57] VITALS: BP 119/98
[2021-10-06] MEDS: traZODone 100 MG TAB PO SCH (20:04)
[2021-10-06 21:00] VITALS: BP 110/60
[2021-10-07] MEDS: NS 0.45% 1,000 ML IV SCH ×3 (04:19→21:33)
[2021-10-07] MEDS: HEPARIN SOD (PORCINE) 5000UNITS/ML 1ML VIAL/SYRINGE SC SCH ×3 (05:24→22:02)
[2021-10-07 06:16] VITALS: BP 115/72
[2021-10-07 07:02] LABS: ALBUMIN 2.8 GM/DL (3.2-5.2); ALT/SGPT 34 U/L (12-78); BILIRUBIN,TOTAL 0.2 MG/DL (0.2-1.0); BLOOD UREA NITROGEN 12 MG/DL (7-18); CALCIUM LEVEL 8.5 MG/DL (8.8-10.2); CARBON DIOXIDE LEVEL 27 MEQ/L (21-32); CHLORIDE LEVEL 108 MEQ/L (98-107); GLOMERULAR FILTRATION RATE > 60.0 (>49); GLUCOSE, FASTING 109 MG/DL (70-100); MAGNESIUM LEVEL 1.9 MG/DL (1.8-2.4); PHOSPHORUS LEVEL 2.8 MG/DL (2.5-4.9); POTASSIUM SERUM 3.9 MEQ/L (3.5-5.1); SODIUM LEVEL 139 MEQ/L (136-145); TOTAL PROTEIN 5.5 GM/DL (6.4-8.2)
[2021-10-07] MEDS: INSULIN LISPRO (NovoLOG) PER UNIT SC SCH ×4 (07:30→21:00)
[2021-10-07] MEDS: FOLIC ACID 1MG TAB PO SCH (09:15)
[2021-10-07] MEDS: VENLAFAXINE **XR** 75MG CAPSULE PO SCH (09:15)
[2021-10-07] MEDS: DOCUSATE SODIUM 100MG CAPSULE PO SCH ×2 (09:16→20:18)
[2021-10-07] MEDS: MAGNESIUM OXIDE 400MG TAB (MAG-OX) PO SCH (09:16)
[2021-10-07] MEDS: SUCRALFATE 1 GM TAB PO SCH ×2 (09:16→20:18)
[2021-10-07] MEDS: FERROUS SULFATE 325MG TAB PO SCH (09:16)
[2021-10-07] MEDS: CYANOCOBALAMIN 500 MCG TAB PO SCH (09:16)
[2021-10-07] MEDS: OMEPRAZOLE 20MG CAP PO SCH (09:16)
[2021-10-07 14:00] VITALS: BP 120/78
[2021-10-07] MEDS: PERCOCET 5MG/325MG TAB PO PRN ×2 (14:33→20:19)
[2021-10-07] MEDS: traZODone 100 MG TAB PO SCH (20:18)
[2021-10-08] MEDS: HEPARIN SOD (PORCINE) 5000UNITS/ML 1ML VIAL/SYRINGE SC SCH ×3 (05:43→21:43)
[2021-10-08 06:00] VITALS: BP 108/63
[2021-10-08 06:08] LABS: HEMATOCRIT 33.7 % (42.0-52.0); HEMOGLOBIN 11.2 g/dl (13.5-17.5); MEAN CORPUSCULAR HEMOGLOBIN 29.9 pg (27.0-33.0); MEAN CORPUSCULAR HGB CONC 33.2 g/dl (32.0-36.5); MEAN CORPUSCULAR VOLUME 89.9 fl (80.0-96.0); PLATELET COUNT, AUTOMATED 218 10^3/uL (150-450); RED BLOOD COUNT 3.75 10^6/uL (4.30-6.10); WHITE BLOOD COUNT 9.9 10^3/uL (4.0-10.0)
[2021-10-08 06:42] LABS: ALBUMIN 2.8 GM/DL (3.2-5.2); ALT/SGPT 39 U/L (12-78); BILIRUBIN,TOTAL 0.2 MG/DL (0.2-1.0); BLOOD UREA NITROGEN 10 MG/DL (7-18); CALCIUM LEVEL 8.8 MG/DL (8.8-10.2); CARBON DIOXIDE LEVEL 30 MEQ/L (21-32); CHLORIDE LEVEL 108 MEQ/L (98-107); CREATININE FOR GFR 0.64 MG/DL (0.70-1.30); GLOMERULAR FILTRATION RATE > 60.0 (>49); GLUCOSE, FASTING 95 MG/DL (70-100); MAGNESIUM LEVEL 1.9 MG/DL (1.8-2.4); SODIUM LEVEL 141 MEQ/L (136-145); TOTAL PROTEIN 5.7 GM/DL (6.4-8.2)
[2021-10-08] MEDS: INSULIN LISPRO (NovoLOG) PER UNIT SC SCH ×4 (07:30→21:00)
[2021-10-08] MEDS: NS 0.45% 1,000 ML IV SCH (07:41)
[2021-10-08] MEDS: MAGNESIUM OXIDE 400MG TAB (MAG-OX) PO SCH (09:15)
[2021-10-08] MEDS: VENLAFAXINE **XR** 75MG CAPSULE PO SCH (09:15)
[2021-10-08] MEDS: FOLIC ACID 1MG TAB PO SCH (09:15)
[2021-10-08] MEDS: DOCUSATE SODIUM 100MG CAPSULE PO SCH ×2 (09:15→20:13)
[2021-10-08] MEDS: SUCRALFATE 1 GM TAB PO SCH ×2 (09:15→20:13)
[2021-10-08] MEDS: CYANOCOBALAMIN 500 MCG TAB PO SCH (09:15)
[2021-10-08] MEDS: FERROUS SULFATE 325MG TAB PO SCH (09:16)
[2021-10-08] MEDS: OMEPRAZOLE 20MG CAP PO SCH (09:16)
[2021-10-08] MEDS: PERCOCET 5MG/325MG TAB PO PRN ×2 (09:22→20:13)
[2021-10-08] MEDS: traZODone 100 MG TAB PO SCH (20:13)
[2021-10-09] MEDS: HEPARIN SOD (PORCINE) 5000UNITS/ML 1ML VIAL/SYRINGE SC SCH ×3 (05:42→23:00)
[2021-10-09 06:00] VITALS: BP 107/63
[2021-10-09 06:26] LABS: HEMATOCRIT 34.9 % (42.0-52.0); HEMOGLOBIN 11.7 g/dl (13.5-17.5); MEAN CORPUSCULAR HEMOGLOBIN 30.1 pg (27.0-33.0); MEAN CORPUSCULAR HGB CONC 33.5 g/dl (32.0-36.5); MEAN CORPUSCULAR VOLUME 89.7 fl (80.0-96.0); PLATELET COUNT, AUTOMATED 242 10^3/uL (150-450); RED BLOOD COUNT 3.89 10^6/uL (4.30-6.10); WHITE BLOOD COUNT 11.7 10^3/uL (4.0-10.0)
[2021-10-09 07:01] LABS: ALBUMIN 2.9 GM/DL (3.2-5.2); ALT/SGPT 46 U/L (12-78); BILIRUBIN,TOTAL 0.3 MG/DL (0.2-1.0); BLOOD UREA NITROGEN 11 MG/DL (7-18); CARBON DIOXIDE LEVEL 28 MEQ/L (21-32); CHLORIDE LEVEL 107 MEQ/L (98-107); CREATININE FOR GFR 0.58 MG/DL (0.70-1.30); GLOMERULAR FILTRATION RATE > 60.0 (>49); GLUCOSE, FASTING 103 MG/DL (70-100); MAGNESIUM LEVEL 1.9 MG/DL (1.8-2.4); SODIUM LEVEL 140 MEQ/L (136-145); TOTAL PROTEIN 5.8 GM/DL (6.4-8.2)
[2021-10-09] MEDS: INSULIN LISPRO (NovoLOG) PER UNIT SC SCH ×4 (07:30→20:04)
[2021-10-09] MEDS: VENLAFAXINE **XR** 75MG CAPSULE PO SCH (08:32)
[2021-10-09] MEDS: MAGNESIUM OXIDE 400MG TAB (MAG-OX) PO SCH (08:33)
[2021-10-09] MEDS: CYANOCOBALAMIN 500 MCG TAB PO SCH (08:33)
[2021-10-09] MEDS: DOCUSATE SODIUM 100MG CAPSULE PO SCH ×2 (08:33→20:13)
[2021-10-09] MEDS: FOLIC ACID 1MG TAB PO SCH (08:33)
[2021-10-09] MEDS: FERROUS SULFATE 325MG TAB PO SCH (08:33)
[2021-10-09] MEDS: OMEPRAZOLE 20MG CAP PO SCH (08:33)
[2021-10-09] MEDS: SUCRALFATE 1 GM TAB PO SCH ×2 (08:33→20:13)
[2021-10-09] MEDS ORDERED: ONDANSETRON 4MG TAB PO PRN (14:40)
[2021-10-09] MEDS: traZODone 100 MG TAB PO SCH (20:13)
[2021-10-10] MEDS: HEPARIN SOD (PORCINE) 5000UNITS/ML 1ML VIAL/SYRINGE SC SCH ×3 (05:19→21:08)
[2021-10-10 05:48] LABS: HEMATOCRIT 35.6 % (42.0-52.0); MEAN CORPUSCULAR HGB CONC 33.7 g/dl (32.0-36.5); PLATELET COUNT, AUTOMATED 242 10^3/uL (150-450); WHITE BLOOD COUNT 12.2 10^3/uL (4.0-10.0)
[2021-10-10 06:00] VITALS: BP 133/62
[2021-10-10 06:30] LABS: ALBUMIN 3.1 GM/DL (3.2-5.2); ALT/SGPT 44 U/L (12-78); BILIRUBIN,TOTAL 0.2 MG/DL (0.2-1.0); BLOOD UREA NITROGEN 12 MG/DL (7-18); CALCIUM LEVEL 9.5 MG/DL (8.8-10.2); CARBON DIOXIDE LEVEL 30 MEQ/L (21-32); CHLORIDE LEVEL 106 MEQ/L (98-107); CREATININE FOR GFR 0.64 MG/DL (0.70-1.30); GLOMERULAR FILTRATION RATE > 60.0 (>49); GLUCOSE, FASTING 107 MG/DL (70-100); POTASSIUM SERUM 4.4 MEQ/L (3.5-5.1); SODIUM LEVEL 141 MEQ/L (136-145); TOTAL PROTEIN 6.2 GM/DL (6.4-8.2)
[2021-10-10] MEDS: INSULIN LISPRO (NovoLOG) PER UNIT SC SCH ×4 (07:30→21:00)
[2021-10-10] MEDS: DOCUSATE SODIUM 100MG CAPSULE PO SCH ×2 (09:47→21:07)
[2021-10-10] MEDS: FOLIC ACID 1MG TAB PO SCH (09:47)
[2021-10-10] MEDS: MAGNESIUM OXIDE 400MG TAB (MAG-OX) PO SCH (09:47)
[2021-10-10] MEDS: VENLAFAXINE **XR** 75MG CAPSULE PO SCH (09:47)
[2021-10-10] MEDS: OMEPRAZOLE 20MG CAP PO SCH (09:47)
[2021-10-10] MEDS: SUCRALFATE 1 GM TAB PO SCH ×2 (09:47→21:07)
[2021-10-10] MEDS: FERROUS SULFATE 325MG TAB PO SCH (09:47)
[2021-10-10] MEDS: CYANOCOBALAMIN 500 MCG TAB PO SCH (09:48)
[2021-10-10] MEDS: traZODone 100 MG TAB PO SCH (21:08)
[2021-10-11] MEDS: HEPARIN SOD (PORCINE) 5000UNITS/ML 1ML VIAL/SYRINGE SC SCH ×3 (05:20→22:00)
[2021-10-11 05:42] LABS: HEMATOCRIT 36.6 % (42.0-52.0); HEMOGLOBIN 12.2 g/dl (13.5-17.5); MEAN CORPUSCULAR HEMOGLOBIN 29.8 pg (27.0-33.0); MEAN CORPUSCULAR HGB CONC 33.3 g/dl (32.0-36.5); MEAN CORPUSCULAR VOLUME 89.5 fl (80.0-96.0); PLATELET COUNT, AUTOMATED 261 10^3/uL (150-450); RED BLOOD COUNT 4.09 10^6/uL (4.30-6.10); WHITE BLOOD COUNT 12.6 10^3/uL (4.0-10.0)
[2021-10-11 06:00] VITALS: BP 109/61
[2021-10-11 06:22] LABS: ALT/SGPT 40 U/L (12-78); BILIRUBIN,TOTAL 0.2 MG/DL (0.2-1.0); BLOOD UREA NITROGEN 15 MG/DL (7-18); CALCIUM LEVEL 9.4 MG/DL (8.8-10.2); CARBON DIOXIDE LEVEL 30 MEQ/L (21-32); CHLORIDE LEVEL 105 MEQ/L (98-107); CREATININE FOR GFR 0.63 MG/DL (0.70-1.30); GLOMERULAR FILTRATION RATE > 60.0 (>49); GLUCOSE, FASTING 97 MG/DL (70-100); POTASSIUM SERUM 4.3 MEQ/L (3.5-5.1); SODIUM LEVEL 139 MEQ/L (136-145); TOTAL PROTEIN 6.2 GM/DL (6.4-8.2)
[2021-10-11] MEDS: INSULIN LISPRO (NovoLOG) PER UNIT SC SCH ×4 (07:30→20:07)
[2021-10-11] MEDS: FOLIC ACID 1MG TAB PO SCH (08:42)
[2021-10-11] MEDS: DOCUSATE SODIUM 100MG CAPSULE PO SCH ×2 (08:42→20:04)
[2021-10-11] MEDS: CYANOCOBALAMIN 500 MCG TAB PO SCH (08:42)
[2021-10-11] MEDS: OMEPRAZOLE 20MG CAP PO SCH (08:42)
[2021-10-11] MEDS: VENLAFAXINE **XR** 75MG CAPSULE PO SCH (08:42)
[2021-10-11] MEDS: MAGNESIUM OXIDE 400MG TAB (MAG-OX) PO SCH (08:42)
[2021-10-11] MEDS: SUCRALFATE 1 GM TAB PO SCH ×2 (08:42→20:04)
[2021-10-11] MEDS: FERROUS SULFATE 325MG TAB PO SCH (08:42)
[2021-10-11] MEDS: traZODone 100 MG TAB PO SCH (20:04)
[2021-10-12] MEDS: HEPARIN SOD (PORCINE) 5000UNITS/ML 1ML VIAL/SYRINGE SC SCH ×3 (05:10→22:07)
[2021-10-12 06:00] VITALS: BP 105/59
[2021-10-12 06:14] LABS: HEMATOCRIT 35.7 % (42.0-52.0); HEMOGLOBIN 11.8 g/dl (13.5-17.5); MEAN CORPUSCULAR HEMOGLOBIN 29.7 pg (27.0-33.0); MEAN CORPUSCULAR HGB CONC 33.1 g/dl (32.0-36.5); MEAN CORPUSCULAR VOLUME 89.9 fl (80.0-96.0); PLATELET COUNT, AUTOMATED 253 10^3/uL (150-450); RED BLOOD COUNT 3.97 10^6/uL (4.30-6.10); WHITE BLOOD COUNT 10.2 10^3/uL (4.0-10.0)
[2021-10-12 06:50] LABS: ALT/SGPT 32 U/L (12-78); BILIRUBIN,TOTAL 0.2 MG/DL (0.2-1.0); BLOOD UREA NITROGEN 15 MG/DL (7-18); CALCIUM LEVEL 9.3 MG/DL (8.8-10.2); CARBON DIOXIDE LEVEL 28 MEQ/L (21-32); CHLORIDE LEVEL 105 MEQ/L (98-107); CREATININE FOR GFR 0.68 MG/DL (0.70-1.30); GLOMERULAR FILTRATION RATE > 60.0 (>49); GLUCOSE, FASTING 97 MG/DL (70-100); MAGNESIUM LEVEL 1.9 MG/DL (1.8-2.4); SODIUM LEVEL 138 MEQ/L (136-145); TOTAL PROTEIN 6.2 GM/DL (6.4-8.2)
[2021-10-12] MEDS: INSULIN LISPRO (NovoLOG) PER UNIT SC SCH ×4 (07:30→22:06)
[2021-10-12] MEDS: DOCUSATE SODIUM 100MG CAPSULE PO SCH ×2 (08:35→20:15)
[2021-10-12] MEDS: MAGNESIUM OXIDE 400MG TAB (MAG-OX) PO SCH (08:35)
[2021-10-12] MEDS: SUCRALFATE 1 GM TAB PO SCH ×2 (08:35→20:15)
[2021-10-12] MEDS: CYANOCOBALAMIN 500 MCG TAB PO SCH (08:35)
[2021-10-12] MEDS: FOLIC ACID 1MG TAB PO SCH (08:35)
[2021-10-12] MEDS: VENLAFAXINE **XR** 75MG CAPSULE PO SCH (08:35)
[2021-10-12] MEDS: FERROUS SULFATE 325MG TAB PO SCH (08:35)
[2021-10-12] MEDS: OMEPRAZOLE 20MG CAP PO SCH (08:35)
[2021-10-12] MEDS: traZODone 100 MG TAB PO SCH (20:15)
[2021-10-13] MEDS: HEPARIN SOD (PORCINE) 5000UNITS/ML 1ML VIAL/SYRINGE SC SCH (05:39)
[2021-10-13 06:00] VITALS: BP 104/59
[2021-10-13 06:40] LABS: HEMATOCRIT 36.3 % (42.0-52.0); HEMOGLOBIN 12.2 g/dl (13.5-17.5); MEAN CORPUSCULAR HEMOGLOBIN 29.6 pg (27.0-33.0); MEAN CORPUSCULAR HGB CONC 33.6 g/dl (32.0-36.5); MEAN CORPUSCULAR VOLUME 88.1 fl (80.0-96.0); PLATELET COUNT, AUTOMATED 265 10^3/uL (150-450); RED BLOOD COUNT 4.12 10^6/uL (4.30-6.10); WHITE BLOOD COUNT 11.4 10^3/uL (4.0-10.0)
[2021-10-13 07:27] LABS: ALBUMIN 3.1 GM/DL (3.2-5.2); ALT/SGPT 30 U/L (12-78); BILIRUBIN,TOTAL 0.2 MG/DL (0.2-1.0); BLOOD UREA NITROGEN 16 MG/DL (7-18); CALCIUM LEVEL 9.6 MG/DL (8.8-10.2); CARBON DIOXIDE LEVEL 28 MEQ/L (21-32); CHLORIDE LEVEL 104 MEQ/L (98-107); CREATININE FOR GFR 0.74 MG/DL (0.70-1.30); GLOMERULAR FILTRATION RATE > 60.0 (>49); GLUCOSE, FASTING 96 MG/DL (70-100); POTASSIUM SERUM 3.8 MEQ/L (3.5-5.1); SODIUM LEVEL 135 MEQ/L (136-145); TOTAL PROTEIN 6.8 GM/DL (6.4-8.2)
[2021-10-13 08:00] VITALS: BP 106/62
[2021-10-13] MEDS: INSULIN LISPRO (NovoLOG) PER UNIT SC SCH ×2 (08:30→12:00)
[2021-10-13] MEDS: SUCRALFATE 1 GM TAB PO SCH (08:37)
[2021-10-13] MEDS: MAGNESIUM OXIDE 400MG TAB (MAG-OX) PO SCH (08:37)
[2021-10-13] MEDS: FOLIC ACID 1MG TAB PO SCH (08:38)
[2021-10-13] MEDS: VENLAFAXINE **XR** 75MG CAPSULE PO SCH (08:38)
[2021-10-13] MEDS: FERROUS SULFATE 325MG TAB PO SCH (08:38)
[2021-10-13] MEDS: CYANOCOBALAMIN 500 MCG TAB PO SCH (08:38)
[2021-10-13] MEDS: DOCUSATE SODIUM 100MG CAPSULE PO SCH (08:38)
[2021-10-13] MEDS: OMEPRAZOLE 20MG CAP PO SCH (08:38)
== END 2021-10-13 13:10 | disposition home or self-care (01) | DRG 558 ==
LOC: M ED 18:30 → M ED INP 10-04 05:30 → ENRESERV 10-04 16:12 → M MSPAV 10-04 17:41
PROVIDERS: ADMIT Family Medicine; ATTEND Internal Medicine
DX: M62.82 Rhabdomyolysis (principal); N17.9 Acute kidney failure, unspecified; E87.1 Hypo-osmolality and hyponatremia; F32.A Depression, unspecified; F41.9 Anxiety disorder, unspecified; F79 Unspecified intellectual disabilities; G24.01 Drug induced subacute dyskinesia; E11.9 Type 2 diabetes mellitus without complications; J45.909 Unspecified asthma, uncomplicated; E78.5 Hyperlipidemia, unspecified; G47.33 Obstructive sleep apnea (adult) (pediatric); K21.9 Gastro-esophageal reflux disease without esophagitis; F25.0 Schizoaffective disorder, bipolar type; Z90.49 Acquired absence of other specified parts of digestive tract; Z96.652 Presence of left artificial knee joint; Z87.891 Personal history of nicotine dependence; E86.0 Dehydration; D72.829 Elevated white blood cell count, unspecified; R21 Rash and other nonspecific skin eruption; Z79.84 Long term (current) use of oral hypoglycemic drugs; Z79.899 Other long term (current) drug therapy; Z88.0 Allergy status to penicillin; Z20.822 Contact with and (suspected) exposure to COVID-19

== ENCOUNTER 2021-10-22 18:45 | Emergency (ER) | payer MEDICARE, MEDICAID ==
[~2021-10-22 18:45] MED LIST changes: +LORA-622 PO; +MM S100C PO
[2021-10-22] MEDS ORDERED: GI COCKTAIL 50ML BTL(HYOSCYAMINE/MAALOX/LIDOCAINE VISCOUS)(1:3:1) PO ONE (19:10)
[2021-10-22 20:37] LABS: BASO # 0.1 10^3/uL (0.0-0.2); BASO % 0.7 % (0.0-1.0); EOS # 0.3 10^3/uL (0.0-0.5); EOS % 2.7 % (0.0-3.0); HEMATOCRIT 35.6 % (42.0-52.0); LYMPH # 3.2 10^3/uL (1.5-5.0); LYMPH % 25.8 % (24.0-44.0); MEAN CORPUSCULAR HEMOGLOBIN 29.9 pg (27.0-33.0); MEAN CORPUSCULAR HGB CONC 33.7 g/dl (32.0-36.5); MEAN CORPUSCULAR VOLUME 88.8 fl (80.0-96.0); MONO # 1.3 10^3/uL (0.0-0.8); MONO % 10.4 % (2.0-8.0); NEUTROPHILS # 7.4 10^3/uL (1.5-8.5); NEUTROPHILS % 60.2 % (36.0-66.0); PLATELET COUNT, AUTOMATED 317 10^3/uL (150-450); RED BLOOD COUNT 4.01 10^6/uL (4.30-6.10); WHITE BLOOD COUNT 12.3 10^3/uL (4.0-10.0)
[2021-10-22 20:59] LABS: INR 1.05; PARTIAL THROMBOPLASTIN TIME 27.9 SECONDS (25.9-37.0); PROTHROMBIN TIME 14.1 SECONDS (12.7-14.5)
[2021-10-22 21:19] LABS: CK-MB VALUE MASS 3.5 NG/ML (<3.6); MB/CK RELATIVE INDEX 1.94 (< OR =4)
[2021-10-22 21:49] LABS: ALBUMIN 3.6 GM/DL (3.2-5.2); ALT/SGPT 25 U/L (12-78); BILIRUBIN,DIRECT 0.2 MG/DL (0.0-0.2); BILIRUBIN,TOTAL 0.5 MG/DL (0.2-1.0); BLOOD UREA NITROGEN 21 MG/DL (7-18); CALCIUM LEVEL 9.3 MG/DL (8.8-10.2); CARBON DIOXIDE LEVEL 29 MEQ/L (21-32); CHLORIDE LEVEL 99 MEQ/L (98-107); CREATININE FOR GFR 0.82 MG/DL (0.70-1.30); GLOMERULAR FILTRATION RATE > 60.0 (>49); GLUCOSE, FASTING 90 MG/DL (70-100); LIPASE 69 U/L (73-393); NT-PRO BNP 127 PG/ML (<125); POTASSIUM SERUM 4.1 MEQ/L (3.5-5.1); SODIUM LEVEL 135 MEQ/L (136-145); TOTAL PROTEIN 6.8 GM/DL (6.4-8.2)
[2021-10-22] MEDS ORDERED: KETOROLAC 30 MG/ML 1ML VIAL IV ONE (21:55)
[2021-10-22 22:00] VITALS: BP 149/95
[2021-10-22 22:29] LABS: CK-MB VALUE MASS 2.9 NG/ML (<3.6); MB/CK RELATIVE INDEX 2.07 (< OR =4)
[2021-10-22] MEDS ORDERED: KETO10TAB PO (22:54)
== END 2021-10-22 23:15 | disposition home or self-care (01) ==
LOC: EDBD 18:45 → M ED 18:45
DX: R07.89 Other chest pain (principal); E11.9 Type 2 diabetes mellitus without complications; F31.9 Bipolar disorder, unspecified; F20.9 Schizophrenia, unspecified; F41.9 Anxiety disorder, unspecified; F32.9 Major depressive disorder, single episode, unspecified; K21.9 Gastro-esophageal reflux disease without esophagitis; G47.33 Obstructive sleep apnea (adult) (pediatric); Z79.84 Long term (current) use of oral hypoglycemic drugs; Z79.899 Other long term (current) drug therapy; Z88.0 Allergy status to penicillin
CPT/HCPCS: 71045; 80048; 80076; 82550; 82553; 83690; 83880; 84484; 85025; 85610; 85730; 93005; 93041; 94760; 96374; 99285; J1885

== ENCOUNTER → 2021-11-21 | Outpatient (CLI) | payer MEDICARE, MEDICAID ==
[~2021-11-21] MED LIST changes: +KETO10TAB PO; +benzatropine PO
[2021-11-21 13:27] LABS: BASO # 0.1 10^3/uL (0.0-0.2); BASO % 0.8 % (0.0-1.0); EOS # 0.6 10^3/uL (0.0-0.5); HEMATOCRIT 37.5 % (42.0-52.0); HEMOGLOBIN 12.2 g/dl (13.5-17.5); LYMPH % 30.7 % (24.0-44.0); MEAN CORPUSCULAR HEMOGLOBIN 30.3 pg (27.0-33.0); MEAN CORPUSCULAR HGB CONC 32.5 g/dl (32.0-36.5); MEAN CORPUSCULAR VOLUME 93.3 fl (80.0-96.0); MONO % 10.2 % (2.0-8.0); NEUTROPHILS % 51.6 % (36.0-66.0); PLATELET COUNT, AUTOMATED 285 10^3/uL (150-450); RED BLOOD COUNT 4.02 10^6/uL (4.30-6.10); WHITE BLOOD COUNT 9.6 10^3/uL (4.0-10.0)
[2021-11-23 00:06] LABS: PSA TOTAL 0.6 ng/mL (0.0-4.0)
== END ==
LOC: M PLALAB 10:13
PROVIDERS: ATTEND Nurse Practitioner Family
DX: D72.825 Bandemia (principal); E78.2 Mixed hyperlipidemia

== ENCOUNTER 2021-11-25 20:21 | Observation (INO) | payer MEDICARE, MEDICAID ==
[~2021-11-25] VITALS: Ht 170.2 cm; Wt 84.4 kg
[2021-11-25] MEDS ORDERED: NS 1,000 ML IV ONE (20:40)
[2021-11-25 21:19] LABS: ABG BASE EXCESS 0.2 (-2.0-2.0); ABG HCO3 23.6 MEQ/L (22.0-26.0); ABG O2 SATURATION 97.9 % (95.0-99.0); ABG PARTIAL PRESSURE CO2 34.6 mmHg (35.0-45.0); ABG PARTIAL PRESSURE O2 102.8 mmHg (75.0-100.0); ABG STANDARD HCO3 24.6 MEQ/L (22.0-26.0); ABG TOTAL CO2 24.7 MEQ/L (23.0-31.0); ABG pH (ARTERIAL) 7.452 UNITS (7.350-7.450)
[2021-11-25 21:29] LABS: BASO # 0.1 10^3/uL (0.0-0.2); BASO % 0.4 % (0.0-1.0); EOS # 0.2 10^3/uL (0.0-0.5); HEMATOCRIT 36.8 % (42.0-52.0); HEMOGLOBIN 12.1 g/dl (13.5-17.5); MEAN CORPUSCULAR HEMOGLOBIN 29.6 pg (27.0-33.0); MEAN CORPUSCULAR HGB CONC 32.9 g/dl (32.0-36.5); MONO # 1.1 10^3/uL (0.0-0.8); MONO % 7.4 % (2.0-8.0); NEUTROPHILS # 11.9 10^3/uL (1.5-8.5); NEUTROPHILS % 77.7 % (36.0-66.0); PLATELET COUNT, AUTOMATED 282 10^3/uL (150-450); RED BLOOD COUNT 4.09 10^6/uL (4.30-6.10); WHITE BLOOD COUNT 15.3 10^3/uL (4.0-10.0)
[2021-11-25 22:02] LABS: CK-MB VALUE MASS < 1.0 NG/ML (<3.6); CPK CREATINE PHOSPHOKINASE 59 U/L (39-308); MB/CK RELATIVE INDEX 1.69 (< OR =4)
[2021-11-25 22:08] LABS: ACETAMINOPHEN LEVEL < 2.0 UG/ML (10.0-30.0); ALBUMIN 3.7 GM/DL (3.2-5.2); ALT/SGPT 23 U/L (12-78); BILIRUBIN,DIRECT < 0.1 MG/DL (0.0-0.2); BILIRUBIN,TOTAL 0.2 MG/DL (0.2-1.0); BLOOD UREA NITROGEN 16 MG/DL (7-18); CALCIUM LEVEL 9.2 MG/DL (8.8-10.2); CARBON DIOXIDE LEVEL 27 MEQ/L (21-32); CHLORIDE LEVEL 106 MEQ/L (98-107); CREATININE FOR GFR 0.87 MG/DL (0.70-1.30); ETHYL ALCOHOL (ETHANOL) < 0.003 % (0.000-0.010); GLOMERULAR FILTRATION RATE > 60.0 (>49); GLUCOSE, FASTING 120 MG/DL (70-100); POTASSIUM SERUM 4.2 MEQ/L (3.5-5.1); SALICYLATE LEVEL < 1.7 MG/DL (5.0-30.0); SODIUM LEVEL 139 MEQ/L (136-145); TOTAL PROTEIN 7.1 GM/DL (6.4-8.2)
[2021-11-25 22:14] LABS: OSMOLALITY SERUM 293 MOSM/KG (280-301)
[2021-11-25 22:59] LABS: AMPHETAMINES LEVEL URINE NEGATIVE (NEGATIVE); BARBITURATES URINE NEGATIVE (NEGATIVE); BENZODIAZEPINES URINE NEGATIVE (NEGATIVE); CANNABINOIDS URINE NEGATIVE (NEGATIVE); COCAINE METABOLITE URINE NEGATIVE (NEGATIVE); METHADONE URINE NEGATIVE (NEGATIVE); OPIATES URINE NEGATIVE (NEGATIVE); PHENCYCLIDINE URINE NEGATIVE (NEGATIVE)
[2021-11-25 23:17] LABS: CK-MB VALUE MASS < 1.0 NG/ML (<3.6); CPK CREATINE PHOSPHOKINASE 60 U/L (39-308); MB/CK RELATIVE INDEX 1.67 (< OR =4)
[2021-11-26] MEDS ORDERED: BENZ-52 PO (05:33)
[2021-11-26] MEDS ORDERED: MED REC COMMENT (05:34)
[2021-11-26] MEDS ORDERED: HOME MED LIST COMPLETE! XX SCH (05:35)
[2021-11-26] MEDS ORDERED: BENZTROPINE 1 MG TAB PO PRN (06:05)
[2021-11-26] MEDS ORDERED: DEXTROSE 50% 50 ML SYRINGE IV PRN (06:10)
[2021-11-26] MEDS ORDERED: GLUCAGON INJ 1MG VIAL SC PRN (06:10)
[2021-11-26] MEDS ORDERED: GLUCOSE 4GM CHEW TABLET PO PRN (06:10)
[2021-11-26] MEDS ORDERED: NS 1,000 ML IV SCH (06:10)
[2021-11-26] MEDS: SUCRALFATE 1 GM TAB PO SCH ×2 (06:48→17:28)
[2021-11-26 07:55] LABS: BASO # 0.1 10^3/uL (0.0-0.2); BASO % 0.4 % (0.0-1.0); EOS # 0.4 10^3/uL (0.0-0.5); EOS % 3.6 % (0.0-3.0); HEMATOCRIT 36.3 % (42.0-52.0); HEMOGLOBIN 11.9 g/dl (13.5-17.5); LYMPH # 2.5 10^3/uL (1.5-5.0); LYMPH % 21.2 % (24.0-44.0); MEAN CORPUSCULAR HEMOGLOBIN 29.5 pg (27.0-33.0); MEAN CORPUSCULAR HGB CONC 32.8 g/dl (32.0-36.5); MEAN CORPUSCULAR VOLUME 90.1 fl (80.0-96.0); MONO # 1.1 10^3/uL (0.0-0.8); MONO % 9.5 % (2.0-8.0); NEUTROPHILS # 7.8 10^3/uL (1.5-8.5); NEUTROPHILS % 64.7 % (36.0-66.0); PLATELET COUNT, AUTOMATED 275 10^3/uL (150-450); RED BLOOD COUNT 4.03 10^6/uL (4.30-6.10)
[2021-11-26 08:14] LABS: BLOOD UREA NITROGEN 15 MG/DL (7-18); CALCIUM LEVEL 8.9 MG/DL (8.8-10.2); CARBON DIOXIDE LEVEL 22 MEQ/L (21-32); CHLORIDE LEVEL 108 MEQ/L (98-107); CREATININE FOR GFR 0.79 MG/DL (0.70-1.30); GLOMERULAR FILTRATION RATE > 60.0 (>49); GLUCOSE, FASTING 109 MG/DL (70-100); SODIUM LEVEL 138 MEQ/L (136-145)
[2021-11-26] MEDS: INSULIN LISPRO (NovoLOG) PER UNIT SC SCH ×3 (10:46→17:30)
[2021-11-26] MEDS: FERROUS SULFATE 325MG TAB PO SCH (10:56)
[2021-11-26] MEDS: VENLAFAXINE **XR** 75MG CAPSULE PO SCH (10:56)
[2021-11-26] MEDS: PANTOPRAZOLE 40MG TAB (PROTONIX) PO SCH (10:56)
[2021-11-26] MEDS: FOLIC ACID 1MG TAB PO SCH (10:56)
[2021-11-26] MEDS: DOCUSATE SODIUM 100MG CAPSULE PO SCH ×3 (10:56→21:16)
[2021-11-26 12:00] VITALS: BP 115/56
[2021-11-26] MEDS: ATORVASTATIN 20 MG TAB PO SCH (14:05)
[2021-11-26 16:00] VITALS: BP 126/76
[2021-11-26 18:44] VITALS: BP 138/66
[2021-11-26 19:40] VITALS: BP 110/60
[2021-11-26] MEDS ORDERED: traZODone 100 MG TAB PO SCH (21:00)
[2021-11-26] MEDS ORDERED: INSULIN LISPRO (NovoLOG) PER UNIT SC SCH (21:00)
[2021-11-27] VITALS: BP 126/72
[2021-11-27 04:00] VITALS: BP 100/69
[2021-11-27 06:13] LABS: BASO # 0.1 10^3/uL (0.0-0.2); BASO % 0.7 % (0.0-1.0); EOS # 0.8 10^3/uL (0.0-0.5); EOS % 8.4 % (0.0-3.0); HEMATOCRIT 36.9 % (42.0-52.0); HEMOGLOBIN 11.8 g/dl (13.5-17.5); LYMPH % 31.3 % (24.0-44.0); MEAN CORPUSCULAR HEMOGLOBIN 29.6 pg (27.0-33.0); MEAN CORPUSCULAR VOLUME 92.5 fl (80.0-96.0); MONO % 10.7 % (2.0-8.0); NEUTROPHILS # 4.7 10^3/uL (1.5-8.5); NEUTROPHILS % 48.3 % (36.0-66.0); PLATELET COUNT, AUTOMATED 275 10^3/uL (150-450); RED BLOOD COUNT 3.99 10^6/uL (4.30-6.10); WHITE BLOOD COUNT 9.7 10^3/uL (4.0-10.0)
[2021-11-27] MEDS: SUCRALFATE 1 GM TAB PO SCH (06:24)
[2021-11-27 06:35] LABS: BLOOD UREA NITROGEN 16 MG/DL (7-18); CALCIUM LEVEL 8.8 MG/DL (8.8-10.2); CARBON DIOXIDE LEVEL 26 MEQ/L (21-32); CHLORIDE LEVEL 108 MEQ/L (98-107); CREATININE FOR GFR 0.89 MG/DL (0.70-1.30); GLOMERULAR FILTRATION RATE > 60.0 (>49); GLUCOSE, FASTING 98 MG/DL (70-100); MAGNESIUM LEVEL 1.8 MG/DL (1.8-2.4); POTASSIUM SERUM 4.2 MEQ/L (3.5-5.1); SODIUM LEVEL 137 MEQ/L (136-145)
[2021-11-27] MEDS: INSULIN LISPRO (NovoLOG) PER UNIT SC SCH (07:30)
[2021-11-27 07:46] VITALS: BP 137/65
[2021-11-27] MEDS: PANTOPRAZOLE 40MG TAB (PROTONIX) PO SCH (08:45)
[2021-11-27] MEDS: ATORVASTATIN 20 MG TAB PO SCH (08:45)
[2021-11-27] MEDS: FOLIC ACID 1MG TAB PO SCH (08:45)
[2021-11-27] MEDS: VENLAFAXINE **XR** 75MG CAPSULE PO SCH (08:45)
[2021-11-27] MEDS: FERROUS SULFATE 325MG TAB PO SCH (08:45)
[2021-11-27] MEDS: DOCUSATE SODIUM 100MG CAPSULE PO SCH (08:45)
== END 2021-11-27 13:22 | disposition home health service (06) ==
LOC: EDBD 20:21 → M ED 20:21 → M ED INP 20:22 → ENRESERV 11-26 16:55 → M PCU 11-26 18:39
PROVIDERS: ADMIT Internal Medicine; ATTEND Internal Medicine
DX: G93.41 Metabolic encephalopathy (principal); R45.851 Suicidal ideations; E11.9 Type 2 diabetes mellitus without complications; E78.5 Hyperlipidemia, unspecified; E55.9 Vitamin D deficiency, unspecified; D50.9 Iron deficiency anemia, unspecified; F41.9 Anxiety disorder, unspecified; G47.30 Sleep apnea, unspecified; K21.9 Gastro-esophageal reflux disease without esophagitis; Z79.899 Other long term (current) drug therapy; Z79.84 Long term (current) use of oral hypoglycemic drugs; Z88.0 Allergy status to penicillin
CPT/HCPCS: 36415; 36600; 70450; 71045; 80048; 80076; 80143; 80307; 81002; 82077; 82140; 82550; 82553; 82803; 83605; 83735; 83930; 84443; 84484; 85025; 87635; 93005; 93041; 94760; 96361; 96374; 99285; G0378

== ENCOUNTER 2022-02-10 13:21 | Inpatient (IN) | payer MEDICARE, MEDICAID ==
[~2022-02-10] VITALS: Ht 167.6 cm; Wt 83.5 kg
[~2022-02-10 13:21] MED LIST changes: +MED REC COMMENT
[2022-02-10] MEDS ORDERED: LORazepam 2 MG/ML VIAL IV STA ×2 (14:40→16:26)
[2022-02-10 14:43] LABS: BASO # 0.1 10^3/uL (0.0-0.2); BASO % 0.7 % (0.0-1.0); EOS # 0.2 10^3/uL (0.0-0.5); EOS % 2.3 % (0.0-3.0); HEMATOCRIT 40.8 % (42.0-52.0); HEMOGLOBIN 13.4 g/dl (13.5-17.5); LYMPH # 2.5 10^3/uL (1.5-5.0); LYMPH % 25.3 % (24.0-44.0); MEAN CORPUSCULAR HEMOGLOBIN 29.6 pg (27.0-33.0); MEAN CORPUSCULAR HGB CONC 32.8 g/dl (32.0-36.5); MEAN CORPUSCULAR VOLUME 90.1 fl (80.0-96.0); MONO # 0.9 10^3/uL (0.0-0.8); NEUTROPHILS # 6.1 10^3/uL (1.5-8.5); NEUTROPHILS % 62.3 % (36.0-66.0); PLATELET COUNT, AUTOMATED 260 10^3/uL (150-450); RED BLOOD COUNT 4.53 10^6/uL (4.30-6.10); WHITE BLOOD COUNT 9.8 10^3/uL (4.0-10.0)
[2022-02-10] MEDS ORDERED: ACETAMINOPHEN 500 MG TAB PO ONE (14:45)
[2022-02-10 14:52] LABS: VENOUS BASE EXCESS 1.1 (-2.0-2.0); VENOUS HCO3 25.5 MEQ/L (23.0-27.0); VENOUS O2 SATURATION 97.5 % (60.0-80.0); VENOUS PARTIAL PRESSURE O2 102.8 mmHg (30.0-50.0); VENOUS PH 7.423 UNITS (7.330-7.430); VENOUS STANDARD HCO3 25.5 MEQ/L; VENOUS TOTAL CO2 26.8 MEQ/L (24.0-28.0)
[2022-02-10 15:06] LABS: CK-MB VALUE MASS < 1.0 NG/ML (<3.6)
[2022-02-10 15:06] LABS: LIPASE 21 U/L (12-53)
[2022-02-10 15:07] LABS: CPK CREATINE PHOSPHOKINASE 111 U/L (46-171)
[2022-02-10 15:08] LABS: BILIRUBIN,DIRECT 0.1 MG/DL (<0.4)
[2022-02-10 15:09] LABS: ALKALINE PHOSPHATASE 99 U/L (46-116); ALT/SGPT 17 U/L (7.0-40); AST/SGOT 18 U/L (<34); BILIRUBIN,TOTAL 0.3 MG/DL (0.3-1.2); BLOOD UREA NITROGEN 12 MG/DL (9-23); CARBON DIOXIDE LEVEL 25 MMOL/L (20-31); CHLORIDE LEVEL 103 MMOL/L (98-107); CK-MB VALUE MASS < 1.0 NG/ML (<3.6); CREATININE FOR GFR 0.71 MG/DL (0.70-1.30); GLOMERULAR FILTRATION RATE > 60.0 (>49); GLUCOSE, FASTING 112 MG/DL (74-106); POTASSIUM SERUM 4.2 MMOL/L (3.5-5.1); SODIUM LEVEL 139 MMOL/L (136-145); TOTAL PROTEIN 7.4 G/DL (5.7-8.2)
[2022-02-10 15:10] LABS: THYROID STIMULATING HORMONE 0.731 uIU/ML (0.55-4.78)
[2022-02-10 15:11] LABS: FREE T4 0.98 NG/DL (0.89-1.76)
[2022-02-10 15:19] LABS: CPK CREATINE PHOSPHOKINASE 119 U/L (46-171); MB/CK RELATIVE INDEX 0.84 (< OR =4)
[2022-02-10] MEDS ORDERED: ISOVUE-370 76% 100ML VIAL As Ordered ONE (15:56)
[2022-02-10] MEDS: NS 1,000 ML IV SCH (16:10)
[2022-02-10] MEDS ORDERED: HOME MED LIST COMPLETE! XX SCH (17:55)
[2022-02-10] MEDS ORDERED: GLUCAGON INJ 1MG VIAL SC PRN (18:05)
[2022-02-10] MEDS ORDERED: BENZTROPINE 1 MG TAB PO PRN (18:05)
[2022-02-10] MEDS ORDERED: DEXTROSE 50% 50ML SYRINGE IV PRN (18:05)
[2022-02-10] MEDS ORDERED: GLUCOSE 4GM CHEW TABLET PO PRN (18:05)
[2022-02-10 19:19] LABS: AMPHETAMINES LEVEL URINE NEGATIVE (NEGATIVE); BARBITURATES URINE NEGATIVE (NEGATIVE); BENZODIAZEPINES URINE NEGATIVE (NEGATIVE); COCAINE METABOLITE URINE NEGATIVE (NEGATIVE); METHADONE URINE NEGATIVE (NEGATIVE); OPIATES URINE NEGATIVE (NEGATIVE)
[2022-02-10 19:20] LABS: CANNABINOIDS URINE NEGATIVE (NEGATIVE); PHENCYCLIDINE URINE NEGATIVE (NEGATIVE)
[2022-02-10] MEDS ORDERED: LABETALOL 100MG/20ML VIAL IV PRN (20:55)
[2022-02-10] MEDS ORDERED: INSULIN LISPRO (NovoLOG) PER UNIT SC SCH (21:00)
[2022-02-10] MEDS: DOCUSATE SODIUM 100MG CAPSULE PO SCH (21:00)
[2022-02-10] MEDS: SUCRALFATE 1 GM TAB PO SCH (22:15)
[2022-02-10] MEDS: LORazepam 0.5 MG TAB PO PRN (22:16)
[2022-02-10] MEDS: ACETAMINOPHEN TAB 650MG DOSE (2X325MG) PO PRN (22:16)
[2022-02-11 00:37] VITALS: BP 136/70
[2022-02-11] MEDS: NS 1,000 ML IV SCH (02:00)
[2022-02-11 04:00] VITALS: BP 121/66
[2022-02-11 05:21] LABS: BASO # 0.1 10^3/uL (0.0-0.2); BASO % 0.7 % (0.0-1.0); EOS # 0.4 10^3/uL (0.0-0.5); EOS % 4.6 % (0.0-3.0); HEMATOCRIT 38.2 % (42.0-52.0); HEMOGLOBIN 12.3 g/dl (13.5-17.5); LYMPH # 3.2 10^3/uL (1.5-5.0); LYMPH % 34.6 % (24.0-44.0); MEAN CORPUSCULAR HEMOGLOBIN 29.7 pg (27.0-33.0); MEAN CORPUSCULAR HGB CONC 32.2 g/dl (32.0-36.5); MEAN CORPUSCULAR VOLUME 92.3 fl (80.0-96.0); MONO # 0.9 10^3/uL (0.0-0.8); NEUTROPHILS # 4.6 10^3/uL (1.5-8.5); NEUTROPHILS % 49.9 % (36.0-66.0); PLATELET COUNT, AUTOMATED 252 10^3/uL (150-450); RED BLOOD COUNT 4.14 10^6/uL (4.30-6.10); WHITE BLOOD COUNT 9.2 10^3/uL (4.0-10.0)
[2022-02-11] MEDS: LORazepam 0.5 MG TAB PO PRN (05:22)
[2022-02-11 05:48] LABS: BLOOD UREA NITROGEN 13 MG/DL (9-23); CALCIUM LEVEL 9.3 MG/DL (8.3-10.6); CARBON DIOXIDE LEVEL 27 MMOL/L (20-31); CHLORIDE LEVEL 104 MMOL/L (98-107); CREATININE FOR GFR 0.69 MG/DL (0.70-1.30); GLOMERULAR FILTRATION RATE > 60.0 (>49); GLUCOSE, FASTING 104 MG/DL (74-106); POTASSIUM SERUM 4.1 MMOL/L (3.5-5.1); SODIUM LEVEL 140 MMOL/L (136-145)
[2022-02-11] MEDS ORDERED: INSULIN LISPRO (NovoLOG) PER UNIT SC SCH (07:30)
[2022-02-11 08:00] VITALS: BP 91/46
[2022-02-11] MEDS: LORATADINE 10 MG TAB PO SCH (08:02)
[2022-02-11] MEDS: CYANOCOBALAMIN 500 MCG TAB PO SCH (08:02)
[2022-02-11] MEDS: FERROUS SULFATE 325MG TAB PO SCH (08:02)
[2022-02-11] MEDS: SUCRALFATE 1 GM TAB PO SCH ×2 (08:03→20:25)
[2022-02-11] MEDS: ATORVASTATIN 20 MG TAB PO SCH (08:03)
[2022-02-11] MEDS: CALCIUM/VITAMIN D 500 MG TAB PO SCH (08:03)
[2022-02-11] MEDS: DOCUSATE SODIUM 100MG CAPSULE PO SCH ×3 (08:03→20:25)
[2022-02-11] MEDS: FOLIC ACID 1MG TAB PO SCH (08:03)
[2022-02-11] MEDS: ENOXAPARIN 40MG/0.4ML SYRINGE (J1650 PER 10MG) SC SCH (08:04)
[2022-02-11] MEDS: PANTOPRAZOLE 40MG TAB (PROTONIX) PO SCH (08:04)
[2022-02-11 10:23] LABS: HEMOGLOBIN A1c 5.2 % (4.0-6.0)
[2022-02-11 12:00] VITALS: BP 100/52
[2022-02-11] MEDS: VENLAFAXINE **XR** 75MG CAPSULE PO SCH (13:55)
[2022-02-11] MEDS: ACETAMINOPHEN TAB 650MG DOSE (2X325MG) PO PRN ×2 (13:56→20:26)
[2022-02-11] MEDS ORDERED: traZODone 100 MG TAB PO SCH (21:00)
[2022-02-11] MEDS ORDERED: LORazepam 0.5 MG TAB PO PRN (21:00)
[2022-02-12 04:18] VITALS: BP 139/62
[2022-02-12 05:36] LABS: BASO # 0.1 10^3/uL (0.0-0.2); BASO % 0.9 % (0.0-1.0); EOS # 0.5 10^3/uL (0.0-0.5); EOS % 6.3 % (0.0-3.0); HEMATOCRIT 37.7 % (42.0-52.0); HEMOGLOBIN 12.1 g/dl (13.5-17.5); LYMPH # 2.9 10^3/uL (1.5-5.0); MEAN CORPUSCULAR HEMOGLOBIN 29.3 pg (27.0-33.0); MEAN CORPUSCULAR HGB CONC 32.1 g/dl (32.0-36.5); MEAN CORPUSCULAR VOLUME 91.3 fl (80.0-96.0); MONO # 0.9 10^3/uL (0.0-0.8); MONO % 10.7 % (2.0-8.0); NEUTROPHILS # 3.8 10^3/uL (1.5-8.5); NEUTROPHILS % 46.9 % (36.0-66.0); PLATELET COUNT, AUTOMATED 238 10^3/uL (150-450); RED BLOOD COUNT 4.13 10^6/uL (4.30-6.10); WHITE BLOOD COUNT 8.2 10^3/uL (4.0-10.0)
[2022-02-12 06:08] LABS: BLOOD UREA NITROGEN 10 MG/DL (9-23); CALCIUM LEVEL 9.1 MG/DL (8.3-10.6); CARBON DIOXIDE LEVEL 28 MMOL/L (20-31); CHLORIDE LEVEL 104 MMOL/L (98-107); CREATININE FOR GFR 0.74 MG/DL (0.70-1.30); GLOMERULAR FILTRATION RATE > 60.0 (>49); GLUCOSE, FASTING 103 MG/DL (74-106); POTASSIUM SERUM 4.1 MMOL/L (3.5-5.1); SODIUM LEVEL 139 MMOL/L (136-145)
[2022-02-12] MEDS: ATORVASTATIN 20 MG TAB PO SCH (07:57)
[2022-02-12] MEDS: SUCRALFATE 1 GM TAB PO SCH (07:57)
[2022-02-12] MEDS: FERROUS SULFATE 325MG TAB PO SCH (07:58)
[2022-02-12] MEDS: VENLAFAXINE **XR** 75MG CAPSULE PO SCH (07:58)
[2022-02-12] MEDS: PANTOPRAZOLE 40MG TAB (PROTONIX) PO SCH (07:58)
[2022-02-12] MEDS: CYANOCOBALAMIN 500 MCG TAB PO SCH (07:58)
[2022-02-12] MEDS: CALCIUM/VITAMIN D 500 MG TAB PO SCH (07:58)
[2022-02-12] MEDS: FOLIC ACID 1MG TAB PO SCH (07:58)
[2022-02-12] MEDS: DOCUSATE SODIUM 100MG CAPSULE PO SCH (07:58)
[2022-02-12] MEDS: LORATADINE 10 MG TAB PO SCH (07:58)
[2022-02-12] MEDS: ENOXAPARIN 40MG/0.4ML SYRINGE (J1650 PER 10MG) SC SCH (07:59)
[2022-02-12 08:00] VITALS: BP 122/68
[2022-02-12] MEDS ORDERED: ACET650T61 PO (13:19)
== END 2022-02-12 14:25 | disposition home health service (06) | DRG 92 ==
LOC: M ED 13:21 → M ED INP 17:36 → M PCU 20:50
PROVIDERS: ADMIT Internal Medicine; ATTEND Internal Medicine
DX: G24.01 Drug induced subacute dyskinesia (principal); R65.10 Systemic inflammatory response syndrome (SIRS) of non-infectious origin without acute organ dysfunction; R07.89 Other chest pain; E11.9 Type 2 diabetes mellitus without complications; J45.909 Unspecified asthma, uncomplicated; F79 Unspecified intellectual disabilities; E78.5 Hyperlipidemia, unspecified; K21.9 Gastro-esophageal reflux disease without esophagitis; R91.8 Other nonspecific abnormal finding of lung field; M25.512 Pain in left shoulder; G47.33 Obstructive sleep apnea (adult) (pediatric); D50.9 Iron deficiency anemia, unspecified; F25.0 Schizoaffective disorder, bipolar type; F32.A Depression, unspecified; F41.9 Anxiety disorder, unspecified; E55.9 Vitamin D deficiency, unspecified; Z90.49 Acquired absence of other specified parts of digestive tract; Z87.891 Personal history of nicotine dependence; Z79.84 Long term (current) use of oral hypoglycemic drugs; Z79.899 Other long term (current) drug therapy; Z88.0 Allergy status to penicillin; Z20.822 Contact with and (suspected) exposure to COVID-19; Z96.652 Presence of left artificial knee joint

== ENCOUNTER → 2022-03-01 | Outpatient (CLI) | payer MEDICARE, MEDICAID ==
[~2022-03-01] MED LIST changes: +ACET650T61 PO
== END ==
LOC: M SOG 13:36
PROVIDERS: ATTEND Orthopaedic Surgery
DX: M25.512 Pain in left shoulder (principal); M19.012 Primary osteoarthritis, left shoulder

== ENCOUNTER → 2022-03-08 | Outpatient (CLI) | payer MEDICARE, MEDICAID ==
[~2022-03-08] MED LIST changes: -BENZ-52; -BENZ-52 PO; +BENZ1TAB5; +BENZ1TAB5 PO
[2022-03-08 16:41] LABS: PTH INTACT 51.8 PG/ML (18.5-88.0)
[2022-03-08 16:45] LABS: TOTAL 25(OH) VITAMIN D 38.4 NG/ML (20.0-100.0)
== END ==
LOC: M LAB 15:48
PROVIDERS: ATTEND Nurse Practitioner Family
DX: E55.9 Vitamin D deficiency, unspecified (principal); Z79.899 Other long term (current) drug therapy

== ENCOUNTER → 2022-05-03 | Outpatient (REF) | LOC: M LAB 08:23 ==